=== PATIENT | female | born 1945 | race American Indian/Alaskan Native ===

== ENCOUNTER 2018-12-11 19:36 | Inpatient (IN) | payer MEDICARE ==
--- NOTE | 2018-12-11 20:26 | Emergency Department Report ---
ED General Adult HPI - General Chief complaint: Altered Mental Status Stated complaint: RT SHOULDER PAIN Time Seen by Provider: 12/11/18 20:14 Source: patient, family, EMS Mode of arrival: Stretcher Limitations: Altered Mental Status, Physical Limitation - History of Present Illness Initial comments: 73 y.o. female with history of Atrial fibrillation, hypertension, and now and diabetes presents after having fallen complaining of shoulder pain. Patient has had altered mental status per family for the past week as well. Patient had a fall 2 weeks ago onto her right shoulder and complains of pain. Patient went and saw her PCP on Monday and the thought was that this pain was secondary to her arthritis. Family states that patient is beginning to worsen. Family states patient is not on blood thinner therapy. Family denies any subsequent fall since the one the patient had 3 weeks ago. - Related Data Home Medications Medication Instructions Recorded Confirmed Last Taken Carvedilol [Coreg] 25 mg PO BID 04/03/16 12/11/18 12/11/18 Cetirizine HCl 10 mg PO QDAY 04/03/16 12/11/18 12/11/18 Omeprazole 20 mg PO TID 04/03/16 12/11/18 12/11/18 Pentoxifylline 400 mg PO BID 04/03/16 12/11/18 12/11/18 hydrALAZINE [Apresoline TAB] 50 mg PO TID 04/03/16 12/11/18 12/11/18 metFORMIN 1,000 mg PO BIDAC 04/03/16 12/11/18 12/11/18 Previous Rx's Medication Instructions Recorded Last Taken Type methIMAzole [Tapazole] 5 mg PO QDAY #30 tablet 04/05/16 12/11/18 Rx Allergies Allergy/AdvReac Type Severity Reaction Status Date / Time No Known Allergies Allergy Verified 04/02/16 12:35 ED Review of Systems ROS: Stated complaint: RT SHOULDER PAIN Other details as noted in HPI Comment: Patient is altered and cannot complete full ROS Constitutional: denies: chills, fever Eyes: denies: eye pain, eye discharge, vision change ENT: denies: ear pain, throat pain Respiratory: denies: cough, shortness of breath, wheezing Cardiovascular: denies: chest pain, palpitations Endocrine: no symptoms reported Gastrointestinal: denies: abdominal pain, nausea, diarrhea Genitourinary: denies: urgency, dysuria, discharge Musculoskeletal: denies: back pain, joint swelling, arthralgia Skin: denies: rash, lesions Neurological: denies: headache, weakness, paresthesias Psychiatric: denies: anxiety, depression Hematological/Lymphatic: denies: easy bleeding, easy bruising ED Past Medical Hx - Past Medical History Hx Hypertension: Yes Hx Diabetes: Yes Hx Pulmonary Embolism: No Hx Liver Disease: No Hx Renal Disease: No Hx Sickle Cell Disease: No Hx Arthritis: Yes Hx Seizures: No Hx Kidney Stones: No Hx Asthma: Yes Hx COPD: No Hx Tuberculosis: No Hx Dementia: No - Social History Smoking Status: Never Smoker Substance Use Type: None - Medications Home Medications: Home Medications Medication Instructions Recorded Confirmed Last Taken Type Carvedilol [Coreg] 25 mg PO BID 04/03/16 12/11/18 12/11/18 History Cetirizine HCl 10 mg PO QDAY 04/03/16 12/11/18 12/11/18 History Omeprazole 20 mg PO TID 04/03/16 12/11/18 12/11/18 History Pentoxifylline 400 mg PO BID 04/03/16 12/11/18 12/11/18 History hydrALAZINE [Apresoline TAB] 50 mg PO TID 04/03/16 12/11/18 12/11/18 History metFORMIN 1,000 mg PO BIDAC 04/03/16 12/11/18 12/11/18 History methIMAzole [Tapazole] 5 mg PO QDAY #30 tablet 04/05/16 12/11/18 12/11/18 Rx ED Physical Exam - General Limitations: Altered Mental Status, Physical Limitation General appearance: other (awake; uncomfortable; dehydrated) - Head Head exam: Present: atraumatic, normocephalic - Eye Eye exam: Present: other (mild scleral discolaration noted to conjunctival reg ion) - ENT ENT exam: Present: mucous membranes dry - Neck Neck exam: Present: normal inspection - Respiratory Respiratory exam: Present: other (course breath sounds bilaterally). Absent: respiratory distress - Cardiovascular Cardiovascular Exam: Present: regular rate, normal rhythm. Absent: systolic murmur, diastolic murmur, rubs, gallop - GI/Abdominal GI/Abdominal exam: Present: soft, distended (mild), normal bowel sounds - Extremities Exam Extremities exam: Present: normal inspection, other (tenderness in right shoulder with no ecchymosis or laceration present) - Back Exam Back exam: Present: normal inspection - Neurological Exam Neurological exam: Present: alert, oriented X3, CN II-XII intact - Psychiatric Psychiatric exam: Present: normal affect, normal mood - Skin Skin exam: Present: warm, dry, intact, normal color. Absent: rash ED Course Vital Signs 12/11/18 12/11/18 12/11/18 20:02 20:04 20:15 Pulse Rate 90 89 92 H Respiratory 16 15 19 Rate Blood Pressure 168/71 157/73 O2 Sat by Pulse 93 93 Oximetry 12/11/18 12/11/18 12/11/18 20:30 20:48 21:00 Pulse Rate 92 H 92 H 92 H Respiratory 15 28 H 19 Rate Blood Pressure 157/73 139/54 O2 Sat by Pulse 88 91 91 Oximetry 12/11/18 12/11/18 12/11/18 21:15 22:02 22:15 Pulse Rate 88 86 86 Respiratory 43 H 44 H 18 Rate Blood Pressure 139/54 138/55 O2 Sat by Pulse 81 L 89 Oximetry 12/11/18 22:30 Pulse Rate 82 Respiratory 41 H Rate Blood Pressure 138/48 O2 Sat by Pulse 100 Oximetry ED Medical Decision Making - Lab Data Result diagrams: 12/11/18 22:47 12/11/18 22:47 - EKG Data EKG shows normal: sinus rhythm Rate: tachycardia - EKG Data When compared to previous EKG there are: no significant change Interpretation: other (occasional PVC; no ST elevation) - Medical Decision Making Patient initially noted to have an elevated anion gap and a blood sugar of 560. Patient was started on insulin as well as insulin drip. Patient was also given supplemental potassium IV. Patient noted to have a mild elevation of her creatinine as well. Patient to be admitted to the hospitalist service for continued management and treatment. - Differential Diagnosis DKA; Dehydration; electolyte abnormaltiy; Anemia Critical Care Time: Yes Critical care time in (mins) excluding proc time.: 42 Critical care attestation.: If time is entered above; I have spent that time in minutes in the direct care of this critically ill patient, excluding procedure time. Critical care time includes time spent on direct bedside care, physician consultation, and frequent reassessment. ED Disposition Clinical Impression: Altered mental status, DKA (diabetic ketoacidoses), Hypertension, Hypokalemia, Dehydration, Rotator cuff (capsule) sprain, Acute renal failure, Elevation of cardiac enzymes Disposition: OP ADMIT IP TO THIS HOSP Is pt being admited?: Yes Condition: Stable Instructions: Diabetic Ketoacidosis (ED), Hypertension (ED) Time of Disposition: 23:34 Print Language: GREEK
[2018-12-11] MEDS ORDERED: ZOFRAN IV ONE (20:52)
[2018-12-11] MEDS ORDERED: MORPHINE IV ONE (20:52)
[2018-12-11 21:09] LABS: Albumin 2.9 g/dL (3.9-5); Calcium 10.2 mg/dL (8.4-10.2)
[2018-12-11] MEDS ORDERED: NACL 0.9% 1000 ML 1,000 ML IV ONE ×2 (21:17→23:18)
[2018-12-11] MEDS ORDERED: HumuLIN R IV ONE (21:17)
[2018-12-11] MEDS ORDERED: D50W (25GM) Syringe IV PRN (21:18)
--- NOTE | 2018-12-11 21:43 | Cat Scan Report ---
PROCEDURE: CT HEAD/BRAIN WO CON TECHNIQUE: Computerized tomography of the head was performed without contrast material. CT DOSE LENGTH PRODUCT: 1032.6 mGycm HISTORY: altered mental status COMPARISONS: None . FINDINGS: Grossly Limited study due to suboptimal positioning. Cerebral sulci and ventricles are prominent cons istent with cerebral atrophy appropriate for patient's age. An acute intra-axial or extra-axial hemor rhage or mass effect is not identified. Visualized bilateral paranasal sinuses and mastoid air cells are clear. Bones are intact. IMPRESSION: No obvious acute intracranial abnormality. This document is electronically signed by Francisco Charlton MD., December 11 2018 09:41:18 PM ET
[2018-12-11] MEDS: KCL 10MEQ/100ML 10 MEQ/100 ML BAG IV SCH ×2 (22:05→23:26)
--- NOTE | 2018-12-11 22:43 | XRay Report ---
PROCEDURE: XR SHOULDER 2+V RT TECHNIQUE: Right shoulder radiographs, three views. HISTORY: shoulder pain COMPARISONS: None . FINDINGS: Glenohumeral and acromioclavicular alignment are within normal limits. Moderate degree hypertrophic d egenerative changes are noted involving the acromioclavicular joint. There is decreased acromiohumera l interval. An acute fracture is not identified. Soft tissues are normal. 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 A rotator cuff tendon tear is suspected. This document is electronically signed by Francisco Charlton MD., December 11 2018 10:40:44 PM ET
[2018-12-11 23:16] LABS: Calcium 9.8 mg/dL (8.4-10.2)
[2018-12-11 23:17] LABS: Hematocrit 28.8 % (30.3-42.9); Hemoglobin 9.3 gm/dl (10.1-14.3); Mean Corpuscular HGB Conc 32 % (30-34); Mean Corpuscular Volume 93 fl (79-97); Platelet Count 194 K/mm3 (140-440); Red Cell Distribution Width 17.2 % (13.2-15.2)
--- NOTE | 2018-12-11 23:23 | XRay Report ---
PROCEDURE: XR CHEST 1V AP TECHNIQUE: Chest radiograph single view. HISTORY: chest pain COMPARISONS: None . FINDINGS: Heart: Normal. Mediastinum/Vessels: Normal. Lungs/Pleural space: Normal. Bony thorax: No acute osseous abnormality. Life support devices: None. IMPRESSION: No acute cardiopulmonary abnormality. This document is electronically signed by Majo Urbina DO., December 11 2018 11:21:10 PM ET
[2018-12-11 23:27] LABS: Amorphous Crystals,Urine Few; Bilirubin,Urine NEG (Negative); Blood,Urine NEG (Negative)
[2018-12-11 23:28] LABS: Color,Urine Dark Yellow (Yellow)
[2018-12-12] MEDS ORDERED: MAGNESIUM SULFATE 2GM/50ML 2 GM/50 ML BAG IV ONE (00:07)
[2018-12-12] MEDS ORDERED: NACL 0.9% IV ONE (00:10)
[2018-12-12] MEDS ORDERED: KPHOS IV ONE (00:10)
[2018-12-12] MEDS ORDERED: MAGNESIUM SULFATE IV ONE (00:10)
[2018-12-12] MEDS: KCL 10MEQ/100ML 10 MEQ/100 ML BAG IV SCH ×5 (00:28→09:42)
[2018-12-12 00:38] LABS: Basophils % (Manual) 0 % (0.0-1.8); Eosinophils % (Manual) 0 % (0.0-4.3); Large Platelets 1+; Platelet Clumps Few; Total Cells Counted 100
[2018-12-12 00:39] LABS: Platelet Estimate Consistent w Auto; RBC Morphology Normal
[2018-12-12] MEDS ORDERED: NACL 0.9% 1000 ML 1,000 ML IV SCH ×2 (01:00→04:00)
[2018-12-12 02:31] LABS: Calcium 9.8 mg/dL (8.4-10.2)
[2018-12-12] MEDS ORDERED: D50W (25GM) Syringe IV PRN ×3 (02:38→08:11)
[2018-12-12] MEDS ORDERED: ZOFRAN IV PRN (02:48)
[2018-12-12] MEDS ORDERED: KCL 10MEQ/100ML 10 MEQ/100 ML BAG IV SCH (03:00)
[2018-12-12] MEDS ORDERED: HumuLIN R 100 UNITS in NACL 0.9% 99 ML IV SCH (03:00)
[2018-12-12] MEDS ORDERED: HumuLIN R ONE (03:25)
[2018-12-12] MEDS: MORPHINE IV PRN ×4 (03:31→21:23)
[2018-12-12] MEDS ORDERED: HumuLIN R SUB-Q ONE (03:34)
[2018-12-12 06:23] LABS: Calcium 9.7 mg/dL (8.4-10.2)
[2018-12-12] MEDS ORDERED: MAGNESIUM SULFATE 4GM/100ML 4 GM/100 ML BAG IV ONE (07:00)
[2018-12-12] MEDS ORDERED: HumuLIN R IV ONE (07:00)
--- NOTE | 2018-12-12 07:10 | History and Physical Report ---
CHIEF COMPLAINT: Altered mental status. OTHER COMPLAINT: Right shoulder pain. HISTORY OF PRESENT ILLNESS: The patient is a 73-year-old female, who was noted by family to be confused going on for about 1 week and the patient was also noted to have falling down about 2 weeks ago with right shoulder pain and went and saw her primary care doctor where the patient's pain was attributed to a possible arthritis, but the patient's pain persisted. The patient again fell down and the family was worried about her change in mental status and brought her to the Emergency Room. There was no complaint of chest pain, no history of fever or chills, also there was no history of nausea or vomiting or cough. PAST MEDICAL HISTORY: The patient's past medical history is pertinent for hypertension, diabetes mellitus, arthritis, asthma. PAST SURGICAL HISTORY: Noncontributory. FAMILY HISTORY: Family history is noncontributory. SOCIAL HISTORY: The patient does not smoke, does not drink alcohol, and does not use illicit drugs. MEDICATIONS: The patient is on Coreg or carvedilol 25 mg by mouth twice daily, cetirizine hydrochloride 10 mg by mouth daily, omeprazole 20 mg by mouth t.i.d., pentoxifylline 400 mg by mouth twice daily, hydralazine 50 mg by mouth 3 times daily, metformin 1000 mg by mouth b.i.d. and a.c., also, the patient is on methimazole 5 mg by mouth daily. ALLERGIES: There are no known drug allergies. REVIEW OF SYSTEMS: CONSTITUTIONAL: There is no fever, no chills. No diaphoresis HEENT: There is no headache or sore throat. CARDIOVASCULAR SYSTEM: There is no chest pain or orthopnea. RESPIRATORY SYSTEM: There is no shortness of breath or cough. GASTROINTESTINAL SYSTEM: There is no nausea, no vomiting, no abdominal pain, diarrhea or constipation. NEUROLOGICAL SYSTEM: Change in mental status noted. MUSCULOSKELETAL SYSTEM: There is pain in the right shoulder joint area. DERMATOLOGICAL SYSTEM: There is no skin rash or itching. GENITOURINARY SYSTEM: There is no dysuria, hematuria or flank pain. Rest of system review is normal. PHYSICAL EXAMINATION: GENERAL: At the time of exam, the patient was found to be alert, disoriented 3 and not in acute distress. VITAL SIGNS: At the initial time of presentation showed normal temperature, pulse of 90, respiration 16, blood pressure 168/71, O2 sat of 93% on room air. HEENT: Shows pupils to be equal, round, and reactive to light and accommodating. Extraocular muscles are intact. Oral mucosa looks dry. NECK: Supple with no JVD or carotid bruit. CARDIOVASCULAR SYSTEM: Show normal first and second heart sounds with no gallops or murmurs. RESPIRATORY SYSTEM: Showed good air entry on both sides of the lung with no abnormal breath sounds. GASTROINTESTINAL SYSTEM: Show abdomen to be full, soft, nontender with no organomegaly or rigidity. NEUROLOGIC: Shows no focal deficit. MUSCULOSKELETAL SYSTEM: Show no joint swelling or tenderness. DERMATOLOGIC SYSTEM: Show no skin rash. GENITOURINARY SYSTEM: Showing no costovertebral angle tenderness. PERTINENT LABORATORY DATA AND IMAGING STUDIES: The patient had CT of the head without contrast done that shows no obvious acute intracranial abnormality. The patient also had chest x-ray done. Chest x-ray shows no acute cardiopulmonary lesion and the patient had x-ray of the right shoulder done that shows moderate degree of osteoarthritis in the right acromioclavicular joint with decreased acromiohumeral interval where there is suspicion for rotator cuff tendon tear. Lab results: The patient has CBC done with elevated white count of 18,500 with low hemoglobin of 9.3 and low hematocrit of 28.8 with CBC differential showing elevated segmented neutrophil count of 92%. The patient's chemistry showed low sodium of 133, low potassium of 2.4, low chloride level of 91.7 with elevated BUN of 51 and elevated creatinine of 1.6 with high blood glucose of 436 and low phosphorus level of 1.5 with low magnesium level of 1.2 and elevated bilirubin of 2.1. The patient's troponin level is also high with a value of 0.038 and lipid panel showed high triglyceride of 173. The patient's urinalysis showed trace ketone and the patient's anion gap was 19.3. DIAGNOSES: 1. Altered mental status. 2. Diabetic ketoacidosis. 3. Acute kidney injury. 4. Low magnesium and phosphorus. 5. Elevated troponin level. PLAN OF CARE: 1. The patient will be admitted to ICU. 2. The patient will started on a DKA protocol and will be on IV normal saline running at about 200 mL and hour with an insulin drip going, 3. The patient will be on IV potassium chloride replacement as ordered in the Emergency Room. 4. The patient will be on IV k, phosphorus and magnesium to replace the low magnesium and phosphorus level. 5. The patient will have critical care consult with Dr. Palencia for ICU admission because of need for IV insulin drip. 6. The patient will have cardiac enzyme involving troponin, total CK and CK-MB checked serially for 2 levels. 7. The patient will be on IV Zofran 4 mg every 8 hours for nausea and vomiting and we will have Accu-Chek every and basic metabolic panel checked every 8 hours according to DKA protocol. 8. The patient's IV fluid will be changed to D5 half normal with 20 mEq of potassium in 1 liter when the blood sugar is less than 250 mg/dL. 9. The patient will be on IV morphine 2 mg every 4 hours as needed for pain. 10. The patient will be on oxygen by nasal cannula at 2 liters per minute. 11. The patient will have Nephrology consult with Dr. Mohamud for management of acute kidney injury. JOB# [id number] OCN/NTS
[2018-12-12 08:01] LABS: Calcium 9.6 mg/dL (8.4-10.2)
--- NOTE | 2018-12-12 08:43 | Progress Note ---
Assessment and Plan Assessment and plan: Patient is a 73 yo woman with a history of NIDDM, OA, ARF, CKD 3 with baseline Creatinine around 1.2, depression, hypertension, hyperthyroidism and GERD who presented to [facility] ED with AMS. She was found to have ARF, Creatinine 1.6, hyponatremia 133, hyperglycemia at 529, hypomagnesemia at 1.3 and severe h ypokalemia at 2.4 with no diuretics listed on home medications. She was admitted to ICU for DKA needing insulin drip but it was never started due to hypokalemia and now the anion gap has closed. Looking back at old records here, she had a similar presentation in 2016. She never had Urine drug screen or serum alcohol level checked. -Acute metabolic encephalopathy, CT head negative: get UDS and serum ETOH levels, supportive care and investigate underlying cause, place dobhuff -Severe hypokalemia: consult IV team for midline to give more potassium supplementation -Hypomagnesemia: replete and monitor closely -Hyperthyroidism, slightly elevated free T4: hold tapezole -Moderate malnutrition with morbid obesity: consult Zoo Director, place Dobhuff with placement confirmation -Elevated troponin at 0.038, suspect related to renal failure: get another set of Troponin and if worsen consult Cardiology, ordered ECHO -ARF/CKD 3, vasomotor nephropathy: treat with IVF, and repeat level, if worsen consult Nephrology and get renal ultrasound -Type 2 NIDDM with HONK: added SSI -Leukocytosis with UA negative for UTI and pCXr negative for infiltrates, most likely reactive: get blood cultures. -Anemia, appears acute from 2016 records: get FOBT and monitor cbc closely -Hypertension on coreg and hydralazine: continue, on NSS due to the hyponatremia Home reconciliation completed, reason for the Pentoxifylline unclear, will ask when he back from his hemodialysis DVT ppx on sq heparin CCT 32 minutes History Interval history: Patient was seen and examined. Follow-up on current diagnosis of AMS, still present. Overnight uneventful. Imaging, nursing note, chart, labs and old chart reviewed. Discussed with nursing. Hospitalist Physical - Physical exam Narrative exam: Gen: ill appearing NAD, Awake, Orientated HEENT: NCAT, EOMI, PERRL, OP Clear Neck: supple, no adenopathy, no thyromegaly, no JVD CVS/Heart: RRR, normal S1S2, pulses present bilaterally Chest/Lungs: CTA B, Symmetrical chest expansion, good air entry bilaterally GI/Abdomen: soft, NTND, good bowel sounds, no guarding or rebound /Bladder: no suprapubic tenderness, no CVA or paraspinal tenderness Extermity/Skin: no c/c/e, no obvious rash MSK: FROM x 4 Neuro: CN 2-12 grossly intact, no new focal deficits Psych: confused - Constitutional Vitals: Temp Pulse Resp BP Pulse Ox 99.7 F H 90 13 150/57 94 12/12/18 04:00 12/12/18 07:10 12/12/18 07:28 12/12/18 07:10 12/12/18 07:10 Results - Labs CBC & Chem 7: 12/11/18 22:47 12/12/18 07:33 Labs: Laboratory Last Values WBC 18.5 K/mm3 (4.5-11.0) H 12/11/18 22:47 RBC 3.10 M/mm3 (3.65-5.03) L 12/11/18 22:47 Hgb 9.3 gm/dl (10.1-14.3) L 12/11/18 22:47 Hct 28.8 % (30.3-42.9) L 12/11/18 22:47 MCV 93 fl (79-97) 12/11/18 22:47 MCH 30 pg (28-32) 12/11/18 22:47 MCHC 32 % (30-34) 12/11/18 22:47 RDW 17.2 % (13.2-15.2) H 12/11/18 22:47 Plt Count 194 K/mm3 (140-440) 12/11/18 22:47 Lymph % (Auto) [employer] 12/11/18 22:47 Dolores % (Auto) [employer]icer [employer] 12/11/18 22:47 Eos % (Auto) [employer]icer [employer] 12/11/18 22:47 Baso % (Auto) [employer]icer [employer] 12/11/18 22:47 Lymph # [employer]icer [employer] 12/11/18 22:47 Dolores # Deicer [employer] 12/11/18 22:47 Eos # Deicer [employer] 12/11/18 22:47 Baso # Deicer [employer] 12/11/18 22:47 Add Manual Diff Complete 12/11/18 22:47 Total Counted 100 12/11/18 22:47 Seg Neutrophils % Deicer [employer] 12/11/18 22:47 Seg Neuts % (Manual) 92.0 % (40.0-70.0) H 12/11/18 22:47 Band Neutrophils % 0 % 12/11/18 22:47 Lymphocytes % (Manual) 4.0 % (13.4-35.0) L 12/11/18 22:47 Reactive Lymphs % (Man) 0 % 12/11/18 22:47 Monocytes % (Manual) 3.0 % (0.0-7.3) 12/11/18 22:47 Eosinophils % (Manual) 0 % (0.0-4.3) 12/11/18 22:47 Basophils % (Manual) 0 % (0.0-1.8) 12/11/18 22:47 Metamyelocytes % 1.0 % 12/11/18 22:47 Myelocytes % 0 % 12/11/18 22:47 Promyelocytes % 0 % 12/11/18 22:47 Blast Cells % 0 % 12/11/18 22:47 Nucleated RBC % 2.0 % (0.0-0.9) H 12/11/18 22:47 Seg Neutrophils # Deicer [employer] 12/11/18 22:47 Seg Neutrophils # Man 17.0 K/mm3 (1.8-7.7) H 12/11/18 22:47 Band Neutrophils # 0.0 K/mm3 12/11/18 22:47 Lymphocytes # (Manual) 0.7 K/mm3 (1.2-5.4) L 12/11/18 22:47 Abs React Lymphs (Man) 0.0 K/mm3 12/11/18 22:47 Monocytes # (Manual) 0.6 K/mm3 (0.0-0.8) 12/11/18 22:47 Eosinophils # (Manual) 0.0 K/mm3 (0.0-0.4) 12/11/18 22:47 Basophils # (Manual) 0.0 K/mm3 (0.0-0.1) 12/11/18 22:47 Metamyelocytes # 0.2 K/mm3 12/11/18 22:47 Myelocytes # 0.0 K/mm3 12/11/18:47 Promyelocytes # 0.0 K/mm3 12/11/18 22:47 Blast Cells # 0.0 K/mm3 12/11/18 22:47 WBC Morphology Not Reportable 12/11/18 22:47 Hypersegmented Neuts Not Reportable 12/11/18 22:47 Hyposegmented Neuts Not Reportable 12/11/18 22:47 Hypogranular Neuts Not Reportable 12/11/18 22:47 Smudge Cells Not Reportable 12/11/18 22:47 Toxic Granulation Not Reportable 12/11/18 22:47 Toxic Vacuolation Not Reportable 12/11/18 22:47 Dohle Bodies Not Reportable 12/11/18 22:47 Pelger-Huet Anomaly Not Reportable 12/11/18 22:47 Starla Rods Not Reportable 12/11/18 22:47 Platelet Estimate Consistent w auto 12/11/18 22:47 Clumped Platelets Few 12/11/18 22:47 Plt Clumps, EDTA Not Reportable 12/11/18 22:47 Large Platelets 1+ 12/11/18 22:47 Giant Platelets Not Reportable 12/11/18 22:47 Platelet Satelliting Not Reportable 12/11/18 22:47 Plt Morphology Comment Not Reportable 12/11/18 22:47 RBC Morphology Normal 12/11/18 22:47 Dimorphic RBCs Not Reportable 12/11/18 22:47 Polychromasia Not Reportable 12/11/18 22:47 Hypochromasia Not Reportable 12/11/18 22:47 Poikilocytosis Not Reportable 12/11/18 22:47 Anisocytosis Not Reportable 12/11/18 22:47 Microcytosis Not Reportable 12/11/18 22:47 Macrocytosis Not Reportable 12/11/18 22:47 Spherocytes Not Reportable 12/11/18 22:47 Pappenheimer Bodies Not Reportable 12/11/18 22:47 Sickle Cells Not Reportable 12/11/18 22:47 Target Cells Not Reportable 12/11/18 22:47 Tear Drop Cells Not Reportable 12/11/18 22:47 Ovalocytes Not Reportable 12/11/18 22:47 Helmet Cells Not Reportable 12/11/18 22:47 [place] Bodies Not Reportable 12/11/18 22:47 [place] Rings Not Reportable 12/11/18 22:47 Hilton Cells Not Reportable 12/11/18 22:47 Bite Cells Not Reportable 12/11/18 22:47 Crenated Cell Not Reportable 12/11/18 22:47 Elliptocytes Not Reportable 12/11/18 22:47 Acanthocytes (Spur) Not Reportable 12/11/18 22:47 Rouleaux Not Reportable 12/11/18 22:47 Hemoglobin C Crystals Not Reportable 12/11/18 22:47 Schistocytes Not Reportable 12/11/18 22:47 Malaria parasites Not Reportable 12/11/18 22:47 Dawson Bodies Not Reportable 12/11/18 22:47 Hem Pathologist Commnt No 12/11/18 22:47 POC ABG pH 7.420 (7.35-7.45) 12/11/18 23:14 POC ABG pCO2 39.6 (35-45) 12/11/18 23:14 POC ABG pO2 84 (80-105) 12/11/18 23:14 POC ABG HCO3 25.7 (22-26 mml/L) 12/11/18 23:14 POC ABG Total CO2 27 (23-27mmol/L) 12/11/18 23:14 POC ABG O2 Sat 97 12/11/18 23:14 POC ABG Base Excess 1 ((-2) - (+3)mmol/L) 12/11/18 23:14 FiO2 32 % 12/11/18 23:14 Sodium 135 mmol/L (137-145) L 12/12/18 07:33 Potassium 2.5 mmol/L (3.6-5.0) L* 12/12/18 07:33 Chloride 98.1 mmol/L (98-107) 12/12/18 07:33 Carbon Dioxide 24 mmol/L (22-30) 12/12/18 07:33 Anion Gap 15 mmol/L 12/12/18 07:33 BUN 45 mg/dL (7-17) H 12/12/18 07:33 Creatinine 1.2 mg/dL (0.7-1.2) 12/12/18 07:33 Estimated GFR 53 ml/min 12/12/18 07:33 BUN/Creatinine Ratio 38 % 12/12/18 07:33 Glucose 358 mg/dL (65-100) H 12/12/18 07:33 POC Glucose 286 (70-105) H 12/12/18 08:02 Calcium 9.6 mg/dL (8.4-10.2) 12/12/18 07:33 Phosphorus 2.50 mg/dL (2.5-4.5) D 12/12/18 05:20 Magnesium 1.70 mg/dL (1.7-2.3) 12/12/18 07:33 Total Bilirubin 2.10 mg/dL (0.1-1.2) H 12/11/18 20:34 AST 25 units/L (5-40) 12/11/18 20:34 ALT 27 units/L (7-56) 12/11/18 20:34 Alkaline Phosphatase 215 units/L (35-129) H 12/11/18 20:34 Ammonia 19.0 umol/L (25-60) L 12/11/18 21:04 Total Creatine Kinase 44 units/L (30-135) 12/12/18 07:33 Troponin T 0.038 ng/mL (0.00-0.029) H 12/11/18 20:34 Total Protein 6.2 g/dL (6.3-8.2) L 12/11/18 20:34 Albumin 2.9 g/dL (3.9-5) L 12/11/18 20:34 Albumin/Globulin Ratio 0.9 % 12/11/18 20:34 Triglycerides 173 mg/dL (2-149) H 12/11/18 20:34 Cholesterol 95 mg/dL (50-199) 12/11/18 20:34 LDL Cholesterol Direct 16 mg/dL (50-130) L 12/11/18 20:34 HDL Cholesterol 19 mg/dL (40-59) L 12/11/18 20:34 Cholesterol/HDL Ratio 5.00 % 12/11/18 20:34 TSH 0.447 mlU/mL (0.270-4.200) 12/11/18 21:04 Thyroxine (T4) 5.3 ug/dL (4.0-12.0) 12/11/18 21:04 Urine Color Dark yellow (Yellow) 12/11/18 23:06 Urine Turbidity Clear (Clear) 12/11/18 23:06 Urine pH 5.0 (5.0-7.0) 12/11/18 23:06 Ur Specific [place] 1.021 (1.003-1.030) 12/11/18 23:06 Urine Protein 100 mg/dl mg/dL (Negative) 12/11/18 23:06 Urine Glucose (UA) >=500 mg/dL (Negative) 12/11/18 23:06 Urine Ketones Tr mg/dL (Negative) 12/11/18 23:06 Urine Blood Neg (Negative) 12/11/18 23:06 Urine Nitrite Neg (Negative) 12/11/18 23:06 Urine Bilirubin Neg (Negative) 12/11/18 23:06 Urine Urobilinogen 4.0 mg/dL (<2.0) 12/11/18 23:06 Ur Leukocyte Esterase Neg (Negative) 12/11/18 23:06 Urine WBC (Auto) 1.0 /HPF (0.0-6.0) 12/11/18 23:06 Urine RBC (Auto) 2.0 /HPF (0.0-6.0) 12/11/18 23:06 U Epithel Cells (Auto) 1.0 /HPF (0-13.0) 12/11/18 23:06 Amorphous Crystals Few 12/11/18 23:06 Active Medications - Current Medications Current Medications: Generic Name Dose Route Start Last Admin Trade Name Freq PRN Reason Stop Dose Admin Carvedilol 25 mg 12/12/18 10:00 Coreg PO BID AMANDEEP Dextrose 50 ml 12/12/18 08:11 D50w (25gm) Syringe IV PRN PRN Hypoglycemia Heparin Sodium (Porcine) 5,000 unit 12/12/18 10:00 Heparin SUB-Q Q12HR [facility] Hydralazine HCl 50 mg 12/12/18 09:00 Apresoline PO TID AMANDEEP Magnesium Sulfate 4 gm in 100 mls @ 25 mls/hr 12/12/18 07:00 Magnesium Sulfate 4gm/100ml IV 12/12/18 10:59 ONCE ONE Potassium Chloride 10 meq in 100 mls @ 100 mls/hr 12/12/18 07:00 12/12/18 08:23 Kcl 10meq/100ml IV 12/12/18 16:59 100 mls/hr Q1H AMANDEEP Administration Potassium Chloride 20 meq/ 1,010 mls @ 100 mls/hr 12/12/18 09:00 Sodium Chloride IV DIRECT [facility] Insulin Human Lispro 0 unit 12/12/18 09:00 Humalog SUB-Q Q4H [facility] Protocol Loratadine 10 mg 12/12/18 10:00 Claritin PO DAILY [facility] Morphine Sulfate 2 mg 12/12/18 02:48 12/12/18 07:28 Morphine IV 2 mg Q4H PRN Administration Pain, Moderate (4-6) Ondansetron HCl 4 mg 12/12/18 02:48 Zofran IV Q8H PRN Nausea And Vomiting
[2018-12-12] MEDS ORDERED: NACL 0.9% 1000 ML 1,000 ML with KCL 20 MEQ IV SCH (09:00)
[2018-12-12] MEDS: HEPARIN SUB-Q SCH (09:22)
[2018-12-12] MEDS: HumaLOG SUB-Q SCH ×4 (09:26→21:25)
--- NOTE | 2018-12-12 09:27 | XRay Report ---
AP ABDOMEN: HISTORY: Dobbhoff placement. The distal tip of the Dobbhoff tube terminates in the body of the stomach. The abdominal gas pattern is unremarkable. No masses or organomegaly is identified and there is no gross evidence of free air or fluid. No significant soft tissue calcifications are noted. IMPRESSION: Unremarkable abdomen.
[2018-12-12 09:32] LABS: Creatine Kinase MB 1.1 ng/mL (0.0-4.0)
[2018-12-12] MEDS ORDERED: POTASSIUM CHLORIDE FEEDTUBE SCH (10:00)
[2018-12-12] MEDS: COREG PO SCH ×2 (10:27→22:28)
[2018-12-12] MEDS: CLARITIN PO SCH (10:28)
[2018-12-12] MEDS: APRESOLINE PO SCH ×3 (10:28→21:26)
[2018-12-12] MEDS: TYLENOL PO PRN ×2 (10:38→21:25)
--- NOTE | 2018-12-12 11:21 | Consultation ---
History of Present Illness - Reason for Consult Consult date: 12/12/18 Altered mental State, DKA, Severe Electrolyte Imbalance - History of Present Illness 73 y/o morbidly obese female admitted with elevated blood sugar and severe hypokalemia and hypomagnesium. There was concern for DKA but patient not started on Insulin gtt secondary to low K. Anion Gap is now closed but potassium remains extremely low despite supplementation. No arrhythmias noted so far. Replacing K and Mag aggressively. Patient will respond to her name but will not answer any questions appropriately. She yells out but nothing is specific. No family is currently at bedside. Patient was not febrile on admission but has since spiked a temp of 102.5. Patient not currently on abx as well. She does have some ulcers on her legs but these do not look infected. No rashes. CXR is clear. Urine is negative. Remainder is not obtainable for review. Past History Past Medical History: other (unable to obtain) Past Surgical History: Other (unable to obtain) Social history: , other (unable to obtain) Family history: other (unable to obtain) Medications and Allergies Allergies Allergy/AdvReac Type Severity Reaction Status Date / Time No Known Allergies Allergy Verified 04/02/16 12:35 Home Medications Medication Instructions Recorded Confirmed Last Taken Type Carvedilol [Coreg] 25 mg PO BID 04/03/16 12/11/18 12/11/18 History Cetirizine HCl 10 mg PO QDAY 04/03/16 12/11/18 12/11/18 History Omeprazole 20 mg PO TID 04/03/16 12/11/18 12/11/18 History Pentoxifylline 400 mg PO BID 04/03/16 12/11/18 12/11/18 History hydrALAZINE [Apresoline TAB] 50 mg PO TID 04/03/16 12/11/18 12/11/18 History metFORMIN 1,000 mg PO BIDAC 04/03/16 12/11/18 12/11/18 History methIMAzole [Tapazole] 5 mg PO QDAY #30 tablet 04/05/16 12/11/18 12/11/18 Rx Active Meds: Active Medications Acetaminophen (Tylenol) 650 mg PO Q4H PRN PRN Reason: Fever >101 Last Admin: 12/12/18 10:38 Dose: 650 mg Documented by: Carvedilol (Coreg) 25 mg PO BID [facility] Last Admin: 12/12/18 10:27 Dose: 25 mg Documented by: Dextrose (D50w (25gm) Syringe) 50 ml IV PRN PRN PRN Reason: Hypoglycemia Haloperidol Lactate (Haldol) 5 mg IV ONCE ONE Stop: 12/12/18 12:01 Heparin Sodium (Porcine) (Heparin) 5,000 unit SUB-Q Q12HR [facility] Last Admin: 12/12/18 09:22 Dose: 5,000 unit Documented by: Hydralazine HCl (Apresoline) 50 mg PO TID [facility] Last Admin: 12/12/18 10:28 Dose: 50 mg Documented by: Sodium Chloride (Nacl 0.9% 1000 Ml) 1,000 mls @ 125 mls/hr IV DIRECT [facility] Insulin Human Lispro (Humalog) 0 unit SUB-Q Q4H [facility]; Protocol Last Admin: 12/12/18 09:26 Dose: 6 unit Documented by: Loratadine (Claritin) 10 mg PO DAILY [facility] Last Admin: 12/12/18 10:28 Dose: 10 mg Documented by: Morphine Sulfate (Morphine) 2 mg IV Q4H PRN PRN Reason: Pain, Moderate (4-6) Last Admin: 12/12/18 07:28 Dose: 2 mg Documented by: Ondansetron HCl (Zofran) 4 mg IV Q8H PRN PRN Reason: Nausea And Vomiting Potassium Chloride (Potassium Chloride) 40 meq FEEDTUBE Q2H [facility] Stop: 12/12/18 14:01 Review of Systems ROS unobtainable: due to mental status Exam - Constitutional Vitals: Temp Pulse Resp BP Pulse Ox 99.7 F H 83 43 H 142/64 93 12/12/18 04:00 12/12/18 10:27 12/12/18 09:50 12/12/18 10:27 12/12/18 09:50 General appearance: Present: no acute distress, obese - EENT ENT: hearing intact, other (dry mucosa) - Respiratory Respiratory effort: normal Respiratory: bilateral: CTA - Cardiovascular Rhythm: regular Heart Sounds: Present: S1 & S2 - Extremities Extremities: no ischemia Extremity abnormal: ulceration (on ventral right leg) Results - Labs CBC & Chem 7: 12/11/18 22:47 12/12/18 07:33 Labs: Abnormal lab results 12/11/18 12/11/18 12/11/18 Range/Units 20:09 20:34 20:34 WBC (4.5-11.0) K/mm3 RBC (3.65-5.03) M/mm3 Hgb (10.1-14.3) gm/dl Hct (30.3-42.9) % RDW (13.2-15.2) % Seg Neuts % (Manual) (40.0-70.0) % Lymphocytes % (Manual) (13.4-35.0) % Nucleated RBC % (0.0-0.9) % Seg Neutrophils # Man (1.8-7.7) K/mm3 Lymphocytes # (Manual) (1.2-5.4) K/mm3 Sodium 134 L (137-145) mmol/L Potassium 2.9 L* (3.6-5.0) mmol/L Chloride 88.1 L (98-107) mmol/L BUN 50 H (7-17) mg/dL Creatinine 1.4 H (0.7-1.2) mg/dL Glucose 529 H* (65-100) mg/dL POC Glucose 445 H (70-105) Phosphorus (2.5-4.5) mg/dL Magnesium (1.7-2.3) mg/dL Total Bilirubin 2.10 H (0.1-1.2) mg/dL Alkaline Phosphatase 215 H (35-129) units/L Ammonia (25-60) umol/L Troponin T 0.038 H (0.00-0.029) ng/mL Total Protein 6.2 L (6.3-8.2) g/dL Albumin 2.9 L (3.9-5) g/dL Triglycerides 173 H (2-149) mg/dL LDL Cholesterol Direct 16 L (50-130) mg/dL HDL Cholesterol 19 L (40-59) mg/dL 12/11/18 12/11/18 12/11/18 Range/Units 21:04 22:47 22:47 WBC 18.5 H (4.5-11.0) K/mm3 RBC 3.10 L (3.65-5.03) M/mm3 Hgb 9.3 L (10.1-14.3) gm/dl Hct 28.8 L (30.3-42.9) % RDW 17.2 H (13.2-15.2) % Seg Neuts % (Manual) 92.0 H (40.0-70.0) % Lymphocytes % (Manual) 4.0 L (13.4-35.0) % Nucleated RBC % 2.0 H (0.0-0.9) % Seg Neutrophils # Man 17.0 H (1.8-7.7) K/mm3 Lymphocytes # (Manual) 0.7 L (1.2-5.4) K/mm3 Sodium (137-145) mmol/L Potassium (3.6-5.0) mmol/L Chloride (98-107) mmol/L BUN (7-17) mg/dL Creatinine (0.7-1.2) mg/dL Glucose (65-100) mg/dL POC Glucose (70-105) Phosphorus 1.50 L (2.5-4.5) mg/dL Magnesium 1.30 L (1.7-2.3) mg/dL Total Bilirubin (0.1-1.2) mg/dL Alkaline Phosphatase (35-129) units/L Ammonia 19.0 L (25-60) umol/L Troponin T (0.00-0.029) ng/mL Total Protein (6.3-8.2) g/dL Albumin (3.9-5) g/dL Triglycerides (2-149) mg/dL LDL Cholesterol Direct (50-130) mg/dL HDL Cholesterol (40-59) mg/dL 12/11/18 12/12/18 12/12/18 Range/Units 22:47 00:47 01:57 WBC (4.5-11.0) K/mm3 RBC (3.65-5.03) M/mm3 Hgb (10.1-14.3) gm/dl Hct (30.3-42.9) % RDW (13.2-15.2) % Seg Neuts % (Manual) (40.0-70.0) % Lymphocytes % (Manual) (13.4-35.0) % Nucleated RBC % (0.0-0.9) % Seg Neutrophils # Man (1.8-7.7) K/mm3 Lymphocytes # (Manual) (1.2-5.4) K/mm3 Sodium 133 L 134 L (137-145) mmol/L Potassium 2.4 L* 2.8 L* (3.6-5.0) mmol/L Chloride 91.7 L 93.8 L (98-107) mmol/L BUN 51 H 50 H (7-17) mg/dL Creatinine 1.6 H 1.5 H (0.7-1.2) mg/dL Glucose 436 H 429 H (65-100) mg/dL POC Glucose 442 H (70-105) Phosphorus (2.5-4.5) mg/dL Magnesium (1.7-2.3) mg/dL Total Bilirubin (0.1-1.2) mg/dL Alkaline Phosphatase (35-129) units/L Ammonia (25-60) umol/L Troponin T (0.00-0.029) ng/mL Total Protein (6.3-8.2) g/dL Albumin (3.9-5) g/dL Triglycerides (2-149) mg/dL LDL Cholesterol Direct (50-130) mg/dL HDL Cholesterol (40-59) mg/dL 12/12/18 12/12/18 12/12/18 Range/Units 04:10 05:20 05:24 WBC (4.5-11.0) K/mm3 RBC (3.65-5.03) M/mm3 Hgb (10.1-14.3) gm/dl Hct (30.3-42.9) % RDW (13.2-15.2) % Seg Neuts % (Manual) (40.0-70.0) % Lymphocytes % (Manual) (13.4-35.0) % Nucleated RBC % (0.0-0.9) % Seg Neutrophils # Man (1.8-7.7) K/mm3 Lymphocytes # (Manual) (1.2-5.4) K/mm3 Sodium 136 L (137-145) mmol/L Potassium 2.8 L* (3.6-5.0) mmol/L Chloride 96.5 L (98-107) mmol/L BUN 48 H (7-17) mg/dL Creatinine 1.4 H (0.7-1.2) mg/dL Glucose 417 H (65-100) mg/dL POC Glucose 406 H 405 H (70-105) Phosphorus (2.5-4.5) mg/dL Magnesium (1.7-2.3) mg/dL Total Bilirubin (0.1-1.2) mg/dL Alkaline Phosphatase (35-129) units/L Ammonia (25-60) umol/L Troponin T (0.00-0.029) ng/mL Total Protein (6.3-8.2) g/dL Albumin (3.9-5) g/dL Triglycerides (2-149) mg/dL LDL Cholesterol Direct (50-130) mg/dL HDL Cholesterol (40-59) mg/dL 12/12/18 12/12/18 12/12/18 Range/Units 07:33 07:33 08:02 WBC (4.5-11.0) K/mm3 RBC (3.65-5.03) M/mm3 Hgb (10.1-14.3) gm/dl Hct (30.3-42.9) % RDW (13.2-15.2) % Seg Neuts % (Manual) (40.0-70.0) % Lymphocytes % (Manual) (13.4-35.0) % Nucleated RBC % (0.0-0.9) % Seg Neutrophils # Man (1.8-7.7) K/mm3 Lymphocytes # (Manual) (1.2-5.4) K/mm3 Sodium 135 L (137-145) mmol/L Potassium 2.5 L* (3.6-5.0) mmol/L Chloride (98-107) mmol/L BUN 45 H (7-17) mg/dL Creatinine (0.7-1.2) mg/dL Glucose 358 H (65-100) mg/dL POC Glucose 286 H (70-105) Phosphorus (2.5-4.5) mg/dL Magnesium (1.7-2.3) mg/dL Total Bilirubin (0.1-1.2) mg/dL Alkaline Phosphatase (35-129) units/L Ammonia (25-60) umol/L Troponin T 0.036 H (0.00-0.029) ng/mL Total Protein (6.3-8.2) g/dL Albumin (3.9-5) g/dL Triglycerides (2-149) mg/dL LDL Cholesterol Direct (50-130) mg/dL HDL Cholesterol (40-59) mg/dL - Imaging and Cardiology Chest x-ray: image reviewed Assessment and Plan 73 y/o morbidly obese female, admitted with severe electrolyte imbalance, DKA and altered mental status now with fever. 1. Will order stat coags 2. Ordered Urgent LP 3. Once LP will empirically treat for menigitis with age appropriate therapy unless Blood cultures reveal something different 4. Follow up Blood cultures 5. Aggressive replacement of Mag and K. K wont replete until Mag is replaced. Recheck both at noon 6. Continue ICU monitoring. CCT 31 minutes.
[2018-12-12 11:35] LABS: Amphetamine Screen,Urine PRESUMPTIVE NEGATIVE; Benzodiazepines Screen,Urine PRESUMPTIVE NEGATIVE; Cannabinoid Screen,Urine PRESUMPTIVE NEGATIVE; Cocaine Screen,Urine PRESUMPTIVE NEGATIVE; Methadone Screen,Urine PRESUMPTIVE NEGATIVE; Opiate Screen,Urine PRESUMPTIVE NEGATIVE
[2018-12-12] MEDS ORDERED: HALDOL IV ONE (12:00)
[2018-12-12 12:12] LABS: INR 1.28 (0.87-1.13)
[2018-12-12 12:13] LABS: Partial Thromboplastin Time 40.8 Sec. (24.2-36.6)
[2018-12-12] MEDS: POTASSIUM CHLORIDE FEEDTUBE SCH ×2 (12:42→14:38)
[2018-12-12] MEDS ORDERED: POTASSIUM CHLORIDE FEEDTUBE PRN (13:40)
[2018-12-12] MEDS: NACL 0.9% 1000 ML 1,000 ML IV SCH (14:37)
[2018-12-12 16:04] LABS: Calcium 9.8 mg/dL (8.4-10.2)
--- NOTE | 2018-12-12 16:07 | Consultation ---
History of Present Illness - History of Present Illness History is limited patient is confused history is obtained from charts / family members at bedside 73-year-old lady medical history significant for hypertension, GERD, chronic ki dney disease, hypothyroidism, diabetes admitted with altered mental status was found to have moderate hypokalemia also found to be hyperglycemic and acute kidney injury. She received insulin injections. According to the family members this is a change from previous mental status he reports no sick contacts. She received fluid hydration with several boluses of saline prior to admission to the ICU she also received potassium supplementation She is nonverbal and very confused, according to family members she resides with hER , who is not present at this time Past History Past Medical History: other (unable to obtain) Past Surgical History: Other (unable to obtain) Social history: , other (unable to obtain) Family history: other (unable to obtain) Medications and Allergies Allergies Allergy/AdvReac Type Severity Reaction Status Date / Time No Known Allergies Allergy Verified 04/02/16 12:35 Home Medications Medication Instructions Recorded Confirmed Last Taken Type Carvedilol [Coreg] 25 mg PO BID 04/03/16 12/11/18 12/11/18 History Cetirizine HCl 10 mg PO QDAY 04/03/16 12/11/18 12/11/18 History Omeprazole 20 mg PO TID 04/03/16 12/11/18 12/11/18 History Pentoxifylline 400 mg PO BID 04/03/16 12/11/18 12/11/18 History hydrALAZINE [Apresoline TAB] 50 mg PO TID 04/03/16 12/11/18 12/11/18 History metFORMIN 1,000 mg PO BIDAC 04/03/16 12/11/18 12/11/18 History methIMAzole [Tapazole] 5 mg PO QDAY #30 tablet 04/05/16 12/11/18 12/11/18 Rx Active Meds: Active Medications Acetaminophen (Tylenol) 650 mg PO Q4H PRN PRN Reason: Fever >101 Last Admin: 12/12/18 10:38 Dose: 650 mg Documented by: Carvedilol (Coreg) 25 mg PO BID AMANDEEP Last Admin: 12/12/18 10:27 Dose: 25 mg Documented by: Dextrose (D50w (25gm) Syringe) 50 ml IV PRN PRN PRN Reason: Hypoglycemia Heparin Sodium (Porcine) (Heparin) 5,000 unit SUB-Q Q12HR [facility] Last Admin: 12/12/18 09:22 Dose: 5,000 unit Documented by: Hydralazine HCl (Apresoline) 50 mg PO TID [facility] Last Admin: 12/12/18 13:44 Dose: Not Given Documented by: Sodium Chloride (Nacl 0.9% 1000 Ml) 1,000 mls @ 125 mls/hr IV DIRECT [facility] Last Admin: 12/12/18 14:37 Dose: 125 mls/hr Documented by: Insulin Human Lispro (Humalog) 0 unit SUB-Q Q4H [facility]; Protocol Last Admin: 12/12/18 12:41 Dose: 6 unit Documented by: Loratadine (Claritin) 10 mg PO DAILY [facility] Last Admin: 12/12/18 10:28 Dose: 10 mg Documented by: Morphine Sulfate (Morphine) 2 mg IV Q4H PRN PRN Reason: Pain, Moderate (4-6) Last Admin: 12/12/18 15:46 Dose: 2 mg Documented by: Ondansetron HCl (Zofran) 4 mg IV Q8H PRN PRN Reason: Nausea And Vomiting Potassium Chloride (Potassium Chloride) 40 meq FEEDTUBE Q4H PRN PRN Reason: IF K </= 2.5 Review of Systems ROS unobtainable: due to mental status Exam - Vital Signs Vital signs: Vital Signs Pulse Resp 90 16 12/11/18 20:02 12/11/18 20:02 - General Appearance General appearance: obese EENT: ATNC, PERRL, mucous membranes moist Neck: Present: neck supple Respiratory: Clear to Ascultation Heart: regular, S1S2 Gastrointestinal: Present: normal, normoactive bowel sounds Integumentary: no rash Neurologic: confused, disoriented Musculoskeletal: Absent: joint swelling Psychiatric: agitated Results - Lab Results 12/11/18 22:47 12/12/18 07:33 Most recent lab results Calcium 9.6 mg/dL (8.4-10.2) 12/12/18 07:33 Phosphorus 2.50 mg/dL (2.5-4.5) D 12/12/18 05:20 Magnesium 1.70 mg/dL (1.7-2.3) 12/12/18 07:33 Assessment and Plan - Patient Problems (1) Acute renal failure Current Visit: Yes Status: Acute Plan to address problem: Acute renal failure now resolved creatinine elevated 1.6 on admission her creatinine improved to 1.2 Mg/DL Etiology of acute kidney injury is likely related to intravascular depletion Continue fluid hydration Agree with fluid hydration with normal saline at 125ML/HR. (2) Altered mental status Current Visit: Yes Status: Acute Plan to address problem: Encephalopathy evaluation ongoing Brain CT without any acute intracranial abnormality cerebral atrophy noted WORK up Primary team (3) DKA (diabetic ketoacidoses) Current Visit: Yes Status: Acute Plan to address problem: Diabetic ketoacidosis. Significant hypokalemia Receive insulin with improvement in glucose levels Continue fluid hydration (4) Hypokalemia Current Visit: Yes Status: Acute Plan to address problem: Moderate hypokalemia Potassium 2.5 Has received 10 mEq KCl 4 also receive potassium phosphate 15 mmol also received 20 mEq potassium chloride by mouth We'll give additional 40 MQ's by mouth 2 Recheck potassium levels if still less than 3. 5 repeat potassium 40 mEq mouth 2 Received 4 g of magnesium by primary team repeat magnesium is elevated at 2.5
[2018-12-12] MEDS ORDERED: HALDOL IM PRN (17:00)
[2018-12-12] MEDS: HALDOL IV PRN (17:18)
[2018-12-12] MEDS ORDERED: VANCOMYCIN/NS 1 GM/250 ML 1 GM/250 ML BAG IV ONE (18:50)
[2018-12-12] MEDS ORDERED: VANCOMYCIN 2,000 MG in NACL 0.9% 500 ML 500 ML IV SCH (20:00)
[2018-12-13] MEDS: HumaLOG SUB-Q SCH ×6 (00:58→21:18)
[2018-12-13] MEDS: NACL 0.9% 1000 ML 1,000 ML IV SCH ×3 (00:59→19:55)
[2018-12-13] MEDS: HALDOL IV PRN (05:53)
[2018-12-13] MEDS: MORPHINE IV PRN ×3 (06:07→17:09)
--- NOTE | 2018-12-13 06:15 | Progress Note ---
Assessment and Plan Assessment and plan: Patient is a 73 yo woman with a history of NIDDM, OA, ARF, CKD 3 with baseline Creatinine around 1.2, depression, hypertension, hyperthyroidism and GERD who presented to [facility] ED with AMS. She was found to have ARF, Creatinine 1.6, hyponatremia 133, hyperglycemia at 529, hypomagnesemia at 1.3 and severe h ypokalemia at 2.4 with no diuretics listed on home medications. She was admitted to ICU for DKA needing insulin drip but it was never started due to hypokalemia and now the anion gap has closed. Looking back at old records here, she had a similar presentation in 2016. She never had Urine drug screen or serum alcohol level checked. -Acute metabolic encephalopathy, CT head negative: UDS and serum ETOH levels unremarkable, LP pending, ?Neurology coverage today -Leukocytosis etiology unclear, with UA negative for UTI and pCXr negative for infiltrates, now febrile: follow blood cultures, consulted ID -Severe hypokalemia: ordered IV team for midline to give more potassium supplementation but wasn't done because fevers -Hypomagnesemia: repleted and monitor closely -Hyperthyroidism, slightly elevated free T4: hold tapezole -Moderate malnutrition with morbid obesity: consult Coffee Shop Manager, ordered Dobhuff with placement confirmation -Elevated troponin at 0.038, suspect related to renal failure: another set of Troponin remained flat, ordered ECHO -ARF/CKD 3, vasomotor nephropathy: treat with IVF, and repeat level, if worsen consult Nephrology and get renal ultrasound -Type 2 NIDDM with HONK: added SSI -Anemia, appears acute from 2016 records: get FOBT and monitor cbc closely -Hypertension on coreg and hydralazine: continue, on NSS due to the hyponatremia Home reconciliation completed, reason for the Pentoxifylline unclear, will ask when he back from his hemodialysis DVT ppx on sq heparin History Interval history: Patient was seen and examined. Follow-up on current diagnosis of AMS, still confused. Overnight uneventful except for fevers. Imaging, nursing note, chart, labs and old chart reviewed. Hospitalist Physical - Physical exam Narrative exam: Gen: ill appearing NAD, confused HEENT: NCAT, EOMI, PERRL, OP Clear Neck: supple, no adenopathy, no thyromegaly, no JVD CVS/Heart: RRR, normal S1S2, pulses present bilaterally Chest/Lungs: CTA B, Symmetrical chest expansion, good air entry bilaterally GI/Abdomen: soft, NTND, good bowel sounds, no guarding or rebound /Bladder: no suprapubic tenderness, no CVA or paraspinal tenderness Extermity/Skin: no c/c/e, no obvious rash MSK: FROM x 4 Neuro: CN 2-12 grossly intact, no new focal deficits Psych: confused - Constitutional Vitals: Temp Pulse Resp BP Pulse Ox 100.1 F H 73 24 120/56 95 12/13/18 04:00 12/13/18 05:31 12/13/18 06:07 12/13/18 05:31 12/13/18 05:31 General appearance: Present: no acute distress, obese Results - Labs CBC & Chem 7: 12/11/18 22:47 12/12/18 14:58 Labs: Laboratory Last Values WBC 18.5 K/mm3 (4.5-11.0) H 12/11/18 22:47 RBC 3.10 M/mm3 (3.65-5.03) L 12/11/18 22:47 Hgb 9.3 gm/dl (10.1-14.3) L 12/11/18 22:47 Hct 28.8 % (30.3-42.9) L 12/11/18 22:47 MCV 93 fl (79-97) 12/11/18 22:47 MCH 30 pg (28-32) 12/11/18 22:47 MCHC 32 % (30-34) 12/11/18 22:47 RDW 17.2 % (13.2-15.2) H 12/11/18 22:47 Plt Count 194 K/mm3 (140-440) 12/11/18 22:47 Lymph % (Auto) Engine Dynamometer Tester 12/11/18 22:47 [place] % (Auto) Engine Dynamometer Tester 12/11/18 22:47 Eos % (Auto) Engine Dynamometer Tester 12/11/18 22:47 Baso % (Auto) Engine Dynamometer Tester 12/11/18 22:47 Lymph # Engine Dynamometer Tester 12/11/18 22:47 [place] # Engine Dynamometer Tester 12/11/18 22:47 Eos # Engine Dynamometer Tester 12/11/18 22:47 Baso # Engine Dynamometer Tester 12/11/18 22:47 Add Manual Diff Complete 12/11/18 22:47 Total Counted 100 12/11/18 22:47 Seg Neutrophils % Engine Dynamometer Tester 12/11/18 22:47 Seg Neuts % (Manual) 92.0 % (40.0-70.0) H 12/11/18 22:47 Band Neutrophils % 0 % 12/11/18 22:47 Lymphocytes % (Manual) 4.0 % (13.4-35.0) L 12/11/18 22:47 Reactive Lymphs % (Man) 0 % 12/11/18 22:47 Monocytes % (Manual) 3.0 % (0.0-7.3) 12/11/18 22:47 Eosinophils % (Manual) 0 % (0.0-4.3) 12/11/18 22:47 Basophils % (Manual) 0 % (0.0-1.8) 12/11/18 22:47 Metamyelocytes % 1.0 % 12/11/18 22:47 Myelocytes % 0 % 12/11/18 22:47 Promyelocytes % 0 % 12/11/18 22:47 Blast Cells % 0 % 12/11/18 22:47 Nucleated RBC % 2.0 % (0.0-0.9) H 12/11/18 22:47 Seg Neutrophils # Engine Dynamometer Tester 12/11/18 22:47 Seg Neutrophils # Man 17.0 K/mm3 (1.8-7.7) H 12/11/18 22:47 Band Neutrophils # 0.0 K/mm3 12/11/18 22:47 Lymphocytes # (Manual) 0.7 K/mm3 (1.2-5.4) L 12/11/18 22:47 Abs React Lymphs (Man) 0.0 K/mm3 12/11/18 22:47 Monocytes # (Manual) 0.6 K/mm3 (0.0-0.8) 12/11/18 22:47 Eosinophils # (Manual) 0.0 K/mm3 (0.0-0.4) 12/11/18 22:47 Basophils # (Manual) 0.0 K/mm3 (0.0-0.1) 12/11/18 22:47 Metamyelocytes # 0.2 K/mm3 12/11/18 22:47 Myelocytes # 0.0 K/mm3 12/11/18 22:47 Promyelocytes # 0.0 K/mm3 12/11/18 22:47 Blast Cells # 0.0 K/mm3 12/11/18 22:47 WBC Morphology Not Reportable 12/11/18 22:47 Hypersegmented Neuts Not Reportable 12/11/18 22:47 Hyposegmented Neuts Not Reportable 12/11/18 22:47 Hypogranular Neuts Not Reportable 12/11/18 22:47 Smudge Cells Not Reportable 12/11/18 22:47 Toxic Granulation Not Reportable 12/11/18 22:47 Toxic Vacuolation Not Reportable 12/11/18 22:47 Dohle Bodies Not Reportable 12/11/18 22:47 Pelger-Huet Anomaly Not Reportable 12/11/18 22:47 Starla Rods Not Reportable 12/11/18 22:47 Platelet Estimate Consistent w auto 12/11/18 22:47 Clumped Platelets Few 12/11/18 22:47 Plt Clumps, EDTA Not Reportable 12/11/18 22:47 Large Platelets 1+ 12/11/18 22:47 Giant Platelets Not Reportable 12/11/18 22:47 Platelet Satelliting Not Reportable 12/11/18 22:47 Plt Morphology Comment Not Reportable 12/11/18 22:47 RBC Morphology Normal 12/11/18 22:47 Dimorphic RBCs Not Reportable 12/11/18 22:47 Polychromasia Not Reportable 12/11/18 22:47 Hypochromasia Not Reportable 12/11/18 22:47 Poikilocytosis Not Reportable 12/11/18 22:47 Anisocytosis Not Reportable 12/11/18 22:47 Microcytosis Not Reportable 12/11/18 22:47 Macrocytosis Not Reportable 12/11/18 22:47 Spherocytes Not Reportable 12/11/18 22:47 Pappenheimer Bodies Not Reportable 12/11/18 22:47 Sickle Cells Not Reportable 12/11/18 22:47 Target Cells Not Reportable 12/11/18 22:47 Tear Drop Cells Not Reportable 12/11/18 22:47 Ovalocytes Not Reportable 12/11/18 22:47 Helmet Cells Not Reportable 12/11/18 22:47 Sanchez-Charlack Bodies Not Reportable 12/11/18 22:47 Kosse Rings Not Reportable 12/11/18 22:47 Exchange Cells Not Reportable 12/11/18 22:47 Bite Cells Not Reportable 12/11/18 22:47 Crenated Cell Not Reportable 12/11/18 22:47 Elliptocytes Not Reportable 12/11/18 22:47 Acanthocytes (Spur) Not Reportable 12/11/18 22:47 Rouleaux Not Reportable 12/11/18 22:47 Hemoglobin C Crystals Not Reportable 12/11/18 22:47 Schistocytes Not Reportable 12/11/18 22:47 Malaria parasites Not Reportable 12/11/18 22:47 Dawson Bodies Not Reportable 12/11/18 22:47 Hem Pathologist Commnt No 12/11/18 22:47 PT 16.8 Sec. (12.2-14.9) H 12/12/18 11:45 INR 1.28 (0.87-1.13) H 12/12/18 11:45 APTT 40.8 Sec. (24.2-36.6) H 12/12/18 11:45 POC ABG pH 7.420 (7.35-7.45) 12/11/18 23:14 POC ABG pCO2 39.6 (35-45) 12/11/18 23:14 POC ABG pO2 84 (80-105) 12/11/18 23:14 POC ABG HCO3 25.7 (22-26 mml/L) 12/11/18 23:14 POC ABG Total CO2 27 (23-27mmol/L) 12/11/18 23:14 POC ABG O2 Sat 97 12/11/18 23:14 POC ABG Base Excess 1 ((-2) - (+3)mmol/L) 12/11/18 23:14 FiO2 32 % 12/11/18 23:14 Sodium 137 mmol/L (137-145) 12/12/18 14:58 Potassium 4.1 mmol/L (3.6-5.0) D 12/12/18 14:58 Chloride 101.8 mmol/L (98-107) 12/12/18 14:58 Carbon Dioxide 26 mmol/L (22-30) 12/12/18 14:58 Anion Gap 13 mmol/L 12/12/18 14:58 BUN 45 mg/dL (7-17) H 12/12/18 14:58 Creatinine 1.3 mg/dL (0.7-1.2) H 12/12/18 14:58 Estimated GFR 49 ml/min 12/12/18 14:58 BUN/Creatinine Ratio 35 % 12/12/18 14:58 Glucose 265 mg/dL (65-100) H 12/12/18 14:58 POC Glucose 208 (70-105) H 12/13/18 04:51 Calcium 9.8 mg/dL (8.4-10.2) 12/12/18 14:58 Phosphorus 2.50 mg/dL (2.5-4.5) D 12/12/18 05:20 Magnesium 2.50 mg/dL (1.7-2.3) H 12/12/18 14:58 Total Bilirubin 2.10 mg/dL (0.1-1.2) H 12/11/18 20:34 AST 25 units/L (5-40) 12/11/18 20:34 ALT 27 units/L (7-56) 12/11/18 20:34 Alkaline Phosphatase 215 units/L (35-129) H 12/11/18 20:34 Ammonia 19.0 umol/L (25-60) L 12/11/18 21:04 Total Creatine Kinase 44 units/L (30-135) 12/12/18 07:33 CK-MB (CK-2) 1.1 ng/mL (0.0-4.0) 12/12/18 07:33 CK-MB (CK-2) Rel Index 2.5 (0-4) 12/12/18 07:33 Troponin T 0.036 ng/mL (0.00-0.029) H 12/12/18 07:33 Total Protein 6.2 g/dL (6.3-8.2) L 12/11/18 20:34 Albumin 2.9 g/dL (3.9-5) L 12/11/18 20:34 Albumin/Globulin Ratio 0.9 % 12/11/18 20:34 Triglycerides 173 mg/dL (2-149) H 12/11/18 20:34 Cholesterol 95 mg/dL (50-199) 12/11/18 20:34 LDL Cholesterol Direct 16 mg/dL (50-130) L 12/11/18 20:34 HDL Cholesterol 19 mg/dL (40-59) L 12/11/18 20:34 Cholesterol/HDL Ratio 5.00 % 12/11/18 20:34 TSH 0.447 mlU/mL (0.270-4.200) 12/11/18 21:04 Thyroxine (T4) 5.3 ug/dL (4.0-12.0) 12/11/18 21:04 Urine Color Dark yellow (Yellow) 12/11/18 23:06 Urine Turbidity Clear (Clear) 12/11/18 23:06 Urine pH 5.0 (5.0-7.0) 12/11/18 23:06 Ur Specific [place] 1.021 (1.003-1.030) 12/11/18 23:06 Urine Protein 100 mg/dl mg/dL (Negative) 12/11/18 23:06 Urine Glucose (UA) >=500 mg/dL (Negative) 12/11/18 23:06 Urine Ketones Tr mg/dL (Negative) 12/11/18 23:06 Urine Blood Neg (Negative) 12/11/18 23:06 Urine Nitrite Neg (Negative) 12/11/18 23:06 Urine Bilirubin Neg (Negative) 12/11/18 23:06 Urine Urobilinogen 4.0 mg/dL (<2.0) 12/11/18 23:06 Ur Leukocyte Esterase Neg (Negative) 12/11/18 23:06 Urine WBC (Auto) 1.0 /HPF (0.0-6.0) 12/11/18 23:06 Urine RBC (Auto) 2.0 /HPF (0.0-6.0) 12/11/18 23:06 U Epithel Cells (Auto) 1.0 /HPF (0-13.0) 12/11/18 23:06 Amorphous Crystals Few 12/11/18 23:06 Urine Opiates Screen Presumptive negative 12/12/18 09:40 Urine Methadone Screen Presumptive negative 12/12/18 09:40 Ur Barbiturates Screen Presumptive negative 12/12/18 09:40 Ur Phencyclidine Scrn Presumptive negative 12/12/18 09:40 Ur Amphetamines Screen Presumptive negative 12/12/18 09:40 U Benzodiazepines Scrn Presumptive negative 12/12/18 09:40 Urine Cocaine Screen Presumptive negative 12/12/18 09:40 U Marijuana (THC) Screen Presumptive negative 12/12/18 09:40 Drugs of Abuse Note Disclamer 12/12/18 09:40 Plasma/Serum Alcohol < 0.01 % (0-0.07) 12/12/18 09:27 Active Medications - Current Medications Current Medications: Generic Name Dose Route Start Last Admin Trade Name Freq PRN Reason Stop Dose Admin Acetaminophen 650 mg 12/12/18 09:53 12/12/18 21:25 Tylenol PO 650 mg Q4H PRN Administration Fever >101 Carvedilol 25 mg 12/12/18 10:00 12/12/18 22:28 Coreg PO Not Given BID AMANDEEP Dextrose 50 ml 12/12/18 08:11 D50w (25gm) Syringe IV PRN PRN Hypoglycemia Haloperidol Lactate 5 mg 12/12/18 18:00 12/13/18 05:53 Haldol IV 5 mg Q6H PRN Administration Agitation Heparin Sodium (Porcine) 5,000 unit 12/12/18 10:00 12/12/18 09:22 Heparin SUB-Q 5,000 unit Q12HR AMANDEEP Administration Hydralazine HCl 50 mg 12/12/18 09:00 12/12/18 21:26 Apresoline PO 50 mg TID AMANDEEP Administration Sodium Chloride 1,000 mls @ 125 mls/hr 12/12/18 12:00 12/13/18 00:59 Nacl 0.9% 1000 Ml IV 125 mls/hr DIRECT AMANDEEP Administration Vancomycin HCl 2,000 mg/ 540 mls @ 250 mls/hr 12/12/18 20:00 12/12/18 19:41 Sodium Chloride IV 250 mls/hr Q24H AMANDEEP Administration Insulin Human Lispro 0 unit 12/12/18 09:00 12/13/18 05:35 Humalog SUB-Q 4 unit Q4H AMANDEEP Administration Protocol Loratadine 10 mg 12/12/18 10:00 12/12/18 10:28 Claritin PO 10 mg DAILY AMANDEEP Administration Morphine Sulfate 2 mg 12/12/18 02:48 12/13/18 06:07 Morphine IV 2 mg Q4H PRN Administration Pain, Moderate (4-6) Ondansetron HCl 4 mg 12/12/18 02:48 Zofran IV Q8H PRN Nausea And Vomiting Potassium Chloride 40 meq 12/12/18 13:40 Potassium Chloride FEEDTUBE Q4H PRN IF K </= 2.5 Nutrition/Malnutrition Assess - Dietary Evaluation Nutrition/Malnutrition Findings: Nutrition Notes Start: 12/12/18 12:14 Freq: Status: Active Protocol: Document 12/12/18 12:14 SA (Rec: 12/12/18 12:26 SA [id number]) Co-Sign 12/12/18 12:14 LP Nutrition Notes Need for Assessment generated from: MD Order Initial or Follow up Assessment Current Diagnosis Diabetes,Hypertension Other Pertinent Diagnosis arthritis, asthma Current Diet No diet ordered Labs/Tests Na: 135 K: 2.5 BUN: 45 Glu: 358 POC: 286 Pertinent Medications D50W, Humalog, Kcl 100mls Height 5 ft 7 in Weight 136.078 kg [place] Body Weight (kg) 61.36 BMI 47.0 Weight Status Obese Subjective/Other Information MD consult for diet education. Per pt's nurse, pt unable to respond to commands so she skipped MBS. RN placed dobhoff this morning. Awaiting diet order. Patient not appropriate for diet education at this time. Burn Absent Trauma Absent #1 Nutrition Diagnosis Predicted suboptimal energy intake Etiology AMS As Evidenced by Signs and Symptoms no diet ordered and inability to feed Is patient on ventilator? No Is Patient Ambulatory and/or Out of Bed No REE-([facility]-confined to bed) [phone] Kcal/Kg value to use for calculation 14 Approximate Energy Requirements Using 1905 kcal/Kg Calculation Used for Recommendations Kcal/kg Additional Notes Protein: 123-153 g/day (2-2.5 g/kg IBW/day) Fluid: 1 ml/kcal Nutrition Intervention Change Diet Order: advance diet as medically feasible Goal #1 Advance diet as medically feasible Anticipated Discharge Needs: unable to determine at this time Follow-Up By: 12/14/18 Additional Comments F/U: POC
[2018-12-13 08:00] LABS: Hematocrit 30.3 % (30.3-42.9); Hemoglobin 9.8 gm/dl (10.1-14.3); Mean Corpuscular HGB Conc 33 % (30-34); Mean Corpuscular Volume 92 fl (79-97); Platelet Count 199 K/mm3 (140-440); Red Blood Count 3.31 M/mm3 (3.65-5.03); Red Cell Distribution Width 16.8 % (13.2-15.2)
[2018-12-13 08:27] LABS: Calcium 9.9 mg/dL (8.4-10.2)
[2018-12-13] MEDS: APRESOLINE PO SCH ×3 (08:45→19:54)
[2018-12-13] MEDS: CLARITIN PO SCH (09:06)
[2018-12-13] MEDS: COREG PO SCH ×2 (09:06→21:30)
[2018-12-13] MEDS ORDERED: VERSED IV ONE (10:00)
--- NOTE | 2018-12-13 10:33 | Progress Note ---
Assessment and Plan - Patient Problems (1) Acute renal failure Current Visit: Yes Status: Acute Plan to address problem: Acute renal failure now resolved creatinine elevated 1.6 on admission her creatinine improved to 1.2 Mg/DL Etiology of acute kidney injury is likely related to intravascular depletion Cautious hydration only as long as AMS persists. (2) Altered mental status Current Visit: Yes Status: Acute Plan to address problem: Encephalopathy evaluation ongoing Brain CT without any acute intracranial abnormality cerebral atrophy noted Group B strep on blood cultures. WORK up Primary team (3) DKA (diabetic ketoacidoses) Current Visit: Yes Status: Acute Plan to address problem: Diabetic ketoacidosis. Significant hypokalemia now resolved. Receive insulin with improvement in glucose levels potassium replacement PRN. (4) Hypokalemia Current Visit: Yes Status: Acute Plan to address problem: Moderate hypokalemia:resolved. Potassium 2.5 Has received 10 mEq KCl 4 also receive potassium phosphate 15 mmol also received 20 mEq potassium chloride by mouth We'll give additional 40 MQ's by mouth prn. We will sign off Thank you for allowing us participate in her care. (5) Acidosis Current Visit: Yes Status: Acute Plan to address problem: Mild acidosis -iatrogenic 2/2 saline infusion -d/c normal saline once AMS improves and tolerating PO - also free water flushes - can change to bicarb infusion if need for hydration persists and acidosis worsens. Subjective Interval history: 73-year-old lady medical history significant for hypertension, GERD, chronic kidney disease, hypothyroidism, diabetes admitted with altered mental status was found to have moderate hypokalemia also found to be hyperglycemic and acute kidney injury. She received insulin injections. According to the family members this is a change from previous mental status he reports no sick contacts. Patient seen today She still has altered mental status blood cultures positive for group B strep at bedside has good urine output. Objective - Vital Signs Vital signs: Vital Signs - 12hr 12/12/18 12/12/18 12/12/18 22:41 22:51 23:00 Temperature Pulse Rate 75 74 75 Pulse Rate [ From Monitor] Respiratory 30 H 30 H 31 H Rate Blood Pressure 96/47 96/47 109/50 O2 Sat by Pulse 93 93 93 Oximetry 12/12/18 12/12/18 12/12/18 23:11 23:19 23:21 Temperature Pulse Rate 78 79 Pulse Rate [ From Monitor] Respiratory 30 H 30 H Rate Blood Pressure 109/50 109/50 O2 Sat by Pulse 93 94 93 Oximetry 12/12/18 12/12/18 12/12/18 23:31 23:41 23:51 Temperature Pulse Rate 73 72 75 Pulse Rate [ From Monitor] Respiratory 31 H 29 H 32 H Rate Blood Pressure 109/50 109/50 109/50 O2 Sat by Pulse 94 94 93 Oximetry 12/12/18 12/13/18 12/13/18 23:53 00:00 00:11 Temperature 100.0 F H Pulse Rate 73 74 76 Pulse Rate [ From Monitor] Respiratory 28 H 29 H 30 H Rate Blood Pressure 109/50 114/53 114/53 O2 Sat by Pulse 93 94 95 Oximetry 12/13/18 12/13/18 12/13/18 00:21 00:31 00:41 Temperature Pulse Rate 77 75 75 Pulse Rate [ From Monitor] Respiratory 31 H 30 H 29 H Rate Blood Pressure 114/53 114/53 114/53 O2 Sat by Pulse 95 95 94 Oximetry 12/13/18 12/13/18 12/13/18 00:50 01:00 01:11 Temperature Pulse Rate 76 78 76 Pulse Rate [ 74 From Monitor] Respiratory 30 H 29 H 31 H Rate Blood Pressure 114/53 108/53 108/53 O2 Sat by Pulse 94 95 94 Oximetry 12/13/18 12/13/18 12/13/18 01:21 01:31 01:41 Temperature Pulse Rate 76 81 73 Pulse Rate [ From Monitor] Respiratory 29 H 27 H 29 H Rate Blood Pressure 108/53 108/53 108/53 O2 Sat by Pulse 94 95 93 Oximetry 12/13/18 12/13/18 12/13/18 01:51 02:00 02:11 Temperature Pulse Rate 73 74 73 Pulse Rate [ From Monitor] Respiratory 31 H 33 H 27 H Rate Blood Pressure 108/53 113/52 113/52 O2 Sat by Pulse 94 94 95 Oximetry 12/13/18 12/13/18 12/13/18 02:21 02:31 02:41 Temperature Pulse Rate 73 73 74 Pulse Rate [ From Monitor] Respiratory 30 H 32 H 29 H Rate Blood Pressure 113/52 113/52 113/52 O2 Sat by Pulse 94 94 94 Oximetry 12/13/18 12/13/18 12/13/18 02:51 03:00 03:11 Temperature Pulse Rate 73 73 73 Pulse Rate [ From Monitor] Respiratory 29 H 30 H 30 H Rate Blood Pressure 113/52 118/53 118/53 O2 Sat by Pulse 94 95 94 Oximetry 12/13/18 12/13/18 12/13/18 03:21 03:31 03:41 Temperature Pulse Rate 78 73 76 Pulse Rate [ From Monitor] Respiratory 27 H 29 H 36 H Rate Blood Pressure 118/53 118/53 118/53 O2 Sat by Pulse 94 94 95 Oximetry 12/13/18 12/13/18 12/13/18 03:51 04:00 04:11 Temperature 100.1 F H Pulse Rate 72 71 74 Pulse Rate [ From Monitor] Respiratory 29 H 31 H 30 H Rate Blood Pressure 118/53 120/56 120/56 O2 Sat by Pulse 95 95 95 Oximetry 12/13/18 12/13/18 12/13/18 04:21 04:31 04:41 Temperature Pulse Rate 72 74 75 Pulse Rate [ From Monitor] Respiratory 31 H 32 H 31 H Rate Blood Pressure 120/56 120/56 120/56 O2 Sat by Pulse 94 94 94 Oximetry 12/13/18 12/13/18 12/13/18 04:51 05:00 05:11 Temperature Pulse Rate 77 76 74 Pulse Rate [ 82 From Monitor] Respiratory 25 H 29 H 26 H Rate Blood Pressure 120/56 135/60 120/56 O2 Sat by Pulse 95 94 95 Oximetry 12/13/18 12/13/18 12/13/18 05:20 05:31 06:07 Temperature Pulse Rate 73 73 Pulse Rate [ From Monitor] Respiratory 33 H 31 H 24 Rate Blood Pressure 120/56 120/56 O2 Sat by Pulse 95 95 Oximetry 12/13/18 12/13/18 12/13/18 08:51 09:06 10:16 Temperature Pulse Rate 85 Pulse Rate [ From Monitor] Respiratory 26 H Rate Blood Pressure 154/70 O2 Sat by Pulse 94 Oximetry - General Appearance General appearance: well-developed, well-nourished EENT: ATNC, PERRL, mucous membranes moist Neck: no JVD Respiratory: Present: Clear to Ascultation Cardiology: regular, S1S2 Gastrointestinal: normal, normoactive bowel sounds Integumentary: no rash Neurologic: alert and oriented x3, CN 3-12 intact Psychiatric: mood/affect appropriate - Lab 12/13/18 07:39 12/13/18 07:39 Most recent lab results Calcium 9.9 mg/dL (8.4-10.2) 12/13/18 07:39 Phosphorus 2.50 mg/dL (2.5-4.5) 12/13/18 07:39 Magnesium 2.00 mg/dL (1.7-2.3) 12/13/18 07:39 - Imaging Chest x-ray: image reviewed (I reviewed CXR without any overt edema. ) Medications & Allergies - Medications Allergies/Adverse Reactions: Allergies No Known Allergies Allergy (Verified 04/02/16 12:35) Home Medications: Home Medications Medication Instructions Recorded Confirmed Last Taken Type Carvedilol [Coreg] 25 mg PO BID 04/03/16 12/11/18 12/11/18 History Cetirizine HCl 10 mg PO QDAY 04/03/16 12/11/18 12/11/18 History Omeprazole 20 mg PO TID 04/03/16 12/11/18 12/11/18 History Pentoxifylline 400 mg PO BID 04/03/16 12/11/18 12/11/18 History hydrALAZINE [Apresoline TAB] 50 mg PO TID 04/03/16 12/11/18 12/11/18 History metFORMIN 1,000 mg PO BIDAC 04/03/16 12/11/18 12/11/18 History methIMAzole [Tapazole] 5 mg PO QDAY #30 tablet 04/05/16 12/11/18 12/11/18 Rx Active Medications: Generic Name Dose Route Start Last Admin Trade Name Eduq PRN Reason Stop Dose Admin Acetaminophen 650 mg 12/12/18 09:53 12/12/18 21:25 Tylenol PO 650 mg Q4H PRN Administration Fever >101 Carvedilol 25 mg 12/12/18 10:00 12/13/18 09:06 Coreg PO 25 mg BID AMANDEEP Administration Dextrose 50 ml 12/12/18 08:11 D50w (25gm) Syringe IV PRN PRN Hypoglycemia Haloperidol Lactate 5 mg 12/12/18 18:00 12/13/18 05:53 Haldol IV 5 mg Q6H PRN Administration Agitation Heparin Sodium (Porcine) 5,000 unit 12/12/18 10:00 12/12/18 09:22 Heparin SUB-Q 5,000 unit Q12HR AMANDEEP Administration Hydralazine HCl 50 mg 12/12/18 09:00 12/13/18 08:45 Apresoline PO 50 mg TID AMANDEEP Administration Sodium Chloride 1,000 mls @ 125 mls/hr 12/12/18 12:00 12/13/18 08:50 Nacl 0.9% 1000 Ml IV 125 mls/hr DIRECT AMANDEEP Administration Vancomycin HCl 2,000 mg/ 540 mls @ 250 mls/hr 12/12/18 20:00 12/12/18 19:41 Sodium Chloride IV 250 mls/hr Q24H AMANDEEP Administration Insulin Human Lispro 0 unit 12/12/18 09:00 12/13/18 09:21 Humalog SUB-Q 4 unit Q4H AMANDEEP Administration Protocol Loratadine 10 mg 12/12/18 10:00 12/13/18 09:06 Claritin PO 10 mg DAILY AMANDEEP Administration Morphine Sulfate 2 mg 12/12/18 02:48 12/13/18 10:16 Morphine IV 2 mg Q4H PRN Administration Pain, Moderate (4-6) Ondansetron HCl 4 mg 12/12/18 02:48 Zofran IV Q8H PRN Nausea And Vomiting Potassium Chloride 40 meq 12/12/18 13:40 Potassium Chloride FEEDTUBE Q4H PRN IF K </= 2.5
[2018-12-13] MEDS ORDERED: XYLOCAINE 1% 20 mL ONE (10:58)
--- NOTE | 2018-12-13 12:29 | XRay Report ---
AP ABDOMEN: HISTORY: Dobbhoff tube placement. Compared to 12/12/18. The Dobbhoff tube is essentially in the same position terminating in the gastric body or antrum. The abdominal gas pattern is unremarkable. No masses or organomegaly is identified and there is no gross evidence of free air or fluid. No significant soft tissue calcifications are noted. IMPRESSION: The Dobbhoff tube terminates in the mid to distal stomach.
[2018-12-13] MEDS: ceFAZolin 2 GM in NACL 0.9% 100 ML IV SCH ×2 (15:07→21:27)
--- NOTE | 2018-12-13 15:23 | Consultation ---
History of Present Illness - Reason for Consult Consult date: 12/13/18 fever/AMS Requesting physician: VINEET HAYNES - History of Present Illness 73 y/o female with history of DMs, OA, ARF, CKD stage 3, depression, hypertension, hyperthyroidism and GERD; admitted on 12/11/2018 due to AMS. Patient is confused, not communicating despite of yelling, unable to provide a history. Per records patient have fallen 2 weeks ago and injured her right shoulder. Since then, she has been becoming more confused. In the ED, temp 102.3, HR 90, R 16, O2 sat 88%, BP 168/71. WBC 18.5, Hg 9.3, Plat 194. Creat 1.4. Glucose 445. LFTs normal bili 2.1. UA neg. UDS neg. CT head neg. CXR neg. Right shoulder XR moderate OA. She was admitted to ICU to start insulin drip but was never started. Review of Systems: unable to obtain Past History Past Medical History: other (unable to obtain) Past Surgical History: Other (unable to obtain) Social history: , other (unable to obtain) Family history: other (unable to obtain) Medications and Allergies Allergies Allergy/AdvReac Type Severity Reaction Status Date / Time No Known Allergies Allergy Verified 04/02/16 12:35 Home Medications Medication Instructions Recorded Confirmed Last Taken Type Carvedilol [Coreg] 25 mg PO BID 04/03/16 12/11/18 12/11/18 History Cetirizine HCl 10 mg PO QDAY 04/03/16 12/11/18 12/11/18 History Omeprazole 20 mg PO TID 04/03/16 12/11/18 12/11/18 History Pentoxifylline 400 mg PO BID 04/03/16 12/11/18 12/11/18 History hydrALAZINE [Apresoline TAB] 50 mg PO TID 04/03/16 12/11/18 12/11/18 History metFORMIN 1,000 mg PO BIDAC 04/03/16 12/11/18 12/11/18 History methIMAzole [Tapazole] 5 mg PO QDAY #30 tablet 04/05/16 12/11/18 12/11/18 Rx Active Meds: Active Medications Acetaminophen (Tylenol) 650 mg PO Q4H PRN PRN Reason: Fever >101 Last Admin: 12/12/18 21:25 Dose: 650 mg Documented by: Carvedilol (Coreg) 25 mg PO BID [facility] Last Admin: 12/13/18 09:06 Dose: 25 mg Documented by: Dextrose (D50w (25gm) Syringe) 50 ml IV PRN PRN PRN Reason: Hypoglycemia Haloperidol Lactate (Haldol) 5 mg IV Q6H PRN PRN Reason: Agitation Last Admin: 12/13/18 05:53 Dose: 5 mg Documented by: Heparin Sodium (Porcine) (Heparin) 5,000 unit SUB-Q Q12HR [facility] Last Admin: 12/12/18 09:22 Dose: 5,000 unit Documented by: Hydralazine HCl (Apresoline) 50 mg PO TID [facility] Last Admin: 12/13/18 15:10 Dose: Not Given Documented by: Sodium Chloride (Nacl 0.9% 1000 Ml) 1,000 mls @ 125 mls/hr IV DIRECT [facility] Last Admin: 12/13/18 08:50 Dose: 125 mls/hr Documented by: Cefazolin Sodium 2 gm/ Sodium (Chloride) 100 mls @ 100 mls/hr IV Q8H [facility] Last Admin: 12/13/18 15:07 Dose: 100 mls/hr Documented by: Insulin Human Lispro (Humalog) 0 unit SUB-Q Q4H [facility]; Protocol Last Admin: 12/13/18 13:24 Dose: 4 unit Documented by: Loratadine (Claritin) 10 mg PO DAILY [facility] Last Admin: 12/13/18 09:06 Dose: 10 mg Documented by: Lorazepam (Ativan) 1 mg IV Q4H PRN PRN Reason: Agitation Morphine Sulfate (Morphine) 2 mg IV Q4H PRN PRN Reason: Pain, Moderate (4-6) Last Admin: 12/13/18 10:16 Dose: 2 mg Documented by: Ondansetron HCl (Zofran) 4 mg IV Q8H PRN PRN Reason: Nausea And Vomiting Physical Examination - Physical Exam Narrative exam: General appearance: Alert in NAD, yelling, mild agitation Eyes: anicteric sclerae, moist conjunctivae; no lid-lag; PERRLA HENT: Atraumatic; oropharynx edentulous limited Neck: Trachea midline; supple, no thyromegaly or lymphadenopathy Lungs: CTA CV: tachycardic Abdomen: Soft,obese mild tenderness Extremities: No peripheral edema or extremity lymphadenopathy + left leg wound 1.0x1.0x0.1. Scant serous sanguineous drainage noticed to the wound. No odor noticed to the wound. + right leg wound 5.0x3.0. Scant serous sanguineous drainage noticed to the wound. No odor noticed to the wound. Skin: stage 2 left buttocks wound. The wound measurement is as follows; 1.0x1.0x0.1. Scant serous sanguineous drainage noticed to the wound. No odor noticed to the wound. Psych: agitated. Neuro: agitated somnolent and yelling - Constitutional Vitals: Vital Signs Temp Pulse Resp BP Pulse Ox 100.4 F H 79 29 H 138/62 96 12/13/18 12:00 12/13/18 14:00 12/13/18 14:00 12/13/18 14:00 12/13/18 14:00 Temperature -Last 24 Hours Temperature 100.4 F Temperature 98.5 F Temperature 100.1 F Temperature 100.0 F Temperature 102.1 F Temperature 100.3 F Temperature 100.3 F Results - Labs CBC & Chem 7: 12/13/18 07:39 12/13/18 07:39 Labs: Abnormal lab results 12/12/18 12/12/18 12/12/18 Range/Units 14:58 15:49 21:11 WBC (4.5-11.0) K/mm3 RBC (3.65-5.03) M/mm3 Hgb (10.1-14.3) gm/dl RDW (13.2-15.2) % Carbon Dioxide (22-30) mmol/L BUN 45 H (7-17) mg/dL Creatinine 1.3 H (0.7-1.2) mg/dL Glucose 265 H (65-100) mg/dL POC Glucose 253 H 236 H (70-105) Magnesium 2.50 H (1.7-2.3) mg/dL 12/12/18 12/13/18 12/13/18 Range/Units 23:40 04:51 07:39 WBC (4.5-11.0) K/mm3 RBC (3.65-5.03) M/mm3 Hgb (10.1-14.3) gm/dl RDW (13.2-15.2) % Carbon Dioxide 21 L (22-30) mmol/L BUN 42 H (7-17) mg/dL Creatinine (0.7-1.2) mg/dL Glucose 229 H (65-100) mg/dL POC Glucose 297 H 208 H (70-105) Magnesium (1.7-2.3) mg/dL 12/13/18 12/13/18 12/13/18 Range/Units 07:39 09:17 13:10 WBC 17.5 H (4.5-11.0) K/mm3 RBC 3.31 L (3.65-5.03) M/mm3 Hgb 9.8 L (10.1-14.3) gm/dl RDW 16.8 H (13.2-15.2) % Carbon Dioxide (22-30) mmol/L BUN (7-17) mg/dL Creatinine (0.7-1.2) mg/dL Glucose (65-100) mg/dL POC Glucose 229 H 230 H (70-105) Magnesium (1.7-2.3) mg/dL Assessment and Plan Cultures: Blood culture 12/12/2018 beta hem Strep group B 4 of 4 bottles Assessment: 73 y/o female with history of DM2, OA, ARF, CKD stage 3, depression, hypertension, hyperthyroidism and GERD; admitted on 12/11/2018 due to AMS and recent fall injuring her right shoulder: 1) Sepsis: Present on admission, manifested by fever, tachycardia, leukocytosis, Etiology most likely Strep bacteremia. CXR neg. UA neg. 2) Strep group B bacteremia: 4 of 4 bottles positive, unclear source ? skin (leg wounds do not look infected) ? joint infection 3) ALVARO on CKD 4) DM2 with HONK 5) Acute encephalopathy: from sepsis, less likely meningitis. LP was attepted but no done. CT head neg. Recommendations: - follow-up blood cultures - repeat blood cultures tomorrow - obtain C-reactive protein (CRP) - request WBC tagged scan to search for infectious nidus - TTE r/o endocarditis - monitor mentation if not better in 1-2 days consider LP - stop vancomycin - start cefazolin 2 gm IV q 8 hour Will follow. Marleny Latham MD Infectious Diseases [employer] [facility] ([facility] M [phone] O [phone]
--- NOTE | 2018-12-13 15:25 | Progress Note ---
Assessment and Plan 73 y/o morbidly obese female, admitted with severe electrolyte imbalance, DKA and altered mental status now with fever. 1. Reason for Fever, but source is not known. Defer to ID when to repeat cultures and abx regimen. Unable to obtain LP, per nursing not sure why. 2. Continue current abx regimen driven by ID 3. PRN haldol for agitation and will add some PRN benzo therapy. 4. Aggressive replacement of Mag and K. K wont replete until Mag is replaced. Recheck both at noon 5. Feed patient 6. Continue current insulin regimen 6. Likely transfer out of unit tomorrow if clinically unchanged. Subjective Date of service: 12/13/18 Interval history: Rads unsuccessful with LP. Patient still altered and febrile. Blood cultures are now positive for GPC, group B strep. I did give her vanc yesterday when the first culture came back positive. ID has been consulted Objective - Constitutional Vitals: Vital Signs - 12hr 12/13/18 12/13/18 12/13/18 03:31 03:41 03:51 Temperature Pulse Rate 73 76 72 Pulse Rate [ From Monitor] Respiratory 29 H 36 H 29 H Rate Respiratory Rate [Right Leg ] Blood Pressure 118/53 118/53 118/53 O2 Sat by Pulse 94 95 95 Oximetry 12/13/18 12/13/18 12/13/18 04:00 04:11 04:21 Temperature 100.1 F H Pulse Rate 71 74 72 Pulse Rate [ From Monitor] Respiratory 31 H 30 H 31 H Rate Respiratory Rate [Right Leg ] Blood Pressure 120/56 120/56 120/56 O2 Sat by Pulse 95 95 94 Oximetry 12/13/18 12/13/18 12/13/18 04:31 04:41 04:51 Temperature Pulse Rate 74 75 77 Pulse Rate [ From Monitor] Respiratory 32 H 31 H 25 H Rate Respiratory Rate [Right Leg ] Blood Pressure 120/56 120/56 120/56 O2 Sat by Pulse 94 94 95 Oximetry 12/13/18 12/13/18 12/13/18 05:00 05:11 05:20 Temperature Pulse Rate 76 74 73 Pulse Rate [ 82 From Monitor] Respiratory 29 H 26 H 33 H Rate Respiratory Rate [Right Leg ] Blood Pressure 135/60 120/56 120/56 O2 Sat by Pulse 94 95 95 Oximetry 12/13/18 12/13/18 12/13/18 05:31 06:00 06:07 Temperature Pulse Rate 73 89 Pulse Rate [ From Monitor] Respiratory 31 H 17 24 Rate Respiratory Rate [Right Leg ] Blood Pressure 120/56 118/70 O2 Sat by Pulse 95 91 Oximetry 12/13/18 12/13/18 12/13/18 07:01 08:00 08:51 Temperature 98.5 F Pulse Rate 82 86 Pulse Rate [ From Monitor] Respiratory 45 H 24 Rate Respiratory Rate [Right Leg ] Blood Pressure 151/67 150/77 O2 Sat by Pulse 91 91 94 Oximetry 12/13/18 12/13/18 12/13/18 09:00 09:06 10:00 Temperature Pulse Rate 84 85 84 Pulse Rate [ 85 From Monitor] Respiratory 13 26 H Rate Respiratory 26 H Rate [Right Leg ] Blood Pressure 154/70 154/70 154/69 O2 Sat by Pulse 95 95 Oximetry 12/13/18 12/13/18 12/13/18 10:16 10:46 11:37 Temperature Pulse Rate 78 Pulse Rate [ From Monitor] Respiratory 26 H 27 H 19 Rate Respiratory Rate [Right Leg ] Blood Pressure 131/58 O2 Sat by Pulse 95 Oximetry 12/13/18 12/13/18 12/13/18 12:00 13:00 14:00 Temperature 100.4 F H Pulse Rate 82 75 79 Pulse Rate [ 81 From Monitor] Respiratory 19 22 29 H Rate Respiratory Rate [Right Leg ] Blood Pressure 153/67 132/61 138/62 O2 Sat by Pulse 96 97 96 Oximetry General appearance: Present: no acute distress, well-nourished, obese - EENT ENT: hearing intact - Neck Neck: supple - Respiratory Respiratory: bilateral: CTA - Breasts Breasts: deferred - Cardiovascular Rhythm: regular Heart Sounds: Present: S1 & S2 Extremities: no ischemia - Gastrointestinal General gastrointestinal: Present: soft - Labs CBC & Chem 7: 12/13/18 07:39 12/13/18 07:39 Labs: Abnormal lab results 12/12/18 12/12/18 12/12/18 Range/Units 14:58 15:49 21:11 WBC (4.5-11.0) K/mm3 RBC (3.65-5.03) M/mm3 Hgb (10.1-14.3) gm/dl RDW (13.2-15.2) % Carbon Dioxide (22-30) mmol/L BUN 45 H (7-17) mg/dL Creatinine 1.3 H (0.7-1.2) mg/dL Glucose 265 H (65-100) mg/dL POC Glucose 253 H 236 H (70-105) Magnesium 2.50 H (1.7-2.3) mg/dL 12/12/18 12/13/18 12/13/18 Range/Units 23:40 04:51 07:39 WBC (4.5-11.0) K/mm3 RBC (3.65-5.03) M/mm3 Hgb (10.1-14.3) gm/dl RDW (13.2-15.2) % Carbon Dioxide 21 L (22-30) mmol/L BUN 42 H (7-17) mg/dL Creatinine (0.7-1.2) mg/dL Glucose 229 H (65-100) mg/dL POC Glucose 297 H 208 H (70-105) Magnesium (1.7-2.3) mg/dL 12/13/18 12/13/18 12/13/18 Range/Units 07:39 09:17 13:10 WBC 17.5 H (4.5-11.0) K/mm3 RBC 3.31 L (3.65-5.03) M/mm3 Hgb 9.8 L (10.1-14.3) gm/dl RDW 16.8 H (13.2-15.2) % Carbon Dioxide (22-30) mmol/L BUN (7-17) mg/dL Creatinine (0.7-1.2) mg/dL Glucose (65-100) mg/dL POC Glucose 229 H 230 H (70-105) Magnesium (1.7-2.3) mg/dL Medications & Allergies - Medications Allergies/Adverse Reactions: Allergies No Known Allergies Allergy (Verified 04/02/16 12:35) Home Medications: Home Medications Medication Instructions Recorded Confirmed Last Taken Type Carvedilol [Coreg] 25 mg PO BID 04/03/16 12/11/18 12/11/18 History Cetirizine HCl 10 mg PO QDAY 04/03/16 12/11/18 12/11/18 History Omeprazole 20 mg PO TID 04/03/16 12/11/18 12/11/18 History Pentoxifylline 400 mg PO BID 04/03/16 12/11/18 12/11/18 History hydrALAZINE [Apresoline TAB] 50 mg PO TID 04/03/16 12/11/18 12/11/18 History metFORMIN 1,000 mg PO BIDAC 04/03/16 12/11/18 12/11/18 History methIMAzole [Tapazole] 5 mg PO QDAY #30 tablet 04/05/16 12/11/18 12/11/18 Rx Active Medications: Generic Name Dose Route Start Last Admin Trade Name Freq PRN Reason Stop Dose Admin Acetaminophen 650 mg 12/12/18 09:53 12/12/18 21:25 Tylenol PO 650 mg Q4H PRN Administration Fever >101 Carvedilol 25 mg 12/12/18 10:00 12/13/18 09:06 Coreg PO 25 mg BID AMANDEEP Administration Dextrose 50 ml 12/12/18 08:11 D50w (25gm) Syringe IV PRN PRN Hypoglycemia Haloperidol Lactate 5 mg 12/12/18 18:00 12/13/18 05:53 Haldol IV 5 mg Q6H PRN Administration Agitation Heparin Sodium (Porcine) 5,000 unit 12/12/18 10:00 12/12/18 09:22 Heparin SUB-Q 5,000 unit Q12HR AMANDEEP Administration Hydralazine HCl 50 mg 12/12/18 09:00 12/13/18 15:10 Apresoline PO Not Given TID AMANDEEP Sodium Chloride 1,000 mls @ 125 mls/hr 12/12/18 12:00 12/13/18 08:50 Nacl 0.9% 1000 Ml IV 125 mls/hr DIRECT AMANDEEP Administration Cefazolin Sodium 2 gm/ Sodium 100 mls @ 100 mls/hr 12/13/18 14:00 12/13/18 15:07 Chloride IV 100 mls/hr Q8H AMANDEEP Administration Insulin Human Lispro 0 unit 12/12/18 09:00 12/13/18 13:24 Humalog SUB-Q 4 unit Q4H AMANDEEP Administration Protocol Loratadine 10 mg 12/12/18 10:00 12/13/18 09:06 Claritin PO 10 mg DAILY AMANDEEP Administration Lorazepam 1 mg 12/13/18 14:05 Ativan IV Q4H PRN Agitation Morphine Sulfate 2 mg 12/12/18 02:48 12/13/18 10:16 Morphine IV 2 mg Q4H PRN Administration Pain, Moderate (4-6) Ondansetron HCl 4 mg 12/12/18 02:48 Zofran IV Q8H PRN Nausea And Vomiting
[2018-12-13] MEDS: ATIVAN IV PRN (17:30)
[2018-12-14] MEDS: HumaLOG SUB-Q SCH ×5 (00:52→18:04)
[2018-12-14] MEDS: NACL 0.9% 1000 ML 1,000 ML IV SCH ×3 (03:03→13:54)
[2018-12-14] MEDS: HALDOL IV PRN ×3 (03:12→23:42)
[2018-12-14 05:29] LABS: Hemoglobin 8.1 gm/dl (10.1-14.3); Mean Corpuscular HGB Conc 33 % (30-34); Mean Corpuscular Volume 93 fl (79-97); Platelet Count 173 K/mm3 (140-440); Red Blood Count 2.69 M/mm3 (3.65-5.03); Red Cell Distribution Width 17.1 % (13.2-15.2)
[2018-12-14 05:50] LABS: Calcium 9.5 mg/dL (8.4-10.2)
[2018-12-14] MEDS: ceFAZolin 2 GM in NACL 0.9% 100 ML IV SCH ×3 (06:03→23:55)
[2018-12-14] MEDS: APRESOLINE PO SCH ×2 (08:55→13:30)
[2018-12-14] MEDS: CLARITIN PO SCH (09:04)
[2018-12-14] MEDS: COREG PO SCH ×2 (09:05→23:18)
[2018-12-14] MEDS ORDERED: SIMPLE SYRUP FEEDTUBE PRN ×2 (10:52)
[2018-12-14] MEDS ORDERED: PANCREAZE DR 10,500 UNIT FEEDTUBE PRN (10:52)
[2018-12-14] MEDS ORDERED: SODIUM BICARBONATE FEEDTUBE PRN (10:52)
--- NOTE | 2018-12-14 11:00 | Progress Note ---
Assessment and Plan 73 y/o morbidly obese female, admitted with severe electrolyte imbalance, DKA and altered mental status now with fever. 1. Fevers better but not sure as the source. Tagged WBC scan ordered by ID 2. Continue current abx regimen driven by ID 3. PRN haldol for agitation and will add some PRN benzo therapy. Helped some but still screaming out at random. 4. Feed patient, consult to be placed today. 5. Will add long acting lantus 10 qhs 6. Likely transfer out of unit today 7. Will sign off once on floor. Subjective Date of service: 12/14/18 Interval history: Reviewed ID note from yesterday and appreciate their recs. Mental status not really better. Patient was not able to get LP secondary to movement now found out on rounds today. Different from the nurse who had the patient yesterday during the LP. Their were multiple attempts that were unsuccessful so procedure was aborted. Objective - Constitutional Vitals: Vital Signs - 12hr 12/13/18 12/13/18 12/13/18 23:00 23:17 23:18 Temperature Pulse Rate 62 63 Pulse Rate [ 71 From Monitor] Pulse Rate [ 71 Left Dorsalis Pedis] Respiratory 21 25 H 26 H Rate Blood Pressure 96/42 111/46 O2 Sat by Pulse 99 99 97 Oximetry 12/14/18 12/14/18 12/14/18 00:00 01:00 02:00 Temperature Pulse Rate 81 67 62 Pulse Rate [ From Monitor] Pulse Rate [ Left Dorsalis Pedis] Respiratory 14 13 20 Rate Blood Pressure 155/61 87/38 97/44 O2 Sat by Pulse 97 98 98 Oximetry 12/14/18 12/14/18 12/14/18 03:00 03:12 04:00 Temperature 97.2 F L Pulse Rate 75 61 Pulse Rate [ From Monitor] Pulse Rate [ Left Dorsalis Pedis] Respiratory 14 21 Rate Blood Pressure 158/70 82/39 O2 Sat by Pulse 96 98 Oximetry 12/14/18 12/14/18 12/14/18 05:00 06:00 07:00 Temperature Pulse Rate 68 60 61 Pulse Rate [ From Monitor] Pulse Rate [ Left Dorsalis Pedis] Respiratory 24 24 20 Rate Blood Pressure 117/55 87/43 105/51 O2 Sat by Pulse 98 98 100 Oximetry 12/14/18 12/14/18 12/14/18 08:00 08:01 09:00 Temperature 97.4 F L Pulse Rate 71 62 Pulse Rate [ From Monitor] Pulse Rate [ Left Dorsalis Pedis] Respiratory 14 20 Rate Blood Pressure 122/56 106/49 O2 Sat by Pulse 98 99 Oximetry 12/14/18 12/14/18 09:05 10:00 Temperature Pulse Rate 62 71 Pulse Rate [ From Monitor] Pulse Rate [ Left Dorsalis Pedis] Respiratory 20 Rate Blood Pressure 106/49 93/48 O2 Sat by Pulse 98 Oximetry - Labs CBC & Chem 7: 12/14/18 04:42 12/14/18 04:42 Labs: Abnormal lab results 12/13/18 12/13/18 12/13/18 Range/Units 13:10 16:23 17:12 WBC (4.5-11.0) K/mm3 RBC (3.65-5.03) M/mm3 Hgb (10.1-14.3) gm/dl Hct (30.3-42.9) % RDW (13.2-15.2) % Sodium (137-145) mmol/L Chloride (98-107) mmol/L BUN (7-17) mg/dL Creatinine (0.7-1.2) mg/dL Glucose (65-100) mg/dL POC Glucose 230 H 199 H (70-105) C-Reactive Protein 32.70 H (0.00-1.30) mg/dL 12/13/18 12/14/18 12/14/18 Range/Units 20:43 00:53 04:42 WBC 14.7 H (4.5-11.0) K/mm3 RBC 2.69 L (3.65-5.03) M/mm3 Hgb 8.1 L (10.1-14.3) gm/dl Hct 25.0 L (30.3-42.9) % RDW 17.1 H (13.2-15.2) % Sodium (137-145) mmol/L Chloride (98-107) mmol/L BUN (7-17) mg/dL Creatinine (0.7-1.2) mg/dL Glucose (65-100) mg/dL POC Glucose 225 H 221 H (70-105) C-Reactive Protein (0.00-1.30) mg/dL 0412/14/18 12/14/18 Range/Units 04:42 05:32 08:41 WBC (4.5-11.0) K/mm3 RBC (3.65-5.03) M/mm3 Hgb (10.1-14.3) gm/dl Hct (30.3-42.9) % RDW (13.2-15.2) % Sodium 146 H D (137-145) mmol/L Chloride 111.3 H (98-107) mmol/L BUN 47 H (7-17) mg/dL Creatinine 1.5 H (0.7-1.2) mg/dL Glucose 187 H (65-100) mg/dL POC Glucose 198 H 225 H (70-105) C-Reactive Protein (0.00-1.30) mg/dL Medications & Allergies - Medications Allergies/Adverse Reactions: Allergies No Known Allergies Allergy (Verified 04/02/16 12:35) Home Medications: Home Medications Medication Instructions Recorded Confirmed Last Taken Type Carvedilol [Coreg] 25 mg PO BID 04/03/16 12/11/18 12/11/18 History Cetirizine HCl 10 mg PO QDAY 04/03/16 12/11/18 12/11/18 History Omeprazole 20 mg PO TID 04/03/16 12/11/18 12/11/18 History Pentoxifylline 400 mg PO BID 04/03/16 12/11/18 12/11/18 History hydrALAZINE [Apresoline TAB] 50 mg PO TID 04/03/16 12/11/18 12/11/18 History metFORMIN 1,000 mg PO BIDAC 04/03/16 12/11/18 12/11/18 History methIMAzole [Tapazole] 5 mg PO QDAY #30 tablet 04/05/16 12/11/18 12/11/18 Rx Active Medications: Generic Name Dose Route Start Last Admin Trade Name Freq PRN Reason Stop Dose Admin Acetaminophen 650 mg 12/12/18 09:53 12/12/18 21:25 Tylenol PO 650 mg Q4H PRN Administration Fever >101 Lipase/Protease/Amylase 1 each 12/14/18 10:[address] 10,500 Unit FEEDTUBE PRN PRN For Clogged Feeding Tube Carvedilol 25 mg 12/12/18 10:00 12/14/18 09:05 Coreg PO 25 mg BID AMANDEEP Administration Dextrose 50 ml 12/12/18 08:11 D50w (25gm) Syringe IV PRN PRN Hypoglycemia Haloperidol Lactate 5 mg 12/12/18 18:00 12/14/18 03:12 Haldol IV 5 mg Q6H PRN Administration Agitation Heparin Sodium (Porcine) 5,000 unit 12/12/18 10:00 12/12/18 09:22 Heparin SUB-Q 5,000 unit Q12HR AMANDEEP Administration Hydralazine HCl 50 mg 12/12/18 09:00 12/14/18 08:55 Apresoline PO Not Given TID [facility] Cefazolin Sodium 2 gm/ Sodium 100 mls @ 100 mls/hr 12/13/18 14:00 12/14/18 06:03 Chloride IV 100 mls/hr Q8H AMANDEEP Administration Sodium Chloride 1,000 mls @ 150 mls/hr 12/14/18 10:00 12/14/18 09:29 Nacl 0.9% 1000 Ml IV 150 mls/hr DIRECT AMANDEEP Administration Insulin Glargine 10 units 12/14/18 22:00 Lantus SUB-Q QHS AMANDEEP Insulin Human Lispro 0 unit 12/14/18 12:00 Humalog SUB-Q Q6HR [facility] Protocol Loratadine 10 mg 12/12/18 10:00 12/14/18 09:04 Claritin PO 10 mg DAILY AMANDEEP Administration Lorazepam 1 mg 12/13/18 14:05 12/13/18 17:30 Ativan IV 1 mg Q4H PRN Administration Agitation Morphine Sulfate 2 mg 12/12/18 02:48 12/13/18 17:09 Morphine IV 2 mg Q4H PRN Administration Pain, Moderate (4-6) Ondansetron HCl 4 mg 12/12/18 02:48 Zofran IV Q8H PRN Nausea And Vomiting Simple Syrup 15 ml 12/14/18 10:52 Simple Syrup FEEDTUBE PRN PRN Hypoglycemia Simple Syrup 30 ml 12/14/18 10:52 Simple Syrup FEEDTUBE PRN PRN Hypoglycemia Sodium Bicarbonate 325 mg 12/14/18 10:52 Sodium Bicarbonate FEEDTUBE PRN PRN For Clogged Feeding Tube
--- NOTE | 2018-12-14 12:47 | Progress Note ---
Assessment and Plan Assessment and plan: Patient is a 73 yo woman with a history of NIDDM, OA, ARF, CKD 3 with baseline Creatinine around 1.2, depression, hypertension, hyperthyroidism and GERD who presented to [facility] ED with AMS. She was found to have ARF, Creatinine 1.6, hyponatremia 133, hyperglycemia at 529, hypomagnesemia at 1.3 and severe h ypokalemia at 2.4 with no diuretics listed on home medications. She was admitted to ICU for DKA needing insulin drip but it was never started due to hypokalemia and now the anion gap has closed. Looking back at old records here, she had a similar presentation in 2016. She never had Urine drug screen or serum alcohol level checked. She spiked a fever and ID was consulted. LP unsuccessful as patient is not cooperative. -Acute metabolic encephalopathy, CT head negative: UDS and serum ETOH levels unremarkable, LP pending, ?Neurology coverage today -Leukocytosis etiology unclear, with UA negative for UTI and pCXr negative for infiltrates, now febrile: follow blood cultures, ID work up in progress, ordered tagged WBC which is pending. -Severe hypokalemia: ordered IV team for midline to give more potassium supplementation but wasn't done because fevers -Hypomagnesemia: repleted and monitor closely -Hyperthyroidism, slightly elevated free T4: hold tapezole -Moderate malnutrition with morbid obesity: consult Night Monitor, ordered Dobhuff with placement confirmation -Elevated troponin at 0.038, suspect related to renal failure: another set of Troponin remained flat, ordered ECHO -ARF/CKD 3, vasomotor nephropathy: treat with IVF, and repeat level, if worsen consult Nephrology and get renal ultrasound -Type 2 NIDDM with HONK: added SSI -Anemia, appears acute from 2016 records: get FOBT and monitor cbc closely -Hypertension on coreg and hydralazine: continue, on NSS due to the hyponatremia Home reconciliation completed, reason for the Pentoxifylline unclear, DVT ppx on sq heparin Disposition: continue inpatient care, transfer out of ICU History Interval history: Patient was seen and examined. Follow-up on current diagnosis of AMS, still confused. Overnight uneventful except for fevers. Imaging, nursing note, chart, labs and old chart reviewed. Hospitalist Physical - Physical exam Narrative exam: Gen: ill appearing NAD, confused HEENT: NCAT, EOMI, PERRL, OP Clear Neck: supple, no adenopathy, no thyromegaly, no JVD CVS/Heart: RRR, normal S1S2, pulses present bilaterally Chest/Lungs: CTA B, Symmetrical chest expansion, good air entry bilaterally GI/Abdomen: soft, NTND, good bowel sounds, no guarding or rebound /Bladder: no suprapubic tenderness, no CVA or paraspinal tenderness Extermity/Skin: no c/c/e, no obvious rash MSK: FROM x 4 Neuro: CN 2-12 grossly intact, no new focal deficits Psych: confused - Constitutional Vitals: Temp Pulse Resp BP Pulse Ox 98.3 F 70 16 120/55 97 12/14/18 12:00 12/14/18 12:01 12/14/18 12:01 12/14/18 12:01 12/14/18 12:01 General appearance: Present: no acute distress, well-nourished, obese Results - Labs CBC & Chem 7: 12/14/18 04:42 12/14/18 04:42 Labs: Laboratory Last Values WBC 14.7 K/mm3 (4.5-11.0) H 12/14/18 04:42 RBC 2.69 M/mm3 (3.65-5.03) L 12/14/18 04:42 Hgb 8.1 gm/dl (10.1-14.3) L 12/14/18 04:42 Hct 25.0 % (30.3-42.9) L 12/14/18 04:42 MCV 93 fl (79-97) 12/14/18 04:42 MCH 30 pg (28-32) 12/14/18 04:42 MCHC 33 % (30-34) 12/14/18 04:42 RDW 17.1 % (13.2-15.2) H 12/14/18 04:42 Plt Count 173 K/mm3 (140-440) 12/14/18 04:42 Lymph % (Auto) Press Brake Operator 12/11/18 22:47 [place] % (Auto) Press Brake Operator 12/11/18 22:47 Eos % (Auto) Press Brake Operator 12/11/18 22:47 Baso % (Auto) Press Brake Operator 12/11/18 22:47 Lymph # Press Brake Operator 12/11/18 22:47 [place] # Press Brake Operator 12/11/18 22:47 Eos # Press Brake Operator 12/11/18 22:47 Baso # Press Brake Operator 12/11/18 22:47 Add Manual Diff Complete 12/11/18 22:47 Total Counted 100 12/11/18 22:47 Seg Neutrophils % Press Brake Operator 12/11/18 22:47 Seg Neuts % (Manual) 92.0 % (40.0-70.0) H 12/11/18 22:47 Band Neutrophils % 0 % 12/11/18 22:47 Lymphocytes % (Manual) 4.0 % (13.4-35.0) L 12/11/18 22:47 Reactive Lymphs % (Man) 0 % 12/11/18 22:47 Monocytes % (Manual) 3.0 % (0.0-7.3) 12/11/18 22:47 Eosinophils % (Manual) 0 % (0.0-4.3) 12/11/18 22:47 Basophils % (Manual) 0 % (0.0-1.8) 12/11/18 22:47 Metamyelocytes % 1.0 % 12/11/18 22:47 Myelocytes % 0 % 12/11/18 22:47 Promyelocytes % 0 % 12/11/18 22:47 Blast Cells % 0 % 12/11/18 22:47 Nucleated RBC % 2.0 % (0.0-0.9) H 12/11/18 22:47 Seg Neutrophils # Press Brake Operator 12/11/18 22:47 Seg Neutrophils # Man 17.0 K/mm3 (1.8-7.7) H 12/11/18 22:47 Band Neutrophils # 0.0 K/mm3 12/11/18 22:47 Lymphocytes # (Manual) 0.7 K/mm3 (1.2-5.4) L 12/11/18 22:47 Abs React Lymphs (Man) 0.0 K/mm3 12/11/18 22:47 Monocytes # (Manual) 0.6 K/mm3 (0.0-0.8) 12/11/18 22:47 Eosinophils # (Manual) 0.0 K/mm3 (0.0-0.4) 12/11/18 22:47 Basophils # (Manual) 0.0 K/mm3 (0.0-0.1) 12/11/18 22:47 Metamyelocytes # 0.2 K/mm3 12/11/18 22:47 Myelocytes # 0.0 K/mm3 12/11/18 22:47 Promyelocytes # 0.0 K/mm3 12/11/18 22:47 Blast Cells # 0.0 K/mm3 12/11/18 22:47 WBC Morphology Not Reportable 12/11/18 22:47 Hypersegmented Neuts Not Reportable 12/11/18 22:47 Hyposegmented Neuts Not Reportable 12/11/18 22:47 Hypogranular Neuts Not Reportable 12/11/18 22:47 Smudge Cells Not Reportable 12/11/18 22:47 Toxic Granulation Not Reportable 12/11/18 22:47 Toxic Vacuolation Not Reportable 12/11/18 22:47 Dohle Bodies Not Reportable 12/11/18 22:47 Pelger-Huet Anomaly Not Reportable 12/11/18 22:47 Starla Rods Not Reportable 12/11/18 22:47 Platelet Estimate Consistent w auto 12/11/18 22:47 Clumped Platelets Few 12/11/18 22:47 Plt Clumps, EDTA Not Reportable 12/11/18 22:47 Large Platelets 1+ 12/11/18 22:47 Giant Platelets Not Reportable 12/11/18 22:47 Platelet Satelliting Not Reportable 12/11/18 22:47 Plt Morphology Comment Not Reportable 12/11/18 22:47 RBC Morphology Normal 12/11/18 22:47 Dimorphic RBCs Not Reportable 12/11/18 22:47 Polychromasia Not Reportable 12/11/18 22:47 Hypochromasia Not Reportable 12/11/18 22:47 Poikilocytosis Not Reportable 12/11/18 22:47 Anisocytosis Not Reportable 12/11/18 22:47 Microcytosis Not Reportable 12/11/18 22:47 Macrocytosis Not Reportable 12/11/18 22:47 Spherocytes Not Reportable 12/11/18 22:47 Pappenheimer Bodies Not Reportable 12/11/18 22:47 Sickle Cells Not Reportable 12/11/18 22:47 Target Cells Not Reportable 12/11/18 22:47 Tear Drop Cells Not Reportable 12/11/18 22:47 Ovalocytes Not Reportable 12/11/18 22:47 Helmet Cells Not Reportable 12/11/18 22:47 [place] Bodies Not Reportable 12/11/18 22:47 [place] Rings Not Reportable 12/11/18 22:47 [place] Cells Not Reportable 12/11/18 22:47 Bite Cells Not Reportable 12/11/18 22:47 Crenated Cell Not Reportable 12/11/18 22:47 Elliptocytes Not Reportable 12/11/18 22:47 Acanthocytes (Spur) Not Reportable 12/11/18 22:47 Rouleaux Not Reportable 12/11/18 22:47 Hemoglobin C Crystals Not Reportable 12/11/18 22:47 Schistocytes Not Reportable 12/11/18 22:47 Malaria parasites Not Reportable 12/11/18 22:47 Dawson Bodies Not Reportable 12/11/18 22:47 Hem Pathologist Commnt No 12/11/18 22:47 PT 16.8 Sec. (12.2-14.9) H 12/12/18 11:45 INR 1.28 (0.87-1.13) H 12/12/18 11:45 APTT 40.8 Sec. (24.2-36.6) H 12/12/18 11:45 POC ABG pH 7.420 (7.35-7.45) 12/11/18 23:14 POC ABG pCO2 39.6 (35-45) 12/11/18 23:14 POC ABG pO2 84 (80-105) 12/11/18 23:14 POC ABG HCO3 25.7 (22-26 mml/L) 12/11/18 23:14 POC ABG Total CO2 27 (23-27mmol/L) 12/11/18 23:14 POC ABG O2 Sat 97 12/11/18 23:14 POC ABG Base Excess 1 ((-2) - (+3)mmol/L) 12/11/18 23:14 FiO2 32 % 12/11/18 23:14 Sodium 146 mmol/L (137-145) H D 12/14/18 04:42 Potassium 3.6 mmol/L (3.6-5.0) D 12/14/18 04:42 Chloride 111.3 mmol/L (98-107) H 12/14/18 04:42 Carbon Dioxide 22 mmol/L (22-30) 12/14/18 04:42 Anion Gap 16 mmol/L 12/14/18 04:42 BUN 47 mg/dL (7-17) H 12/14/18 04:42 Creatinine 1.5 mg/dL (0.7-1.2) H 12/14/18 04:42 Estimated GFR 41 ml/min 12/14/18 04:42 BUN/Creatinine Ratio 31 % 12/14/18 04:42 Glucose 187 mg/dL (65-100) H 12/14/18 04:42 POC Glucose 226 (70-105) H 12/14/18 12:04 Calcium 9.5 mg/dL (8.4-10.2) 12/14/18 04:42 Phosphorus 2.50 mg/dL (2.5-4.5) 12/13/18 07:39 Magnesium 1.80 mg/dL (1.7-2.3) 12/14/18 09:33 Total Bilirubin 2.10 mg/dL (0.1-1.2) H 12/11/18 20:34 AST 25 units/L (5-40) 12/11/18 20:34 ALT 27 units/L (7-56) 12/11/18 20:34 Alkaline Phosphatase 215 units/L (35-129) H 12/11/18 20:34 Ammonia 19.0 umol/L (25-60) L 12/11/18 21:04 Total Creatine Kinase 44 units/L (30-135) 12/12/18 07:33 CK-MB (CK-2) 1.1 ng/mL (0.0-4.0) 12/12/18 07:33 CK-MB (CK-2) Rel Index 2.5 (0-4) 12/12/18 07:33 Troponin T 0.036 ng/mL (0.00-0.029) H 12/12/18 07:33 C-Reactive Protein 32.70 mg/dL (0.00-1.30) H 12/13/18 16:23 Total Protein 6.2 g/dL (6.3-8.2) L 12/11/18 20:34 Albumin 2.9 g/dL (3.9-5) L 12/11/18 20:34 Albumin/Globulin Ratio 0.9 % 12/11/18 20:34 Triglycerides 173 mg/dL (2-149) H 12/11/18 20:34 Cholesterol 95 mg/dL (50-199) 12/11/18 20:34 LDL Cholesterol Direct 16 mg/dL (50-130) L 12/11/18 20:34 HDL Cholesterol 19 mg/dL (40-59) L 12/11/18 20:34 Cholesterol/HDL Ratio 5.00 % 12/11/18 20:34 TSH 0.447 mlU/mL (0.270-4.200) 12/11/18 21:04 Thyroxine (T4) 5.3 ug/dL (4.0-12.0) 12/11/18 21:04 Urine Color Dark yellow (Yellow) 12/11/18 23:06 Urine Turbidity Clear (Clear) 12/11/18 23:06 Urine pH 5.0 (5.0-7.0) 12/11/18 23:06 Ur Specific [place] 1.021 (1.003-1.030) 12/11/18 23:06 Urine Protein 100 mg/dl mg/dL (Negative) 12/11/18 23:06 Urine Glucose (UA) >=500 mg/dL (Negative) 12/11/18 23:06 Urine Ketones Tr mg/dL (Negative) 12/11/18 23:06 Urine Blood Neg (Negative) 12/11/18 23:06 Urine Nitrite Neg (Negative) 12/11/18 23:06 Urine Bilirubin Neg (Negative) 12/11/18 23:06 Urine Urobilinogen 4.0 mg/dL (<2.0) 12/11/18 23:06 Ur Leukocyte Esterase Neg (Negative) 12/11/18 23:06 Urine WBC (Auto) 1.0 /HPF (0.0-6.0) 12/11/18 23:06 Urine RBC (Auto) 2.0 /HPF (0.0-6.0) 12/11/18 23:06 U Epithel Cells (Auto) 1.0 /HPF (0-13.0) 12/11/18 23:06 Amorphous Crystals Few 12/11/18 23:06 Random Vancomycin 7.9 ug/mL (0-40.0) 12/14/18 09:33 Urine Opiates Screen Presumptive negative 12/12/18 09:40 Urine Methadone Screen Presumptive negative 12/12/18 09:40 Ur Barbiturates Screen Presumptive negative 12/12/18 09:40 Ur Phencyclidine Scrn Presumptive negative 12/12/18 09:40 Ur Amphetamines Screen Presumptive negative 12/12/18 09:40 U Benzodiazepines Scrn Presumptive negative 12/12/18 09:40 Urine Cocaine Screen Presumptive negative 12/12/18 09:40 U Marijuana (THC) Screen Presumptive negative 12/12/18 09:40 Drugs of Abuse Note Disclamer 12/12/18 09:40 Plasma/Serum Alcohol < 0.01 % (0-0.07) 12/12/18 09:27 Active Medications - Current Medications Current Medications: Generic Name Dose Route Start Last Admin Trade Name Freq PRN Reason Stop Dose Admin Acetaminophen 650 mg 12/12/18 09:53 12/12/18 21:25 Tylenol PO 650 mg Q4H PRN Administration Fever >101 Lipase/Protease/Amylase 1 each 12/14/18 10:52 Pancreaze 10,500 Unit FEEDTUBE PRN PRN For Clogged Feeding Tube Carvedilol 25 mg 12/12/18 10:00 12/14/18 09:05 Coreg PO 25 mg BID AMANDEEP Administration Dextrose 50 ml 12/12/18 08:11 D50w (25gm) Syringe IV PRN PRN Hypoglycemia Haloperidol Lactate 5 mg 12/12/18 18:00 12/14/18 03:12 Haldol IV 5 mg Q6H PRN Administration Agitation Heparin Sodium (Porcine) 5,000 unit 12/12/18 10:00 12/12/18 09:22 Heparin SUB-Q 5,000 unit Q12HR AMANDEEP Administration Hydralazine HCl 50 mg 12/12/18 09:00 12/14/18 08:55 Apresoline PO Not Given TID AMANDEEP Cefazolin Sodium 2 gm/ Sodium 100 mls @ 100 mls/hr 12/13/18 14:00 12/14/18 06:03 Chloride IV 100 mls/hr Q8H AMANDEEP Administration Sodium Chloride 1,000 mls @ 150 mls/hr 12/14/18 10:00 12/14/18 09:29 Nacl 0.9% 1000 Ml IV 150 mls/hr DIRECT AMANDEEP Administration Insulin Glargine 10 units 12/14/18 22:00 Lantus SUB-Q QHS [facility] Insulin Human Lispro 0 unit 12/14/18 12:00 Humalog SUB-Q Q6HR [facility] Protocol Loratadine 10 mg 12/12/18 10:00 12/14/18 09:04 Claritin PO 10 mg DAILY AMANDEEP Administration Lorazepam 1 mg 12/13/18 14:05 12/13/18 17:30 Ativan IV 1 mg Q4H PRN Administration Agitation Morphine Sulfate 2 mg 12/12/18 02:48 12/13/18 17:09 Morphine IV 2 mg Q4H PRN Administration Pain, Moderate (4-6) Ondansetron HCl 4 mg 12/12/18 02:48 Zofran IV Q8H PRN Nausea And Vomiting Simple Syrup 15 ml 12/14/18 10:52 Simple Syrup FEEDTUBE PRN PRN Hypoglycemia Simple Syrup 30 ml 12/14/18 10:52 Simple Syrup FEEDTUBE PRN PRN Hypoglycemia Sodium Bicarbonate 325 mg 12/14/18 10:52 Sodium Bicarbonate FEEDTUBE PRN PRN For Clogged Feeding Tube Nutrition/Malnutrition Assess - Dietary Evaluation Nutrition/Malnutrition Findings: Nutrition Notes Start: 12/12/18 12:14 Freq: Status: Active Protocol: Document 12/14/18 10:44 LP (Rec: 12/14/18 10:51 LP [id number]) Nutrition Notes Need for Assessment generated from: MD Order Initial or Follow up Reassessment Current Diagnosis Diabetes,Hypertension Other Pertinent Diagnosis arthritis, asthma Current Diet No diet Labs/Tests Na 146 BUN 47 Cr 1.5 BG 187 Pertinent Medications NS at 125ml/hr Height 5 ft 7 in Weight 136.078 kg Usual Body Weight 3 kg [place] Body Weight (kg) 61.36 BMI 47.0 Subjective/Other Information Consult for TF. Pt has dobhoff and will be moved to the floor. Burn Absent Trauma Absent #1 Nutrition Diagnosis Inadequate energy intake, Predicted suboptimal energy intake Comments: Change As Evidenced by Signs and Symptoms dobhoff placed Is patient on ventilator? No Is Patient Ambulatory and/or Out of Bed No REE-([facility]-confined to bed) 2289.360 Kcal/Kg value to use for calculation 14 Approximate Energy Requirements Using 1905 kcal/Kg Calculation Used for Recommendations Kcal/kg Additional Notes Protein: 64-80g (0.8-1g/kg using adj wt 80kg) Fluid: 1 ml/kcal Nutrition Intervention Change Diet Order: TF Nutrition Support: Glucerna 1.2 at 65ml/hr Flush with 150ml q4h Kcal 1,872 Protein (gm) 94 Fluid (mL) 1,260 Goal #1 Meet at least 80% of kcal and protein needs via TF Anticipated Discharge Needs: unable to determine at this time Follow-Up By: 12/17/18 Additional Comments Follow for TF start/tolerance
[2018-12-14] MEDS: ATIVAN IV PRN (13:53)
--- NOTE | 2018-12-14 14:07 | Progress Note ---
Assessment and Plan Cultures: Blood culture 12/12/2018 beta hem Strep group B 4 of 4 bottles Assessment: 73 y/o female with history of DM2, OA, ARF, CKD stage 3, depression, hypertension, hyperthyroidism and GERD; admitted on 12/11/2018 due to AMS and recent fall injuring her right shoulder: 1) Sepsis: fever and leukocytosis trending down, Etiology most likely Strep bacteremia. CXR neg. UA neg. 2) Strep group B bacteremia: 4 of 4 bottles positive, unclear source ? skin (leg wounds do not look infected) ? neck soft tissue infection ? joint infection. CRP=32. TTE no vegetation 3) ALVARO on CKD 4) DM2 with HONK 5) Acute encephalopathy: improving; from sepsis, less likely meningitis. LP was attempted but no done. CT head neg. Recommendations: - chest/neck CT w/o IV contrast to eval inferior anterior neck mass ? - follow-up blood cultures - repeat blood cultures today - f/u WBC tagged scan to search for infectious nidus - continue cefazolin 2 gm IV q 8 hour - check BUFFY, anti-CCP Will follow. Marleny Latham MD Infectious Diseases Kitchen Aide [facility] ([facility] M [phone] O [phone] Subjective Date of service: 12/14/18 Principal diagnosis: sepsis Interval history: More alert, follows simple commands. Off pressors, fever trending down. ROS limited Objective - Exam Narrative Exam: General appearance: Alert in NAD, Eyes: anicteric sclerae, moist conjunctivae; no lid-lag; PERRLA HENT: Atraumatic; oropharynx edentulous limited Neck: Trachea midline; supple, no thyromegaly or lymphadenopathy Lungs: CTA CV: tachycardic Abdomen: Soft,obese mild tenderness Extremities: No peripheral edema or extremity lymphadenopathy + left leg wound 1.0x1.0x0.1. Scant serous sanguineous drainage noticed to the wound. No odor noticed to the wound. + right leg wound 5.0x3.0. Scant serous sanguineous drainage noticed to the wound. No odor noticed to the wound. Skin: stage 2 left buttocks wound. The wound measurement is as follows; 1.0x1.0x0.1. Scant serous sanguineous drainage noticed to the wound. No odor not iced to the wound. Psych: agitated. Neuro: agitated somnolent and yelling - Constitutional Vitals: Vital Signs Temp Pulse Resp BP Pulse Ox 98.3 F 72 15 121/65 99 12/14/18 12:00 12/14/18 13:01 12/14/18 13:01 12/14/18 13:01 12/14/18 13:01 Temperature -Last 24 Hours Temperature 98.3 F Temperature 97.4 F Temperature 97.2 F Temperature 99.4 F Temperature 98.9 F Temperature 100.3 F - Labs CBC & Chem 7: 12/14/18 04:42 12/14/18 04:42 Labs: Abnormal lab results 12/13/18 12/13/18 12/13/18 Range/Units 16:23 17:12 20:43 WBC (4.5-11.0) K/mm3 RBC (3.65-5.03) M/mm3 Hgb (10.1-14.3) gm/dl Hct (30.3-42.9) % RDW (13.2-15.2) % Sodium (137-145) mmol/L Chloride (98-107) mmol/L BUN (7-17) mg/dL Creatinine (0.7-1.2) mg/dL Glucose (65-100) mg/dL POC Glucose 199 H 225 H (70-105) C-Reactive Protein 32.70 H (0.00-1.30) mg/dL 12/14/18 12/14/18 12/14/18 Range/Units 00:53 04:42 04:42 WBC 14.7 H (4.5-11.0) K/mm3 RBC 2.69 L (3.65-5.03) M/mm3 Hgb 8.1 L (10.1-14.3) gm/dl Hct 25.0 L (30.3-42.9) % RDW 17.1 H (13.2-15.2) % Sodium 146 H D (137-145) mmol/L Chloride 111.3 H (98-107) mmol/L BUN 47 H (7-17) mg/dL Creatinine 1.5 H (0.7-1.2) mg/dL Glucose 187 H (65-100) mg/dL POC Glucose 221 H (70-105) C-Reactive Protein (0.00-1.30) mg/dL 12/14/18 12/14/18 12/14/18 Range/Units 05:32 08:41 12:04 WBC (4.5-11.0) K/mm3 RBC (3.65-5.03) M/mm3 Hgb (10.1-14.3) gm/dl Hct (30.3-42.9) % RDW (13.2-15.2) % Sodium (137-145) mmol/L Chloride (98-107) mmol/L BUN (7-17) mg/dL Creatinine (0.7-1.2) mg/dL Glucose (65-100) mg/dL POC Glucose 198 H 225 H 226 H (70-105) C-Reactive Protein (0.00-1.30) mg/dL
[2018-12-14 14:14] LABS: Calcium 9.7 mg/dL (8.4-10.2)
--- NOTE | 2018-12-14 14:54 | Progress Note ---
Assessment and Plan - Patient Problems (1) Acute renal failure Current Visit: Yes Status: Acute Plan to address problem: Acute renal failure now resolved creatinine elevated 1.6 on admission her creatinine worsened to 1.5Mg/DL Etiology of acute kidney injury is likely related to intravascular depletion received saline infusion this am repeat Vancomycin level was not supratherapeutic Given worsening hypernatremia Will change to 0.45% saline infusion. Cautious hydration only as long as AMS persists. (2) Altered mental status Current Visit: Yes Status: Acute Plan to address problem: Encephalopathy evaluation ongoing Brain CT without any acute intracranial abnormality cerebral atrophy noted Group B strep on blood cultures. WORK up Primary team (3) DKA (diabetic ketoacidoses) Current Visit: Yes Status: Acute Plan to address problem: Diabetic ketoacidosis. Significant hypokalemia now resolved. Receive insulin with improvement in glucose levels potassium replacement PRN. (4) Hypokalemia Current Visit: Yes Status: Acute Plan to address problem: Moderate hypokalemia:resolved. Potassium on admission : 2.5 Has received 10 mEq KCl 4 also receive potassium phosphate 15 mmol also received 20 mEq potassium chloride by mouth We'll give additional 40 MQ's by mouth x 1 Thank you for allowing us participate in her care. (5) Acidosis Current Visit: Yes Status: Acute Plan to address problem: Mild acidosis -iatrogenic 2/2 saline infusion -currently will change to 0.45% saline. - can change to bicarb infusion if need for hydration persists and acidosis worsens. Subjective Principal diagnosis: sepsis Interval history: 73-year-old lady medical history significant for hypertension, GERD, chronic kidney disease, hypothyroidism, diabetes admitted with altered mental status was found to have moderate hypokalemia also found to be hyperglycemic and acute kidney injury. She received insulin injections. According to the family members this is a change from previous mental status he reports no sick contacts. Patient seen today due to worsening creatinine repeat vancomycin level was 7.9 She still has altered mental status LP unsuccessful yesterday per note blood cultures positive for group B strep at bedside Plan of care discussed with patient . has good urine output. Objective - Vital Signs Vital signs: Vital Signs - 12hr 12/14/18 12/14/18 12/14/18 03:00 03:12 04:00 Temperature 97.2 F L Pulse Rate 75 61 Respiratory 14 21 Rate Blood Pressure 158/70 82/39 O2 Sat by Pulse 96 98 Oximetry 12/14/18 12/14/18 12/14/18 05:00 06:00 07:00 Temperature Pulse Rate 68 60 61 Respiratory 24 24 20 Rate Blood Pressure 117/55 87/43 105/51 O2 Sat by Pulse 98 98 100 Oximetry 12/14/18 12/14/18 12/14/18 08:00 08:01 09:00 Temperature 97.4 F L Pulse Rate 71 62 Respiratory 14 20 Rate Blood Pressure 122/56 106/49 O2 Sat by Pulse 98 99 Oximetry 12/14/18 12/14/18 12/14/18 09:05 10:00 11:01 Temperature Pulse Rate 62 71 68 Respiratory 20 15 Rate Blood Pressure 106/49 93/48 124/60 O2 Sat by Pulse 98 97 Oximetry 12/14/18 12/14/18 12/14/18 12:00 12:01 13:01 Temperature 98.3 F Pulse Rate 70 72 Respiratory 16 15 Rate Blood Pressure 120/55 121/65 O2 Sat by Pulse 97 99 Oximetry - General Appearance General appearance: obese EENT: ATNC, PERRL Neck: no JVD Respiratory: Present: Clear to Ascultation Cardiology: regular, S1S2 Gastrointestinal: normal, normoactive bowel sounds Integumentary: no rash Neurologic: alert and oriented x3, CN 3-12 intact Musculoskeletal: deferred Psychiatric: mood/affect appropriate - Lab 12/14/18 04:42 12/14/18 12:55 Most recent lab results Calcium 9.7 mg/dL (8.4-10.2) 12/14/18 12:55 Phosphorus 2.50 mg/dL (2.5-4.5) 12/13/18 07:39 Magnesium 1.80 mg/dL (1.7-2.3) 12/14/18 09:33 - Imaging Chest x-ray: image reviewed (I reviewed CXR without overt edema. ) Medications & Allergies - Medications Allergies/Adverse Reactions: Allergies No Known Allergies Allergy (Verified 04/02/16 12:35) Home Medications: Home Medications Medication Instructions Recorded Confirmed Last Taken Type Carvedilol [Coreg] 25 mg PO BID 04/03/16 12/11/18 12/11/18 History Cetirizine HCl 10 mg PO QDAY 04/03/16 12/11/18 12/11/18 History Omeprazole 20 mg PO TID 04/03/16 12/11/18 12/11/18 History Pentoxifylline 400 mg PO BID 04/03/16 12/11/18 12/11/18 History hydrALAZINE [Apresoline TAB] 50 mg PO TID 04/03/16 12/11/18 12/11/18 History metFORMIN 1,000 mg PO BIDAC 04/03/16 12/11/18 12/11/18 History methIMAzole [Tapazole] 5 mg PO QDAY #30 tablet 04/05/16 12/11/18 12/11/18 Rx Active Medications: Generic Name Dose Route Start Last Admin Trade Name Freq PRN Reason Stop Dose Admin Acetaminophen 650 mg 12/12/18 09:53 12/12/18 21:25 Tylenol PO 650 mg Q4H PRN Administration Fever >101 Lipase/Protease/Amylase 1 each 12/14/18 10:[address] 10,500 Unit FEEDTUBE PRN PRN For Clogged Feeding Tube Carvedilol 25 mg 12/12/18 10:00 12/14/18 09:05 Coreg PO 25 mg BID AMANDEEP Administration Dextrose 50 ml 12/12/18 08:11 D50w (25gm) Syringe IV PRN PRN Hypoglycemia Haloperidol Lactate 5 mg 12/12/18 18:00 12/14/18 13:52 Haldol IV 5 mg Q6H PRN Administration Agitation Heparin Sodium (Porcine) 5,000 unit 12/12/18 10:00 12/12/18 09:22 Heparin SUB-Q 5,000 unit Q12HR AMANDEEP Administration Hydralazine HCl 50 mg 12/12/18 09:00 12/14/18 08:55 Apresoline PO Not Given TID AMANDEEP Cefazolin Sodium 2 gm/ Sodium 100 mls @ 100 mls/hr 12/13/18 14:00 12/14/18 06:03 Chloride IV 100 mls/hr Q8H AMANDEEP Administration Sodium Chloride 1,000 mls @ 125 mls/hr 12/14/18 15:00 Nacl 0.45% 1000 Ml IV DIRECT AMANDEEP Insulin Glargine 10 units 12/14/18 22:00 Lantus SUB-Q QHS AMANDEEP Insulin Human Lispro 0 unit 12/14/18 12:00 12/14/18 13:01 Humalog SUB-Q 4 unit Q6HR AMANDEEP Administration Protocol Loratadine 10 mg 12/12/18 10:00 12/14/18 09:04 Claritin PO 10 mg DAILY AMANDEEP Administration Lorazepam 1 mg 12/13/18 14:05 12/14/18 13:53 Ativan IV 1 mg Q4H PRN Administration Agitation Morphine Sulfate 2 mg 12/12/18 02:48 12/13/18 17:09 Morphine IV 2 mg Q4H PRN Administration Pain, Moderate (4-6) Ondansetron HCl 4 mg 12/12/18 02:48 Zofran IV Q8H PRN Nausea And Vomiting Simple Syrup 15 ml 12/14/18 10:52 Simple Syrup FEEDTUBE PRN PRN Hypoglycemia Simple Syrup 30 ml 12/14/18 10:52 Simple Syrup FEEDTUBE PRN PRN Hypoglycemia Sodium Bicarbonate 325 mg 12/14/18 10:52 Sodium Bicarbonate FEEDTUBE PRN PRN For Clogged Feeding Tube
--- NOTE | 2018-12-14 16:01 | Progress Note ---
Subjective Date of service: 12/14/18 Principal diagnosis: sepsis Interval history: More alert, follows simple commands. Off pressors, fever trending down. ROS limited Objective - Constitutional Vitals: Vital Signs Temp Pulse Resp BP Pulse Ox 98.3 F 72 21 116/69 96 12/14/18 12:00 12/14/18 15:01 12/14/18 15:01 12/14/18 15:01 12/14/18 15:01 Temperature -Last 24 Hours Temperature 98.3 F Temperature 97.4 F Temperature 97.2 F Temperature 99.4 F Temperature 98.9 F - Labs CBC & Chem 7: 12/14/18 04:42 12/14/18 12:55 Labs: Abnormal lab results 12/13/18 12/13/18 12/13/18 Range/Units 16:23 17:12 20:43 WBC (4.5-11.0) K/mm3 RBC (3.65-5.03) M/mm3 Hgb (10.1-14.3) gm/dl Hct (30.3-42.9) % RDW (13.2-15.2) % Sodium (137-145) mmol/L Potassium (3.6-5.0) mmol/L Chloride (98-107) mmol/L Carbon Dioxide (22-30) mmol/L BUN (7-17) mg/dL Creatinine (0.7-1.2) mg/dL Glucose (65-100) mg/dL POC Glucose 199 H 225 H (70-105) C-Reactive Protein 32.70 H (0.00-1.30) mg/dL 12/14/18 12/14/18 12/14/18 Range/Units 00:53 04:42 04:42 WBC 14.7 H (4.5-11.0) K/mm3 RBC 2.69 L (3.65-5.03) M/mm3 Hgb 8.1 L (10.1-14.3) gm/dl Hct 25.0 L (30.3-42.9) % RDW 17.1 H (13.2-15.2) % Sodium 146 H D (137-145) mmol/L Potassium (3.6-5.0) mmol/L Chloride 111.3 H (98-107) mmol/L Carbon Dioxide (22-30) mmol/L BUN 47 H (7-17) mg/dL Creatinine 1.5 H (0.7-1.2) mg/dL Glucose 187 H (65-100) mg/dL POC Glucose 221 H (70-105) C-Reactive Protein (0.00-1.30) mg/dL 12/14/18 12/14/18 12/14/18 Range/Units 05:32 08:41 12:04 WBC (4.5-11.0) K/mm3 RBC (3.65-5.03) M/mm3 Hgb (10.1-14.3) gm/dl Hct (30.3-42.9) % RDW (13.2-15.2) % Sodium (137-145) mmol/L Potassium (3.6-5.0) mmol/L Chloride (98-107) mmol/L Carbon Dioxide (22-30) mmol/L BUN (7-17) mg/dL Creatinine (0.7-1.2) mg/dL Glucose (65-100) mg/dL POC Glucose 198 H 225 H 226 H (70-105) C-Reactive Protein (0.00-1.30) mg/dL 12/14/18 Range/Units 12:55 WBC (4.5-11.0) K/mm3 RBC (3.65-5.03) M/mm3 Hgb (10.1-14.3) gm/dl Hct (30.3-42.9) % RDW (13.2-15.2) % Sodium 149 H (137-145) mmol/L Potassium 3.5 L (3.6-5.0) mmol/L Chloride (98-107) mmol/L Carbon Dioxide 20 L (22-30) mmol/L BUN 46 H (7-17) mg/dL Creatinine 1.3 H (0.7-1.2) mg/dL Glucose 238 H (65-100) mg/dL POC Glucose (70-105) C-Reactive Protein (0.00-1.30) mg/dL
[2018-12-14] MEDS: HEPARIN SUB-Q SCH (23:09)
[2018-12-14] MEDS: TYLENOL PO PRN (23:41)
[2018-12-15] MEDS: LANTUS SUB-Q SCH ×2 (00:02→21:43)
[2018-12-15 05:40] LABS: Hematocrit 24.8 % (30.3-42.9); Mean Corpuscular HGB Conc 32 % (30-34); Mean Corpuscular Volume 93 fl (79-97); Platelet Count 208 K/mm3 (140-440); Red Blood Count 2.66 M/mm3 (3.65-5.03); Red Cell Distribution Width 17.3 % (13.2-15.2)
[2018-12-15 05:54] LABS: Calcium 9.6 mg/dL (8.4-10.2)
[2018-12-15] MEDS: APRESOLINE PO SCH ×3 (08:00→21:42)
[2018-12-15] MEDS: HEPARIN SUB-Q SCH ×2 (10:12→21:45)
[2018-12-15] MEDS: COREG PO SCH ×2 (10:13→21:41)
[2018-12-15] MEDS: CLARITIN PO SCH (10:13)
[2018-12-15] MEDS: HumaLOG SUB-Q SCH ×2 (12:12→18:23)
--- NOTE | 2018-12-15 13:06 | Progress Note ---
Assessment and Plan Impression: * Acute kidney injury secondary to prerenal azotemia on CKD * Sepsis * Group B Strep bacteremia * Hypernatremia * Hypokalemia * Metabolic acidosis * Type II DM * Encephalopathy Plan: * Renal function is stable * Needs more free water w/ TF * Replete lytes prn * Glycemic control per primary team * Abx per ID - recommendations noted * Avoid potential nephrotoxins * Dose medications for renal function * at bedside - updated Subjective Date of service: 12/15/18 Principal diagnosis: sepsis Interval history: 24h events noted. Chart reviewed. Objective - Vital Signs Vital signs: Vital Signs - 12hr 12/15/18 12/15/18 12/15/18 02:00 03:06 08:07 Temperature 97.8 F 97.5 F L Pulse Rate 64 64 76 Respiratory 20 19 Rate Blood Pressure 119/51 115/49 Blood Pressure 119/71 [Left] O2 Sat by Pulse 100 100 100 Oximetry 12/15/18 12/15/18 10:00 10:13 Temperature Pulse Rate 76 76 Respiratory Rate Blood Pressure 115/49 Blood Pressure [Left] O2 Sat by Pulse Oximetry - General Appearance General appearance: well-developed, well-nourished EENT: ATNC Respiratory: Present: Decreased Breath Sounds Cardiology: regular, S1S2 Gastrointestinal: no tenderness, no distended, obese Integumentary: warm and dry Musculoskeletal: other (trace edema) Psychiatric: cooperative - Lab 12/15/18 05:19 12/15/18 05:19 Most recent lab results Calcium 9.6 mg/dL (8.4-10.2) 12/15/18 05:19 Phosphorus 2.50 mg/dL (2.5-4.5) 12/13/18 07:39 Magnesium 1.80 mg/dL (1.7-2.3) 12/14/18 09:33 Medications & Allergies - Medications Allergies/Adverse Reactions: Allergies No Known Allergies Allergy (Verified 04/02/16 12:35) Home Medications: Home Medications Medication Instructions Recorded Confirmed Last Taken Type Carvedilol [Coreg] 25 mg PO BID 04/03/16 12/11/18 12/11/18 History Cetirizine HCl 10 mg PO QDAY 04/03/16 12/11/18 12/11/18 History Omeprazole 20 mg PO TID 04/03/16 12/11/18 12/11/18 History Pentoxifylline 400 mg PO BID 04/03/16 12/11/18 12/11/18 History hydrALAZINE [Apresoline TAB] 50 mg PO TID 04/03/16 12/11/18 12/11/18 History metFORMIN 1,000 mg PO BIDAC 04/03/16 12/11/18 12/11/18 History methIMAzole [Tapazole] 5 mg PO QDAY #30 tablet 04/05/16 12/11/18 12/11/18 Rx Active Medications: Generic Name Dose Route Start Last Admin Trade Name Freq PRN Reason Stop Dose Admin Acetaminophen 650 mg 12/12/18 09:53 12/14/18 23:41 Tylenol PO 650 mg Q4H PRN Administration Fever >101 Lipase/Protease/Amylase 1 each 12/14/18 10:[address] 10,500 Unit FEEDTUBE PRN PRN For Clogged Feeding Tube Carvedilol 25 mg 12/12/18 10:00 12/15/18 10:13 Coreg PO 25 mg BID AMANDEEP Administration Dextrose 50 ml 12/12/18 08:11 D50w (25gm) Syringe IV PRN PRN Hypoglycemia Haloperidol Lactate 5 mg 12/12/18 18:00 12/14/18 23:42 Haldol IV 5 mg Q6H PRN Administration Agitation Heparin Sodium (Porcine) 5,000 unit 12/12/18 10:00 12/15/18 10:12 Heparin SUB-Q 5,000 unit Q12HR AMANDEEP Administration Hydralazine HCl 50 mg 12/12/18 09:00 12/15/18 08:00 Apresoline PO Not Given TID AMANDEEP Cefazolin Sodium 2 gm/ Sodium 100 mls @ 100 mls/hr 12/13/18 14:00 12/14/18 23:55 Chloride IV 100 mls/hr Q8H AMANDEEP Administration Sodium Chloride 1,000 mls @ 125 mls/hr 12/14/18 15:00 Nacl 0.45% 1000 Ml IV DIRECT AMANDEEP Insulin Glargine 10 units 12/14/18 22:00 12/15/18 00:02 Lantus SUB-Q 10 units QHS AMANDEEP Administration Insulin Human Lispro 0 unit 12/14/18 12:00 12/15/18 12:12 Humalog SUB-Q 8 unit Q6HR AMANDEEP Administration Protocol Loratadine 10 mg 12/12/18 10:00 12/15/18 10:13 Claritin PO 10 mg DAILY AMANDEEP Administration Lorazepam 1 mg 12/13/18 14:05 12/14/18 13:53 Ativan IV 1 mg Q4H PRN Administration Agitation Morphine Sulfate 2 mg 12/12/18 02:48 12/13/18 17:09 Morphine IV 2 mg Q4H PRN Administration Pain, Moderate (4-6) Ondansetron HCl 4 mg 12/12/18 02:48 Zofran IV Q8H PRN Nausea And Vomiting Simple Syrup 15 ml 12/14/18 10:52 Simple Syrup FEEDTUBE PRN PRN Hypoglycemia Simple Syrup 30 ml 12/14/18 10:52 Simple Syrup FEEDTUBE PRN PRN Hypoglycemia Sodium Bicarbonate 325 mg 12/14/18 10:52 Sodium Bicarbonate FEEDTUBE PRN PRN For Clogged Feeding Tube
--- NOTE | 2018-12-15 15:10 | Progress Note ---
Assessment and Plan Assessment and plan: Patient is a 73 yo woman with a history of NIDDM, OA, ARF, CKD 3 with baseline Creatinine around 1.2, depression, hypertension, hyperthyroidism and GERD who presented to [facility] ED with AMS. She was found to have ARF, Creatinine 1.6, hyponatremia 133, hyperglycemia at 529, hypomagnesemia at 1.3 and severe h ypokalemia at 2.4 with no diuretics listed on home medications. She was admitted to ICU for DKA needing insulin drip but it was never started due to hypokalemia and now the anion gap has closed. Looking back at old records here, she had a similar presentation in 2016. She never had Urine drug screen or serum alcohol level checked. She spiked a fever and ID was consulted. LP unsuccessful as patient is not cooperative. -Acute metabolic encephalopathy, CT head negative: UDS and serum ETOH levels unremarkable, LP pending, ?Neurology coverage today -Leukocytosis and fevers etiology unclear, with UA negative for UTI and pCXr negative for infiltrates, now febrile: follow blood cultures, ID work up in progress, ordered tagged WBC which not done because patient was uncooperative -Severe hypokalemia: ordered IV team for midline to give more potassium supplementation but wasn't done because fevers -Hypomagnesemia: repleted and monitor closely -Hyperthyroidism, slightly elevated free T4: hold tapezole -Moderate malnutrition with morbid obesity: consult Telecommunications Engineer, ordered Dobhuff with placement confirmation -Elevated troponin at 0.038, suspect related to renal failure: another set of Troponin remained flat, ordered ECHO -ARF/CKD 3, vasomotor nephropathy: treat with IVF, and repeat level, if worsen consult Nephrology and get renal ultrasound -Type 2 NIDDM with HONK: added SSI -Anemia, appears acute from 2016 records: get FOBT and monitor cbc closely -Hypertension on coreg and hydralazine: continue, on NSS due to the hyponatremia Home reconciliation completed, reason for the Pentoxifylline unclear, DVT ppx on sq heparin Disposition: continue inpatient care, transferred out of ICU on 12/14/18 History Interval history: Patient was seen and examined. Follow-up on current diagnosis of AMS, still confused. Overnight uneventful except for fevers. Imaging, nursing note, chart, labs and old chart reviewed. Still yelling out Hospitalist Physical - Physical exam Narrative exam: Gen: ill appearing NAD, confused HEENT: NCAT, EOMI, PERRL, OP Clear Neck: supple, no adenopathy, no thyromegaly, no JVD CVS/Heart: RRR, normal S1S2, pulses present bilaterally Chest/Lungs: CTA B, Symmetrical chest expansion, good air entry bilaterally GI/Abdomen: soft, NTND, good bowel sounds, no guarding or rebound /Bladder: no suprapubic tenderness, no CVA or paraspinal tenderness Extermity/Skin: no c/c/e, no obvious rash MSK: FROM x 4 Neuro: CN 2-12 grossly intact, no new focal deficits Psych: confused - Constitutional Vitals: Temp Pulse Resp BP Pulse Ox 97.5 F L 76 19 115/49 100 12/15/18 08:07 12/15/18 10:13 12/15/18 08:07 12/15/18 10:13 12/15/18 08:07 General appearance: Present: no acute distress, well-nourished, obese Results - Labs CBC & Chem 7: 12/15/18 05:19 12/15/18 05:19 Labs: Laboratory Last Values WBC 12.8 K/mm3 (4.5-11.0) H 12/15/18 05:19 RBC 2.66 M/mm3 (3.65-5.03) L 12/15/18 05:19 Hgb 8.0 gm/dl (10.1-14.3) L 12/15/18 05:19 Hct 24.8 % (30.3-42.9) L 12/15/18 05:19 MCV 93 fl (79-97) 12/15/18 05:19 MCH 30 pg (28-32) 12/15/18 05:19 MCHC 32 % (30-34) 12/15/18 05:19 RDW 17.3 % (13.2-15.2) H 12/15/18 05:19 Plt Count 208 K/mm3 (140-440) 12/15/18 05:19 Lymph % (Auto) [employer] Team Member 12/11/18 22:47 [place] % (Auto) [employer] Team Member 12/11/18 22:47 Eos % (Auto) [employer] Team Member 12/11/18 22:47 Baso % (Auto) [employer] Team Member 12/11/18 22:47 Lymph # [employer] Team Member 12/11/18 22:47 [place] # [employer] Team Member 12/11/18 22:47 Eos # [employer] Team Member 12/11/18 22:47 Baso # [employer] Team Member 12/11/18 22:47 Add Manual Diff Complete 12/11/18 22:47 Total Counted 100 12/11/18 22:47 Seg Neutrophils % [employer] Team Member 12/11/18 22:47 Seg Neuts % (Manual) 92.0 % (40.0-70.0) H 12/11/18 22:47 Band Neutrophils % 0 % 12/11/18 22:47 Lymphocytes % (Manual) 4.0 % (13.4-35.0) L 12/11/18 22:47 Reactive Lymphs % (Man) 0 % 12/11/18 22:47 Monocytes % (Manual) 3.0 % (0.0-7.3) 12/11/18 22:47 Eosinophils % (Manual) 0 % (0.0-4.3) 12/11/18 22:47 Basophils % (Manual) 0 % (0.0-1.8) 12/11/18 22:47 Metamyelocytes % 1.0 % 12/11/18 22:47 Myelocytes % 0 % 12/11/18 22:47 Promyelocytes % 0 % 12/11/18 22:47 Blast Cells % 0 % 12/11/18 22:47 Nucleated RBC % 2.0 % (0.0-0.9) H 12/11/18 22:47 Seg Neutrophils # [employer] Team Member 12/11/18 22:47 Seg Neutrophils # Man 17.0 K/mm3 (1.8-7.7) H 12/11/18 22:47 Band Neutrophils # 0.0 K/mm3 12/11/18 22:47 Lymphocytes # (Manual) 0.7 K/mm3 (1.2-5.4) L 12/11/18 22:47 Abs React Lymphs (Man) 0.0 K/mm3 12/11/18 22:47 Monocytes # (Manual) 0.6 K/mm3 (0.0-0.8) 12/11/18 22:47 Eosinophils # (Manual) 0.0 K/mm3 (0.0-0.4) 12/11/18 22:47 Basophils # (Manual) 0.0 K/mm3 (0.0-0.1) 12/11/18 22:47 Metamyelocytes # 0.2 K/mm3 12/11/18 22:47 Myelocytes # 0.0 K/mm3 12/11/18 22:47 Promyelocytes # 0.0 K/mm3 12/11/18 22:47 Blast Cells # 0.0 K/mm3 12/11/18 22:47 WBC Morphology Not Reportable 12/11/18 22:47 Hypersegmented Neuts Not Reportable 12/11/18 22:47 Hyposegmented Neuts Not Reportable 12/11/18 22:47 Hypogranular Neuts Not Reportable 12/11/18 22:47 Smudge Cells Not Reportable 12/11/18 22:47 Toxic Granulation Not Reportable 12/11/18 22:47 Toxic Vacuolation Not Reportable 12/11/18 22:47 Dohle Bodies Not Reportable 12/11/18 22:47 Pelger-Huet Anomaly Not Reportable 12/11/18 22:47 Starla Rods Not Reportable 12/11/18 22:47 Platelet Estimate Consistent w auto 12/11/18 22:47 Clumped Platelets Few 12/11/18 22:47 Plt Clumps, EDTA Not Reportable 12/11/18 22:47 Large Platelets 1+ 12/11/18 22:47 Giant Platelets Not Reportable 12/11/18 22:47 Platelet Satelliting Not Reportable 12/11/18 22:47 Plt Morphology Comment Not Reportable 12/11/18 22:47 RBC Morphology Normal 12/11/18 22:47 Dimorphic RBCs Not Reportable 12/11/18 22:47 Polychromasia Not Reportable 12/11/18 22:47 Hypochromasia Not Reportable 12/11/18 22:47 Poikilocytosis Not Reportable 12/11/18 22:47 Anisocytosis Not Reportable 12/11/18 22:47 Microcytosis Not Reportable 12/11/18 22:47 Macrocytosis Not Reportable 12/11/18 22:47 Spherocytes Not Reportable 12/11/18 22:47 Pappenheimer Bodies Not Reportable 12/11/18 22:47 Sickle Cells Not Reportable 12/11/18 22:47 Target Cells Not Reportable 12/11/18 22:47 Tear Drop Cells Not Reportable 12/11/18 22:47 Ovalocytes Not Reportable 12/11/18 22:47 Helmet Cells Not Reportable 12/11/18 22:47 Sanchez-Mosinee Bodies Not Reportable 12/11/18 22:47 [place] Rings Not Reportable 12/11/18 22:47 [place] Cells Not Reportable 12/11/18 22:47 Bite Cells Not Reportable 12/11/18 22:47 Crenated Cell Not Reportable 12/11/18 22:47 Elliptocytes Not Reportable 12/11/18 22:47 Acanthocytes (Spur) Not Reportable 12/11/18 22:47 Rouleaux Not Reportable 12/11/18 22:47 Hemoglobin C Crystals Not Reportable 12/11/18 22:47 Schistocytes Not Reportable 12/11/18 22:47 Malaria parasites Not Reportable 12/11/18 22:47 [place] Bodies Not Reportable 12/11/18 22:47 Hem Pathologist Commnt No 12/11/18 22:47 PT 16.8 Sec. (12.2-14.9) H 12/12/18 11:45 INR 1.28 (0.87-1.13) H 12/12/18 11:45 APTT 40.8 Sec. (24.2-36.6) H 12/12/18 11:45 POC ABG pH 7.420 (7.35-7.45) 12/11/18 23:14 POC ABG pCO2 39.6 (35-45) 12/11/18 23:14 POC ABG pO2 84 (80-105) 12/11/18 23:14 POC ABG HCO3 25.7 (22-26 mml/L) 12/11/18 23:14 POC ABG Total CO2 27 (23-27mmol/L) 12/11/18 23:14 POC ABG O2 Sat 97 12/11/18 23:14 POC ABG Base Excess 1 ((-2) - (+3)mmol/L) 12/11/18 23:14 FiO2 32 % 12/11/18 23:14 Sodium 146 mmol/L (137-145) H 12/15/18 05:19 Potassium 4.2 mmol/L (3.6-5.0) 12/15/18 05:19 Chloride 113.5 mmol/L (98-107) H 12/15/18 05:19 Carbon Dioxide 21 mmol/L (22-30) L 12/15/18 05:19 Anion Gap 16 mmol/L 12/15/18 05:19 BUN 49 mg/dL (7-17) H 12/15/18 05:19 Creatinine 1.3 mg/dL (0.7-1.2) H 12/15/18 05:19 Estimated GFR 49 ml/min 12/15/18 05:19 BUN/Creatinine Ratio 38 % 12/15/18 05:19 Glucose 286 mg/dL (65-100) H 12/15/18 05:19 POC Glucose 317 (70-105) H 12/15/18 11:36 Calcium 9.6 mg/dL (8.4-10.2) 12/15/18 05:19 Phosphorus 2.50 mg/dL (2.5-4.5) 12/13/18 07:39 Magnesium 1.80 mg/dL (1.7-2.3) 12/14/18 09:33 Total Bilirubin 2.10 mg/dL (0.1-1.2) H 12/11/18 20:34 AST 25 units/L (5-40) 12/11/18 20:34 ALT 27 units/L (7-56) 12/11/18 20:34 Alkaline Phosphatase 215 units/L (35-129) H 12/11/18 20:34 Ammonia 19.0 umol/L (25-60) L 12/11/18 21:04 Total Creatine Kinase 44 units/L (30-135) 12/12/18 07:33 CK-MB (CK-2) 1.1 ng/mL (0.0-4.0) 12/12/18 07:33 CK-MB (CK-2) Rel Index 2.5 (0-4) 12/12/18 07:33 Troponin T 0.036 ng/mL (0.00-0.029) H 12/12/18 07:33 C-Reactive Protein 32.70 mg/dL (0.00-1.30) H 12/13/18 16:23 Total Protein 6.2 g/dL (6.3-8.2) L 12/11/18 20:34 Albumin 2.9 g/dL (3.9-5) L 12/11/18 20:34 Albumin/Globulin Ratio 0.9 % 12/11/18 20:34 Triglycerides 173 mg/dL (2-149) H 12/11/18 20:34 Cholesterol 95 mg/dL (50-199) 12/11/18 20:34 LDL Cholesterol Direct 16 mg/dL (50-130) L 12/11/18 20:34 HDL Cholesterol 19 mg/dL (40-59) L 12/11/18 20:34 Cholesterol/HDL Ratio 5.00 % 12/11/18 20:34 TSH 0.447 mlU/mL (0.270-4.200) 12/11/18 21:04 Thyroxine (T4) 5.3 ug/dL (4.0-12.0) 12/11/18 21:04 Urine Color Dark yellow (Yellow) 12/11/18 23:06 Urine Turbidity Clear (Clear) 12/11/18 23: Urine pH 5.0 (5.0-7.0) 12/11/18 23:06 Ur Specific [place] 1.021 (1.003-1.030) 12/11/18 23:06 Urine Protein 100 mg/dl mg/dL (Negative) 12/11/18 23:06 Urine Glucose (UA) >=500 mg/dL (Negative) 12/11/18 23:06 Urine Ketones Tr mg/dL (Negative) 12/11/18 23:06 Urine Blood Neg (Negative) 12/11/18 23:06 Urine Nitrite Neg (Negative) 12/11/18 23:06 Urine Bilirubin Neg (Negative) 12/11/18 23:06 Urine Urobilinogen 4.0 mg/dL (<2.0) 12/11/18 23:06 Ur Leukocyte Esterase Neg (Negative) 12/11/18 23:06 Urine WBC (Auto) 1.0 /HPF (0.0-6.0) 12/11/18 23:06 Urine RBC (Auto) 2.0 /HPF (0.0-6.0) 12/11/18 23:06 U Epithel Cells (Auto) 1.0 /HPF (0-13.0) 12/11/18 23:06 Amorphous Crystals Few 12/11/18 23:06 Random Vancomycin 7.9 ug/mL (0-40.0) 12/14/18 09:33 Urine Opiates Screen Presumptive negative 12/12/18 09:40 Urine Methadone Screen Presumptive negative 12/12/18 09:40 Ur Barbiturates Screen Presumptive negative 12/12/18 09:40 Ur Phencyclidine Scrn Presumptive negative 12/12/18 09:40 Ur Amphetamines Screen Presumptive negative 12/12/18 09:40 U Benzodiazepines Scrn Presumptive negative 12/12/18 09:40 Urine Cocaine Screen Presumptive negative 12/12/18 09:40 U Marijuana (THC) Screen Presumptive negative 12/12/18 09:40 Drugs of Abuse Note Disclamer 12/12/18 09:40 Plasma/Serum Alcohol < 0.01 % (0-0.07) 12/12/18 09:27 Active Medications - Current Medications Current Medications: Generic Name Dose Route Start Last Admin Trade Name Freq PRN Reason Stop Dose Admin Acetaminophen 650 mg 12/12/18 09:53 12/14/18 23:41 Tylenol PO 650 mg Q4H PRN Administration Fever >101 Lipase/Protease/Amylase 1 each 12/14/18 10:[address] 10,500 Unit FEEDTUBE PRN PRN For Clogged Feeding Tube Carvedilol 25 mg 12/12/18 10:00 12/15/18 10:13 Coreg PO 25 mg BID AMANDEEP Administration Dextrose 50 ml 12/12/18 08:11 D50w (25gm) Syringe IV PRN PRN Hypoglycemia Haloperidol Lactate 5 mg 12/12/18 18:00 12/14/18 23:42 Haldol IV 5 mg Q6H PRN Administration Agitation Heparin Sodium (Porcine) 5,000 unit 12/12/18 10:00 12/15/18 10:12 Heparin SUB-Q 5,000 unit Q12HR AMANDEEP Administration Hydralazine HCl 50 mg 12/12/18 09:00 12/15/18 08:00 Apresoline PO Not Given TID AMANDEEP Cefazolin Sodium 2 gm/ Sodium 100 mls @ 100 mls/hr 12/13/18 14:00 12/14/18 23:55 Chloride IV 100 mls/hr Q8H AMANDEEP Administration Sodium Chloride 1,000 mls @ 125 mls/hr 12/14/18 15:00 Nacl 0.45% 1000 Ml IV DIRECT AMANDEEP Insulin Glargine 10 units 12/14/18 22:00 12/15/18 00:02 Lantus SUB-Q 10 units QHS AMANDEEP Administration Insulin Human Lispro 0 unit 12/14/18 12:00 12/15/18 12:12 Humalog SUB-Q 8 unit Q6HR AMANDEEP Administration Protocol Loratadine 10 mg 12/12/18 10:00 12/15/18 10:13 Claritin PO 10 mg DAILY AMANDEEP Administration Lorazepam 1 mg 12/13/18 14:05 12/14/18 13:53 Ativan IV 1 mg Q4H PRN Administration Agitation Morphine Sulfate 2 mg 12/12/18 02:48 12/13/18 17:09 Morphine IV 2 mg Q4H PRN Administration Pain, Moderate (4-6) Ondansetron HCl 4 mg 12/12/18 02:48 Zofran IV Q8H PRN Nausea And Vomiting Simple Syrup 15 ml 12/14/18 10:52 Simple Syrup FEEDTUBE PRN PRN Hypoglycemia Simple Syrup 30 ml 12/14/18 10:52 Simple Syrup FEEDTUBE PRN PRN Hypoglycemia Sodium Bicarbonate 325 mg 12/14/18 10:52 Sodium Bicarbonate FEEDTUBE PRN PRN For Clogged Feeding Tube Nutrition/Malnutrition Assess - Dietary Evaluation Nutrition/Malnutrition Findings: Nutrition Notes Start: 12/12/18 12:14 Freq: Status: Active Protocol: Document 12/14/18 10:44 LP (Rec: 12/14/18 10:51 LP [id number]) Nutrition Notes Need for Assessment generated from: MD Order Initial or Follow up Reassessment Current Diagnosis Diabetes,Hypertension Other Pertinent Diagnosis arthritis, asthma Current Diet No diet Labs/Tests Na 146 BUN 47 Cr 1.5 BG 187 Pertinent Medications NS at 125ml/hr Height 5 ft 7 in Weight 136.078 kg Usual Body Weight 3 kg [place] Body Weight (kg) 61.36 BMI 47.0 Subjective/Other Information Consult for TF. Pt has dobhoff and will be moved to the floor. Burn Absent Trauma Absent #1 Nutrition Diagnosis Inadequate energy intake, Predicted suboptimal energy intake Comments: Change As Evidenced by Signs and Symptoms dobhoff placed Is patient on ventilator? No Is Patient Ambulatory and/or Out of Bed No REE-([facility]-confined to bed) 2289.360 Kcal/Kg value to use for calculation 14 Approximate Energy Requirements Using 1905 kcal/Kg Calculation Used for Recommendations Kcal/kg Additional Notes Protein: 64-80g (0.8-1g/kg using adj wt 80kg) Fluid: 1 ml/kcal Nutrition Intervention Change Diet Order: TF Nutrition Support: Glucerna 1.2 at 65ml/hr Flush with 150ml q4h Kcal 1,872 Protein (gm) 94 Fluid (mL) 1,260 Goal #1 Meet at least 80% of kcal and protein needs via TF Anticipated Discharge Needs: unable to determine at this time Follow-Up By: 12/17/18 Additional Comments Follow for TF start/tolerance
[2018-12-15] MEDS: ceFAZolin 2 GM in NACL 0.9% 100 ML IV SCH ×3 (15:44→21:40)
--- NOTE | 2018-12-15 17:48 | Progress Note ---
Subjective Date of service: 12/15/18 Principal diagnosis: sepsis Interval history: plan repeat CT of the head as the one done earlier had very severe positional deformity( of the CT images) so that movement obscured the details essential in encephalopathy w/u EEG should as well be assessed carefully reviewed multiple note for better insight into ID issues thanks will folow up Objective - Vital Sign Vital Signs - 12hr 12/15/18 12/15/18 12/15/18 08:07 10:00 10:13 Temperature 97.5 F L Pulse Rate 76 76 76 Respiratory 19 Rate Blood Pressure 115/49 115/49 O2 Sat by Pulse 100 Oximetry 12/15/18 12/15/18 15:42 15:48 Temperature 97.6 F Pulse Rate 74 Respiratory 20 Rate Blood Pressure 113/48 O2 Sat by Pulse 96 Oximetry - Laboratory Findings CBC and BMP: 12/15/18 05:19 12/15/18 05:19 Abnormal Lab Findings: Abnormal Labs 12/11/18 12/11/18 12/11/18 20:09 20:34 20:34 WBC RBC Hgb Hct RDW Seg Neuts % (Manual) Lymphocytes % (Manual) Nucleated RBC % Seg Neutrophils # Man Lymphocytes # (Manual) PT INR APTT Sodium 134 L Potassium 2.9 L* Chloride 88.1 L Carbon Dioxide BUN 50 H Creatinine 1.4 H Glucose 529 H* POC Glucose 445 H Phosphorus Magnesium Total Bilirubin 2.10 H Alkaline Phosphatase 215 H Ammonia Troponin T 0.038 H C-Reactive Protein Total Protein 6.2 L Albumin 2.9 L Triglycerides 173 H LDL Cholesterol Direct 16 L HDL Cholesterol 19 L 12/11/18 12/11/18 12/11/18 21:04 22:47 22:47 WBC 18.5 H RBC 3.10 L Hgb 9.3 L Hct 28.8 L RDW 17.2 H Seg Neuts % (Manual) 92.0 H Lymphocytes % (Manual) 4.0 L Nucleated RBC % 2.0 H Seg Neutrophils # Man 17.0 H Lymphocytes # (Manual) 0.7 L PT INR APTT Sodium Potassium Chloride Carbon Dioxide BUN Creatinine Glucose POC Glucose Phosphorus 1.50 L Magnesium 1.30 L Total Bilirubin Alkaline Phosphatase Ammonia 19.0 L Troponin T C-Reactive Protein Total Protein Albumin Triglycerides LDL Cholesterol Direct HDL Cholesterol 12/11/18 12/12/18 12/12/18 22:47 00:47 01:57 WBC RBC Hgb Hct RDW Seg Neuts % (Manual) Lymphocytes % (Manual) Nucleated RBC % Seg Neutrophils # Man Lymphocytes # (Manual) PT INR APTT Sodium 133 L 134 L Potassium 2.4 L* 2.8 L* Chloride 91.7 L 93.8 L Carbon Dioxide BUN 51 H 50 H Creatinine 1.6 H 1.5 H Glucose 436 H 429 H POC Glucose 442 H Phosphorus Magnesium Total Bilirubin Alkaline Phosphatase Ammonia Troponin T C-Reactive Protein Total Protein Albumin Triglycerides LDL Cholesterol Direct HDL Cholesterol 12/12/18 12/12/18 12/12/18 04:10 05:20 05:24 WBC RBC Hgb Hct RDW Seg Neuts % (Manual) Lymphocytes % (Manual) Nucleated RBC % Seg Neutrophils # Man Lymphocytes # (Manual) PT INR APTT Sodium 136 L Potassium 2.8 L* Chloride 96.5 L Carbon Dioxide BUN 48 H Creatinine 1.4 H Glucose 417 H POC Glucose 406 H 405 H Phosphorus Magnesium Total Bilirubin Alkaline Phosphatase Ammonia Troponin T C-Reactive Protein Total Protein Albumin Triglycerides LDL Cholesterol Direct HDL Cholesterol 12/12/18 12/12/18 12/12/18 07:33 07:33 08:02 WBC RBC Hgb Hct RDW Seg Neuts % (Manual) Lymphocytes % (Manual) Nucleated RBC % Seg Neutrophils # Man Lymphocytes # (Manual) PT INR APTT Sodium 135 L Potassium 2.5 L* Chloride Carbon Dioxide BUN 45 H Creatinine Glucose 358 H POC Glucose 286 H Phosphorus Magnesium Total Bilirubin Alkaline Phosphatase Ammonia Troponin T 0.036 H C-Reactive Protein Total Protein Albumin Triglycerides LDL Cholesterol Direct HDL Cholesterol 12/12/18 12/12/18 12/12/18 11:45 11:48 14:58 WBC RBC Hgb Hct RDW Seg Neuts % (Manual) Lymphocytes % (Manual) Nucleated RBC % Seg Neutrophils # Man Lymphocytes # (Manual) PT 16.8 H INR 1.28 H APTT 40.8 H Sodium Potassium Chloride Carbon Dioxide BUN 45 H Creatinine 1.3 H Glucose 265 H POC Glucose 296 H Phosphorus Magnesium 2.50 H Total Bilirubin Alkaline Phosphatase Ammonia Troponin T C-Reactive Protein Total Protein Albumin Triglycerides LDL Cholesterol Direct HDL Cholesterol 12/12/18 12/12/18 12/12/18 15:49 21:11 23:40 WBC RBC Hgb Hct RDW Seg Neuts % (Manual) Lymphocytes % (Manual) Nucleated RBC % Seg Neutrophils # Man Lymphocytes # (Manual) PT INR APTT Sodium Potassium Chloride Carbon Dioxide BUN Creatinine Glucose POC Glucose 253 H 236 H 297 H Phosphorus Magnesium Total Bilirubin Alkaline Phosphatase Ammonia Troponin T C-Reactive Protein Total Protein Albumin Triglycerides LDL Cholesterol Direct HDL Cholesterol 12/13/18 12/13/18 12/13/18 04:51 07:39 07:39 WBC 17.5 H RBC 3.31 L Hgb 9.8 L Hct RDW 16.8 H Seg Neuts % (Manual) Lymphocytes % (Manual) Nucleated RBC % Seg Neutrophils # Man Lymphocytes # (Manual) PT INR APTT Sodium Potassium Chloride Carbon Dioxide 21 L BUN 42 H Creatinine Glucose 229 H POC Glucose 208 H Phosphorus Magnesium Total Bilirubin Alkaline Phosphatase Ammonia Troponin T C-Reactive Protein Total Protein Albumin Triglycerides LDL Cholesterol Direct HDL Cholesterol 12/13/18 12/13/18 12/13/18 09:17 13:10 16:23 WBC RBC Hgb Hct RDW Seg Neuts % (Manual) Lymphocytes % (Manual) Nucleated RBC % Seg Neutrophils # Man Lymphocytes # (Manual) PT INR APTT Sodium Potassium Chloride Carbon Dioxide BUN Creatinine Glucose POC Glucose 229 H 230 H Phosphorus Magnesium Total Bilirubin Alkaline Phosphatase Ammonia Troponin T C-Reactive Protein 32.70 H Total Protein Albumin Triglycerides LDL Cholesterol Direct HDL Cholesterol 12/13/18 12/13/18 12/14/18 17:12 20:43 00:53 WBC RBC Hgb Hct RDW Seg Neuts % (Manual) Lymphocytes % (Manual) Nucleated RBC % Seg Neutrophils # Man Lymphocytes # (Manual) PT INR APTT Sodium Potassium Chloride Carbon Dioxide BUN Creatinine Glucose POC Glucose 199 H 225 H 221 H Phosphorus Magnesium Total Bilirubin Alkaline Phosphatase Ammonia Troponin T C-Reactive Protein Total Protein Albumin Triglycerides LDL Cholesterol Direct HDL Cholesterol 12/14/18 12/14/18 12/14/18 04:42 04:42 05:32 WBC 14.7 H RBC 2.69 L Hgb 8.1 L Hct 25.0 L RDW 17.1 H Seg Neuts % (Manual) Lymphocytes % (Manual) Nucleated RBC % Seg Neutrophils # Man Lymphocytes # (Manual) PT INR APTT Sodium 146 H D Potassium Chloride 111.3 H Carbon Dioxide BUN 47 H Creatinine 1.5 H Glucose 187 H POC Glucose 198 H Phosphorus Magnesium Total Bilirubin Alkaline Phosphatase Ammonia Troponin T C-Reactive Protein Total Protein Albumin Triglycerides LDL Cholesterol Direct HDL Cholesterol 12/14/18 12/14/18 12/14/18 08:41 12:04 12:55 WBC RBC Hgb Hct RDW Seg Neuts % (Manual) Lymphocytes % (Manual) Nucleated RBC % Seg Neutrophils # Man Lymphocytes # (Manual) PT INR APTT Sodium 149 H Potassium 3.5 L Chloride Carbon Dioxide 20 L BUN 46 H Creatinine 1.3 H Glucose 238 H POC Glucose 225 H 226 H Phosphorus Magnesium Total Bilirubin Alkaline Phosphatase Ammonia Troponin T C-Reactive Protein Total Protein Albumin Triglycerides LDL Cholesterol Direct HDL Cholesterol 12/14/18 12/15/18 12/15/18 18:03 01:00 05:19 WBC 12.8 H RBC 2.66 L Hgb 8.0 L Hct 24.8 L RDW 17.3 H Seg Neuts % (Manual) Lymphocytes % (Manual) Nucleated RBC % Seg Neutrophils # Man Lymphocytes # (Manual) PT INR APTT Sodium Potassium Chloride Carbon Dioxide BUN Creatinine Glucose POC Glucose 257 H 277 H Phosphorus Magnesium Total Bilirubin Alkaline Phosphatase Ammonia Troponin T C-Reactive Protein Total Protein Albumin Triglycerides LDL Cholesterol Direct HDL Cholesterol 12/15/18 12/15/18 12/15/18 05:19 06:04 11:36 WBC RBC Hgb Hct RDW Seg Neuts % (Manual) Lymphocytes % (Manual) Nucleated RBC % Seg Neutrophils # Man Lymphocytes # (Manual) PT INR APTT Sodium 146 H Potassium Chloride 113.5 H Carbon Dioxide 21 L BUN 49 H Creatinine 1.3 H Glucose 286 H POC Glucose 315 H 317 H Phosphorus Magnesium Total Bilirubin Alkaline Phosphatase Ammonia Troponin T C-Reactive Protein Total Protein Albumin Triglycerides LDL Cholesterol Direct HDL Cholesterol
[2018-12-15] MEDS: TYLENOL PO PRN (21:40)
[2018-12-16] MEDS: MORPHINE IV PRN (00:39)
[2018-12-16] MEDS: HumaLOG SUB-Q SCH ×4 (00:40→17:48)
[2018-12-16] MEDS: ceFAZolin 2 GM in NACL 0.9% 100 ML IV SCH ×3 (05:46→21:50)
[2018-12-16 06:00] LABS: Hematocrit 23.7 % (30.3-42.9); Hemoglobin 7.9 gm/dl (10.1-14.3); Mean Corpuscular HGB Conc 33 % (30-34); Mean Corpuscular Volume 91 fl (79-97); Platelet Count 275 K/mm3 (140-440); Red Blood Count 2.61 M/mm3 (3.65-5.03); Red Cell Distribution Width 17.3 % (13.2-15.2)
[2018-12-16 06:11] LABS: Calcium 9.4 mg/dL (8.4-10.2)
[2018-12-16] MEDS: APRESOLINE PO SCH ×3 (08:00→20:48)
[2018-12-16] MEDS: TYLENOL PO PRN (09:21)
[2018-12-16] MEDS: COREG PO SCH ×2 (09:23→21:58)
[2018-12-16] MEDS: CLARITIN PO SCH (09:23)
[2018-12-16] MEDS: HEPARIN SUB-Q SCH ×2 (09:25→22:01)
[2018-12-16] MEDS: NACL 0.45% 1000 ML 1,000 ML IV SCH ×2 (09:48→21:48)
--- NOTE | 2018-12-16 11:03 | Progress Note ---
Assessment and Plan Cultures: Blood culture 12/12/2018 beta hem Strep group B 4 of 4 bottles Blood culture 12/14/2018: no growth to date Assessment: 73 y/o female with history of DM2, OA, ARF, CKD stage 3, depression, hypertension, hyperthyroidism and GERD; admitted on 12/11/2018 due to AMS and recent fall injuring her right shoulder: 1) Sepsis: No leukocytosis. Spiking fever 101.4. Etiology most likely Strep aamir teremia. CXR neg. UA neg. 2) Strep group B bacteremia: 4 of 4 bottles positive, unclear source ? skin (leg wounds do not look infected) ? neck soft tissue infection ? joint infection. CRP=32. TTE no vegetation. repeat cultures show no growth in 24 hours. 3) ALVARO on CKD 4) DM2 with HONK 5) Acute encephalopathy: improving; from sepsis, less likely meningitis. LP was attempted but not done. CT head neg. Recommendations: - f/u chest/neck CT w/o IV contrast to eval inferior anterior neck mass- report pending - follow-up blood cultures - f/u WBC tagged scan to search for infectious nidus - continue cefazolin 2 gm IV q 8 hour -Add levaquin 750mg every 24 hours - f/u BUFFY, anti-CCP -repeat chest xray [facility] M: [phone] O:[phone] Subjective Date of service: 12/16/18 Principal diagnosis: sepsis Interval history: Patient seen and examined. at the bedrside. patient non-verbal, moaning. Not opening eyes or following commands at this time. Objective - Exam Narrative Exam: General appearance: Eyes closed, moaning. Acute distress observed Eyes: anicteric sclerae, moist conjunctivae; no lid-lag; PERRLA HENT: Atraumatic; oropharynx edentulous limited Neck: Trachea midline; supple, no thyromegaly or lymphadenopathy Lungs: CTA CV: tachycardic Abdomen: Soft,obese mild tenderness Extremities: No peripheral edema or extremity lymphadenopathy + left leg wound 1.0x1.0x0.1. Scant serous sanguineous drainage noticed to the wound. No odor noticed to the wound. + right leg wound 5.0x3.0. Scant serous sanguineous drainage noticed to the wound. No odor noticed to the wound. Skin: stage 2 left buttocks wound. The wound measurement is as follows; 1.0x1.0x0.1. Scant serous sanguineous drainage noticed to the wound. No odor noticed to the wound. Psych: Acute distress, moaning . Neuro: eyes closed, moaning, not following commands - Constitutional Vitals: Vital Signs Temp Pulse Resp BP Pulse Ox 101.4 F H 74 24 108/35 99 12/16/18 07:55 12/16/18 07:55 12/16/18 07:55 12/16/18 09:23 12/16/18 07:55 Temperature -Last 24 Hours Temperature 101.4 F Temperature 98.6 F Temperature 98.9 F Temperature 101.5 F Temperature 97.6 F - Labs CBC & Chem 7: 12/16/18 05:11 12/16/18 05:11 Labs: Abnormal lab results 12/15/18 12/15/18 12/15/18 Range/Units 11:36 18:11 21:40 RBC (3.65-5.03) M/mm3 Hgb (10.1-14.3) gm/dl Hct (30.3-42.9) % RDW (13.2-15.2) % Sodium (137-145) mmol/L Chloride (98-107) mmol/L BUN (7-17) mg/dL Creatinine (0.7-1.2) mg/dL Glucose (65-100) mg/dL POC Glucose 317 H 273 H 318 H (70-105) 12/16/18 12/16/18 12/16/18 Range/Units 05:11 05:11 06:21 RBC 2.61 L (3.65-5.03) M/mm3 Hgb 7.9 L (10.1-14.3) gm/dl Hct 23.7 L (30.3-42.9) % RDW 17.3 H (13.2-15.2) % Sodium 150 H (137-145) mmol/L Chloride 117.3 H (98-107) mmol/L BUN 52 H (7-17) mg/dL Creatinine 1.4 H (0.7-1.2) mg/dL Glucose 352 H (65-100) mg/dL POC Glucose 322 H (70-105)
--- NOTE | 2018-12-16 11:18 | Progress Note ---
Subjective Date of service: 12/16/18 Principal diagnosis: sepsis Interval history: full note dictated see labs low grade temp ID consult following suspect encephalopathy multifactorial Objective - Vital Sign Vital Signs - 12hr 12/16/18 12/16/18 12/16/18 00:39 01:09 02:57 Temperature 98.6 F Pulse Rate Respiratory 22 18 20 Rate Blood Pressure 129/41 O2 Sat by Pulse Oximetry 12/16/18 12/16/18 12/16/18 03:04 07:55 09:23 Temperature 101.4 F H Pulse Rate 97 H 74 Respiratory 24 Rate Blood Pressure 108/35 108/35 O2 Sat by Pulse 96 99 Oximetry - Laboratory Findings CBC and BMP: 12/16/18 05:11 12/16/18 05:11 Abnormal Lab Findings: Abnormal Labs 12/11/18 12/11/18 12/11/18 20:09 20:34 20:34 WBC RBC Hgb Hct RDW Seg Neuts % (Manual) Lymphocytes % (Manual) Nucleated RBC % Seg Neutrophils # Man Lymphocytes # (Manual) PT INR APTT Sodium 134 L Potassium 2.9 L* Chloride 88.1 L Carbon Dioxide BUN 50 H Creatinine 1.4 H Glucose 529 H* POC Glucose 445 H Phosphorus Magnesium Total Bilirubin 2.10 H Alkaline Phosphatase 215 H Ammonia Troponin T 0.038 H C-Reactive Protein Total Protein 6.2 L Albumin 2.9 L Triglycerides 173 H LDL Cholesterol Direct 16 L HDL Cholesterol 19 L 12/11/18 12/11/18 12/11/18 21:04 22:47 22:47 WBC 18.5 H RBC 3.10 L Hgb 9.3 L Hct 28.8 L RDW 17.2 H Seg Neuts % (Manual) 92.0 H Lymphocytes % (Manual) 4.0 L Nucleated RBC % 2.0 H Seg Neutrophils # Man 17.0 H Lymphocytes # (Manual) 0.7 L PT INR APTT Sodium Potassium Chloride Carbon Dioxide BUN Creatinine Glucose POC Glucose Phosphorus 1.50 L Magnesium 1.30 L Total Bilirubin Alkaline Phosphatase Ammonia 19.0 L Troponin T C-Reactive Protein Total Protein Albumin Triglycerides LDL Cholesterol Direct HDL Cholesterol 12/11/18 12/12/18 12/12/18 22:47 00:47 01:57 WBC RBC Hgb Hct RDW Seg Neuts % (Manual) Lymphocytes % (Manual) Nucleated RBC % Seg Neutrophils # Man Lymphocytes # (Manual) PT INR APTT Sodium 133 L 134 L Potassium 2.4 L* 2.8 L* Chloride 91.7 L 93.8 L Carbon Dioxide BUN 51 H 50 H Creatinine 1.6 H 1.5 H Glucose 436 H 429 H POC Glucose 442 H Phosphorus Magnesium Total Bilirubin Alkaline Phosphatase Ammonia Troponin T C-Reactive Protein Total Protein Albumin Triglycerides LDL Cholesterol Direct HDL Cholesterol 12/12/18 12/12/18 12/12/18 04:10 05:20 05:24 WBC RBC Hgb Hct RDW Seg Neuts % (Manual) Lymphocytes % (Manual) Nucleated RBC % Seg Neutrophils # Man Lymphocytes # (Manual) PT INR APTT Sodium 136 L Potassium 2.8 L* Chloride 96.5 L Carbon Dioxide BUN 48 H Creatinine 1.4 H Glucose 417 H POC Glucose 406 H 405 H Phosphorus Magnesium Total Bilirubin Alkaline Phosphatase Ammonia Troponin T C-Reactive Protein Total Protein Albumin Triglycerides LDL Cholesterol Direct HDL Cholesterol 12/12/18 12/12/18 12/12/18 07:33 07:33 08:02 WBC RBC Hgb Hct RDW Seg Neuts % (Manual) Lymphocytes % (Manual) Nucleated RBC % Seg Neutrophils # Man Lymphocytes # (Manual) PT INR APTT Sodium 135 L Potassium 2.5 L* Chloride Carbon Dioxide BUN 45 H Creatinine Glucose 358 H POC Glucose 286 H Phosphorus Magnesium Total Bilirubin Alkaline Phosphatase Ammonia Troponin T 0.036 H C-Reactive Protein Total Protein Albumin Triglycerides LDL Cholesterol Direct HDL Cholesterol 12/12/18 12/12/18 12/12/18 11:45 11:48 14:58 WBC RBC Hgb Hct RDW Seg Neuts % (Manual) Lymphocytes % (Manual) Nucleated RBC % Seg Neutrophils # Man Lymphocytes # (Manual) PT 16.8 H INR 1.28 H APTT 40.8 H Sodium Potassium Chloride Carbon Dioxide BUN 45 H Creatinine 1.3 H Glucose 265 H POC Glucose 296 H Phosphorus Magnesium 2.50 H Total Bilirubin Alkaline Phosphatase Ammonia Troponin T C-Reactive Protein Total Protein Albumin Triglycerides LDL Cholesterol Direct HDL Cholesterol 12/12/18 12/12/18 12/12/18 15:49 21:11 23:40 WBC RBC Hgb Hct RDW Seg Neuts % (Manual) Lymphocytes % (Manual) Nucleated RBC % Seg Neutrophils # Man Lymphocytes # (Manual) PT INR APTT Sodium Potassium Chloride Carbon Dioxide BUN Creatinine Glucose POC Glucose 253 H 236 H 297 H Phosphorus Magnesium Total Bilirubin Alkaline Phosphatase Ammonia Troponin T C-Reactive Protein Total Protein Albumin Triglycerides LDL Cholesterol Direct HDL Cholesterol 12/13/18 12/13/18 12/13/18 04:51 07:39 07:39 WBC 17.5 H RBC 3.31 L Hgb 9.8 L Hct RDW 16.8 H Seg Neuts % (Manual) Lymphocytes % (Manual) Nucleated RBC % Seg Neutrophils # Man Lymphocytes # (Manual) PT INR APTT Sodium Potassium Chloride Carbon Dioxide 21 L BUN 42 H Creatinine Glucose 229 H POC Glucose 208 H Phosphorus Magnesium Total Bilirubin Alkaline Phosphatase Ammonia Troponin T C-Reactive Protein Total Protein Albumin Triglycerides LDL Cholesterol Direct HDL Cholesterol 12/13/18 12/13/18 12/13/18 09:17 13:10 16:23 WBC RBC Hgb Hct RDW Seg Neuts % (Manual) Lymphocytes % (Manual) Nucleated RBC % Seg Neutrophils # Man Lymphocytes # (Manual) PT INR APTT Sodium Potassium Chloride Carbon Dioxide BUN Creatinine Glucose POC Glucose 229 H 230 H Phosphorus Magnesium Total Bilirubin Alkaline Phosphatase Ammonia Troponin T C-Reactive Protein 32.70 H Total Protein Albumin Triglycerides LDL Cholesterol Direct HDL Cholesterol 12/13/18 12/13/18 12/14/18 17:12 20:43 00:53 WBC RBC Hgb Hct RDW Seg Neuts % (Manual) Lymphocytes % (Manual) Nucleated RBC % Seg Neutrophils # Man Lymphocytes # (Manual) PT INR APTT Sodium Potassium Chloride Carbon Dioxide BUN Creatinine Glucose POC Glucose 199 H 225 H 221 H Phosphorus Magnesium Total Bilirubin Alkaline Phosphatase Ammonia Troponin T C-Reactive Protein Total Protein Albumin Triglycerides LDL Cholesterol Direct HDL Cholesterol 12/14/18 12/14/18 12/14/18 04:42 04:42 05:32 WBC 14.7 H RBC 2.69 L Hgb 8.1 L Hct 25.0 L RDW 17.1 H Seg Neuts % (Manual) Lymphocytes % (Manual) Nucleated RBC % Seg Neutrophils # Man Lymphocytes # (Manual) PT INR APTT Sodium 146 H D Potassium Chloride 111.3 H Carbon Dioxide BUN 47 H Creatinine 1.5 H Glucose 187 H POC Glucose 198 H Phosphorus Magnesium Total Bilirubin Alkaline Phosphatase Ammonia Troponin T C-Reactive Protein Total Protein Albumin Triglycerides LDL Cholesterol Direct HDL Cholesterol 12/14/18 12/14/18 12/14/18 08:41 12:04 12:55 WBC RBC Hgb Hct RDW Seg Neuts % (Manual) Lymphocytes % (Manual) Nucleated RBC % Seg Neutrophils # Man Lymphocytes # (Manual) PT INR APTT Sodium 149 H Potassium 3.5 L Chloride Carbon Dioxide 20 L BUN 46 H Creatinine 1.3 H Glucose 238 H POC Glucose 225 H 226 H Phosphorus Magnesium Total Bilirubin Alkaline Phosphatase Ammonia Troponin T C-Reactive Protein Total Protein Albumin Triglycerides LDL Cholesterol Direct HDL Cholesterol 12/14/18 12/15/18 12/15/18 18:03 01:00 05:19 WBC 12.8 H RBC 2.66 L Hgb 8.0 L Hct 24.8 L RDW 17.3 H Seg Neuts % (Manual) Lymphocytes % (Manual) Nucleated RBC % Seg Neutrophils # Man Lymphocytes # (Manual) PT INR APTT Sodium Potassium Chloride Carbon Dioxide BUN Creatinine Glucose POC Glucose 257 H 277 H Phosphorus Magnesium Total Bilirubin Alkaline Phosphatase Ammonia Troponin T C-Reactive Protein Total Protein Albumin Triglycerides LDL Cholesterol Direct HDL Cholesterol 12/15/18 12/15/18 12/15/18 05:19 06:04 11:36 WBC RBC Hgb Hct RDW Seg Neuts % (Manual) Lymphocytes % (Manual) Nucleated RBC % Seg Neutrophils # Man Lymphocytes # (Manual) PT INR APTT Sodium 146 H Potassium Chloride 113.5 H Carbon Dioxide 21 L BUN 49 H Creatinine 1.3 H Glucose 286 H POC Glucose 315 H 317 H Phosphorus Magnesium Total Bilirubin Alkaline Phosphatase Ammonia Troponin T C-Reactive Protein Total Protein Albumin Triglycerides LDL Cholesterol Direct HDL Cholesterol 12/15/18 12/15/18 12/16/18 18:11 21:40 05:11 WBC RBC 2.61 L Hgb 7.9 L Hct 23.7 L RDW 17.3 H Seg Neuts % (Manual) Lymphocytes % (Manual) Nucleated RBC % Seg Neutrophils # Man Lymphocytes # (Manual) PT INR APTT Sodium Potassium Chloride Carbon Dioxide BUN Creatinine Glucose POC Glucose 273 H 318 H Phosphorus Magnesium Total Bilirubin Alkaline Phosphatase Ammonia Troponin T C-Reactive Protein Total Protein Albumin Triglycerides LDL Cholesterol Direct HDL Cholesterol 12/16/18 12/16/18 05:11 06:21 WBC RBC Hgb Hct RDW Seg Neuts % (Manual) Lymphocytes % (Manual) Nucleated RBC % Seg Neutrophils # Man Lymphocytes # (Manual) PT INR APTT Sodium 150 H Potassium Chloride 117.3 H Carbon Dioxide BUN 52 H Creatinine 1.4 H Glucose 352 H POC Glucose 322 H Phosphorus Magnesium Total Bilirubin Alkaline Phosphatase Ammonia Troponin T C-Reactive Protein Total Protein Albumin Triglycerides LDL Cholesterol Direct HDL Cholesterol
--- NOTE | 2018-12-16 12:30 | Progress Note ---
Assessment and Plan Assessment and plan: Patient is a 73 yo woman with a history of NIDDM, OA, ARF, CKD 3 with baseline Creatinine around 1.2, depression, hypertension, hyperthyroidism and GERD who presented to [facility] ED with AMS. She was found to have ARF, Creatinine 1.6, hyponatremia 133, hyperglycemia at 529, hypomagnesemia at 1.3 and severe h ypokalemia at 2.4 with no diuretics listed on home medications. She was admitted to ICU for DKA needing insulin drip but it was never started due to hypokalemia and now the anion gap has closed. Looking back at old records here, she had a similar presentation in 2016. She never had Urine drug screen or serum alcohol level checked. She spiked a fever and ID was consulted. LP unsuccessful as patient is not cooperative. -Acute metabolic encephalopathy, CT head negative: UDS and serum ETOH levels unremarkable, LP pending, ?Neurology coverage today -Leukocytosis and fevers etiology unclear, with UA negative for UTI and pCXr negative for infiltrates, now febrile: follow blood cultures, ID work up in progress, ordered tagged WBC which not done because patient was uncooperative -Severe hypokalemia: ordered IV team for midline to give more potassium supplementation but wasn't done because fevers -Hypomagnesemia: repleted and monitor closely -Hyperthyroidism, slightly elevated free T4: restart tapezole -Moderate malnutrition with morbid obesity: consult Client Experience Administrator, ordered Dobhuff with placement confirmation -Elevated troponin at 0.038, suspect related to renal failure: another set of Troponin remained flat, ordered ECHO -ARF/CKD 3, vasomotor nephropathy: treat with IVF, and repeat level, if worsen consult Nephrology and get renal ultrasound -Type 2 NIDDM with HONK: added SSI -Anemia, appears acute from 2016 records: get FOBT and monitor cbc closely -Hypertension on coreg and hydralazine: continue, on NSS due to the hyponatremia -Morbid Obesity, BMI 47: dobhuff in place Home reconciliation completed DVT ppx on sq heparin Disposition: continue inpatient care, transferred out of ICU on 12/14/18 12/16/18: not improving mentally, Neurology is following. Still spiking fevers, ID is following. CT head, neck and chest done yesterday and still pending, I called to radiology dept, no answer. History Interval history: Patient was seen and examined. Follow-up on current diagnosis of AMS, still confused. Overnight uneventful except for fevers. Imaging, nursing note, chart, labs and old chart reviewed. Still yelling out Hospitalist Physical - Physical exam Narrative exam: Gen: ill appearing NAD, confused HEENT: NCAT, EOMI, PERRL, OP Clear Neck: supple, no adenopathy, no thyromegaly, no JVD CVS/Heart: RRR, normal S1S2, pulses present bilaterally Chest/Lungs: CTA B, Symmetrical chest expansion, good air entry bilaterally GI/Abdomen: soft, NTND, good bowel sounds, no guarding or rebound /Bladder: no suprapubic tenderness, no CVA or paraspinal tenderness Extermity/Skin: no c/c/e, no obvious rash MSK: FROM x 4 Neuro: CN 2-12 grossly intact, no new focal deficits Psych: confused - Constitutional Vitals: Temp Pulse Resp BP Pulse Ox 101.4 F H 74 24 108/35 99 12/16/18 07:55 12/16/18 10:00 12/16/18 07:55 12/16/18 09:23 12/16/18 07:55 General appearance: Present: no acute distress, well-nourished, obese Results - Labs CBC & Chem 7: 12/16/18 05:11 12/16/18 05:11 Labs: Laboratory Last Values WBC 10.6 K/mm3 (4.5-11.0) 12/16/18 05:11 RBC 2.61 M/mm3 (3.65-5.03) L 12/16/18 05:11 Hgb 7.9 gm/dl (10.1-14.3) L 12/16/18 05:11 Hct 23.7 % (30.3-42.9) L 12/16/18 05:11 MCV 91 fl (79-97) 12/16/18 05:11 MCH 30 pg (28-32) 12/16/18 05:11 MCHC 33 % (30-34) 12/16/18 05:11 RDW 17.3 % (13.2-15.2) H 12/16/18 05:11 Plt Count 275 K/mm3 (140-440) 12/16/18 05:11 Lymph % (Auto) Fisher Eel Spear 12/11/18 22:47 [place] % (Auto) Fisher Eel Spear 12/11/18 22:47 Eos % (Auto) Fisher Eel Spear 12/11/18 22:47 Baso % (Auto) Fisher Eel Spear 12/11/18 22:47 Lymph # Fisher Eel Spear 12/11/18 22:47 [place] # Fisher Eel Spear 12/11/18 22:47 Eos # Fisher Eel Spear 12/11/18 22:47 Baso # Fisher Eel Spear 12/11/18 22:47 Add Manual Diff Complete 12/11/18 22:47 Total Counted 100 12/11/18 22:47 Seg Neutrophils % Fisher Eel Spear 12/11/18 22:47 Seg Neuts % (Manual) 92.0 % (40.0-70.0) H 12/11/18 22:47 Band Neutrophils % 0 % 12/11/18 22:47 Lymphocytes % (Manual) 4.0 % (13.4-35.0) L 12/11/18 22:47 Reactive Lymphs % (Man) 0 % 12/11/18 22:47 Monocytes % (Manual) 3.0 % (0.0-7.3) 12/11/18 22:47 Eosinophils % (Manual) 0 % (0.0-4.3) 12/11/18 22:47 Basophils % (Manual) 0 % (0.0-1.8) 12/11/18 22:47 Metamyelocytes % 1.0 % 12/11/18 22:47 Myelocytes % 0 % 12/11/18 22:47 Promyelocytes % 0 % 12/11/18 22:47 Blast Cells % 0 % 12/11/18 22:47 Nucleated RBC % 2.0 % (0.0-0.9) H 12/11/18 22:47 Seg Neutrophils # Fisher Eel Spear 12/11/18 22:47 Seg Neutrophils # Man 17.0 K/mm3 (1.8-7.7) H 12/11/18 22:47 Band Neutrophils # 0.0 K/mm3 12/11/18 22:47 Lymphocytes # (Manual) 0.7 K/mm3 (1.2-5.4) L 12/11/18 22:47 Abs React Lymphs (Man) 0.0 K/mm3 12/11/18 22:47 Monocytes # (Manual) 0.6 K/mm3 (0.0-0.8) 12/11/18 22:47 Eosinophils # (Manual) 0.0 K/mm3 (0.0-0.4) 12/11/18 22:47 Basophils # (Manual) 0.0 K/mm3 (0.0-0.1) 12/11/18 22:47 Metamyelocytes # 0.2 K/mm3 12/11/18 22:47 Myelocytes # 0.0 K/mm3 12/11/18 22:47 Promyelocytes # 0.0 K/mm3 12/11/18 22:47 Blast Cells # 0.0 K/mm3 12/11/18 22:47 WBC Morphology Not Reportable 12/11/18 22:47 Hypersegmented Neuts Not Reportable 12/11/18 22:47 Hyposegmented Neuts Not Reportable 12/11/18 22:47 Hypogranular Neuts Not Reportable 12/11/18 22:47 Smudge Cells Not Reportable 12/11/18 22:47 Toxic Granulation Not Reportable 12/11/18 22:47 Toxic Vacuolation Not Reportable 12/11/18 22:47 Dohle Bodies Not Reportable 12/11/18 22:47 Pelger-Huet Anomaly Not Reportable 12/11/18 22:47 Starla Rods Not Reportable 12/11/18 22:47 Platelet Estimate Consistent w auto 12/11/18 22:47 Clumped Platelets Few 12/11/18 22:47 Plt Clumps, EDTA Not Reportable 12/11/18 22:47 Large Platelets 1+ 12/11/18 22:47 Giant Platelets Not Reportable 12/11/18 22:47 Platelet Satelliting Not Reportable 12/11/18 22:47 Plt Morphology Comment Not Reportable 12/11/18 22:47 RBC Morphology Normal 12/11/18 22:47 Dimorphic RBCs Not Reportable 12/11/18 22:47 Polychromasia Not Reportable 12/11/18 22:47 Hypochromasia Not Reportable 12/11/18 22:47 Poikilocytosis Not Reportable 12/11/18 22:47 Anisocytosis Not Reportable 12/11/18 22:47 Microcytosis Not Reportable 12/11/18 22:47 Macrocytosis Not Reportable 12/11/18 22:47 Spherocytes Not Reportable 12/11/18 22:47 Pappenheimer Bodies Not Reportable 12/11/18 22:47 Sickle Cells Not Reportable 12/11/18 22:47 Target Cells Not Reportable 12/11/18 22:47 Tear Drop Cells Not Reportable 12/11/18 22:47 Ovalocytes Not Reportable 12/11/18 22:47 Helmet Cells Not Reportable 12/11/18 22:47 [place] Bodies Not Reportable 12/11/18 22:47 [place] Rings Not Reportable 12/11/18 22:47 [place] Cells Not Reportable 12/11/18 22:47 Bite Cells Not Reportable 12/11/18 22:47 Crenated Cell Not Reportable 12/11/18 22:47 Elliptocytes Not Reportable 12/11/18 22:47 Acanthocytes (Spur) Not Reportable 12/11/18 22:47 Rouleaux Not Reportable 12/11/18 22:47 Hemoglobin C Crystals Not Reportable 12/11/18 22:47 Schistocytes Not Reportable 12/11/18 22:47 Malaria parasites Not Reportable 12/11/18 22:47 [place] Bodies Not Reportable 12/11/18 22:47 Hem Pathologist Commnt No 12/11/18 22:47 PT 16.8 Sec. (12.2-14.9) H 12/12/18 11:45 INR 1.28 (0.87-1.13) H 12/12/18 11:45 APTT 40.8 Sec. (24.2-36.6) H 12/12/18 11:45 POC ABG pH 7.420 (7.35-7.45) 12/11/18 23:14 POC ABG pCO2 39.6 (35-45) 12/11/18 23:14 POC ABG pO2 84 (80-105) 12/11/18 23:14 POC ABG HCO3 25.7 (22-26 mml/L) 12/11/18 23:14 POC ABG Total CO2 27 (23-27mmol/L) 12/11/18 23:14 POC ABG O2 Sat 97 12/11/18 23:14 POC ABG Base Excess 1 ((-2) - (+3)mmol/L) 12/11/18 23:14 FiO2 32 % 12/11/18 23:14 Sodium 150 mmol/L (137-145) H 12/16/18 05:11 Potassium 4.9 mmol/L (3.6-5.0) 12/16/18 05:11 Chloride 117.3 mmol/L (98-107) H 12/16/18 05:11 Carbon Dioxide 22 mmol/L (22-30) 12/16/18 05:11 Anion Gap 16 mmol/L 12/16/18 05:11 BUN 52 mg/dL (7-17) H 12/16/18 05:11 Creatinine 1.4 mg/dL (0.7-1.2) H 12/16/18 05:11 Estimated GFR 45 ml/min 12/16/18 05:11 BUN/Creatinine Ratio 37 % 12/16/18 05:11 Glucose 352 mg/dL (65-100) H 12/16/18 05:11 POC Glucose 371 (70-105) H 12/16/18 12:19 Calcium 9.4 mg/dL (8.4-10.2) 12/16/18 05:11 Phosphorus 2.50 mg/dL (2.5-4.5) 12/13/18 07:39 Magnesium 1.80 mg/dL (1.7-2.3) 12/14/18 09:33 Total Bilirubin 2.10 mg/dL (0.1-1.2) H 12/11/18 20:34 AST 25 units/L (5-40) 12/11/18 20:34 ALT 27 units/L (7-56) 12/11/18 20:34 Alkaline Phosphatase 215 units/L (35-129) H 12/11/18 20:34 Ammonia 19.0 umol/L (25-60) L 12/11/18 21:04 Total Creatine Kinase 44 units/L (30-135) 12/12/18 07:33 CK-MB (CK-2) 1.1 ng/mL (0.0-4.0) 12/12/18 07:33 CK-MB (CK-2) Rel Index 2.5 (0-4) 12/12/18 07:33 Troponin T 0.036 ng/mL (0.00-0.029) H 12/12/18 07:33 C-Reactive Protein 32.70 mg/dL (0.00-1.30) H 12/13/18 16:23 Total Protein 6.2 g/dL (6.3-8.2) L 12/11/18 20:34 Albumin 2.9 g/dL (3.9-5) L 12/11/18 20:34 Albumin/Globulin Ratio 0.9 % 12/11/18 20:34 Triglycerides 173 mg/dL (2-149) H 12/11/18 20:34 Cholesterol 95 mg/dL (50-199) 12/11/18 20:34 LDL Cholesterol Direct 16 mg/dL (50-130) L 12/11/18 20:34 HDL Cholesterol 19 mg/dL (40-59) L 12/11/18 20:34 Cholesterol/HDL Ratio 5.00 % 12/11/18 20:34 TSH 0.447 mlU/mL (0.270-4.200) 12/11/18 21:04 Thyroxine (T4) 5.3 ug/dL (4.0-12.0) 12/11/18 21:04 Urine Color Dark yellow (Yellow) 12/11/18 23:06 Urine Turbidity Clear (Clear) 12/11/18 23:06 Urine pH 5.0 (5.0-7.0) 12/11/18 23:06 Ur Specific [place] 1.021 (1.003-1.030) 12/11/18 23:06 Urine Protein 100 mg/dl mg/dL (Negative) 12/11/18 23:06 Urine Glucose (UA) >=500 mg/dL (Negative) 12/11/18 23:06 Urine Ketones Tr mg/dL (Negative) 12/11/18 23:06 Urine Blood Neg (Negative) 12/11/18 23:06 Urine Nitrite Neg (Negative) 12/11/18 23:06 Urine Bilirubin Neg (Negative) 12/11/18 23:06 Urine Urobilinogen 4.0 mg/dL (<2.0) 12/11/18 23:06 Ur Leukocyte Esterase Neg (Negative) 12/11/18 23:06 Urine WBC (Auto) 1.0 /HPF (0.0-6.0) 12/11/18 23:06 Urine RBC (Auto) 2.0 /HPF (0.0-6.0) 12/11/18 23:06 U Epithel Cells (Auto) 1.0 /HPF (0-13.0) 12/11/18 23:06 Amorphous Crystals Few 12/11/18 23:06 Random Vancomycin 7.9 ug/mL (0-40.0) 12/14/18 09:33 Urine Opiates Screen Presumptive negative 12/12/18 09:40 Urine Methadone Screen Presumptive negative 12/12/18 09:40 Ur Barbiturates Screen Presumptive negative 12/12/18 09:40 Ur Phencyclidine Scrn Presumptive negative 12/12/18 09:40 Ur Amphetamines Screen Presumptive negative 12/12/18 09:40 U Benzodiazepines Scrn Presumptive negative 12/12/18 09:40 Urine Cocaine Screen Presumptive negative 12/12/18 09:40 U Marijuana (THC) Screen Presumptive negative 12/12/18 09:40 Drugs of Abuse Note Disclamer 12/12/18 09:40 Plasma/Serum Alcohol < 0.01 % (0-0.07) 12/12/18 09:27 Active Medications - Current Medications Current Medications: Generic Name Dose Route Start Last Admin Trade Name Freq PRN Reason Stop Dose Admin Acetaminophen 650 mg 12/12/18 09:53 12/16/18 09:21 Tylenol PO 650 mg Q4H PRN Administration Fever >101 Lipase/Protease/Amylase 1 each 12/14/18 10:52 Pancreaze 10,500 Unit FEEDTUBE PRN PRN For Clogged Feeding Tube Carvedilol 25 mg 12/12/18 10:00 12/16/18 09:23 Coreg PO Not Given BID AMANDEEP Dextrose 50 ml 12/12/18 08:11 D50w (25gm) Syringe IV PRN PRN Hypoglycemia Haloperidol Lactate 5 mg 12/12/18 18:00 12/14/18 23:42 Haldol IV 5 mg Q6H PRN Administration Agitation Heparin Sodium (Porcine) 5,000 unit 12/12/18 10:00 12/16/18 09:25 Heparin SUB-Q 5,000 unit Q12HR AMANDEEP Administration Hydralazine HCl 50 mg 12/12/18 09:00 12/16/18 08:00 Apresoline PO Not Given TID AMANDEEP Cefazolin Sodium 2 gm/ Sodium 100 mls @ 100 mls/hr 12/13/18 14:00 12/16/18 05:46 Chloride IV 100 mls/hr Q8H AMANDEEP Administration Sodium Chloride 1,000 mls @ 125 mls/hr 12/14/18 15:00 12/16/18 09:48 Nacl 0.45% 1000 Ml IV 125 mls/hr DIRECT AAMNDEEP Administration Insulin Glargine 10 units 12/14/18 22:00 12/15/18 21:43 Lantus SUB-Q 10 units QHS AMANDEEP Administration Insulin Human Lispro 0 unit 12/14/18 12:00 12/16/18 06:47 Humalog SUB-Q 8 unit Q6HR AMANDEEP Administration Protocol Loratadine 10 mg 12/12/18 10:00 12/16/18 09:23 Claritin PO 10 mg DAILY AMANDEEP Administration Lorazepam 1 mg 12/13/18 14:05 12/14/18 13:53 Ativan IV 1 mg Q4H PRN Administration Agitation Morphine Sulfate 2 mg 12/12/18 02:48 12/16/18 00:39 Morphine IV 2 mg Q4H PRN Administration Pain, Moderate (4-6) Ondansetron HCl 4 mg 12/12/18 02:48 Zofran IV Q8H PRN Nausea And Vomiting Simple Syrup 15 ml 12/14/18 10:52 Simple Syrup FEEDTUBE PRN PRN Hypoglycemia Simple Syrup 30 ml 12/14/18 10:52 Simple Syrup FEEDTUBE PRN PRN Hypoglycemia Sodium Bicarbonate 325 mg 12/14/18 10:52 Sodium Bicarbonate FEEDTUBE PRN PRN For Clogged Feeding Tube Nutrition/Malnutrition Assess - Dietary Evaluation Nutrition/Malnutrition Findings: Nutrition Notes Start: 12/12/18 12:14 Freq: Status: Active Protocol: Document 12/14/18 10:44 LP (Rec: 12/14/18 10:51 LP [id number]) Nutrition Notes Need for Assessment generated from: MD Order Initial or Follow up Reassessment Current Diagnosis Diabetes,Hypertension Other Pertinent Diagnosis arthritis, asthma Current Diet No diet Labs/Tests Na 146 BUN 47 Cr 1.5 BG 187 Pertinent Medications NS at 125ml/hr Height 5 ft 7 in Weight 136.078 kg Usual Body Weight 3 kg [place] Body Weight (kg) 61.36 BMI 47.0 Subjective/Other Information Consult for TF. Pt has dobhoff and will be moved to the floor. Burn Absent Trauma Absent #1 Nutrition Diagnosis Inadequate energy intake, Predicted suboptimal energy intake Comments: Change As Evidenced by Signs and Symptoms dobhoff placed Is patient on ventilator? No Is Patient Ambulatory and/or Out of Bed No REE-([facility]-confined to bed) 2289.360 Kcal/Kg value to use for calculation 14 Approximate Energy Requirements Using 1905 kcal/Kg Calculation Used for Recommendations Kcal/kg Additional Notes Protein: 64-80g (0.8-1g/kg using adj wt 80kg) Fluid: 1 ml/kcal Nutrition Intervention Change Diet Order: TF Nutrition Support: Glucerna 1.2 at 65ml/hr Flush with 150ml q4h Kcal 1,872 Protein (gm) 94 Fluid (mL) 1,260 Goal #1 Meet at least 80% of kcal and protein needs via TF Anticipated Discharge Needs: unable to determine at this time Follow-Up By: 12/17/18 Additional Comments Follow for TF start/tolerance
--- NOTE | 2018-12-16 12:57 | Cat Scan Report ---
PROCEDURE: CT HEAD/BRAIN WO CON TECHNIQUE: Computerized tomography of the head was performed without contrast material. Coronal and s agittal reformatted images were provided. CT DOSE LENGTH PRODUCT: 1107.8 mGy-cm. HISTORY: Altered mental status. COMPARISONS: CT head December 11, 2018. FINDINGS: Decreased attenuation regions in the periventricular and subcortical white matter are nonspecific and may represent small vessel ischemic disease, encephalopathy, edema, or a demyelinating process. Smal l vessel ischemic disease (leukoaraiosis) favored. Vascular calcifications. There is no evidence for acute ischemia. There is no hemorrhage. There is no midline shift. There is no hydrocephalus. There is no mass. Age appropriate umanzor-white matter attenuation is noted. There is no calvarial fracture. The temporal bones demonstrate aerated mastoid air cells. The middle ears appear unremarkable. Paranasal sinuses are unremarkable. Globes are intact. IMPRESSION: * No acute intracranial findings. * Chronic ischemic disease. This document is electronically signed by Reynaldo Sood MD., December 16 2018 12:56:23 PM ET
--- NOTE | 2018-12-16 14:12 | Progress Note ---
Assessment and Plan Impression: * Acute kidney injury secondary to prerenal azotemia on CKD * Sepsis * Group B Strep bacteremia * Hypernatremia * Hypokalemia - resolved * Metabolic acidosis * Type II DM * Acute encephalopathy * Persistent fevers Plan: * SCr 1.4mg/dL; sodium worsening - increased to 150 * Discussed with RN - patient not receiving IVF (ordered on Monday); advised to administer as ordered * Replete lytes prn * Glycemic control per primary team * Abx per ID - recommendations noted * CT chest/neck obtained on 12/14 pending * Avoid potential nephrotoxins * Dose medications for renal function * at bedside - updated Subjective Date of service: 12/16/18 Principal diagnosis: sepsis Interval history: 24h events noted Objective - Vital Signs Vital signs: Vital Signs - 12hr 12/16/18 12/16/18 12/16/18 02:57 03:04 07:55 Temperature 98.6 F 101.4 F H Pulse Rate 97 H 74 Respiratory 20 24 Rate Blood Pressure 129/41 108/35 O2 Sat by Pulse 96 99 Oximetry 12/16/18 12/16/18 12/16/18 09:23 10:00 13:24 Temperature Pulse Rate 74 71 Respiratory 20 Rate Blood Pressure 108/35 100/33 O2 Sat by Pulse 97 Oximetry 12/16/18 13:46 Temperature 100.4 F H Pulse Rate 70 Respiratory 24 Rate Blood Pressure 117/35 O2 Sat by Pulse 99 Oximetry - General Appearance General appearance: well-developed, well-nourished EENT: ATNC, other (NGT in place) Respiratory: Present: Decreased Breath Sounds Cardiology: regular, S1S2 Gastrointestinal: no tenderness, no distended, obese Psychiatric: other (somnolent) - Lab 12/16/18 05:11 12/16/18 05:11 Most recent lab results Calcium 9.4 mg/dL (8.4-10.2) 12/16/18 05:11 Phosphorus 2.50 mg/dL (2.5-4.5) 12/13/18 07:39 Magnesium 1.80 mg/dL (1.7-2.3) 12/14/18 09:33 Medications & Allergies - Medications Allergies/Adverse Reactions: Allergies No Known Allergies Allergy (Verified 04/02/16 12:35) Home Medications: Home Medications Medication Instructions Recorded Confirmed Last Taken Type Carvedilol [Coreg] 25 mg PO BID 04/03/16 12/11/18 12/11/18 History Cetirizine HCl 10 mg PO QDAY 04/03/16 12/11/18 12/11/18 History Omeprazole 20 mg PO TID 04/03/16 12/11/18 12/11/18 History Pentoxifylline 400 mg PO BID 04/03/16 12/11/18 12/11/18 History hydrALAZINE [Apresoline TAB] 50 mg PO TID 04/03/16 12/11/18 12/11/18 History metFORMIN 1,000 mg PO BIDAC 04/03/16 12/11/18 12/11/18 History methIMAzole [Tapazole] 5 mg PO QDAY #30 tablet 04/05/16 12/11/18 12/11/18 Rx Active Medications: Generic Name Dose Route Start Last Admin Trade Name Freq PRN Reason Stop Dose Admin Acetaminophen 650 mg 12/12/18 09:53 12/16/18 09:21 Tylenol PO 650 mg Q4H PRN Administration Fever >101 Lipase/Protease/Amylase 1 each 12/14/18 10:[address] 10,500 Unit FEEDTUBE PRN PRN For Clogged Feeding Tube Carvedilol 25 mg 12/12/18 10:00 12/16/18 09:23 Coreg PO Not Given BID AMANDEEP Dextrose 50 ml 12/12/18 08:11 D50w (25gm) Syringe IV PRN PRN Hypoglycemia Haloperidol Lactate 5 mg 12/12/18 18:00 12/14/18 23:42 Haldol IV 5 mg Q6H PRN Administration Agitation Heparin Sodium (Porcine) 5,000 unit 12/12/18 10:00 12/16/18 09:25 Heparin SUB-Q 5,000 unit Q12HR AMANDEEP Administration Hydralazine HCl 50 mg 12/12/18 09:00 12/16/18 13:28 Apresoline PO Not Given TID AMANDEEP Cefazolin Sodium 2 gm/ Sodium 100 mls @ 100 mls/hr 12/13/18 14:00 12/16/18 13:28 Chloride IV 100 mls/hr Q8H AMANDEEP Administration Sodium Chloride 1,000 mls @ 125 mls/hr 12/14/18 15:00 12/16/18 09:48 Nacl 0.45% 1000 Ml IV 125 mls/hr DIRECT AMANDEEP Administration Insulin Glargine 10 units 12/14/18 22:00 12/15/18 21:43 Lantus SUB-Q 10 units QHS AMANDEEP Administration Insulin Human Lispro 0 unit 12/14/18 12:00 12/16/18 13:28 Humalog SUB-Q 10 unit Q6HR AMANDEEP Administration Protocol Loratadine 10 mg 12/12/18 10:00 12/16/18 09:23 Claritin PO 10 mg DAILY AMANDEEP Administration Lorazepam 1 mg 12/13/18 14:05 12/14/18 13:53 Ativan IV 1 mg Q4H PRN Administration Agitation Methimazole 5 mg 12/16/18 16:00 Tapazole PO QDAY [facility] Morphine Sulfate 2 mg 12/12/18 02:48 12/16/18 00:39 Morphine IV 2 mg Q4H PRN Administration Pain, Moderate (4-6) Ondansetron HCl 4 mg 12/12/18 02:48 Zofran IV Q8H PRN Nausea And Vomiting Pentoxifylline 400 mg 12/16/18 22:00 Trental PO BID [facility] Simple Syrup 15 ml 12/14/18 10:52 Simple Syrup FEEDTUBE PRN PRN Hypoglycemia Simple Syrup 30 ml 12/14/18 10:52 Simple Syrup FEEDTUBE PRN PRN Hypoglycemia Sodium Bicarbonate 325 mg 12/14/18 10:52 Sodium Bicarbonate FEEDTUBE PRN PRN For Clogged Feeding Tube
[2018-12-16] MEDS: TAPAZOLE PO SCH (17:48)
[2018-12-16] MEDS: LEVAQUIN 750MG/150ML 750 MG/150 ML BAG IV SCH (17:48)
--- NOTE | 2018-12-16 18:45 | Consultation ---
HISTORY OF PRESENT ILLNESS: This is a 73-year-old black female admitted to room 206. This patient was initially admitted to [facility] on 12/11/2018. She was initially admitted to the hospital with acute onset of confusion, disorientation and has had atrial fibrillation with falling down with shoulder pain. Subsequent to admission, she continued to be confused and encephalopathic. She was initially thought to have renal insufficiency related to diabetes, hypertension and age-related changes. Since admission, she had a CT scan of the head, which I did interpret on review, which showed marked atrophy and tickle showing the left hemisphere. Otherwise, no acute changes present. Recent laboratories have shown her to have a low hematocrit of 24. Sodium of 146, glucose is in the range of 317 and creatinine 1.3. ALLERGIES: She has no known allergies. PHYSICAL EXAMINATION: VITAL SIGNS: Reveals her vital signs show her blood pressure is 129/41. She has a low-grade temperature of 100.1 and respiratory rate is 18. NEUROLOGIC: Cranial nerves II through XII are intact. No meningismus is present. She responds slowly to questions. Slurred speech is obvious. Scallop Binder strength is equal. Motor tone otherwise symmetrical movements. IMPRESSION: 1. Severe encephalopathy. 2. Severe diabetes. 3. Low grade fever. 4. Anemia. PLAN: Further workup of same. JOB# [id number] ERICK/NTS
[2018-12-16] MEDS: TRENTAL PO SCH (22:00)
[2018-12-16] MEDS: LANTUS SUB-Q SCH (22:02)
[2018-12-17] MEDS: HumaLOG SUB-Q SCH ×5 (00:06→19:04)
[2018-12-17] MEDS: ceFAZolin 2 GM in NACL 0.9% 100 ML IV SCH ×3 (05:19→22:20)
[2018-12-17] MEDS: NACL 0.45% 1000 ML 1,000 ML IV SCH (05:27)
[2018-12-17 06:22] LABS: Hematocrit 21.9 % (30.3-42.9); Hemoglobin 7.2 gm/dl (10.1-14.3); Mean Corpuscular Volume 92 fl (79-97); Red Blood Count 2.38 M/mm3 (3.65-5.03)
[2018-12-17 06:23] LABS: Mean Corpuscular HGB Conc 33 % (30-34); Platelet Count 265 K/mm3 (140-440); Red Cell Distribution Width 17.4 % (13.2-15.2)
[2018-12-17 06:31] LABS: Calcium 9.1 mg/dL (8.4-10.2)
--- NOTE | 2018-12-17 08:23 | Progress Note ---
Assessment and Plan Cultures: Blood culture 12/12/2018 beta hem Strep group B 4 of 4 bottles Blood culture 12/14/2018: no growth in 48 hours Assessment: 73 y/o female with history of DM2, OA, ARF, CKD stage 3, depression, hypertension, hyperthyroidism and GERD; admitted on 12/11/2018 due to AMS and recent fall injuring her right shoulder: 1) Sepsis: Improved. Low grade temperature. Etiology most likely Strep ba cteremia. CXR neg. UA neg. Repeat CXR no consolidation. 2) Strep group B bacteremia: 4 of 4 bottles positive, unclear source ? skin (leg wounds do not look infected) ? neck soft tissue infection ? joint infection. CRP=32. TTE no vegetation. repeat cultures show no growth in 24 hours. 3) ALVARO on CKD 4) DM2 with HONK 5) Acute encephalopathy: improving; from sepsis, less likely meningitis. LP was attempted but not done. CT head neg. Recommendations: - f/u chest/neck CT- report pending - follow-up blood cultures - f/u WBC tagged scan to search for infectious nidus - continue cefazolin 2 gm IV q 8 hour, D5 -continue Levaquin 750mg every 24 hours, D2 - f/u BUFFY, anti-CCP -monitor fever - Anticipate discharge on Ceftriaxone 2 gms IV once a day for 2-6 weeks depe nding on Chest/Neck CT report -PICC line ordered [facility] M: [phone] O:[phone] Subjective Date of service: 12/17/18 Principal diagnosis: sepsis Interval history: Patient seen and examined. at the bedside. Patient still nonverbal but open eyes to name. Moaning continuing, but calm. Objective - Exam Narrative Exam: General appearance: Eyes opening to name, Calm. Moaning continuing Eyes: anicteric sclerae, moist conjunctivae; no lid-lag; PERRLA HENT: Atraumatic; oropharynx edentulous limited Neck: Trachea midline; supple, no thyromegaly or lymphadenopathy Lungs: CTA CV: tachycardic Abdomen: Soft,obese mild tenderness Extremities: No peripheral edema or extremity lymphadenopathy + left leg wound 1.0x1.0x0.1. Scant serous sanguineous drainage noticed to the wound. No odor noticed to the wound. + right leg wound 5.0x3.0. Scant serous sanguineous drai nage noticed to the wound. No odor noticed to the wound. Skin: stage 2 left buttocks wound. The wound measurement is as follows; 1.0x1.0x0.1. Scant serous sanguineous drainage noticed to the wound. No odor noticed to the wound. Psych: moaning continuing, calm . Neuro: Eyes open to name, moaning continuing, calm - Constitutional Vitals: Vital Signs Temp Pulse Resp BP Pulse Ox 99.1 F 71 20 124/52 100 12/17/18 07:10 12/17/18 07:10 12/17/18 07:10 12/17/18 07:10 12/17/18 07:10 Temperature -Last 24 Hours Temperature 99.1 F Temperature 98.6 F Temperature 99.3 F Temperature 100.4 F - Labs CBC & Chem 7: 12/17/18 05:28 12/17/18 05:28 Labs: Abnormal lab results 12/16/18 12/16/18 12/16/18 Range/Units 12:19 16:58 23:51 RBC (3.65-5.03) M/mm3 Hgb (10.1-14.3) gm/dl Hct (30.3-42.9) % RDW (13.2-15.2) % Sodium (137-145) mmol/L Chloride (98-107) mmol/L BUN (7-17) mg/dL Glucose (65-100) mg/dL POC Glucose 371 H 323 H 302 H (70-105) 12/17/18 12/17/18 12/17/18 Range/Units 05:28 05:28 06:09 RBC 2.38 L (3.65-5.03) M/mm3 Hgb 7.2 L (10.1-14.3) gm/dl Hct 21.9 L (30.3-42.9) % RDW 17.4 H (13.2-15.2) % Sodium 152 H (137-145) mmol/L Chloride 118.6 H (98-107) mmol/L BUN 44 H (7-17) mg/dL Glucose 291 H (65-100) mg/dL POC Glucose 297 H (70-105)
--- NOTE | 2018-12-17 08:48 | XRay Report ---
AP CHEST: HISTORY: Fever Compared to 12/11/18. A feeding tube has been inserted. Heart and mediastinal structures are within normal limits. Mild congestive changes are suspected in both lungs. No evidence for consolidation, large pleural effusion or pneumothorax. The bony structures are grossly intact. IMPRESSION: Mild congestive changes. No obvious pneumonia.
[2018-12-17] MEDS: APRESOLINE PO SCH ×4 (08:56→22:21)
--- NOTE | 2018-12-17 08:58 | Progress Note ---
Subjective Principal diagnosis: sepsis Interval history: Patient was seen today for follow-up on multiple renal related issues Events of this hospitalization noted Old records were also reviewed from 2016 Patient denies having any chest pain pressure or shortness of breath Vitals labs intake output medications were reviewed Social history: Reviewed Allergies: Reviewed Family history: Reviewed Physical examination HEENT: Oral mucosa moist no pallor or icterus Neck: Supple no JVD Chest: Clear to auscultation anteriorly CVS: Regular rate and rhythm S1 and S2 heard Abdomen: Soft nontender no suprapubic masses no organomegaly appreciable Extremity: Dry skin less than 1+ peripheral edema Musculoskeletal: No joint effusion noted in knees and ankle Neurological: she is arousable Dermatology: No petechial rashes Psychiatry: No evidence of any agitation and aggression noted Assessment and plan Acute kidney injury with underlying chronic kidney disease, renal function appears to have normalized current creatinine around 1.2 2016: Renal ultrasonogram showed evidence of echogenic kidneys Hypernatremia: Continue to monitor intake and output monitoring required, current sodium is relatively stable around 152 , would suggest correction of hyperglycemia, and preferably increasing the free water, 300 mL every 4 hour Check osmolality uric acid tomorrow Metabolic acidosis: Appears to have improved bicarbonate around 24 Borderline magnesium level patient may benefit from replacement Fever: Currently being followed by infectious disease Admitted with sepsis group B bacteremia, chest x-ray urinalysis reported to be negative discussed with patient's at bedside overall patient is not doing well Patient's prognosis is guarded to poor Objective - Vital Signs Vital signs: Vital Signs - 12hr 12/16/18 12/16/18 12/17/18 21:58 22:00 02:54 Temperature 98.6 F Pulse Rate 76 76 Respiratory 20 Rate Blood Pressure 92/40 110/39 O2 Sat by Pulse 96 Oximetry 12/17/18 12/17/18 12/17/18 02:56 07:10 08:51 Temperature 99.1 F Pulse Rate 74 71 Respiratory 20 Rate Blood Pressure 124/52 O2 Sat by Pulse 99 100 99 Oximetry - Lab 12/18/18 06:58 12/18/18 06:58 Most recent lab results Calcium 9.1 mg/dL (8.4-10.2) 12/17/18 05:28 Phosphorus 2.50 mg/dL (2.5-4.5) 12/13/18 07:39 Magnesium 1.70 mg/dL (1.7-2.3) 12/17/18 05:28 Medications & Allergies - Medications Allergies/Adverse Reactions: Allergies No Known Allergies Allergy (Verified 04/02/16 12:35) Home Medications: Home Medications Medication Instructions Recorded Confirmed Last Taken Type Carvedilol [Coreg] 25 mg PO BID 04/03/16 12/11/18 12/11/18 History Cetirizine HCl 10 mg PO QDAY 04/03/16 12/11/18 12/11/18 History Omeprazole 20 mg PO TID 04/03/16 12/11/18 12/11/18 History Pentoxifylline 400 mg PO BID 04/03/16 12/11/18 12/11/18 History hydrALAZINE [Apresoline TAB] 50 mg PO TID 04/03/16 12/11/18 12/11/18 History metFORMIN 1,000 mg PO BIDAC 04/03/16 12/11/18 12/11/18 History methIMAzole [Tapazole] 5 mg PO QDAY #30 tablet 04/05/16 12/11/18 12/11/18 Rx Active Medications: Generic Name Dose Route Start Last Admin Trade Name Freq PRN Reason Stop Dose Admin Acetaminophen 650 mg 12/12/18 09:53 12/16/18 09:21 Tylenol PO 650 mg Q4H PRN Administration Fever >101 Lipase/Protease/Amylase 1 each 12/14/18 10:52 Pancreaze 10,500 Unit FEEDTUBE PRN PRN For Clogged Feeding Tube Carvedilol 25 mg 12/12/18 10:00 12/16/18 21:58 Coreg PO Not Given BID AMANDEEP Dextrose 50 ml 12/12/18 08:11 D50w (25gm) Syringe IV PRN PRN Hypoglycemia Haloperidol Lactate 5 mg 12/12/18 18:00 12/14/18 23:42 Haldol IV 5 mg Q6H PRN Administration Agitation Heparin Sodium (Porcine) 5,000 unit 12/12/18 10:00 12/16/18 22:01 Heparin SUB-Q 5,000 unit Q12HR AMANDEEP Administration Hydralazine HCl 50 mg 12/12/18 09:00 12/17/18 08:56 Apresoline PO Not Given TID AMANDEEP Cefazolin Sodium 2 gm/ Sodium 100 mls @ 100 mls/hr 12/13/18 14:00 12/17/18 05:19 Chloride IV 100 mls/hr Q8H AMANDEEP Administration Sodium Chloride 1,000 mls @ 125 mls/hr 12/14/18 15:00 12/17/18 05:27 Nacl 0.45% 1000 Ml IV 125 mls/hr DIRECT AMANDEEP Administration Levofloxacin/Dextrose 750 mg in 150 mls @ 100 mls/hr 12/16/18 16:00 12/16/18 17:48 Levaquin 750mg/150ml IV 100 mls/hr Q24H AMANDEEP Administration Protocol Insulin Glargine 10 units 12/14/18 22:00 12/16/18 22:02 Lantus SUB-Q 10 units QHS AMANDEEP Administration Insulin Human Lispro 0 unit 12/14/18 12:00 12/17/18 06:12 Humalog SUB-Q 6 unit Q6HR AMANDEEP Administration Protocol Loratadine 10 mg 12/12/18 10:00 12/16/18 09:23 Claritin PO 10 mg DAILY AMANDEEP Administration Lorazepam 1 mg 12/13/18 14:05 12/14/18 13:53 Ativan IV 1 mg Q4H PRN Administration Agitation Methimazole 5 mg 12/16/18 16:00 12/16/18 17:48 Tapazole PO 5 mg QDAY AMANDEEP Administration Morphine Sulfate 2 mg 12/12/18 02:48 12/16/18 00:39 Morphine IV 2 mg Q4H PRN Administration Pain, Moderate (4-6) Ondansetron HCl 4 mg 12/12/18 02:48 Zofran IV Q8H PRN Nausea And Vomiting Pentoxifylline 400 mg 12/16/18 22:00 12/16/18 22:00 Trental PO 400 mg BID AMANEDEP Administration Simple Syrup 15 ml 12/14/18 10:52 Simple Syrup FEEDTUBE PRN PRN Hypoglycemia Simple Syrup 30 ml 12/14/18 10:52 Simple Syrup FEEDTUBE PRN PRN Hypoglycemia Sodium Bicarbonate 325 mg 12/14/18 10:52 Sodium Bicarbonate FEEDTUBE PRN PRN For Clogged Feeding Tube
--- NOTE | 2018-12-17 10:19 | Progress Note ---
Assessment and Plan Assessment and plan: Patient is a 73 yo woman with a history of NIDDM, OA, ARF, CKD 3 with baseline Creatinine around 1.2, depression, hypertension, hyperthyroidism and GERD who presented to [facility] ED with AMS. She was found to have ARF, Creatinine 1.6, hyponatremia 133, hyperglycemia at 529, hypomagnesemia at 1.3 and severe h ypokalemia at 2.4 with no diuretics listed on home medications. She was admitted to ICU for DKA needing insulin drip but it was never started due to hypokalemia and now the anion gap has closed. Looking back at old records here, she had a similar presentation in 2016. She never had Urine drug screen or serum alcohol level checked. She spiked a fever and ID was consulted. LP unsuccessful as patient is not cooperative. -Acute metabolic encephalopathy, CT head negative: UDS and serum ETOH levels unremarkable, LP pending, ?Neurology coverage today -Leukocytosis and fevers etiology unclear, with UA negative for UTI and pCXr negative for infiltrates, now febrile: follow blood cultures, ID work up in progress, ordered tagged WBC which not done because patient was uncooperative -Severe hypokalemia: ordered IV team for midline to give more potassium supplementation but wasn't done because fevers -Hypomagnesemia: repleted and monitor closely -Hyperthyroidism, slightly elevated free T4: restart tapezole -Moderate malnutrition with morbid obesity: consult Health Record Technician, ordered Dobhuff with placement confirmation -Elevated troponin at 0.038, suspect related to renal failure: another set of Troponin remained flat, ordered ECHO -ARF/CKD 3, vasomotor nephropathy: treat with IVF, and repeat level, if worsen consult Nephrology and get renal ultrasound -Type 2 NIDDM with HONK: added SSI -Anemia, appears acute from 2016 records: get FOBT and monitor cbc closely -Hypertension: continue on coreg and hydralazine -Morbid Obesity, BMI 47: dobhuff in place Home reconciliation completed DVT ppx on sq heparin Disposition: continue inpatient care, transferred out of ICU on 12/14/18 12/16/18: not improving mentally, Neurology is following. Still spiking fevers, ID is following. CT head, neck and chest done yesterday and still pending, I called to radiology dept, no answer. 12/17/18: still not improving mentally , CT head show no acute finding, CT chest still not read, I reached out to the CONDUIT REAMER OPERATOR. Stopped 1/2 nss at 125ml/hr as hypernatremia worsening, Increased sq lantus to 14 units qhs, added free water flushes via NGT, replace magnesium via IV and monitor closely. 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 History Interval history: Patient was seen and examined. Follow-up on current diagnosis of AMS, still confused. Overnight uneventful except for fevers. Imaging, nursing note, chart, labs and old chart reviewed. Still yelling out Hospitalist Physical - Physical exam Narrative exam: Gen: ill appearing NAD, confused HEENT: NCAT, EOMI, PERRL, OP Clear Neck: supple, no adenopathy, no thyromegaly, no JVD CVS/Heart: RRR, normal S1S2, pulses present bilaterally Chest/Lungs: CTA B, Symmetrical chest expansion, good air entry bilaterally GI/Abdomen: soft, NTND, good bowel sounds, no guarding or rebound /Bladder: no suprapubic tenderness, no CVA or paraspinal tenderness Extermity/Skin: no c/c/e, no obvious rash MSK: FROM x 4 Neuro: CN 2-12 grossly intact, no new focal deficits Psych: confused - Constitutional Vitals: Temp Pulse Resp BP Pulse Ox 99.1 F 71 20 124/52 99 12/17/18 07:10 12/17/18 07:10 12/17/18 07:10 12/17/18 07:10 12/17/18 08:51 General appearance: Present: no acute distress, well-nourished, obese Results - Labs CBC & Chem 7: 12/17/18 05:28 12/17/18 05:28 Labs: Laboratory Last Values WBC 10.4 K/mm3 (4.5-11.0) 12/17/18 05:28 RBC 2.38 M/mm3 (3.65-5.03) L 12/17/18 05:28 Hgb 7.2 gm/dl (10.1-14.3) L 12/17/18 05:28 Hct 21.9 % (30.3-42.9) L 12/17/18 05:28 MCV 92 fl (79-97) 12/17/18 05:28 MCH 31 pg (28-32) 12/17/18 05:28 MCHC 33 % (30-34) 12/17/18 05:28 RDW 17.4 % (13.2-15.2) H 12/17/18 05:28 Plt Count 265 K/mm3 (140-440) 12/17/18 05:28 Lymph % (Auto) Copy Reader 12/11/18 22:47 Jerome % (Auto) Copy Reader 12/11/18 22:47 Eos % (Auto) Copy Reader 12/11/18 22:47 Baso % (Auto) Copy Reader 12/11/18 22:47 Lymph # Copy Reader 12/11/18 22:47 Jerome # Copy Reader 12/11/18 22:47 Eos # Copy Reader 12/11/18 22:47 Baso # Copy Reader 12/11/18 22:47 Add Manual Diff Complete 12/11/18 22:47 Total Counted 100 12/11/18 22:47 Seg Neutrophils % Copy Reader 12/11/18 22:47 Seg Neuts % (Manual) 92.0 % (40.0-70.0) H 12/11/18 22:47 Band Neutrophils % 0 % 12/11/18 22:47 Lymphocytes % (Manual) 4.0 % (13.4-35.0) L 12/11/18 22:47 Reactive Lymphs % (Man) 0 % 12/11/18 22:47 Monocytes % (Manual) 3.0 % (0.0-7.3) 12/11/18 22:47 Eosinophils % (Manual) 0 % (0.0-4.3) 12/11/18 22:47 Basophils % (Manual) 0 % (0.0-1.8) 12/11/18 22:47 Metamyelocytes % 1.0 % 12/11/18 22:47 Myelocytes % 0 % 12/11/18 22:47 Promyelocytes % 0 % 12/11/18 22:47 Blast Cells % 0 % 12/11/18 22:47 Nucleated RBC % 2.0 % (0.0-0.9) H 12/11/18 22:47 Seg Neutrophils # Copy Reader 12/11/18 22:47 Seg Neutrophils # Man 17.0 K/mm3 (1.8-7.7) H 12/11/18 22:47 Band Neutrophils # 0.0 K/mm3 12/11/18 22:47 Lymphocytes # (Manual) 0.7 K/mm3 (1.2-5.4) L 12/11/18 22:47 Abs React Lymphs (Man) 0.0 K/mm3 12/11/18 22:47 Monocytes # (Manual) 0.6 K/mm3 (0.0-0.8) 12/11/18 22:47 Eosinophils # (Manual) 0.0 K/mm3 (0.0-0.4) 12/11/18 22:47 Basophils # (Manual) 0.0 K/mm3 (0.0-0.1) 12/11/18 22:47 Metamyelocytes # 0.2 K/mm3 12/11/18 22:47 Myelocytes # 0.0 K/mm3 12/11/18 22:47 Promyelocytes # 0.0 K/mm3 12/11/18 22:47 Blast Cells # 0.0 K/mm3 12/11/18 22:47 WBC Morphology Not Reportable 12/11/18 22:47 Hypersegmented Neuts Not Reportable 12/11/18 22:47 Hyposegmented Neuts Not Reportable 12/11/18 22:47 Hypogranular Neuts Not Reportable 12/11/18 22:47 Smudge Cells Not Reportable 12/11/18 22:47 Toxic Granulation Not Reportable 12/11/18 22:47 Toxic Vacuolation Not Reportable 12/11/18 22:47 Dohle Bodies Not Reportable 12/11/18 22:47 Pelger-Huet Anomaly Not Reportable 12/11/18 22:47 Starla Rods Not Reportable 12/11/18 22:47 Platelet Estimate Consistent w auto 12/11/18 22:47 Clumped Platelets Few 12/11/18 22:47 Plt Clumps, EDTA Not Reportable 12/11/18 22:47 Large Platelets 1+ 12/11/18 22:47 Giant Platelets Not Reportable 12/11/18 22:47 Platelet Satelliting Not Reportable 12/11/18 22:47 Plt Morphology Comment Not Reportable 12/11/18 22:47 RBC Morphology Normal 12/11/18 22:47 Dimorphic RBCs Not Reportable 12/11/18 22:47 Polychromasia Not Reportable 12/11/18 22:47 Hypochromasia Not Reportable 12/11/18 22:47 Poikilocytosis Not Reportable 12/11/18 22:47 Anisocytosis Not Reportable 12/11/18 22:47 Microcytosis Not Reportable 12/11/18 22:47 Macrocytosis Not Reportable 12/11/18 22:47 Spherocytes Not Reportable 12/11/18 22:47 Pappenheimer Bodies Not Reportable 12/11/18 22:47 Sickle Cells Not Reportable 12/11/18 22:47 Target Cells Not Reportable 12/11/18 22:47 Tear Drop Cells Not Reportable 12/11/18 22:47 Ovalocytes Not Reportable 12/11/18 22:47 Helmet Cells Not Reportable 12/11/18 22:47 Sanchez-[place] Bodies Not Reportable 12/11/18 22:47 [place] Rings Not Reportable 12/11/18 22:47 [place] Cells Not Reportable 12/11/18 22:47 Bite Cells Not Reportable 12/11/18 22:47 Crenated Cell Not Reportable 12/11/18 22:47 Elliptocytes Not Reportable 12/11/18 22:47 Acanthocytes (Spur) Not Reportable 12/11/18 22:47 Rouleaux Not Reportable 12/11/18 22:47 Hemoglobin C Crystals Not Reportable 12/11/18 22:47 Schistocytes Not Reportable 12/11/18 22:47 Malaria parasites Not Reportable 12/11/18 22:47 Dawson Bodies Not Reportable 12/11/18 22:47 Hem Pathologist Commnt No 12/11/18 22:47 PT 16.8 Sec. (12.2-14.9) H 12/12/18 11:45 INR 1.28 (0.87-1.13) H 12/12/18 11:45 APTT 40.8 Sec. (24.2-36.6) H 12/12/18 11:45 POC ABG pH 7.420 (7.35-7.45) 12/11/18 23:14 POC ABG pCO2 39.6 (35-45) 12/11/18 23:14 POC ABG pO2 84 (80-105) 12/11/18 23:14 POC ABG HCO3 25.7 (22-26 mml/L) 12/11/18 23:14 POC ABG Total CO2 27 (23-27mmol/L) 12/11/18 23:14 POC ABG O2 Sat 97 12/11/18 23:14 POC ABG Base Excess 1 ((-2) - (+3)mmol/L) 12/11/18 23:14 FiO2 32 % 12/11/18 23:14 Sodium 152 mmol/L (137-145) H 12/17/18 05:28 Potassium 4.0 mmol/L (3.6-5.0) 12/17/18 05:28 Chloride 118.6 mmol/L (98-107) H 12/17/18 05:28 Carbon Dioxide 24 mmol/L (22-30) 12/17/18 05:28 Anion Gap 13 mmol/L 12/17/18 05:28 BUN 44 mg/dL (7-17) H 12/17/18 05:28 Creatinine 1.2 mg/dL (0.7-1.2) 12/17/18 05:28 Estimated GFR 53 ml/min 12/17/18 05:28 BUN/Creatinine Ratio 37 % 12/17/18 05:28 Glucose 291 mg/dL (65-100) H 12/17/18 05:28 POC Glucose 297 (70-105) H 12/17/18 06:09 Calcium 9.1 mg/dL (8.4-10.2) 12/17/18 05:28 Phosphorus 2.50 mg/dL (2.5-4.5) 12/13/18 07:39 Magnesium 1.70 mg/dL (1.7-2.3) 12/17/18 05:28 Total Bilirubin 2.10 mg/dL (0.1-1.2) H 12/11/18 20:34 AST 25 units/L (5-40) 12/11/18 20:34 ALT 27 units/L (7-56) 12/11/18 20:34 Alkaline Phosphatase 215 units/L (35-129) H 12/11/18 20:34 Ammonia 19.0 umol/L (25-60) L 12/11/18 21:04 Total Creatine Kinase 44 units/L (30-135) 12/12/18 07:33 CK-MB (CK-2) 1.1 ng/mL (0.0-4.0) 12/12/18 07:33 CK-MB (CK-2) Rel Index 2.5 (0-4) 12/12/18 07:33 Troponin T 0.036 ng/mL (0.00-0.029) H 12/12/18 07:33 C-Reactive Protein 32.70 mg/dL (0.00-1.30) H 12/13/18 16:23 Total Protein 6.2 g/dL (6.3-8.2) L 12/11/18 20:34 Albumin 2.9 g/dL (3.9-5) L 12/11/18 20:34 Albumin/Globulin Ratio 0.9 % 12/11/18 20:34 Triglycerides 173 mg/dL (2-149) H 12/11/18 20:34 Cholesterol 95 mg/dL (50-199) 12/11/18 20:34 LDL Cholesterol Direct 16 mg/dL (50-130) L 12/11/18 20:34 HDL Cholesterol 19 mg/dL (40-59) L 12/11/18 20:34 Cholesterol/HDL Ratio 5.00 % 12/11/18 20:34 TSH 0.447 mlU/mL (0.270-4.200) 12/11/18 21:04 Thyroxine (T4) 5.3 ug/dL (4.0-12.0) 12/11/18 21:04 Urine Color Dark yellow (Yellow) 12/11/18 23:06 Urine Turbidity Clear (Clear) 12/11/18 23:06 Urine pH 5.0 (5.0-7.0) 12/11/18 23:06 Ur Specific [place] 1.021 (1.003-1.030) 12/11/18 23:06 Urine Protein 100 mg/dl mg/dL (Negative) 12/11/18 23:06 Urine Glucose (UA) >=500 mg/dL (Negative) 12/11/18 23:06 Urine Ketones Tr mg/dL (Negative) 12/11/18 23:06 Urine Blood Neg (Negative) 12/11/18 23:06 Urine Nitrite Neg (Negative) 12/11/18 23:06 Urine Bilirubin Neg (Negative) 12/11/18 23:06 Urine Urobilinogen 4.0 mg/dL (<2.0) 12/11/18 23:06 Ur Leukocyte Esterase Neg (Negative) 12/11/18 23:06 Urine WBC (Auto) 1.0 /HPF (0.0-6.0) 12/11/18 23:06 Urine RBC (Auto) 2.0 /HPF (0.0-6.0) 12/11/18 23:06 U Epithel Cells (Auto) 1.0 /HPF (0-13.0) 12/11/18 23:06 Amorphous Crystals Few 12/11/18 23:06 Random Vancomycin 7.9 ug/mL (0-40.0) 12/14/18 09:33 Urine Opiates Screen Presumptive negative 12/12/18 09:40 Urine Methadone Screen Presumptive negative 12/12/18 09:40 Ur Barbiturates Screen Presumptive negative 12/12/18 09:40 Ur Phencyclidine Scrn Presumptive negative 12/12/18 09:40 Ur Amphetamines Screen Presumptive negative 12/12/18 09:40 U Benzodiazepines Scrn Presumptive negative 12/12/18 09:40 Urine Cocaine Screen Presumptive negative 12/12/18 09:40 U Marijuana (THC) Screen Presumptive negative 12/12/18 09:40 Drugs of Abuse Note Disclamer 12/12/18 09:40 Plasma/Serum Alcohol < 0.01 % (0-0.07) 12/12/18 09:27 Active Medications - Current Medications Current Medications: Generic Name Dose Route Start Last Admin Trade Name Freq PRN Reason Stop Dose Admin Acetaminophen 650 mg 12/12/18 09:53 12/16/18 09:21 Tylenol PO 650 mg Q4H PRN Administration Fever >101 Lipase/Protease/Amylase 1 each 12/14/18 10:52 Pancreaze 10,500 Unit FEEDTUBE PRN PRN For Clogged Feeding Tube Carvedilol 25 mg 12/12/18 10:00 12/16/18 21:58 Coreg PO Not Given BID AMANDEEP Dextrose 50 ml 12/12/18 08:11 D50w (25gm) Syringe IV PRN PRN Hypoglycemia Haloperidol Lactate 5 mg 12/12/18 18:00 12/14/18 23:42 Haldol IV 5 mg Q6H PRN Administration Agitation Heparin Sodium (Porcine) 5,000 unit 12/12/18 10:00 12/16/18 22:01 Heparin SUB-Q 5,000 unit Q12HR AMANDEEP Administration Hydralazine HCl 50 mg 12/12/18 09:00 12/17/18 08:56 Apresoline PO Not Given TID [facility] Cefazolin Sodium 2 gm/ Sodium 100 mls @ 100 mls/hr 12/13/18 14:00 12/17/18 05:19 Chloride IV 100 mls/hr Q8H AMANDEEP Administration Levofloxacin/Dextrose 750 mg in 150 mls @ 100 mls/hr 12/16/18 16:00 12/16/18 17:48 Levaquin 750mg/150ml IV 100 mls/hr Q24H AMANDEEP Administration Protocol Insulin Glargine 14 units 12/17/18 10:06 Lantus SUB-Q QHS AMANDEEP Insulin Human Lispro 0 unit 12/14/18 12:00 12/17/18 06:12 Humalog SUB-Q 6 unit Q6HR AMANDEEP Administration Protocol Loratadine 10 mg 12/12/18 10:00 12/16/18 09:23 Claritin PO 10 mg DAILY AMANDEEP Administration Lorazepam 1 mg 12/13/18 14:05 12/14/18 13:53 Ativan IV 1 mg Q4H PRN Administration Agitation Methimazole 5 mg 12/16/18 16:00 12/16/18 17:48 Tapazole PO 5 mg QDAY AMANDEEP Administration Morphine Sulfate 2 mg 12/12/18 02:48 12/16/18 00:39 Morphine IV 2 mg Q4H PRN Administration Pain, Moderate (4-6) Ondansetron HCl 4 mg 12/12/18 02:48 Zofran IV Q8H PRN Nausea And Vomiting Pentoxifylline 400 mg 12/16/18 22:00 12/16/18 22:00 Trental PO 400 mg BID AMANDEEP Administration Simple Syrup 15 ml 12/14/18 10:52 Simple Syrup FEEDTUBE PRN PRN Hypoglycemia Simple Syrup 30 ml 12/14/18 10:52 Simple Syrup FEEDTUBE PRN PRN Hypoglycemia Sodium Bicarbonate 325 mg 12/14/18 10:52 Sodium Bicarbonate FEEDTUBE PRN PRN For Clogged Feeding Tube Nutrition/Malnutrition Assess - Dietary Evaluation Nutrition/Malnutrition Findings: Nutrition Notes Start: 12/12/18 12:14 Freq: Status: Active Protocol: Document 12/14/18 10:44 LP (Rec: 12/14/18 10:51 [id number]) Nutrition Notes Need for Assessment generated from: MD Order Initial or Follow up Reassessment Current Diagnosis Diabetes,Hypertension Other Pertinent Diagnosis arthritis, asthma Current Diet No diet Labs/Tests Na 146 BUN 47 Cr 1.5 BG 187 Pertinent Medications NS at 125ml/hr Height 5 ft 7 in Weight 136.078 kg Usual Body Weight 3 kg [place] Body Weight (kg) 61.36 BMI 47.0 Subjective/Other Information Consult for TF. Pt has dobhoff and will be moved to the floor. Burn Absent Trauma Absent #1 Nutrition Diagnosis Inadequate energy intake, Predicted suboptimal energy intake Comments: Change As Evidenced by Signs and Symptoms dobhoff placed Is patient on ventilator? No Is Patient Ambulatory and/or Out of Bed No REE-([place]-confined to bed) [phone] Kcal/Kg value to use for calculation 14 Approximate Energy Requirements Using 1905 kcal/Kg Calculation Used for Recommendations Kcal/kg Additional Notes Protein: 64-80g (0.8-1g/kg using adj wt 80kg) Fluid: 1 ml/kcal Nutrition Intervention Change Diet Order: TF Nutrition Support: Glucerna 1.2 at 65ml/hr Flush with 150ml q4h Kcal 1,872 Protein (gm) 94 Fluid (mL) 1,260 Goal #1 Meet at least 80% of kcal and protein needs via TF Anticipated Discharge Needs: unable to determine at this time Follow-Up By: 12/17/18 Additional Comments Follow for TF start/tolerance
[2018-12-17] MEDS: TAPAZOLE PO SCH (10:37)
[2018-12-17] MEDS: TRENTAL PO SCH (10:40)
[2018-12-17] MEDS: CLARITIN PO SCH (10:40)
[2018-12-17] MEDS: HEPARIN SUB-Q SCH ×2 (10:40→22:29)
[2018-12-17] MEDS: TYLENOL PO PRN ×2 (10:57→17:27)
[2018-12-17] MEDS: COREG PO SCH ×2 (10:58→22:28)
[2018-12-17] MEDS ORDERED: MAGNESIUM SULFATE 2GM/50ML 2 GM/50 ML BAG IV ONE (11:00)
[2018-12-17] MEDS: FREE WATER PO SCH ×3 (11:18→22:28)
[2018-12-17] MEDS: LEVAQUIN 750MG/150ML 750 MG/150 ML BAG IV SCH (17:46)
[2018-12-17] MEDS ORDERED: LANTUS SUB-Q SCH (22:00)
[2018-12-17] MEDS: HALDOL IV PRN (22:22)
[2018-12-17] MEDS: ATIVAN IV PRN (23:49)
[2018-12-18] MEDS: HumaLOG SUB-Q SCH ×4 (00:21→17:56)
[2018-12-18] MEDS: MORPHINE IV PRN ×4 (00:31→22:03)
[2018-12-18] MEDS: ceFAZolin 2 GM in NACL 0.9% 100 ML IV SCH ×2 (05:13→13:29)
[2018-12-18] MEDS: FREE WATER PO SCH ×4 (05:13→22:52)
[2018-12-18 07:22] LABS: Hematocrit 21.2 % (30.3-42.9); Hemoglobin 6.9 gm/dl (10.1-14.3); Mean Corpuscular HGB Conc 32 % (30-34); Mean Corpuscular Volume 95 fl (79-97); Platelet Count 253 K/mm3 (140-440); Red Blood Count 2.24 M/mm3 (3.65-5.03); Red Cell Distribution Width 17.9 % (13.2-15.2)
[2018-12-18 07:45] LABS: Calcium 9.1 mg/dL (8.4-10.2)
--- NOTE | 2018-12-18 08:41 | Progress Note ---
Subjective Principal diagnosis: sepsis Interval history: Patient was seen today for follow-up on multiple renal related issues Events of this hospitalization noted Old records were also reviewed from 2016 Met with patient's yesterday, discussed at length Patient denies having any chest pain pressure or shortness of breath Vitals labs intake output medications were reviewed Social history: Reviewed Allergies: Reviewed Family history: Reviewed Physical examination HEENT: Oral mucosa moist no pallor or icterus Neck: Supple no JVD Chest: Clear to auscultation anteriorly CVS: Regular rate and rhythm S1 and S2 heard Abdomen: Soft nontender no suprapubic masses no organomegaly appreciable Extremity: Dry skin less than 1+ peripheral edema Musculoskeletal: No joint effusion noted in knees and ankle Neurological: Arousable Dermatology: No petechial rashes Psychiatry: No evidence of any agitation and aggression noted Assessment and plan Acute kidney injury with underlying chronic kidney disease, renal function appears to have normalized current creatinine around 1.2 2016: Renal ultrasonogram showed evidence of echogenic kidneys Osmolality, uric acid currently pending Hypernatremia: Relatively stable sodium currently 150 improving slowly maintain hydration creatinine at 1.4 which was 1.3 on December 14 Please follow-up on the magnesium level Significant decline in hemoglobin current 6.9, will need follow-up on the hemoglobin and hematocrit, packed red blood cell transfusion and management per primary team Diabetes mellitus type 2 requires better control, her blood sugar has been consistently around 300 since last 3 days Had a long discussion about patient's at the bedside yesterday her prognosis does not appear to be good, he is aware of that, Borderline magnesium level patient may benefit from replacement Fever: Currently being followed by infectious disease Admitted with sepsis group B bacteremia, chest x-ray urinalysis reported to be negative Objective - Vital Signs Vital signs: Vital Signs - 12hr 12/17/18 12/17/18 12/18/18 22:00 22:28 00:31 Temperature Pulse Rate 71 Respiratory 20 20 Rate Respiratory Rate [ Generalized] Blood Pressure 122/52 O2 Sat by Pulse Oximetry 12/18/18 12/18/18 12/18/18 01:01 02:00 02:32 Temperature 99.5 F Pulse Rate 64 Respiratory 20 22 Rate Respiratory Rate [ Generalized] Blood Pressure 110/48 O2 Sat by Pulse Oximetry 12/18/18 12/18/18 12/18/18 02:34 05:10 05:13 Temperature Pulse Rate 68 Respiratory 20 Rate Respiratory 20 Rate [ Generalized] Blood Pressure O2 Sat by Pulse 97 Oximetry 12/18/18 12/18/18 05:43 07:33 Temperature 98.0 F Pulse Rate 64 Respiratory 20 20 Rate Respiratory Rate [ Generalized] Blood Pressure 118/42 O2 Sat by Pulse 97 Oximetry - Lab 12/18/18 06:58 12/18/18 06:58 Most recent lab results Calcium 9.1 mg/dL (8.4-10.2) 12/18/18 06:58 Phosphorus 2.50 mg/dL (2.5-4.5) 12/13/18 07:39 Magnesium 1.70 mg/dL (1.7-2.3) 12/17/18 05:28 Medications & Allergies - Medications Allergies/Adverse Reactions: Allergies No Known Allergies Allergy (Verified 04/02/16 12:35) Home Medications: Home Medications Medication Instructions Recorded Confirmed Last Taken Type Carvedilol [Coreg] 25 mg PO BID 04/03/16 12/11/18 12/11/18 History Cetirizine HCl 10 mg PO QDAY 04/03/16 12/11/18 12/11/18 History Omeprazole 20 mg PO TID 04/03/16 12/11/18 12/11/18 History Pentoxifylline 400 mg PO BID 04/03/16 12/11/18 12/11/18 History hydrALAZINE [Apresoline TAB] 50 mg PO TID 04/03/16 12/11/18 12/11/18 History metFORMIN 1,000 mg PO BIDAC 04/03/16 12/11/18 12/11/18 History methIMAzole [Tapazole] 5 mg PO QDAY #30 tablet 04/05/16 12/11/18 12/11/18 Rx Active Medications: Generic Name Dose Route Start Last Admin Trade Name Freq PRN Reason Stop Dose Admin Acetaminophen 650 mg 12/12/18 09:53 12/17/18 17:27 Tylenol PO 650 mg Q4H PRN Administration Fever >101 Lipase/Protease/Amylase 1 each 12/14/18 10:52 Pancrerose Smith 10,500 Unit FEEDTUBE PRN PRN For Clogged Feeding Tube Carvedilol 25 mg 12/12/18 10:00 12/17/18 22:28 Coreg PO 25 mg BID AMANDEEP Administration Dextrose 50 ml 12/12/18 08:11 D50w (25gm) Syringe IV PRN PRN Hypoglycemia Haloperidol Lactate 5 mg 12/12/18 18:00 12/17/18 22:22 Haldol IV 5 mg Q6H PRN Administration Agitation Heparin Sodium (Porcine) 5,000 unit 12/12/18 10:00 12/17/18 22:29 Heparin SUB-Q 5,000 unit Q12HR AMANDEEP Administration Hydralazine HCl 50 mg 12/12/18 09:00 12/17/18 22:21 Apresoline PO 50 mg TID AMANDEEP Administration Cefazolin Sodium 2 gm/ Sodium 100 mls @ 100 mls/hr 12/13/18 14:00 12/18/18 0 5:13 Chloride IV 100 mls/hr Q8H AMANDEEP Administration Levofloxacin/Dextrose 750 mg in 150 mls @ 100 mls/hr 12/16/18 16:00 12/17/18 17:46 Levaquin 750mg/150ml IV 100 mls/hr Q24H AMANDEEP Administration Protocol Insulin Glargine 14 units 12/17/18 22:00 12/17/18 22:29 Lantus SUB-Q 14 units QHS AMANDEEP Administration Insulin Human Lispro 0 unit 12/14/18 12:00 12/18/18 07:13 Humalog SUB-Q 10 unit Q6HR AMANDEEP Administration Protocol Loratadine 10 mg 12/12/18 10:00 12/17/18 10:40 Claritin PO 10 mg DAILY AMANDEEP Administration Lorazepam 1 mg 12/13/18 14:05 12/17/18 23:49 Ativan IV 1 mg Q4H PRN Administration Agitation Methimazole 5 mg 12/16/18 16:00 12/17/18 10:37 Tapazole PO 5 mg QDAY AMANDEEP Administration Morphine Sulfate 2 mg 12/12/18 02:48 12/18/18 05:13 Morphine IV 2 mg Q4H PRN Administration Pain, Moderate (4-6) Ondansetron HCl 4 mg 12/12/18 02:48 Zofran IV Q8H PRN Nausea And Vomiting Simple Syrup 15 ml 12/14/18 10:52 Simple Syrup FEEDTUBE PRN PRN Hypoglycemia Simple Syrup 30 ml 12/14/18 10:52 Simple Syrup FEEDTUBE PRN PRN Hypoglycemia Sodium Bicarbonate 325 mg 12/14/18 10:52 Sodium Bicarbonate FEEDTUBE PRN PRN For Clogged Feeding Tube
--- NOTE | 2018-12-18 08:45 | Progress Note ---
Assessment and Plan Cultures: Blood culture 12/12/2018 beta hem Strep group B 4 of 4 bottles Blood culture 12/14/2018: no growth Assessment: 73 y/o female with history of DM2, OA, ARF, CKD stage 3, depression, hypert ension, hyperthyroidism and GERD; admitted on 12/11/2018 due to AMS and recent fall injuring her right shoulder: 1) Sepsis: Resolved. No fevers in >24 hours. Etiology most likely Strep bacteremia. CXR neg. UA neg. Repeat CXR no consolidation. 2) Strep group B bacteremia: 4 of 4 bottles positive, unclear source ? skin (leg wounds do not look infected) ? neck soft tissue infection ? joint infec tion. CRP=32. TTE no vegetation. repeat cultures show no growth. CT result reviewed. Will order venous Doppler of neck veins to r/o septic thrombophlebitis. Chest CT : Inflammatory tissue in right supraclavicular region may emanate from abnormal appearing right sternoclavicular joint which appears widened and enlarged. There are gas bubbles in the area which could relate to infectious process. Evaluation of abscess is limited due to lack of IV contrast I cannot confirm an abscess although evaluation for abscess is limited due to the lack of IV contrast. Small bilateral pleural effusions. Neck CT: same as above 3) ALVARO on CKD 4) DM2 with HONK 5) Acute encephalopathy: improving; from sepsis, less likely meningitis. LP was attempted but not done. CT head neg. Recommendations: - follow-up blood cultures - f/u WBC tagged scan to search for infectious nidus - scheduled for tomorrow -- f/u BUFFY, anti-CCP -Anticipate discharge on Ceftriaxone 2 gms IV once a day for 6 weeks ending 01-24-19 -Case management consult placed -f/u Carotid bilateral duplex and arterial duplex UE bilateral to evaluate for septic thrombophelebitis -Discontinue Cefazolin and Levaquin -start Ceftriaxone 2gm IV q day [facility] M: [phone] O:[phone] Subjective Date of service: 12/18/18 Principal diagnosis: sepsis Interval history: Patient seen and examined. at the bedside. Non-communicative, moaning and occasional yelling during assessment. Objective - Exam Narrative Exam: General appearance: Asleep. Eyes open to name. Mild agitation Eyes: anicteric sclerae, moist conjunctivae; no lid-lag; PERRLA HENT: Atraumatic; oropharynx edentulous limited Neck: Trachea midline; supple, no thyromegaly or lymphadenopathy Lungs: CTA CV: tachycardic Abdomen: Soft,obese mild tenderness Extremities: No peripheral edema or extremity lymphadenopathy + left leg wound 1.0x1.0x0.1. Scant serous sanguineous drainage noticed to the wound. No odor noticed to the wound. + right leg wound 5.0x3.0. Scant serous sanguineous drainage noticed to the wound. No odor noticed to the wound. Skin: stage 2 left buttocks wound. The wound measurement is as follows; 1.0x1.0x0.1. Scant serous sanguineous drainage noticed to the wound. No odor noticed to the wound. Psych: mild agitation. Neuro: Eyes open to name, some yelling - Constitutional Vitals: Vital Signs Temp Pulse Resp BP Pulse Ox 98.0 F 64 20 118/42 97 12/18/18 07:33 12/18/18 07:33 12/18/18 07:33 12/18/18 07:33 12/18/18 07:33 Temperature -Last 24 Hours Temperature 98.0 F Temperature 99.5 F Temperature 98.6 F Temperature 98.2 F - Labs CBC & Chem 7: 12/18/18 06:58 12/18/18 06:58 Labs: Abnormal lab results 12/17/18 12/17/18 12/18/18 Range/Units 11:47 18:15 00:14 RBC (3.65-5.03) M/mm3 Hgb (10.1-14.3) gm/dl Hct (30.3-42.9) % RDW (13.2-15.2) % Sodium (137-145) mmol/L Chloride (98-107) mmol/L BUN (7-17) mg/dL Creatinine (0.7-1.2) mg/dL Glucose (65-100) mg/dL POC Glucose 340 H 312 H 355 H (70-105) 12/18/18 12/18/18 12/18/18 Range/Units 06:39 06:58 06:58 RBC 2.24 L (3.65-5.03) M/mm3 Hgb 6.9 L (10.1-14.3) gm/dl Hct 21.2 L (30.3-42.9) % RDW 17.9 H (13.2-15.2) % Sodium 150 H (137-145) mmol/L Chloride 117.0 H (98-107) mmol/L BUN 48 H (7-17) mg/dL Creatinine 1.4 H (0.7-1.2) mg/dL Glucose 362 H (65-100) mg/dL POC Glucose 351 H (70-105)
[2018-12-18] MEDS: APRESOLINE PO SCH ×3 (09:00→22:52)
[2018-12-18] MEDS: ATIVAN IV PRN (09:11)
[2018-12-18] MEDS: TAPAZOLE PO SCH (09:12)
[2018-12-18] MEDS: CLARITIN PO SCH (09:12)
[2018-12-18] MEDS: HEPARIN SUB-Q SCH ×2 (09:12→22:51)
[2018-12-18] MEDS: COREG PO SCH ×2 (09:12→22:51)
--- NOTE | 2018-12-18 09:48 | Cat Scan Report ---
PROCEDURE: CT NECK WO CON TECHNIQUE: CT of the neck performed. No IV contrast administered. Axial images and coronal and sagit duy reformatted images were obtained. HISTORY: r/o abscess COMPARISON: None FINDINGS: There is a nasogastric tube present. There is ill-defined area of increased density in the right supraclavicular region. There are several gas bubbles in the region. Abnormality is poorly characterized, likely inflammatory. I cannot confir m a discrete collection of fluid in the region. Evaluation is limited due to lack of IV contrast admi nistration. Presence of gas bubbles suggest possible infectious etiology. Note that there is adjacent widening of the sternoclavicular joint. I cannot confirm any abnormal lymphadenopathy. Parapharyngeal tissue planes are maintained. The thyroid gland is unremarkable. Salivary glands are s ymmetric and unremarkable. IMPRESSION: Ill-defined areas of soft tissue density in right supraclavicular region with gas bubble s. This is concerning for inflammatory change/phlegmon. Gas bubbles raise concern for gas forming inf ectious abnormality. I cannot confirm a fluid collection/abscess although exam limited for this purpo se due to lack of IV contrast administration. This document is electronically signed by Hansa Davalos MD., December 18 2018 09:46:33 AM ET
--- NOTE | 2018-12-18 09:54 | Cat Scan Report ---
PROCEDURE: CT CHEST WO CON TECHNIQUE: CT of the chest performed. Axial images and coronal and sagittal reformatted images were o btained. HISTORY: to eval inferior anterior neck mass ? abscess COMPARISON: None FINDINGS: Examination submitted to me on 12/18/2018 for official interpretation. There is ill-defined soft tissue tissue density in the right supraclavicular region where there is so me widening/enlargement of the right supraclavicular joint. There are some gas bubbles in the region raising concern for infectious abnormality. I cannot confirm a fluid collection/abscess although exam ination limited for this purpose due to lack of IV contrast. There is no abnormal mediastinal or hilar mass seen. There are atherosclerotic calcifications in the thoracic aorta. Lung evaluation limited due to breathing motion. Grossly no acute infiltrate seen. There is no pneumothorax. A nasogastric tube extends into distal stomach. IMPRESSION: Inflammatory tissue in right supraclavicular region may emanate from abnormal appearing right sternoc lavicular joint which appears widened and enlarged. There are gas bubbles in the area which could rel ate to infectious process. I cannot confirm an abscess although evaluation for abscess is limited due to the lack of IV contrast . Small bilateral pleural effusions. This document is electronically signed by Hansa Davalos MD., December 18 2018 09:52:15 AM ET
--- NOTE | 2018-12-18 10:57 | XRay Report ---
AP CHEST: HISTORY: Left arm PICC placement A left arm PICC has been inserted which terminates at the cavoatrial junction. The remainder of the examination is unchanged since 12/17/18 at 0828 hours IMPRESSION: Left arm PICC as described. No acute process in the chest.
--- NOTE | 2018-12-18 11:52 | Progress Note ---
Assessment and Plan Assessment and plan: SIRS with organ dysfunction, poa, suspected sepsis but no source. Still evaluating though 73-year-old woman with history of type 2 diabetes, osteoarthritis, chronic kidney disease with creatinine baseline around 1.2, hypertension, depression, hypothyroidism, GERD who was brought to the hospital with altered mental status. CT chest, report is limited due to lack of IV contrast, but there is abnormality in the right supraclavicular region and gas bubbles concerning for infectious process Diagnosis SIRS Acute metabolic encephalopathy Severe hypokalemia Hypomagnesemia Hyperthyroidism Moderate malnutrition Anemia Type 2 diabetes with persistent hyperglycemia, hyperosmolar, nonketotic hyperglycemic state Hypertension Morbid obesity -Acute kidney injury, likely component of ATN and vasomotor nephropathy Plan There was a concern of an infection in the right supraclavicular area, will need ultrasound and tagged white blood cell scan -Continue empiric antibiotics per ID, status post PICC line, will likely need prolonged IV antibiotics Electrolytes have been repleted Continue to optimize insulins -Acute kidney injury has now resolved -Mentation is improving -Case discussed with infectious disease -Case discussed with family, would like rehabilitation placement when she's improved History Interval history: The patient continues to moan and groan, she continues to be lethargic and confused -Per she still complaining of pain and swelling in the right supraclavicular area Review of systems Constitutional: No fevers, no malaise, no joint pains CVS: No chest pain, no orthopnea, no dyspnea on exertion, no pedal edema GI: No abdominal pain, no diarrhea, no vomiting, no constipation Respiratory: no wheezing, no coughing Hospitalist Physical - Physical exam Narrative exam: General.: Appears chronically ill, obese HEENT: Moist mucous membranes, extraocular muscles intact, no lymphadenopathy Neck: supple Cardiac: S1-S2 heard There is tenderness to right supraclavicular area Lungs: clear to auscultation bilaterally Abdomen: soft , nontender, nondistended, bowel sounds positive Extremities: no edema clubbing or cyanosis Skin: no rash or lesions Neurologic: Patient is altered, she is lethargic Psych: calm, and cooperative - Constitutional Vitals: Temp Pulse Resp BP Pulse Ox 98.0 F 64 20 118/42 97 12/18/18 07:33 12/18/18 09:12 12/18/18 07:33 12/18/18 09:12 12/18/18 07:33 General appearance: Present: no acute distress, well-nourished, obese Results - Labs CBC & Chem 7: 12/21/18 05:10 12/21/18 05:10 Labs: Laboratory Last Values WBC 8.6 K/mm3 (4.5-11.0) 12/18/18 06:58 RBC 2.24 M/mm3 (3.65-5.03) L 12/18/18 06:58 Hgb 6.9 gm/dl (10.1-14.3) L 12/18/18 06:58 Hct 21.2 % (30.3-42.9) L 12/18/18 06:58 MCV 95 fl (79-97) 12/18/18 06:58 MCH 31 pg (28-32) 12/18/18 06:58 MCHC 32 % (30-34) 12/18/18 06:58 RDW 17.9 % (13.2-15.2) H 12/18/18 06:58 Plt Count 253 K/mm3 (140-440) 12/18/18 06:58 Lymph % (Auto) Director Cardiovascular 12/11/18 22:47 [place] % (Auto) Director Cardiovascular 12/11/18 22:47 Eos % (Auto) Director Cardiovascular 12/11/18 22:47 Baso % (Auto) Director Cardiovascular 12/11/18 22:47 Lymph # Director Cardiovascular 12/11/18 22:47 [place] # Director Cardiovascular 12/11/18 22:47 Eos # Director Cardiovascular 12/11/18 22:47 Baso # Director Cardiovascular 12/11/18 22:47 Add Manual Diff Complete 12/11/18 22:47 Total Counted 100 12/11/18 22:47 Seg Neutrophils % Director Cardiovascular 12/11/18 22:47 Seg Neuts % (Manual) 92.0 % (40.0-70.0) H 12/11/18 22:47 Band Neutrophils % 0 % 12/11/18 22:47 Lymphocytes % (Manual) 4.0 % (13.4-35.0) L 12/11/18 22:47 Reactive Lymphs % (Man) 0 % 12/11/18 22:47 Monocytes % (Manual) 3.0 % (0.0-7.3) 12/11/18 22:47 Eosinophils % (Manual) 0 % (0.0-4.3) 12/11/18 22:47 Basophils % (Manual) 0 % (0.0-1.8) 12/11/18 22:47 Metamyelocytes % 1.0 % 12/11/18 22:47 Myelocytes % 0 % 12/11/18 22:47 Promyelocytes % 0 % 12/11/18 22:47 Blast Cells % 0 % 12/11/18 22:47 Nucleated RBC % 2.0 % (0.0-0.9) H 12/11/18 22:47 Seg Neutrophils # Director Cardiovascular 12/11/18 22:47 Seg Neutrophils # Man 17.0 K/mm3 (1.8-7.7) H 12/11/18 22:47 Band Neutrophils # 0.0 K/mm3 12/11/18 22:47 Lymphocytes # (Manual) 0.7 K/mm3 (1.2-5.4) L 12/11/18 22:47 Abs React Lymphs (Man) 0.0 K/mm3 12/11/18 22:47 Monocytes # (Manual) 0.6 K/mm3 (0.0-0.8) 12/11/18 22:47 Eosinophils # (Manual) 0.0 K/mm3 (0.0-0.4) 12/11/18 22:47 Basophils # (Manual) 0.0 K/mm3 (0.0-0.1) 12/11/18 22:47 Metamyelocytes # 0.2 K/mm3 12/11/18 22:47 Myelocytes # 0.0 K/mm3 12/11/18 22:47 Promyelocytes # 0.0 K/mm3 12/11/18 22:47 Blast Cells # 0.0 K/mm3 12/11/18 22:47 WBC Morphology Not Reportable 12/11/18 22:47 Hypersegmented Neuts Not Reportable 12/11/18 22:47 Hyposegmented Neuts Not Reportable 12/11/18 22:47 Hypogranular Neuts Not Reportable 12/11/18 22:47 Smudge Cells Not Reportable 12/11/18 22:47 Toxic Granulation Not Reportable 12/11/18 22:47 Toxic Vacuolation Not Reportable 12/11/18 22:47 Dohle Bodies Not Reportable 12/11/18 22:47 Pelger-Huet Anomaly Not Reportable 12/11/18 22:47 Starla Rods Not Reportable 12/11/18 22:47 Platelet Estimate Consistent w auto 12/11/18 22:47 Clumped Platelets Few 12/11/18 22:47 Plt Clumps, EDTA Not Reportable 12/11/18 22:47 Large Platelets 1+ 12/11/18 22:47 Giant Platelets Not Reportable 12/11/18 22:47 Platelet Satelliting Not Reportable 12/11/18 22:47 Plt Morphology Comment Not Reportable 12/11/18 22:47 RBC Morphology Normal 12/11/18 22:47 Dimorphic RBCs Not Reportable 12/11/18 22:47 Polychromasia Not Reportable 12/11/18 22:47 Hypochromasia Not Reportable 12/11/18 22:47 Poikilocytosis Not Reportable 12/11/18 22:47 Anisocytosis Not Reportable 12/11/18 22:47 Microcytosis Not Reportable 12/11/18 22:47 Macrocytosis Not Reportable 12/11/18 22:47 Spherocytes Not Reportable 12/11/18 22:47 Pappenheimer Bodies Not Reportable 12/11/18 22:47 Sickle Cells Not Reportable 12/11/18 22:47 Target Cells Not Reportable 12/11/18 22:47 Tear Drop Cells Not Reportable 12/11/18 22:47 Ovalocytes Not Reportable 12/11/18 22:47 Helmet Cells Not Reportable 12/11/18 22:47 Sanchez-Kiron Bodies Not Reportable 12/11/18 22:47 [place] Rings Not Reportable 12/11/18 22:47 [place] Cells Not Reportable 12/11/18 22:47 Bite Cells Not Reportable 12/11/18 22:47 Crenated Cell Not Reportable 12/11/18 22:47 Elliptocytes Not Reportable 12/11/18 22:47 Acanthocytes (Spur) Not Reportable 12/11/18 22:47 Rouleaux Not Reportable 12/11/18 22:47 Hemoglobin C Crystals Not Reportable 12/11/18 22:47 Schistocytes Not Reportable 12/11/18 22:47 Malaria parasites Not Reportable 12/11/18 22:47 [place] Bodies Not Reportable 12/11/18 22:47 Hem Pathologist Commnt No 12/11/18 22:47 PT 16.8 Sec. (12.2-14.9) H 12/12/18 11:45 INR 1.28 (0.87-1.13) H 12/12/18 11:45 APTT 40.8 Sec. (24.2-36.6) H 12/12/18 11:45 POC ABG pH 7.420 (7.35-7.45) 12/11/18 23:14 POC ABG pCO2 39.6 (35-45) 12/11/18 23:14 POC ABG pO2 84 (80-105) 12/11/18 23:14 POC ABG HCO3 25.7 (22-26 mml/L) 12/11/18 23:14 POC ABG Total CO2 27 (23-27mmol/L) 12/11/18 23:14 POC ABG O2 Sat 97 12/11/18 23:14 POC ABG Base Excess 1 ((-2) - (+3)mmol/L) 12/11/18 23:14 FiO2 32 % 12/11/18 23:14 Sodium 150 mmol/L (137-145) H 12/18/18 06:58 Potassium 4.6 mmol/L (3.6-5.0) 12/18/18 06:58 Chloride 117.0 mmol/L (98-107) H 12/18/18 06:58 Carbon Dioxide 24 mmol/L (22-30) 12/18/18 06:58 Anion Gap 14 mmol/L 12/18/18 06:58 BUN 48 mg/dL (7-17) H 12/18/18 06:58 Creatinine 1.4 mg/dL (0.7-1.2) H 12/18/18 06:58 Estimated GFR 45 ml/min 12/18/18 06:58 BUN/Creatinine Ratio 34 % 12/18/18 06:58 Glucose 362 mg/dL (65-100) H 12/18/18 06:58 POC Glucose 342 (70-105) H 12/18/18 11:28 Osmolality 336 Mosm/kg 12/18/18 09:56 Uric Acid 7.0 mg/dL (3.5-7.6) 12/18/18 09:56 Calcium 9.1 mg/dL (8.4-10.2) 12/18/18 06:58 Phosphorus 2.50 mg/dL (2.5-4.5) 12/13/18 07:39 Magnesium 1.70 mg/dL (1.7-2.3) 12/17/18 05:28 Total Bilirubin 2.10 mg/dL (0.1-1.2) H 12/11/18 20:34 AST 25 units/L (5-40) 12/11/18 20:34 ALT 27 units/L (7-56) 12/11/18 20:34 Alkaline Phosphatase 215 units/L (35-129) H 12/11/18 20:34 Ammonia 19.0 umol/L (25-60) L 12/11/18 21:04 Total Creatine Kinase 44 units/L (30-135) 12/12/18 07:33 CK-MB (CK-2) 1.1 ng/mL (0.0-4.0) 12/12/18 07:33 CK-MB (CK-2) Rel Index 2.5 (0-4) 12/12/18 07:33 Troponin T 0.036 ng/mL (0.00-0.029) H 12/12/18 07:33 C-Reactive Protein 32.70 mg/dL (0.00-1.30) H 12/13/18 16:23 Total Protein 6.2 g/dL (6.3-8.2) L 12/11/18 20:34 Albumin 2.9 g/dL (3.9-5) L 12/11/18 20:34 Albumin/Globulin Ratio 0.9 % 12/11/18 20:34 Triglycerides 173 mg/dL (2-149) H 12/11/18 20:34 Cholesterol 95 mg/dL (50-199) 12/11/18 20:34 LDL Cholesterol Direct 16 mg/dL (50-130) L 12/11/18 20:34 HDL Cholesterol 19 mg/dL (40-59) L 12/11/18 20:34 Cholesterol/HDL Ratio 5.00 % 12/11/18 20:34 TSH 0.447 mlU/mL (0.270-4.200) 12/11/18 21:04 Thyroxine (T4) 5.3 ug/dL (4.0-12.0) 12/11/18 21:04 Urine Color Dark yellow (Yellow) 12/11/18 23:06 Urine Turbidity Clear (Clear) 12/11/18 23:06 Urine pH 5.0 (5.0-7.0) 12/11/18 23:06 Ur Specific [place] 1.021 (1.003-1.030) 12/11/18 23:06 Urine Protein 100 mg/dl mg/dL (Negative) 12/11/18 23:06 Urine Glucose (UA) >=500 mg/dL (Negative) 12/11/18 23:06 Urine Ketones Tr mg/dL (Negative) 12/11/18 23:06 Urine Blood Neg (Negative) 12/11/18 23:06 Urine Nitrite Neg (Negative) 12/11/18 23:06 Urine Bilirubin Neg (Negative) 12/11/18 23:06 Urine Urobilinogen 4.0 mg/dL (<2.0) 12/11/18 23:06 Ur Leukocyte Esterase Neg (Negative) 12/11/18 23:06 Urine WBC (Auto) 1.0 /HPF (0.0-6.0) 12/11/18 23:06 Urine RBC (Auto) 2.0 /HPF (0.0-6.0) 12/11/18 23:06 U Epithel Cells (Auto) 1.0 /HPF (0-13.0) 12/11/18 23:06 Amorphous Crystals Few 12/11/18 23:06 Random Vancomycin 7.9 ug/mL (0-40.0) 12/14/18 09:33 Urine Opiates Screen Presumptive negative 12/12/18 09:40 Urine Methadone Screen Presumptive negative 12/12/18 09:40 Ur Barbiturates Screen Presumptive negative 12/12/18 09:40 Ur Phencyclidine Scrn Presumptive negative 12/12/18 09:40 Ur Amphetamines Screen Presumptive negative 12/12/18 09:40 U Benzodiazepines Scrn Presumptive negative 12/12/18 09:40 Urine Cocaine Screen Presumptive negative 12/12/18 09:40 U Marijuana (THC) Screen Presumptive negative 12/12/18 09:40 Drugs of Abuse Note Disclamer 12/12/18 09:40 Plasma/Serum Alcohol < 0.01 % (0-0.07) 12/12/18 09:27 Active Medications - Current Medications Current Medications: Generic Name Dose Route Start Last Admin Trade Name Freq PRN Reason Stop Dose Admin Acetaminophen 650 mg 12/12/18 09:53 12/17/18 17:27 Tylenol PO 650 mg Q4H PRN Administration Fever >101 Lipase/Protease/Amylase 1 each 12/14/18 10:52 Pancreazalfredo Smith 10,500 Unit FEEDTUBE PRN PRN For Clogged Feeding Tube Carvedilol 25 mg 12/12/18 10:00 12/18/18 09:12 Coreg PO Not Given BID AMANDEEP Dextrose 50 ml 12/12/18 08:11 D50w (25gm) Syringe IV PRN PRN Hypoglycemia Haloperidol Lactate 5 mg 12/12/18 18:00 12/17/18 22:22 Haldol IV 5 mg Q6H PRN Administration Agitation Heparin Sodium (Porcine) 5,000 unit 12/12/18 10:00 12/18/18 09:12 Heparin SUB-Q 5,000 unit Q12HR AMANDEEP Administration Hydralazine HCl 50 mg 12/12/18 09:00 12/18/18 09:00 Apresoline PO Not Given TID AMANDEEP Cefazolin Sodium 2 gm/ Sodium 100 mls @ 100 mls/hr 12/13/18 14:00 12/18/18 05:13 Chloride IV 100 mls/hr Q8H AMANDEEP Administration Levofloxacin/Dextrose 750 mg in 150 mls @ 100 mls/hr 12/16/18 16:00 12/17/18 17:46 Levaquin 750mg/150ml IV 100 mls/hr Q24H AMANDEEP Administration Protocol Insulin Glargine 14 units 12/17/18 22:00 12/17/18 22:29 Lantus SUB-Q 14 units QHS AMANDEEP Administration Insulin Human Lispro 0 unit 12/14/18 12:00 12/18/18 07:13 Humalog SUB-Q 10 unit Q6HR AMANDEEP Administration Protocol Loratadine 10 mg 12/12/18 10:00 12/18/18 09:12 Claritin PO 10 mg DAILY AMANDEEP Administration Lorazepam 1 mg 12/13/18 14:05 12/18/18 09:11 Ativan IV 1 mg Q4H PRN Administration Agitation Methimazole 5 mg 12/16/18 16:00 12/18/18 09:12 Tapazole PO 5 mg QDAY AMANDEEP Administration Morphine Sulfate 2 mg 12/12/18 02:48 12/18/18 05:13 Morphine IV 2 mg Q4H PRN Administration Pain, Moderate (4-6) Ondansetron HCl 4 mg 12/12/18 02:48 Zofran IV Q8H PRN Nausea And Vomiting Simple Syrup 15 ml 12/14/18 10:52 Simple Syrup FEEDTUBE PRN PRN Hypoglycemia Simple Syrup 30 ml 12/14/18 10:52 Simple Syrup FEEDTUBE PRN PRN Hypoglycemia Sodium Bicarbonate 325 mg 12/14/18 10:52 Sodium Bicarbonate FEEDTUBE PRN PRN For Clogged Feeding Tube Nutrition/Malnutrition Assess - Dietary Evaluation Nutrition/Malnutrition Findings: Nutrition Notes Start: 12/12/18 12:14 Freq: Status: Active Protocol: Document 12/17/18 15:35 RM (Rec: 12/17/18 15:55 RM [id number]) Nutrition Notes Initial or Follow up Reassessment Current Diagnosis Diabetes,Hypertension Other Pertinent Diagnosis arthritis, asthma Current Diet Glucerna 1.2 at 65 ml/hr Labs/Tests Na 152 Pertinent Medications Reviewed Height 5 ft 7 in Weight 136.3 kg [place] Body Weight (kg) 61.36 BMI 47.0 Subjective/Other Information Observed Glucerna 1.2 infusing at 65 ml/hr. Per nurse pt has been having a lot of watery stool. Burn Absent Trauma Absent #1 Nutrition Diagnosis Inadequate energy intake, Predicted suboptimal energy intake Diagnosis Progress(for reassessment Continues documentation) Is patient on ventilator? No Is Patient Ambulatory and/or Out of Bed No REE-([facility]-confined to bed) 2292.024 Kcal/Kg value to use for calculation 14 Approximate Energy Requirements Using 1908 kcal/Kg Calculation Used for Recommendations Kcal/kg Additional Notes Protein: 64-80g (0.8-1g/kg using adj wt 80kg) Fluid: 1 ml/kcal Nutrition Intervention Change Diet Order: TF Nutrition Support: Promote at 65 ml/hr. Water flush of 150 mls q 4 hrs until hypernatremia resolves. Water flush of 50 mls q 4 hrs once hypernatremia resolves. Kcal 1,560 Protein (gm) 98 Fluid (mL) 1,309 Goal #1 TF tolerance Goal #2 Meet at least 75% of kcal and protein needs via TF Anticipated Discharge Needs: unable to determine at this time Follow-Up By: 12/19/18 Additional Comments Follow for TF tolerance
[2018-12-18] MEDS: TYLENOL PO PRN (13:28)
[2018-12-18] MEDS ORDERED: NACL 0.9% 500 ML 500 ML IV NR (13:46)
[2018-12-18] MEDS ORDERED: LANTUS SUB-Q SCH (13:47)
[2018-12-18] MEDS: ROCEPHIN/NS 2 GM/100 ML 2 GM/100 ML BAG IV SCH (15:55)
--- NOTE | 2018-12-18 16:05 | Vascular Lab Report ---
PROCEDURE: VL VENOUS DUPLEX UE BILAT TECHNIQUE: The routine technique for ultrasound was performed per protocol from this institution HISTORY: edema COMPARISONS: None FINDINGS: Secondary to patient's underlying condition/uncooperativeness as well as body habitus the study is co mpromised therefore repeating the study when the patient more cooperative would be helpful for comple te evaluation There is severe diffuse bilateral soft tissue edema In the right side of the neck Clavicle there is a being shaped 3 cm structure with a echogenic center most likely representing a ly mph node with fatty hilum when the patient is rescanned this area can be reevaluated There is no evidence of deep venous thrombosis in either extremity on the player services representative images submi tted IMPRESSION: Limited exam as discussed above without definite evidence of DVT Assumed enlarged lymph node with fatty hilum right-sided neck. This document is electronically signed by Delbert Rossi MD., December 18 2018 04:03:25 PM ET
--- NOTE | 2018-12-18 16:18 | Progress Note ---
Subjective Date of service: 12/18/18 Principal diagnosis: sepsis Interval history: labs noted anemia present reviewed BS still elevated suspect metabolic encephalopathy check EEG Objective - Vital Sign Vital Signs - 12hr 12/18/18 12/18/18 12/18/18 05:10 05:13 05:43 Temperature Pulse Rate Respiratory 20 20 Rate Respiratory 20 Rate [ Generalized] Blood Pressure O2 Sat by Pulse Oximetry 12/18/18 12/18/18 12/18/18 07:33 09:12 12:45 Temperature 98.0 F Pulse Rate 64 64 72 Respiratory 20 Rate Respiratory Rate [ Generalized] Blood Pressure 118/42 118/42 120/43 O2 Sat by Pulse 97 99 Oximetry 12/18/18 12/18/18 13:28 14:19 Temperature Pulse Rate Respiratory 20 Rate Respiratory Rate [ Generalized] Blood Pressure O2 Sat by Pulse 98 Oximetry - Laboratory Findings CBC and BMP: 12/18/18 06:58 12/18/18 06:58 Abnormal Lab Findings: Abnormal Labs 12/11/18 12/11/18 12/11/18 20:09 20:34 20:34 WBC RBC Hgb Hct RDW Seg Neuts % (Manual) Lymphocytes % (Manual) Nucleated RBC % Seg Neutrophils # Man Lymphocytes # (Manual) PT INR APTT Sodium 134 L Potassium 2.9 L* Chloride 88.1 L Carbon Dioxide BUN 50 H Creatinine 1.4 H Glucose 529 H* POC Glucose 445 H Phosphorus Magnesium Total Bilirubin 2.10 H Alkaline Phosphatase 215 H Ammonia Troponin T 0.038 H C-Reactive Protein Total Protein 6.2 L Albumin 2.9 L Triglycerides 173 H LDL Cholesterol Direct 16 L HDL Cholesterol 19 L Crossmatch 12/11/18 12/11/18 12/11/18 21:04 22:47 22:47 WBC 18.5 H RBC 3.10 L Hgb 9.3 L Hct 28.8 L RDW 17.2 H Seg Neuts % (Manual) 92.0 H Lymphocytes % (Manual) 4.0 L Nucleated RBC % 2.0 H Seg Neutrophils # Man 17.0 H Lymphocytes # (Manual) 0.7 L PT INR APTT Sodium Potassium Chloride Carbon Dioxide BUN Creatinine Glucose POC Glucose Phosphorus 1.50 L Magnesium 1.30 L Total Bilirubin Alkaline Phosphatase Ammonia 19.0 L Troponin T C-Reactive Protein Total Protein Albumin Triglycerides LDL Cholesterol Direct HDL Cholesterol Crossmatch 12/11/18 12/12/1812/12/19 22:47 00:47 01:57 WBC RBC Hgb Hct RDW Seg Neuts % (Manual) Lymphocytes % (Manual) Nucleated RBC % Seg Neutrophils # Man Lymphocytes # (Manual) PT INR APTT Sodium 133 L 134 L Potassium 2.4 L* 2.8 L* Chloride 91.7 L 93.8 L Carbon Dioxide BUN 51 H 50 H Creatinine 1.6 H 1.5 H Glucose 436 H 429 H POC Glucose 442 H Phosphorus Magnesium Total Bilirubin Alkaline Phosphatase Ammonia Troponin T C-Reactive Protein Total Protein Albumin Triglycerides LDL Cholesterol Direct HDL Cholesterol Crossmatch 12/12/18 12/12/18 12/12/18 04:10 05:20 05:24 WBC RBC Hgb Hct RDW Seg Neuts % (Manual) Lymphocytes % (Manual) Nucleated RBC % Seg Neutrophils # Man Lymphocytes # (Manual) PT INR APTT Sodium 136 L Potassium 2.8 L* Chloride 96.5 L Carbon Dioxide BUN 48 H Creatinine 1.4 H Glucose 417 H POC Glucose 406 H 405 H Phosphorus Magnesium Total Bilirubin Alkaline Phosphatase Ammonia Troponin T C-Reactive Protein Total Protein Albumin Triglycerides LDL Cholesterol Direct HDL Cholesterol Crossmatch 12/12/18 12/12/18 12/12/18 07:33 07:33 08:02 WBC RBC Hgb Hct RDW Seg Neuts % (Manual) Lymphocytes % (Manual) Nucleated RBC % Seg Neutrophils # Man Lymphocytes # (Manual) PT INR APTT Sodium 135 L Potassium 2.5 L* Chloride Carbon Dioxide BUN 45 H Creatinine Glucose 358 H POC Glucose 286 H Phosphorus Magnesium Total Bilirubin Alkaline Phosphatase Ammonia Troponin T 0.036 H C-Reactive Protein Total Protein Albumin Triglycerides LDL Cholesterol Direct HDL Cholesterol Crossmatch 12/12/18 12/12/18 12/12/18 11:45 11:48 14:58 WBC RBC Hgb Hct RDW Seg Neuts % (Manual) Lymphocytes % (Manual) Nucleated RBC % Seg Neutrophils # Man Lymphocytes # (Manual) PT 16.8 H INR 1.28 H APTT 40.8 H Sodium Potassium Chloride Carbon Dioxide BUN 45 H Creatinine 1.3 H Glucose 265 H POC Glucose 296 H Phosphorus Magnesium 2.50 H Total Bilirubin Alkaline Phosphatase Ammonia Troponin T C-Reactive Protein Total Protein Albumin Triglycerides LDL Cholesterol Direct HDL Cholesterol Crossmatch 12/12/18 12/12/18 12/12/18 15:49 21:11 23:40 WBC RBC Hgb Hct RDW Seg Neuts % (Manual) Lymphocytes % (Manual) Nucleated RBC % Seg Neutrophils # Man Lymphocytes # (Manual) PT INR APTT Sodium Potassium Chloride Carbon Dioxide BUN Creatinine Glucose POC Glucose 253 H 236 H 297 H Phosphorus Magnesium Total Bilirubin Alkaline Phosphatase Ammonia Troponin T C-Reactive Protein Total Protein Albumin Triglycerides LDL Cholesterol Direct HDL Cholesterol Crossmatch 12/13/18 12/13/18 12/13/18 04:51 07:39 07:39 WBC 17.5 H RBC 3.31 L Hgb 9.8 L Hct RDW 16.8 H Seg Neuts % (Manual) Lymphocytes % (Manual) Nucleated RBC % Seg Neutrophils # Man Lymphocytes # (Manual) PT INR APTT Sodium Potassium Chloride Carbon Dioxide 21 L BUN 42 H Creatinine Glucose 229 H POC Glucose 208 H Phosphorus Magnesium Total Bilirubin Alkaline Phosphatase Ammonia Troponin T C-Reactive Protein Total Protein Albumin Triglycerides LDL Cholesterol Direct HDL Cholesterol Crossmatch 12/13/18 12/13/18 12/13/18 09:17 13:10 16:23 WBC RBC Hgb Hct RDW Seg Neuts % (Manual) Lymphocytes % (Manual) Nucleated RBC % Seg Neutrophils # Man Lymphocytes # (Manual) PT INR APTT Sodium Potassium Chloride Carbon Dioxide BUN Creatinine Glucose POC Glucose 229 H 230 H Phosphorus Magnesium Total Bilirubin Alkaline Phosphatase Ammonia Troponin T C-Reactive Protein 32.70 H Total Protein Albumin Triglycerides LDL Cholesterol Direct HDL Cholesterol Crossmatch 12/13/18 12/13/18 12/14/18 17:12 20:43 00:53 WBC RBC Hgb Hct RDW Seg Neuts % (Manual) Lymphocytes % (Manual) Nucleated RBC % Seg Neutrophils # Man Lymphocytes # (Manual) PT INR APTT Sodium Potassium Chloride Carbon Dioxide BUN Creatinine Glucose POC Glucose 199 H 225 H 221 H Phosphorus Magnesium Total Bilirubin Alkaline Phosphatase Ammonia Troponin T C-Reactive Protein Total Protein Albumin Triglycerides LDL Cholesterol Direct HDL Cholesterol Crossmatch 12/14/18 12/14/18 12/14/18 04:42 04:42 05:32 WBC 14.7 H RBC 2.69 L Hgb 8.1 L Hct 25.0 L RDW 17.1 H Seg Neuts % (Manual) Lymphocytes % (Manual) Nucleated RBC % Seg Neutrophils # Man Lymphocytes # (Manual) PT INR APTT Sodium 146 H D Potassium Chloride 111.3 H Carbon Dioxide BUN 47 H Creatinine 1.5 H Glucose 187 H POC Glucose 198 H Phosphorus Magnesium Total Bilirubin Alkaline Phosphatase Ammonia Troponin T C-Reactive Protein Total Protein Albumin Triglycerides LDL Cholesterol Direct HDL Cholesterol Crossmatch 12/14/18 12/14/18 12/14/18 08:41 12:04 12:55 WBC RBC Hgb Hct RDW Seg Neuts % (Manual) Lymphocytes % (Manual) Nucleated RBC % Seg Neutrophils # Man Lymphocytes # (Manual) PT INR APTT Sodium 149 H Potassium 3.5 L Chloride Carbon Dioxide 20 L BUN 46 H Creatinine 1.3 H Glucose 238 H POC Glucose 225 H 226 H Phosphorus Magnesium Total Bilirubin Alkaline Phosphatase Ammonia Troponin T C-Reactive Protein Total Protein Albumin Triglycerides LDL Cholesterol Direct HDL Cholesterol Crossmatch 12/14/18 12/15/18 12/15/18 18:03 01:00 05:19 WBC 12.8 H RBC 2.66 L Hgb 8.0 L Hct 24.8 L RDW 17.3 H Seg Neuts % (Manual) Lymphocytes % (Manual) Nucleated RBC % Seg Neutrophils # Man Lymphocytes # (Manual) PT INR APTT Sodium Potassium Chloride Carbon Dioxide BUN Creatinine Glucose POC Glucose 257 H 277 H Phosphorus Magnesium Total Bilirubin Alkaline Phosphatase Ammonia Troponin T C-Reactive Protein Total Protein Albumin Triglycerides LDL Cholesterol Direct HDL Cholesterol Crossmatch 12/15/18 12/15/18 12/15/18 05:19 06:04 11:36 WBC RBC Hgb Hct RDW Seg Neuts % (Manual) Lymphocytes % (Manual) Nucleated RBC % Seg Neutrophils # Man Lymphocytes # (Manual) PT INR APTT Sodium 146 H Potassium Chloride 113.5 H Carbon Dioxide 21 L BUN 49 H Creatinine 1.3 H Glucose 286 H POC Glucose 315 H 317 H Phosphorus Magnesium Total Bilirubin Alkaline Phosphatase Ammonia Troponin T C-Reactive Protein Total Protein Albumin Triglycerides LDL Cholesterol Direct HDL Cholesterol Crossmatch 12/15/18 12/15/18 12/16/18 18:11 21:40 05:11 WBC RBC 2.61 L Hgb 7.9 L Hct 23.7 L RDW 17.3 H Seg Neuts % (Manual) Lymphocytes % (Manual) Nucleated RBC % Seg Neutrophils # Man Lymphocytes # (Manual) PT INR APTT Sodium Potassium Chloride Carbon Dioxide BUN Creatinine Glucose POC Glucose 273 H 318 H Phosphorus Magnesium Total Bilirubin Alkaline Phosphatase Ammonia Troponin T C-Reactive Protein Total Protein Albumin Triglycerides LDL Cholesterol Direct HDL Cholesterol Crossmatch 12/16/18 12/16/18 12/16/18 05:11 06:21 12:19 WBC RBC Hgb Hct RDW Seg Neuts % (Manual) Lymphocytes % (Manual) Nucleated RBC % Seg Neutrophils # Man Lymphocytes # (Manual) PT INR APTT Sodium 150 H Potassium Chloride 117.3 H Carbon Dioxide BUN 52 H Creatinine 1.4 H Glucose 352 H POC Glucose 322 H 371 H Phosphorus Magnesium Total Bilirubin Alkaline Phosphatase Ammonia Troponin T C-Reactive Protein Total Protein Albumin Triglycerides LDL Cholesterol Direct HDL Cholesterol Crossmatch 12/16/18 12/16/18 12/17/18 16:58 23:51 05:28 WBC RBC 2.38 L Hgb 7.2 L Hct 21.9 L RDW 17.4 H Seg Neuts % (Manual) Lymphocytes % (Manual) Nucleated RBC % Seg Neutrophils # Man Lymphocytes # (Manual) PT INR APTT Sodium Potassium Chloride Carbon Dioxide BUN Creatinine Glucose POC Glucose 323 H 302 H Phosphorus Magnesium Total Bilirubin Alkaline Phosphatase Ammonia Troponin T C-Reactive Protein Total Protein Albumin Triglycerides LDL Cholesterol Direct HDL Cholesterol Crossmatch 12/17/18 12/17/18 12/17/18 05:28 06:09 11:47 WBC RBC Hgb Hct RDW Seg Neuts % (Manual) Lymphocytes % (Manual) Nucleated RBC % Seg Neutrophils # Man Lymphocytes # (Manual) PT INR APTT Sodium 152 H Potassium Chloride 118.6 H Carbon Dioxide BUN 44 H Creatinine Glucose 291 H POC Glucose 297 H 340 H Phosphorus Magnesium Total Bilirubin Alkaline Phosphatase Ammonia Troponin T C-Reactive Protein Total Protein Albumin Triglycerides LDL Cholesterol Direct HDL Cholesterol Crossmatch 12/17/18 12/18/18 12/18/18 18:15 00:14 06:39 WBC RBC Hgb Hct RDW Seg Neuts % (Manual) Lymphocytes % (Manual) Nucleated RBC % Seg Neutrophils # Man Lymphocytes # (Manual) PT INR APTT Sodium Potassium Chloride Carbon Dioxide BUN Creatinine Glucose POC Glucose 312 H 355 H 351 H Phosphorus Magnesium Total Bilirubin Alkaline Phosphatase Ammonia Troponin T C-Reactive Protein Total Protein Albumin Triglycerides LDL Cholesterol Direct HDL Cholesterol Crossmatch 12/18/18 12/18/18 12/18/18 06:58 06:58 11:28 WBC RBC 2.24 L Hgb 6.9 L Hct 21.2 L RDW 17.9 H Seg Neuts % (Manual) Lymphocytes % (Manual) Nucleated RBC % Seg Neutrophils # Man Lymphocytes # (Manual) PT INR APTT Sodium 150 H Potassium Chloride 117.0 H Carbon Dioxide BUN 48 H Creatinine 1.4 H Glucose 362 H POC Glucose 342 H Phosphorus Magnesium Total Bilirubin Alkaline Phosphatase Ammonia Troponin T C-Reactive Protein Total Protein Albumin Triglycerides LDL Cholesterol Direct HDL Cholesterol Crossmatch 12/18/18 14:06 WBC RBC Hgb Hct RDW Seg Neuts % (Manual) Lymphocytes % (Manual) Nucleated RBC % Seg Neutrophils # Man Lymphocytes # (Manual) PT INR APTT Sodium Potassium Chloride Carbon Dioxide BUN Creatinine Glucose POC Glucose Phosphorus Magnesium Total Bilirubin Alkaline Phosphatase Ammonia Troponin T C-Reactive Protein Total Protein Albumin Triglycerides LDL Cholesterol Direct HDL Cholesterol Crossmatch See Detail
--- NOTE | 2018-12-18 17:42 | Consultation ---
History of Present Illness Consult date: 12/18/18 Reason for Consult: Encephalopathy Chief complaint: "My leg hurts" Encephalopathic History of present illness: This is a 73 YO F admitted on 12/11 for fall and AMS. Since here pt noted to have acute kidney injury and is being treated for that. Also with hypernatremia. No family at bedside. Pt is able to follow basic commands and answer simple questions. Pt agrees that this is not her baseline. AO to self only. Past History Past Medical History: arthritis, diabetes, hypertension, other (asthma) Past Surgical History: Other (unable to obtain) Social history: , other (unable to obtain) Family history: other (unable to obtain) Medications and Allergies Allergies Allergy/AdvReac Type Severity Reaction Status Date / Time No Known Allergies Allergy Verified 04/02/16 12:35 Home Medications Medication Instructions Recorded Confirmed Last Taken Type Carvedilol [Coreg] 25 mg PO BID 04/03/16 12/11/18 12/11/18 History Cetirizine HCl 10 mg PO QDAY 04/03/16 12/11/18 12/11/18 History Omeprazole 20 mg PO TID 04/03/16 12/11/18 12/11/18 History Pentoxifylline 400 mg PO BID 04/03/16 12/11/18 12/11/18 History hydrALAZINE [Apresoline TAB] 50 mg PO TID 04/03/16 12/11/18 12/11/18 History metFORMIN 1,000 mg PO BIDAC 04/03/16 12/11/18 12/11/18 History methIMAzole [Tapazole] 5 mg PO QDAY #30 tablet 04/05/16 12/11/18 12/11/18 Rx Active Meds: Active Medications Acetaminophen (Tylenol) 650 mg PO Q4H PRN PRN Reason: Fever >101 Last Admin: 12/18/18 13:28 Dose: 650 mg Documented by: Lipase/Protease/Amylase ([place] 10,500 Unit) 1 each FEEDTUBE PRN PRN PRN Reason: For Clogged Feeding Tube Carvedilol (Coreg) 25 mg PO BID AMANDEEP Last Admin: 12/18/18 09:12 Dose: Not Given Documented by: Dextrose (D50w (25gm) Syringe) 50 ml IV PRN PRN PRN Reason: Hypoglycemia Haloperidol Lactate (Haldol) 5 mg IV Q6H PRN PRN Reason: Agitation Last Admin: 12/17/18 22:22 Dose: 5 mg Documented by: Heparin Sodium (Porcine) (Heparin) 5,000 unit SUB-Q Q12HR [facility] Last Admin: 12/18/18 09:12 Dose: 5,000 unit Documented by: Hydralazine HCl (Apresoline) 50 mg PO TID [facility] Last Admin: 12/18/18 13:29 Dose: Not Given Documented by: Sodium Chloride (Nacl 0.9% 500 Ml) 500 mls @ 0 mls/hr IV ONCE NR Stop: 12/18/18 23:59 Ceftriaxone Sodium (Rocephin/Ns 2 Gm/100 Ml) 2 gm in 100 mls @ 200 mls/hr IV Q24HR [facility]; Protocol Last Admin: 12/18/18 15:55 Dose: 200 mls/hr Documented by: Insulin Glargine (Lantus) 25 units SUB-Q QHS [facility] Insulin Human Lispro (Humalog) 0 unit SUB-Q Q6HR [facility]; Protocol Last Admin: 12/18/18 11:52 Dose: 8 unit Documented by: Loratadine (Claritin) 10 mg PO DAILY [facility] Last Admin: 12/18/18 09:12 Dose: 10 mg Documented by: Lorazepam (Ativan) 1 mg IV Q4H PRN PRN Reason: Agitation Last Admin: 12/18/18 09:11 Dose: 1 mg Documented by: Methimazole (Tapazole) 5 mg PO QDAY [facility] Last Admin: 12/18/18 09:12 Dose: 5 mg Documented by: Morphine Sulfate (Morphine) 2 mg IV Q4H PRN PRN Reason: Pain, Moderate (4-6) Last Admin: 12/18/18 16:59 Dose: 2 mg Documented by: Ondansetron HCl (Zofran) 4 mg IV Q8H PRN PRN Reason: Nausea And Vomiting Simple Syrup (Simple Syrup) 15 ml FEEDTUBE PRN PRN PRN Reason: Hypoglycemia Simple Syrup (Simple Syrup) 30 ml FEEDTUBE PRN PRN PRN Reason: Hypoglycemia Sodium Bicarbonate (Sodium Bicarbonate) 325 mg FEEDTUBE PRN PRN PRN Reason: For Clogged Feeding Tube Review of Systems ROS unobtainable: due to mental status Physical Examination - Vital Signs Vital Signs: Vital Signs Pulse Resp 90 16 12/11/18 20:02 12/11/18 20:02 - EENT EENT: Present: PERRL, mucous membranes dry - Respiratory Respiratory: Present: lungs clear - Cardiovascular Cardiovascular: Present: regular rate - Gastrointestinal Gastrointestinal: Present: normoactive bowel sounds - Neurologic Speech examination: other (dysarthria) Detailed motor examination: other (will move UE , no spontaneous movement in the LE. c/o leg pain) Detailed sensory examination: light touch Reflexes: 0: ankle, bicep, knee, tricep Results - Laboratory Findings CBC and BMP: 12/18/18 06:58 12/18/18 06:58 Abnormal Lab Findings: Abnormal Labs 12/11/18 12/11/18 12/11/18 20:09 20:34 20:34 WBC RBC Hgb Hct RDW Seg Neuts % (Manual) Lymphocytes % (Manual) Nucleated RBC % Seg Neutrophils # Man Lymphocytes # (Manual) PT INR APTT Sodium 134 L Potassium 2.9 L* Chloride 88.1 L Carbon Dioxide BUN 50 H Creatinine 1.4 H Glucose 529 H* POC Glucose 445 H Phosphorus Magnesium Total Bilirubin 2.10 H Alkaline Phosphatase 215 H Ammonia Troponin T 0.038 H C-Reactive Protein Total Protein 6.2 L Albumin 2.9 L Triglycerides 173 H LDL Cholesterol Direct 16 L HDL Cholesterol 19 L Crossmatch 12/11/18 12/11/18 12/11/18 21:04 22:47 22:47 WBC 18.5 H RBC 3.10 L Hgb 9.3 L Hct 28.8 L RDW 17.2 H Seg Neuts % (Manual) 92.0 H Lymphocytes % (Manual) 4.0 L Nucleated RBC % 2.0 H Seg Neutrophils # Man 17.0 H Lymphocytes # (Manual) 0.7 L PT INR APTT Sodium Potassium Chloride Carbon Dioxide BUN Creatinine Glucose POC Glucose Phosphorus 1.50 L Magnesium 1.30 L Total Bilirubin Alkaline Phosphatase Ammonia 19.0 L Troponin T C-Reactive Protein Total Protein Albumin Triglycerides LDL Cholesterol Direct HDL Cholesterol Crossmatch 12/11/18 12/12/18 12/12/18 22:47 00:47 01:57 WBC RBC Hgb Hct RDW Seg Neuts % (Manual) Lymphocytes % (Manual) Nucleated RBC % Seg Neutrophils # Man Lymphocytes # (Manual) PT INR APTT Sodium 133 L 134 L Potassium 2.4 L* 2.8 L* Chloride 91.7 L 93.8 L Carbon Dioxide BUN 51 H 50 H Creatinine 1.6 H 1.5 H Glucose 436 H 429 H POC Glucose 442 H Phosphorus Magnesium Total Bilirubin Alkaline Phosphatase Ammonia Troponin T C-Reactive Protein Total Protein Albumin Triglycerides LDL Cholesterol Direct HDL Cholesterol Crossmatch 12/12/18 12/12/18 12/12/18 04:10 05:20 05:24 WBC RBC Hgb Hct RDW Seg Neuts % (Manual) Lymphocytes % (Manual) Nucleated RBC % Seg Neutrophils # Man Lymphocytes # (Manual) PT INR APTT Sodium 136 L Potassium 2.8 L* Chloride 96.5 L Carbon Dioxide BUN 48 H Creatinine 1.4 H Glucose 417 H POC Glucose 406 H 405 H Phosphorus Magnesium Total Bilirubin Alkaline Phosphatase Ammonia Troponin T C-Reactive Protein Total Protein Albumin Triglycerides LDL Cholesterol Direct HDL Cholesterol Crossmatch 12/12/18 12/12/18 12/12/18 07:33 07:33 08:02 WBC RBC Hgb Hct RDW Seg Neuts % (Manual) Lymphocytes % (Manual) Nucleated RBC % Seg Neutrophils # Man Lymphocytes # (Manual) PT INR APTT Sodium 135 L Potassium 2.5 L* Chloride Carbon Dioxide BUN 45 H Creatinine Glucose 358 H POC Glucose 286 H Phosphorus Magnesium Total Bilirubin Alkaline Phosphatase Ammonia Troponin T 0.036 H C-Reactive Protein Total Protein Albumin Triglycerides LDL Cholesterol Direct HDL Cholesterol Crossmatch 12/12/18 12/12/18 12/12/18 11:45 11:48 14:58 WBC RBC Hgb Hct RDW Seg Neuts % (Manual) Lymphocytes % (Manual) Nucleated RBC % Seg Neutrophils # Man Lymphocytes # (Manual) PT 16.8 H INR 1.28 H APTT 40.8 H Sodium Potassium Chloride Carbon Dioxide BUN 45 H Creatinine 1.3 H Glucose 265 H POC Glucose 296 H Phosphorus Magnesium 2.50 H Total Bilirubin Alkaline Phosphatase Ammonia Troponin T C-Reactive Protein Total Protein Albumin Triglycerides LDL Cholesterol Direct HDL Cholesterol Crossmatch 12/12/18 12/12/18 12/12/18 15:49 21:11 23:40 WBC RBC Hgb Hct RDW Seg Neuts % (Manual) Lymphocytes % (Manual) Nucleated RBC % Seg Neutrophils # Man Lymphocytes # (Manual) PT INR APTT Sodium Potassium Chloride Carbon Dioxide BUN Creatinine Glucose POC Glucose 253 H 236 H 297 H Phosphorus Magnesium Total Bilirubin Alkaline Phosphatase Ammonia Troponin T C-Reactive Protein Total Protein Albumin Triglycerides LDL Cholesterol Direct HDL Cholesterol Crossmatch 12/13/18 12/13/18 12/13/18 04:51 07:39 07:39 WBC 17.5 H RBC 3.31 L Hgb 9.8 L Hct RDW 16.8 H Seg Neuts % (Manual) Lymphocytes % (Manual) Nucleated RBC % Seg Neutrophils # Man Lymphocytes # (Manual) PT INR APTT Sodium Potassium Chloride Carbon Dioxide 21 L BUN 42 H Creatinine Glucose 229 H POC Glucose 208 H Phosphorus Magnesium Total Bilirubin Alkaline Phosphatase Ammonia Troponin T C-Reactive Protein Total Protein Albumin Triglycerides LDL Cholesterol Direct HDL Cholesterol Crossmatch 12/13/18 12/13/18 12/13/18 09:17 13:10 16:23 WBC RBC Hgb Hct RDW Seg Neuts % (Manual) Lymphocytes % (Manual) Nucleated RBC % Seg Neutrophils # Man Lymphocytes # (Manual) PT INR APTT Sodium Potassium Chloride Carbon Dioxide BUN Creatinine Glucose POC Glucose 229 H 230 H Phosphorus Magnesium Total Bilirubin Alkaline Phosphatase Ammonia Troponin T C-Reactive Protein 32.70 H Total Protein Albumin Triglycerides LDL Cholesterol Direct HDL Cholesterol Crossmatch 12/13/18 12/13/18 12/14/18 17:12 20:43 00:53 WBC RBC Hgb Hct RDW Seg Neuts % (Manual) Lymphocytes % (Manual) Nucleated RBC % Seg Neutrophils # Man Lymphocytes # (Manual) PT INR APTT Sodium Potassium Chloride Carbon Dioxide BUN Creatinine Glucose POC Glucose 199 H 225 H 221 H Phosphorus Magnesium Total Bilirubin Alkaline Phosphatase Ammonia Troponin T C-Reactive Protein Total Protein Albumin Triglycerides LDL Cholesterol Direct HDL Cholesterol Crossmatch 12/14/18 12/14/18 12/14/18 04:42 04:42 05:32 WBC 14.7 H RBC 2.69 L Hgb 8.1 L Hct 25.0 L RDW 17.1 H Seg Neuts % (Manual) Lymphocytes % (Manual) Nucleated RBC % Seg Neutrophils # Man Lymphocytes # (Manual) PT INR APTT Sodium 146 H D Potassium Chloride 111.3 H Carbon Dioxide BUN 47 H Creatinine 1.5 H Glucose 187 H POC Glucose 198 H Phosphorus Magnesium Total Bilirubin Alkaline Phosphatase Ammonia Troponin T C-Reactive Protein Total Protein Albumin Triglycerides LDL Cholesterol Direct HDL Cholesterol Crossmatch 04/26/19 04/26/19 04/26/19 08:41 12:04 12:55 WBC RBC Hgb Hct RDW Seg Neuts % (Manual) Lymphocytes % (Manual) Nucleated RBC % Seg Neutrophils # Man Lymphocytes # (Manual) PT INR APTT Sodium 149 H Potassium 3.5 L Chloride Carbon Dioxide 20 L BUN 46 H Creatinine 1.3 H Glucose 238 H POC Glucose 225 H 226 H Phosphorus Magnesium Total Bilirubin Alkaline Phosphatase Ammonia Troponin T C-Reactive Protein Total Protein Albumin Triglycerides LDL Cholesterol Direct HDL Cholesterol Crossmatch 12/14/18 12/15/18 12/15/18 18:03 01:00 05:19 WBC 12.8 H RBC 2.66 L Hgb 8.0 L Hct 24.8 L RDW 17.3 H Seg Neuts % (Manual) Lymphocytes % (Manual) Nucleated RBC % Seg Neutrophils # Man Lymphocytes # (Manual) PT INR APTT Sodium Potassium Chloride Carbon Dioxide BUN Creatinine Glucose POC Glucose 257 H 277 H Phosphorus Magnesium Total Bilirubin Alkaline Phosphatase Ammonia Troponin T C-Reactive Protein Total Protein Albumin Triglycerides LDL Cholesterol Direct HDL Cholesterol Crossmatch 12/15/18 12/15/18 12/15/18 05:19 06:04 11:36 WBC RBC Hgb Hct RDW Seg Neuts % (Manual) Lymphocytes % (Manual) Nucleated RBC % Seg Neutrophils # Man Lymphocytes # (Manual) PT INR APTT Sodium 146 H Potassium Chloride 113.5 H Carbon Dioxide 21 L BUN 49 H Creatinine 1.3 H Glucose 286 H POC Glucose 315 H 317 H Phosphorus Magnesium Total Bilirubin Alkaline Phosphatase Ammonia Troponin T C-Reactive Protein Total Protein Albumin Triglycerides LDL Cholesterol Direct HDL Cholesterol Crossmatch 12/15/18 12/15/18 12/16/18 18:11 21:40 05:11 WBC RBC 2.61 L Hgb 7.9 L Hct 23.7 L RDW 17.3 H Seg Neuts % (Manual) Lymphocytes % (Manual) Nucleated RBC % Seg Neutrophils # Man Lymphocytes # (Manual) PT INR APTT Sodium Potassium Chloride Carbon Dioxide BUN Creatinine Glucose POC Glucose 273 H 318 H Phosphorus Magnesium Total Bilirubin Alkaline Phosphatase Ammonia Troponin T C-Reactive Protein Total Protein Albumin Triglycerides LDL Cholesterol Direct HDL Cholesterol Crossmatch 12/16/18 12/16/18 12/16/18 05:11 06:21 12:19 WBC RBC Hgb Hct RDW Seg Neuts % (Manual) Lymphocytes % (Manual) Nucleated RBC % Seg Neutrophils # Man Lymphocytes # (Manual) PT INR APTT Sodium 150 H Potassium Chloride 117.3 H Carbon Dioxide BUN 52 H Creatinine 1.4 H Glucose 352 H POC Glucose 322 H 371 H Phosphorus Magnesium Total Bilirubin Alkaline Phosphatase Ammonia Troponin T C-Reactive Protein Total Protein Albumin Triglycerides LDL Cholesterol Direct HDL Cholesterol Crossmatch 12/16/18 12/16/18 12/17/18 16:58 23:51 05:28 WBC RBC 2.38 L Hgb 7.2 L Hct 21.9 L RDW 17.4 H Seg Neuts % (Manual) Lymphocytes % (Manual) Nucleated RBC % Seg Neutrophils # Man Lymphocytes # (Manual) PT INR APTT Sodium Potassium Chloride Carbon Dioxide BUN Creatinine Glucose POC Glucose 323 H 302 H Phosphorus Magnesium Total Bilirubin Alkaline Phosphatase Ammonia Troponin T C-Reactive Protein Total Protein Albumin Triglycerides LDL Cholesterol Direct HDL Cholesterol Crossmatch 12/17/18 12/17/18 12/17/18 05:28 06:09 11:47 WBC RBC Hgb Hct RDW Seg Neuts % (Manual) Lymphocytes % (Manual) Nucleated RBC % Seg Neutrophils # Man Lymphocytes # (Manual) PT INR APTT Sodium 152 H Potassium Chloride 118.6 H Carbon Dioxide BUN 44 H Creatinine Glucose 291 H POC Glucose 297 H 340 H Phosphorus Magnesium Total Bilirubin Alkaline Phosphatase Ammonia Troponin T C-Reactive Protein Total Protein Albumin Triglycerides LDL Cholesterol Direct HDL Cholesterol Crossmatch 12/17/18 12/18/18 12/18/18 18:15 00:14 06:39 WBC RBC Hgb Hct RDW Seg Neuts % (Manual) Lymphocytes % (Manual) Nucleated RBC % Seg Neutrophils # Man Lymphocytes # (Manual) PT INR APTT Sodium Potassium Chloride Carbon Dioxide BUN Creatinine Glucose POC Glucose 312 H 355 H 351 H Phosphorus Magnesium Total Bilirubin Alkaline Phosphatase Ammonia Troponin T C-Reactive Protein Total Protein Albumin Triglycerides LDL Cholesterol Direct HDL Cholesterol Crossmatch 12/18/18 12/18/18 12/18/18 06:58 06:58 11:28 WBC RBC 2.24 L Hgb 6.9 L Hct 21.2 L RDW 17.9 H Seg Neuts % (Manual) Lymphocytes % (Manual) Nucleated RBC % Seg Neutrophils # Man Lymphocytes # (Manual) PT INR APTT Sodium 150 H Potassium Chloride 117.0 H Carbon Dioxide BUN 48 H Creatinine 1.4 H Glucose 362 H POC Glucose 342 H Phosphorus Magnesium Total Bilirubin Alkaline Phosphatase Ammonia Troponin T C-Reactive Protein Total Protein Albumin Triglycerides LDL Cholesterol Direct HDL Cholesterol Crossmatch 12/18/18 14:06 WBC RBC Hgb Hct RDW Seg Neuts % (Manual) Lymphocytes % (Manual) Nucleated RBC % Seg Neutrophils # Man Lymphocytes # (Manual) PT INR APTT Sodium Potassium Chloride Carbon Dioxide BUN Creatinine Glucose POC Glucose Phosphorus Magnesium Total Bilirubin Alkaline Phosphatase Ammonia Troponin T C-Reactive Protein Total Protein Albumin Triglycerides LDL Cholesterol Direct HDL Cholesterol Crossmatch See Detail - Diagnostic Findings Additional findings: CT head chronic microvascular ischemic changes Na 150 Glucose 362 Hgb 6.9 BUN 48/cr 1.4 Assessment and Plan This is a 73 YO F with what appears to be metabolic encephaloapthy Recommend: Would do MRI Brain for completeness if no contraindication, no jose a EEG Check UA if not done ammonia, B12, RPR Continue to correct her metabolic issues as you are doing Expect mental status to clear as pt's medical issues clear. Thank you for this consult.
[2018-12-18] MEDS: LANTUS SUB-Q SCH (22:52)
[2018-12-19] MEDS: HumaLOG SUB-Q SCH ×5 (00:58→18:12)
[2018-12-19] MEDS: NACL 0.45% 1000 ML 1,000 ML IV SCH ×2 (01:06→11:55)
[2018-12-19 05:06] LABS: Basophils % (Auto) 0.3 % (0.0-1.8); Eosinophils # (Auto) 0.1 K/mm3 (0.0-0.4); Eosinophils % (Auto) 1.4 % (0.0-4.3); Hematocrit 22.9 % (30.3-42.9); Hemoglobin 7.5 gm/dl (10.1-14.3); Lymphocytes # (Auto) 0.7 K/mm3 (1.2-5.4); Lymphocytes % (Auto) 7.8 % (13.4-35.0); Mean Corpuscular HGB Conc 33 % (30-34); Mean Corpuscular Volume 93 fl (79-97); Monocytes # (Auto) 0.4 K/mm3 (0.0-0.8); Monocytes % (Auto) 4.8 % (0.0-7.3); Platelet Count 246 K/mm3 (140-440); Red Blood Count 2.46 M/mm3 (3.65-5.03); Red Cell Distribution Width 17.6 % (13.2-15.2)
[2018-12-19 05:31] LABS: BUN/Creatinine Ratio 40; Blood Urea Nitrogen 40 mg/dL (7-17); Calcium 9.2 mg/dL (8.4-10.2); Hemolysis Index 1
[2018-12-19] MEDS: FREE WATER PO SCH ×4 (05:52→22:16)
[2018-12-19] MEDS: APRESOLINE PO SCH ×3 (07:31→20:40)
--- NOTE | 2018-12-19 08:01 | Progress Note ---
Assessment and Plan Cultures: Blood culture 12/12/2018 beta hem Strep group B 4 of 4 bottles Blood culture 12/14/2018: no growth Assessment: 73 y/o female with history of DM2, OA, ARF, CKD stage 3, depression, hypertension, hyperthyroidism and GERD; admitted on 12/11/2018 due to AMS and recent fall injuring her right shoulder: 1) Sepsis: Resolved. No fevers. Etiology most likely Strep bacteremia. CXR neg. UA neg. Repeat CXR no consolidation. 2) Strep group B bacteremia: 4 of 4 bottles positive, unclear source ? skin (leg wounds do not look infected) ? neck soft tissue infection ? joint infection. CRP=32. TTE no vegetation. repeat cultures show no growth. Chest CT : Inflammatory tissue in right supraclavicular region may emanate from abnormal appearing right sternoclavicular joint which appears widened and enlarged. There are gas bubbles in the area which could relate to infectious process. Evaluation of abscess is limited due to lack of IV contrast Duplex Scan upper extremity artery: Exam limited, no definite evidence of DVT . Severe diffuse bilateral soft tissue edema in the right side of the neck clavicle, 3cm structure with echogenic center most likely representing a lymph node with fatty hilum. ?Early abscess vs Inflammatory mass. If WBC tagged scan inconclusive will repeat CT neck in 3 weeks. 3) ALVARO on CKD 4) DM2 with HONK 5) Acute encephalopathy: Improved. CT head neg. Recommendations: - f/u WBC tagged scan to search for infectious nidus - scheduled for today. -- f/u BUFFY, anti-CCP -Anticipate discharge on Ceftriaxone 2 gms IV once a day for 6 weeks ending 01-24-19 -Case management consult placed -continue Ceftriaxone 2gm IV q day, D2 Nichelle Gusman NP [facility] M: [id number] O:[phone] Subjective Date of service: 12/19/18 Principal diagnosis: sepsis Interval history: Patient seen and examined. Alert and communicative today. No acute distress observed. Grandson at bedside. Objective - Exam Narrative Exam: General appearance: Awake. Alert. no acute distress Eyes: anicteric sclerae, moist conjunctivae; no lid-lag; PERRLA HENT: Atraumatic; oropharynx edentulous limited Neck: Trachea midline; supple, no thyromegaly or lymphadenopathy Lungs: CTA CV: RRR Abdomen: Soft,obese mild tenderness Extremities: No peripheral edema or extremity lymphadenopathy + left leg wound 1.0x1.0x0.1. Scant serous sanguineous drainage noticed to the wound. No odor noticed to the wound. + right leg wound 5.0x3.0. Scant serous sanguineous drainage noticed to the wound. No odor noticed to the wound. Skin: stage 2 left buttocks wound. The wound measurement is as follows; 1.0x 1.0x0.1. Scant serous sanguineous drainage noticed to the wound. No odor noticed to the wound. Psych: calm . Neuro: Alert. talkative - Constitutional Vitals: Vital Signs Temp Pulse Resp BP Pulse Ox 97.4 F L 59 L 22 134/48 98 12/19/18 07:24 12/19/18 07:24 12/19/18 07:24 12/19/18 07:24 12/19/18 07:24 Temperature -Last 24 Hours Temperature 97.4 F Temperature 97.9 F Temperature 97.8 F Temperature 97.8 F Temperature 98.1 F Temperature 98.1 F Temperature 97.5 F Temperature 98.1 F Temperature 97.8 F Temperature 98.9 F - Labs CBC & Chem 7: 12/19/18 04:47 12/19/18 04:47 Labs: Abnormal lab results 12/18/18 12/18/18 12/18/18 Range/Units 11:28 14:06 17:36 RBC (3.65-5.03) M/mm3 Hgb (10.1-14.3) gm/dl Hct (30.3-42.9) % RDW (13.2-15.2) % Lymph % (Auto) (13.4-35.0) % Lymph # (1.2-5.4) K/mm3 Seg Neutrophils % (40.0-70.0) % Chloride (98-107) mmol/L BUN (7-17) mg/dL Glucose (65-100) mg/dL POC Glucose 342 H 330 H (70-105) Vitamin B12 (211-911) pg/mL Crossmatch See Detail 12/18/18 12/19/18 12/19/18 Range/Units 22:00 00:23 04:47 RBC 2.46 L (3.65-5.03) M/mm3 Hgb 7.5 L (10.1-14.3) gm/dl Hct 22.9 L (30.3-42.9) % RDW 17.6 H (13.2-15.2) % Lymph % (Auto) 7.8 L (13.4-35.0) % Lymph # 0.7 L (1.2-5.4) K/mm3 Seg Neutrophils % 85.7 H (40.0-70.0) % Chloride (98-107) mmol/L BUN (7-17) mg/dL Glucose (65-100) mg/dL POC Glucose 291 H (70-105) Vitamin B12 > 2000 H (211-911) pg/mL Crossmatch 12/19/18 12/19/18 Range/Units 04:47 06:34 RBC (3.65-5.03) M/mm3 Hgb (10.1-14.3) gm/dl Hct (30.3-42.9) % RDW (13.2-15.2) % Lymph % (Auto) (13.4-35.0) % Lymph # (1.2-5.4) K/mm3 Seg Neutrophils % (40.0-70.0) % Chloride 113.2 H (98-107) mmol/L BUN 40 H (7-17) mg/dL Glucose 325 H (65-100) mg/dL POC Glucose 308 H (70-105) Vitamin B12 (211-911) pg/mL Crossmatch
--- NOTE | 2018-12-19 08:45 | Progress Note ---
Subjective Principal diagnosis: sepsis Interval history: Patient was seen today for follow-up on multiple renal related issues remains encephalopathic According to nurse she was slightly more responsive today Vitals labs intake output medications were reviewed Social history: Reviewed Allergies: Reviewed Family history: Reviewed Physical examination HEENT: Oral mucosa moist no pallor or icterus Neck: Supple no JVD Chest: Clear to auscultation anteriorly CVS: Regular rate and rhythm S1 and S2 heard Abdomen: Soft nontender no suprapubic masses no organomegaly appreciable Extremity: Dry skin less than 1+ peripheral edema Musculoskeletal: No joint effusion noted in knees and ankle Neurological: Arousable/encephalopathic Dermatology: No petechial rashes Psychiatry: No evidence of any agitation and aggression noted Assessment and plan Acute kidney injury currently in remission Hypernatremia appears to have resolved Patient is stable from renal standpoint Will sign off the case please call if needed Fever: Currently being followed by infectious disease Admitted with sepsis group B bacteremia, chest x-ray urinalysis reported to be negative Objective - Vital Signs Vital signs: Vital Signs - 12hr 12/18/18 12/18/18 12/18/18 22:00 22:03 22:25 Temperature 98.1 F Pulse Rate 62 Respiratory 20 20 20 Rate Respiratory 20 Rate [ Generalized] Blood Pressure 112/35 O2 Sat by Pulse 99 99 Oximetry 12/18/18 12/18/18 12/18/18 22:33 22:40 22:51 Temperature 97.5 F L Pulse Rate 63 61 Respiratory 20 20 Rate Respiratory Rate [ Generalized] Blood Pressure 151/58 151/58 O2 Sat by Pulse 100 Oximetry 12/18/18 12/18/18 12/19/18 23:10 23:40 00:10 Temperature 98.1 F 98.1 F 97.8 F Pulse Rate 61 63 57 L Respiratory 20 20 20 Rate Respiratory Rate [ Generalized] Blood Pressure 121/48 113/41 104/43 O2 Sat by Pulse 100 99 99 Oximetry 12/19/18 12/19/18 12/19/18 00:40 03:08 03:27 Temperature 97.8 F 97.9 F Pulse Rate 58 L 59 L 58 L Respiratory 20 18 20 Rate Respiratory Rate [ Generalized] Blood Pressure 124/45 125/49 128/47 O2 Sat by Pulse 99 99 98 Oximetry 12/19/18 12/19/18 04:05 07:24 Temperature 97.4 F L Pulse Rate 58 L 59 L Respiratory 22 Rate Respiratory Rate [ Generalized] Blood Pressure 134/48 O2 Sat by Pulse 98 Oximetry - Lab 12/19/18 04:47 12/19/18 04:47 Most recent lab results Calcium 9.2 mg/dL (8.4-10.2) 12/19/18 04:47 Phosphorus 2.50 mg/dL (2.5-4.5) 12/13/18 07:39 Magnesium 1.70 mg/dL (1.7-2.3) 12/17/18 05:28 Medications & Allergies - Medications Allergies/Adverse Reactions: Allergies No Known Allergies Allergy (Verified 04/02/16 12:35) Home Medications: Home Medications Medication Instructions Recorded Confirmed Last Taken Type Carvedilol [Coreg] 25 mg PO BID 04/03/16 12/11/18 12/11/18 History Cetirizine HCl 10 mg PO QDAY 04/03/16 12/11/18 12/11/18 History Omeprazole 20 mg PO TID 04/03/16 12/11/18 12/11/18 History Pentoxifylline 400 mg PO BID 04/03/16 12/11/18 12/11/18 History hydrALAZINE [Apresoline TAB] 50 mg PO TID 04/03/16 12/11/18 12/11/18 History metFORMIN 1,000 mg PO BIDAC 04/03/16 12/11/18 12/11/18 History methIMAzole [Tapazole] 5 mg PO QDAY #30 tablet 04/05/16 12/11/18 12/11/18 Rx Active Medications: Generic Name Dose Route Start Last Admin Trade Name Eduq PRN Reason Stop Dose Admin Acetaminophen 650 mg 12/12/18 09:53 12/18/18 13:28 Tylenol PO 650 mg Q4H PRN Administration Fever >101 Lipase/Protease/Amylase 1 each 12/14/18 10:52 Pancrerose Smith 10,500 Unit FEEDTUBE PRN PRN For Clogged Feeding Tube Carvedilol 25 mg 12/12/18 10:00 12/18/18 22:51 Coreg PO 25 mg BID AMANDEEP Administration Dextrose 50 ml 12/12/18 08:11 D50w (25gm) Syringe IV PRN PRN Hypoglycemia Haloperidol Lactate 5 mg 12/12/18 18:00 12/17/18 22:22 Haldol IV 5 mg Q6H PRN Administration Agitation Heparin Sodium (Porcine) 5,000 unit 12/12/18 10:00 12/18/18 22:51 Heparin SUB-Q 5,000 unit Q12HR AMANDEEP Administration Hydralazine HCl 50 mg 12/12/18 09:00 12/19/18 07:31 Apresoline PO 50 mg TID AMANDEEP Administration Ceftriaxone Sodium 2 gm in 100 mls @ 200 mls/hr 12/18/18 15:00 12/18/18 15:55 Rocephin/Ns 2 Gm/100 Ml IV 01/24/19 10:29 200 mls/hr Q24HR AMANDEEP Administration Protocol Sodium Chloride 1,000 mls @ 100 mls/hr 12/18/18 22:00 12/19/18 01:06 Nacl 0.45% 1000 Ml IV 100 mls/hr DIRECT AMANDEEP Administration Insulin Glargine 40 units 12/18/18 22:00 12/18/18 22:52 Lantus SUB-Q 40 units QHS AMANDEEP Administration Insulin Human Lispro 0 unit 12/14/18 12:00 12/19/18 06:35 Humalog SUB-Q 8 unit Q6HR AMANDEEP Administration Protocol Loratadine 10 mg 12/12/18 10:00 12/18/18 09:12 Claritin PO 10 mg DAILY AMANDEEP Administration Lorazepam 1 mg 12/13/18 14:05 12/18/18 09:11 Ativan IV 1 mg Q4H PRN Administration Agitation Methimazole 5 mg 12/16/18 16:00 12/18/18 09:12 Tapazole PO 5 mg QDAY AMANDEEP Administration Morphine Sulfate 2 mg 12/12/18 02:48 12/18/18 22:03 Morphine IV 2 mg Q4H PRN Administration Pain, Moderate (4-6) Ondansetron HCl 4 mg 12/12/18 02:48 Zofran IV Q8H PRN Nausea And Vomiting Simple Syrup 15 ml 12/14/18 10:52 Simple Syrup FEEDTUBE PRN PRN Hypoglycemia Simple Syrup 30 ml 12/14/18 10:52 Simple Syrup FEEDTUBE PRN PRN Hypoglycemia Sodium Bicarbonate 325 mg 12/14/18 10:52 Sodium Bicarbonate FEEDTUBE PRN PRN For Clogged Feeding Tube
[2018-12-19] MEDS: ROCEPHIN/NS 2 GM/100 ML 2 GM/100 ML BAG IV SCH (09:21)
[2018-12-19] MEDS: CLARITIN PO SCH (09:26)
[2018-12-19] MEDS: TAPAZOLE PO SCH (09:26)
[2018-12-19] MEDS: HEPARIN SUB-Q SCH ×2 (09:26→22:15)
[2018-12-19] MEDS: COREG PO SCH ×2 (09:30→22:08)
[2018-12-19] MEDS ORDERED: SODIUM BICARBONATE FEEDTUBE PRN (10:01)
[2018-12-19] MEDS ORDERED: PANCREAZE DR 10,500 UNIT FEEDTUBE PRN (10:01)
[2018-12-19] MEDS ORDERED: SIMPLE SYRUP FEEDTUBE PRN ×2 (10:01)
--- NOTE | 2018-12-19 13:28 | Magnetic Resonance Report ---
MRI BRAIN WITHOUT CONTRAST: 12/12/18 00:03:00 CLINICAL: Encephalopathy. TECHNIQUE: Axial diffusion, T1, T2, gradient echo T2*, coronal and axial FLAIR and sagittal T1 sequences on a 1.5 Radha magnet. FINDINGS: The ventricles and sulci are large for age and the frontal and temporal lobe sulci are disproportionately larger. No restricted diffusion. No mass or mass effect. No hemorrhage, edema or extra-axial collection. Normal pituitary and optic chiasm. The brainstem and cerebellum are normal. Intact vascular flow voids. Normal sinuses. The orbits, and soft tissues are normal. Normal calvarium and skull base. IMPRESSION: Global cortical atrophy with greater involvement of the frontal and temporal lobes. No acute change.
--- NOTE | 2018-12-19 15:52 | Progress Note ---
Assessment and Plan Assessment and plan: SIRS with organ dysfunction, poa, suspected sepsis but no source. Still evaluating though 73-year-old woman with history of type 2 diabetes, osteoarthritis, chronic kidney disease with creatinine baseline around 1.2, hypertension, depression, hypothyroidism, GERD who was brought to the hospital with altered mental status. CT chest, report is limited due to lack of IV contrast, but there is abnormality in the right supraclavicular region and gas bubbles concerning for infectious process Diagnosis Sepsis Group B strep bacteremia ?infection at R supraclavicular area Acute metabolic encephalopathy Severe hypokalemia Hypomagnesemia Hyperthyroidism Moderate malnutrition Anemia Type 2 diabetes with persistent hyperglycemia, hyperosmolar, nonketotic hyperglycemic state Hypertension Morbid obesity -Acute kidney injury, likely component of ATN and vasomotor nephropathy Plan There was a concern of an infection in the right supraclavicular area, awaiting tagged white blood cell scan -Continue empiric antibiotics per ID, status post PICC line, will likely need prolonged IV antibiotics Electrolytes have been repleted Continue to optimize insulins -Acute kidney injury has now resolved, nephrology signed off on 12/19/18 -Mentation is improving -Case discussed with infectious disease -Case discussed with family, would like rehabilitation placement when she's improved History Interval history: The patient continues to moan and groan, she continues to be lethargic and confused -Per she still complaining of pain and swelling in the right supraclavicular area Review of systems Constitutional: No fevers, no malaise, no joint pains CVS: No chest pain, no orthopnea, no dyspnea on exertion, no pedal edema GI: No abdominal pain, no diarrhea, no vomiting, no constipation Respiratory: no wheezing, no coughing Hospitalist Physical - Physical exam Narrative exam: General.: Appears chronically ill, obese HEENT: Moist mucous membranes, extraocular muscles intact, no lymphadenopathy Neck: supple Cardiac: S1-S2 heard There is tenderness to right supraclavicular area Lungs: clear to auscultation bilaterally Abdomen: soft , nontender, nondistended, bowel sounds positive Extremities: no edema clubbing or cyanosis Skin: no rash or lesions Neurologic: Patient is altered, she is lethargic Psych: calm, and cooperative - Constitutional Vitals: Temp Pulse Resp BP Pulse Ox 97.8 F 59 L 20 140/60 98 12/19/18 13:39 12/19/18 13:39 12/19/18 13:39 12/19/18 13:39 12/19/18 13:39 General appearance: Present: no acute distress, well-nourished, obese Results - Labs CBC & Chem 7: 12/21/18 05:10 12/22/18 07:00 Labs: Laboratory Last Values WBC 8.5 K/mm3 (4.5-11.0) 12/19/18 04:47 RBC 2.46 M/mm3 (3.65-5.03) L 12/19/18 04:47 Hgb 7.5 gm/dl (10.1-14.3) L 12/19/18 04:47 Hct 22.9 % (30.3-42.9) L 12/19/18 04:47 MCV 93 fl (79-97) 12/19/18 04:47 MCH 30 pg (28-32) 12/19/18 04:47 MCHC 33 % (30-34) 12/19/18 04:47 RDW 17.6 % (13.2-15.2) H 12/19/18 04:47 Plt Count 246 K/mm3 (140-440) 12/19/18 04:47 Lymph % (Auto) 7.8 % (13.4-35.0) L 12/19/18 04:47 [place] % (Auto) 4.8 % (0.0-7.3) 12/19/18 04:47 Eos % (Auto) 1.4 % (0.0-4.3) 12/19/18 04:47 Baso % (Auto) 0.3 % (0.0-1.8) 12/19/18 04:47 Lymph # 0.7 K/mm3 (1.2-5.4) L 12/19/18 04:47 [place] # 0.4 K/mm3 (0.0-0.8) 12/19/18 04:47 Eos # 0.1 K/mm3 (0.0-0.4) 12/19/18 04:47 Baso # 0.0 K/mm3 (0.0-0.1) 12/19/18 04:47 Add Manual Diff Complete 12/11/18 22:47 Total Counted 100 12/11/18 22:47 Seg Neutrophils % 85.7 % (40.0-70.0) H 12/19/18 04:47 Seg Neuts % (Manual) 92.0 % (40.0-70.0) H 12/11/18 22:47 Band Neutrophils % 0 % 12/11/18 22:47 Lymphocytes % (Manual) 4.0 % (13.4-35.0) L 12/11/18 22:47 Reactive Lymphs % (Man) 0 % 12/11/18 22:47 Monocytes % (Manual) 3.0 % (0.0-7.3) 12/11/18 22:47 Eosinophils % (Manual) 0 % (0.0-4.3) 12/11/18 22:47 Basophils % (Manual) 0 % (0.0-1.8) 12/11/18 22:47 Metamyelocytes % 1.0 % 12/11/18 22:47 Myelocytes % 0 % 12/11/18 22:47 Promyelocytes % 0 % 12/11/18 22:47 Blast Cells % 0 % 12/11/18 22:47 Nucleated RBC % 2.0 % (0.0-0.9) H 12/11/18 22:47 Seg Neutrophils # 7.3 K/mm3 (1.8-7.7) 12/19/18 04:47 Seg Neutrophils # Man 17.0 K/mm3 (1.8-7.7) H 12/11/18 22:47 Band Neutrophils # 0.0 K/mm3 12/11/18 22:47 Lymphocytes # (Manual) 0.7 K/mm3 (1.2-5.4) L 12/11/18 22:47 Abs React Lymphs (Man) 0.0 K/mm3 12/11/18 22:47 Monocytes # (Manual) 0.6 K/mm3 (0.0-0.8) 12/11/18 22:47 Eosinophils # (Manual) 0.0 K/mm3 (0.0-0.4) 12/11/18 22:47 Basophils # (Manual) 0.0 K/mm3 (0.0-0.1) 12/11/18:47 Metamyelocytes # 0.2 K/mm3 12/11/18 22:47 Myelocytes # 0.0 K/mm3 12/11/18 22:47 Promyelocytes # 0.0 K/mm3 12/11/18 22:47 Blast Cells # 0.0 K/mm3 12/11/18 22:47 WBC Morphology Not Reportable 12/11/18 22:47 Hypersegmented Neuts Not Reportable 12/11/18 22:47 Hyposegmented Neuts Not Reportable 12/11/18 22:47 Hypogranular Neuts Not Reportable 12/11/18 22:47 Smudge Cells Not Reportable 12/11/18 22:47 Toxic Granulation Not Reportable 12/11/18 22:47 Toxic Vacuolation Not Reportable 12/11/18 22:47 Dohle Bodies Not Reportable 12/11/18 22:47 Pelger-Huet Anomaly Not Reportable 12/11/18 22:47 Starla Rods Not Reportable 12/11/18 22:47 Platelet Estimate Consistent w auto 12/11/18 22:47 Clumped Platelets Few 12/11/18 22:47 Plt Clumps, EDTA Not Reportable 12/11/18 22:47 Large Platelets 1+ 12/11/18 22:47 Giant Platelets Not Reportable 12/11/18 22:47 Platelet Satelliting Not Reportable 12/11/18 22:47 Plt Morphology Comment Not Reportable 12/11/18 22:47 RBC Morphology Normal 12/11/18 22:47 Dimorphic RBCs Not Reportable 12/11/18 22:47 Polychromasia Not Reportable 12/11/18 22:47 Hypochromasia Not Reportable 12/11/18 22:47 Poikilocytosis Not Reportable 12/11/18 22:47 Anisocytosis Not Reportable 12/11/18 22:47 Microcytosis Not Reportable 12/11/18 22:47 Macrocytosis Not Reportable 12/11/18 22:47 Spherocytes Not Reportable 12/11/18 22:47 Pappenheimer Bodies Not Reportable 12/11/18 22:47 Sickle Cells Not Reportable 12/11/18 22:47 Target Cells Not Reportable 12/11/18 22:47 Tear Drop Cells Not Reportable 12/11/18 22:47 Ovalocytes Not Reportable 12/11/18 22:47 Helmet Cells Not Reportable 12/11/18 22:47 [place] Bodies Not Reportable 12/11/18 22:47 [place] Rings Not Reportable 12/11/18 22:47 [place] Cells Not Reportable 12/11/18 22:47 Bite Cells Not Reportable 12/11/18 22:47 Crenated Cell Not Reportable 12/11/18 22:47 Elliptocytes Not Reportable 12/11/18 22:47 Acanthocytes (Spur) Not Reportable 12/11/18 22:47 Rouleaux Not Reportable 12/11/18 22:47 Hemoglobin C Crystals Not Reportable 12/11/18 22:47 Schistocytes Not Reportable 12/11/18 22:47 Malaria parasites Not Reportable 12/11/18 22:47 [place] Bodies Not Reportable 12/11/18 22:47 Hem Pathologist Commnt No 12/11/18 22:47 PT 16.8 Sec. (12.2-14.9) H 12/12/18 11:45 INR 1.28 (0.87-1.13) H 12/12/18 11:45 APTT 40.8 Sec. (24.2-36.6) H 12/12/18 11:45 POC ABG pH 7.420 (7.35-7.45) 12/11/18 23:14 POC ABG pCO2 39.6 (35-45) 12/11/18 23:14 POC ABG pO2 84 (80-105) 12/11/18 23:14 POC ABG HCO3 25.7 (22-26 mml/L) 12/11/18 23:14 POC ABG Total CO2 27 (23-27mmol/L) 12/11/18 23:14 POC ABG O2 Sat 97 12/11/18 23:14 POC ABG Base Excess 1 ((-2) - (+3)mmol/L) 12/11/18 23:14 FiO2 32 % 12/11/18 23:14 Sodium 145 mmol/L (137-145) 12/19/18 04:47 Potassium 4.4 mmol/L (3.6-5.0) 12/19/18 04:47 Chloride 113.2 mmol/L (98-107) H 12/19/18 04:47 Carbon Dioxide 25 mmol/L (22-30) 12/19/18 04:47 Anion Gap 11 mmol/L 12/19/18 04:47 BUN 40 mg/dL (7-17) H 12/19/18 04:47 Creatinine 1.0 mg/dL (0.7-1.2) 12/19/18 04:47 Estimated GFR > 60 ml/min 12/19/18 04:47 BUN/Creatinine Ratio 40 % 12/19/18 04:47 Glucose 325 mg/dL (65-100) H 12/19/18 04:47 POC Glucose 324 (70-105) H 12/19/18 11:43 Osmolality 336 Mosm/kg 12/18/18 09:56 Uric Acid 7.0 mg/dL (3.5-7.6) 12/18/18 09:56 Calcium 9.2 mg/dL (8.4-10.2) 12/19/18 04:47 Phosphorus 2.50 mg/dL (2.5-4.5) 12/13/18 07:39 Magnesium 1.70 mg/dL (1.7-2.3) 12/17/18 05:28 Total Bilirubin 2.10 mg/dL (0.1-1.2) H 12/11/18 20:34 AST 25 units/L (5-40) 12/11/18 20:34 ALT 27 units/L (7-56) 12/11/18 20:34 Alkaline Phosphatase 215 units/L (35-129) H 12/11/18 20:34 Ammonia 35.0 umol/L (25-60) 12/18/18 22:00 Total Creatine Kinase 44 units/L (30-135) 12/12/18 07:33 CK-MB (CK-2) 1.1 ng/mL (0.0-4.0) 12/12/18 07:33 CK-MB (CK-2) Rel Index 2.5 (0-4) 12/12/18 07:33 Troponin T 0.036 ng/mL (0.00-0.029) H 12/12/18 07:33 C-Reactive Protein 32.70 mg/dL (0.00-1.30) H 12/13/18 16:23 Total Protein 6.2 g/dL (6.3-8.2) L 12/11/18 20:34 Albumin 2.9 g/dL (3.9-5) L 12/11/18 20:34 Albumin/Globulin Ratio 0.9 % 12/11/18 20:34 Triglycerides 173 mg/dL (2-149) H 12/11/18 20:34 Cholesterol 95 mg/dL (50-199) 12/11/18 20:34 LDL Cholesterol Direct 16 mg/dL (50-130) L 12/11/18 20:34 HDL Cholesterol 19 mg/dL (40-59) L 12/11/18 20:34 Cholesterol/HDL Ratio 5.00 % 12/11/18 20:34 Vitamin B12 > 2000 pg/mL (211-911) H 12/18/18 22:00 TSH 0.447 mlU/mL (0.270-4.200) 12/11/18 21:04 Thyroxine (T4) 5.3 ug/dL (4.0-12.0) 12/11/18 21:04 Urine Color Dark yellow (Yellow) 12/11/18 23:06 Urine Turbidity Clear (Clear) 12/11/18 23:06 Urine pH 5.0 (5.0-7.0) 12/11/18 23:06 Ur Specific [place] 1.021 (1.003-1.030) 12/11/18 23:06 Urine Protein 100 mg/dl mg/dL (Negative) 12/11/18 23:06 Urine Glucose (UA) >=500 mg/dL (Negative) 12/11/18 23:06 Urine Ketones Tr mg/dL (Negative) 12/11/18 23:06 Urine Blood Neg (Negative) 12/11/18 23:06 Urine Nitrite Neg (Negative) 12/11/18 23:06 Urine Bilirubin Neg (Negative) 12/11/18 23:06 Urine Urobilinogen 4.0 mg/dL (<2.0) 12/11/18 23:06 Ur Leukocyte Esterase Neg (Negative) 12/11/18 23:06 Urine WBC (Auto) 1.0 /HPF (0.0-6.0) 12/11/18 23:06 Urine RBC (Auto) 2.0 /HPF (0.0-6.0) 12/11/18 23:06 U Epithel Cells (Auto) 1.0 /HPF (0-13.0) 12/11/18 23:06 Amorphous Crystals Few 12/11/18 23:06 Random Vancomycin 7.9 ug/mL (0-40.0) 12/14/18 09:33 Urine Opiates Screen Presumptive negative 12/12/18 09:40 Urine Methadone Screen Presumptive negative 12/12/18 09:40 Ur Barbiturates Screen Presumptive negative 12/12/18 09:40 Ur Phencyclidine Scrn Presumptive negative 12/12/18 09:40 Ur Amphetamines Screen Presumptive negative 12/12/18 09:40 U Benzodiazepines Scrn Presumptive negative 12/12/18 09:40 Urine Cocaine Screen Presumptive negative 12/12/18 09:40 U Marijuana (THC) Screen Presumptive negative 12/12/18 09:40 Drugs of Abuse Note Disclamer 12/12/18 09:40 Plasma/Serum Alcohol < 0.01 % (0-0.07) 12/12/18 09:27 Blood Type O POSITIVE 12/18/18 14:06 Antibody Screen Negative 12/18/18 14:06 SHARLA Antibody Screen Negative 12/18/18 14:06 Crossmatch See Detail 12/18/18 14:06 Active Medications - Current Medications Current Medications: Generic Name Dose Route Start Last Admin Trade Name Freq PRN Reason Stop Dose Admin Acetaminophen 650 mg 12/12/18 09:53 12/18/18 13:28 Tylenol PO 650 mg Q4H PRN Administration Fever >101 Lipase/Protease/Amylase 1 each 12/19/18 10:01 Pancreaze 10,500 Unit FEEDTUBE PRN PRN For Clogged Feeding Tube Carvedilol 25 mg 12/12/18 10:00 12/19/18 09:30 Coreg PO Not Given BID AMANDEEP Dextrose 50 ml 12/12/18 08:11 D50w (25gm) Syringe IV PRN PRN Hypoglycemia Haloperidol Lactate 5 mg 12/12/18 18:00 12/17/18 22:22 Haldol IV 5 mg Q6H PRN Administration Agitation Heparin Sodium (Porcine) 5,000 unit 12/12/18 10:00 12/19/18 09:26 Heparin SUB-Q 5,000 unit Q12HR AMANDEEP Administration Hydralazine HCl 50 mg 12/12/18 09:00 12/19/18 13:48 Apresoline PO 50 mg TID AMANDEEP Administration Ceftriaxone Sodium 2 gm in 100 mls @ 200 mls/hr 12/18/18 15:00 12/19/18 09:21 Rocephin/Ns 2 Gm/100 Ml IV 01/24/19 10:29 200 mls/hr Q24HR AMANDEEP Administration Protocol Sodium Chloride 1,000 mls @ 100 mls/hr 12/18/18 22:00 12/19/18 11:55 Nacl 0.45% 1000 Ml IV 100 mls/hr DIRECT AMANDEEP Administration Insulin Glargine 40 units 12/18/18 22:00 12/18/18 22:52 Lantus SUB-Q 40 units QHS AMANDEEP Administration Insulin Human Lispro 0 unit 12/14/18 12:00 12/19/18 11:57 Humalog SUB-Q 8 unit Q6HR AMANDEEP Administration Protocol Loratadine 10 mg 12/12/18 10:00 12/19/18 09:26 Claritin PO 10 mg DAILY AMANDEEP Administration Lorazepam 1 mg 12/13/18 14:05 12/18/18 09:11 Ativan IV 1 mg Q4H PRN Administration Agitation Methimazole 5 mg 12/16/18 16:00 12/19/18 09:26 Tapazole PO 5 mg QDAY AMANDEEP Administration Morphine Sulfate 2 mg 12/12/18 02:48 12/18/18 22:03 Morphine IV 2 mg Q4H PRN Administration Pain, Moderate (4-6) Ondansetron HCl 4 mg 12/12/18 02:48 Zofran IV Q8H PRN Nausea And Vomiting Simple Syrup 15 ml 12/19/18 10:01 Simple Syrup FEEDTUBE PRN PRN Hypoglycemia Simple Syrup 30 ml 12/19/18 10:01 Simple Syrup FEEDTUBE PRN PRN Hypoglycemia Sodium Bicarbonate 325 mg 12/19/18 10:01 Sodium Bicarbonate FEEDTUBE PRN PRN For Clogged Feeding Tube Nutrition/Malnutrition Assess - Dietary Evaluation Nutrition/Malnutrition Findings: Nutrition Notes Start: 12/12/18 12:14 Freq: Status: Active Protocol: Document 12/19/18 09:41 EB (Rec: 12/19/18 10:01 EB [id number]) Co-Sign 12/19/18 09:41 NHALL Nutrition Notes Initial or Follow up Reassessment Current Diagnosis Diabetes,Hypertension Other Pertinent Diagnosis arthritis, asthma Current Diet Promote at 65 mL/hr Labs/Tests Na 145 BG 325 Pertinent Medications Reviewed Height 5 ft 7 in Weight 156.444 kg [place] Body Weight (kg) 61.36 BMI 54.0 Subjective/Other Information Observed Promote running at 35 mL/hr at time of visit. RN states TF will advance to 45 mL/hr this morning with plans to reach goal rate by tomorrow . Pt reports slightly less watery stool today. Watery stool may be related to antibiotic use. TF change to correct high BG. Percent of energy/protein needs met: 44%/82% Burn Absent Trauma Absent #1 Nutrition Diagnosis Inadequate energy intake, Predicted suboptimal energy intake Diagnosis Progress(for reassessment Continues documentation) Is patient on ventilator? No Is Patient Ambulatory and/or Out of Bed No REE-([facility]-confined to bed) 2533.512 Kcal/Kg value to use for calculation 14 Approximate Energy Requirements Using 2190 kcal/Kg Calculation Used for Recommendations Kcal/kg Additional Notes Protein: 64-80g (0.8-1g/kg using adj wt 80kg) Fluid: 1 ml/kcal Nutrition Intervention Change Diet Order: TF Nutrition Support: Glucerna 1.2 at 65ml/hr Flush with 150ml q4h Kcal 1,872 Protein (gm) 94 Fluid (mL) 1,260 Goal #1 TF tolerance Goal #2 Meet at least 75% of kcal and protein needs via TF Anticipated Discharge Needs: unable to determine at this time Follow-Up By: 12/21/18 Additional Comments Follow for TF change and tolerance.
--- NOTE | 2018-12-19 21:15 | Ultrasound Report ---
PROCEDURE: Limited chest ultrasound. TECHNIQUE: Imaging was done in the right supraclavicular area. HISTORY: Right supraclavicular pain and swelling. COMPARISONS: None. FINDINGS: There is a small ovoid solid mass in the right supraclavicular area. This measures 2.2 cm x 0.9 cm x 1.8 cm. It probably represents a lymph node. The exact etiology is uncertain. IMPRESSION: Probable supraclavicular lymph node. This document is electronically signed by Alan Wayne MD., Dec 19 2018 09:13:37 PM ET
[2018-12-19] MEDS: LANTUS SUB-Q SCH (22:14)
[2018-12-20] MEDS: HumaLOG SUB-Q SCH ×4 (00:12→18:30)
[2018-12-20] MEDS: NACL 0.45% 1000 ML 1,000 ML IV SCH ×2 (01:13→17:14)
[2018-12-20] MEDS: HALDOL IV PRN (01:14)
[2018-12-20] MEDS: FREE WATER PO SCH ×4 (05:30→22:52)
[2018-12-20 06:56] LABS: BUN/Creatinine Ratio 48; Blood Urea Nitrogen 43 mg/dL (7-17); Calcium 9.5 mg/dL (8.4-10.2); Hemolysis Index 12
--- NOTE | 2018-12-20 09:04 | Progress Note ---
Assessment and Plan Cultures: Blood culture 12/12/2018 beta hem Strep group B 4 of 4 bottles Blood culture 12/14/2018: no growth Assessment: 73 y/o female with history of DM2, OA, ARF, CKD stage 3, depression, hypertension, hyperthyroidism and GERD; admitted on 12/11/2018 due to AMS and recent fall injuring her right shoulder: 1) Sepsis: Resolved. No fevers. Etiology most likely Strep bacteremia. CXR neg. UA neg. Repeat CXR no consolidation. 2) Strep group B bacteremia: 4 of 4 bottles positive, unclear source ? skin (leg wounds do not look infected) ? neck soft tissue infection ? joint infection. CRP=32. TTE no vegetation. repeat cultures show no growth. Chest CT : Inflammatory tissue in right supraclavicular region may emanate from abnormal appearing right sternoclavicular joint which appears widened and enlarged. There are gas bubbles in the area which could relate to infectious process. Evaluation of abscess is limited due to lack of IV contrast Duplex Scan upper extremity artery: Exam limited, no definite evidence of DVT . Severe diffuse bilateral soft tissue edema in the right side of the neck clavicle, 3cm structure with echogenic center most likely representing a lymph node with fatty hilum. ?Early abscess vs Inflammatory mass. If WBC tagged scan inconclusive will repeat CT neck in 3 weeks. 3) ALVARO on CKD 4) DM2 with HONK 5) Acute encephalopathy: Improved. CT head neg. Recommendations: - f/u WBC tagged scan to search for infectious nidus - report pending -- f/u BUFFY, anti-CCP -Anticipate discharge on Ceftriaxone 2 gms IV once a day for 6 weeks ending 01-24-19 -Case management consult placed -continue Ceftriaxone 2gm IV q day, D3 Nichelle Gusman NP [facility] M: [phone] O:[phone] Subjective Date of service: 12/20/18 Principal diagnosis: sepsis Interval history: Patient seen and examined. Alert and communicative today. No acute distress observed. No family at bedside. Objective - Exam Narrative Exam: General appearance: Awake. Alert. no acute distress Eyes: anicteric sclerae, moist conjunctivae; no lid-lag; PERRLA HENT: Atraumatic; oropharynx edentulous limited Neck: Trachea midline; supple, no thyromegaly or lymphadenopathy Lungs: CTA CV: RRR Abdomen: Soft,obese mild tenderness Extremities: No peripheral edema or extremity lymphadenopathy + left leg wound 1.0x1.0x0.1. Scant serous sanguineous drainage noticed to the wound. No odor noticed to the wound. + right leg wound 5.0x3.0. Scant serous sanguineous drainage noticed to the wound. No odor noticed to the wound. Skin: stage 2 left buttocks wound. The wound measurement is as follows; 1.0x1.0x0.1. Scant serous sanguineous drainage noticed to the wound. No odor noticed to the wound. Psych: calm . Neuro: Alert. talkative - Constitutional Vitals: Vital Signs Temp Pulse Resp BP Pulse Ox 98.0 F 59 L 20 136/55 99 12/20/18 07:33 12/20/18 07:33 12/20/18 07:33 12/20/18 07:33 12/20/18 07:33 Temperature -Last 24 Hours Temperature 98.0 F Temperature 97.6 F Temperature 97.3 F Temperature 97.8 F - Labs CBC & Chem 7: 12/19/18 04:47 12/20/18 05:58 Labs: Abnormal lab results 12/19/18 12/19/18 12/20/18 Range/Units 11:43 17:54 00:37 BUN (7-17) mg/dL Glucose (65-100) mg/dL POC Glucose 324 H 349 H 362 H (70-105) 12/20/18 12/20/18 Range/Units 05:58 06:25 BUN 43 H (7-17) mg/dL Glucose 394 H (65-100) mg/dL POC Glucose 357 H (70-105)
[2018-12-20] MEDS: ROCEPHIN/NS 2 GM/100 ML 2 GM/100 ML BAG IV SCH (10:06)
[2018-12-20] MEDS: COREG PO SCH ×2 (10:07→22:54)
[2018-12-20] MEDS: TAPAZOLE PO SCH (10:07)
[2018-12-20] MEDS: CLARITIN PO SCH (10:07)
[2018-12-20] MEDS: HEPARIN SUB-Q SCH ×2 (10:07→22:51)
[2018-12-20] MEDS: APRESOLINE PO SCH ×3 (10:08→22:53)
--- NOTE | 2018-12-20 10:37 | Progress Note ---
Assessment and Plan Assessment and plan: SIRS with organ dysfunction, poa, suspected sepsis but no source. Still evaluating though 73-year-old woman with history of type 2 diabetes, osteoarthritis, chronic kidney disease with creatinine baseline around 1.2, hypertension, depression, hypothyroidism, GERD who was brought to the hospital with altered mental status. CT chest, report is limited due to lack of IV contrast, but there is abnormality in the right supraclavicular region and gas bubbles concerning for infectious process 12/19: MRI brain shows global cortical atrophy with greater involvement of the frontal and temporal lobes. No acute change. Diagnosis Sepsis Group B strep bacteremia ?infection at R supraclavicular area Acute metabolic encephalopathy Severe hypokalemia Hypomagnesemia Hyperthyroidism Moderate malnutrition Anemia Type 2 diabetes with persistent hyperglycemia, hyperosmolar, nonketotic hyperglycemic state Hypertension Morbid obesity -Acute kidney injury, likely component of ATN and vasomotor nephropathy Plan There is a concern of an infection in the right supraclavicular area, awaiting tagged white blood cell scan -Continue empiric antibiotics per ID, status post PICC line, will likely need prolonged IV antibiotics Electrolytes have been repleted Continue to optimize insulins -Acute kidney injury has now resolved, nephrology signed off on 12/19/18 -Mentation is improving -Case discussed with infectious disease -Case discussed with family, would like rehabilitation placement when she's improved History Interval history: she is less uncomfortable -no fever, less confused -Per she still complaining of pain and swelling in the right supraclavicular area Review of systems Constitutional: No fevers, c/o gen weakness CVS: No chest pain, no orthopnea, no dyspnea on exertion, no pedal edema GI: No abdominal pain, no diarrhea, no vomiting, no constipation Respiratory: no wheezing, no coughing Hospitalist Physical - Physical exam Narrative exam: General.: Appears chronically ill, obese HEENT: Moist mucous membranes, extraocular muscles intact, no lymphadenopathy Neck: supple Cardiac: S1-S2 heard There is tenderness to right supraclavicular area Lungs: clear to auscultation bilaterally Abdomen: soft , nontender, nondistended, bowel sounds positive Extremities: no edema clubbing or cyanosis Skin: no rash or lesions Neurologic: Patient is altered, she is lethargic Psych: calm, and cooperative - Constitutional Vitals: Temp Pulse Resp BP Pulse Ox 98.0 F 59 L 20 136/55 99 12/20/18 07:33 12/20/18 07:33 12/20/18 07:33 12/20/18 10:07 12/20/18 07:33 General appearance: Present: no acute distress, well-nourished, obese Results - Labs CBC & Chem 7: 12/21/18 05:10 12/22/18 07:00 Labs: Laboratory Last Values WBC 8.5 K/mm3 (4.5-11.0) 12/19/18 04:47 RBC 2.46 M/mm3 (3.65-5.03) L 12/19/18 04:47 Hgb 7.5 gm/dl (10.1-14.3) L 12/19/18 04:47 Hct 22.9 % (30.3-42.9) L 12/19/18 04:47 MCV 93 fl (79-97) 12/19/18 04:47 MCH 30 pg (28-32) 12/19/18 04:47 MCHC 33 % (30-34) 12/19/18 04:47 RDW 17.6 % (13.2-15.2) H 12/19/18 04:47 Plt Count 246 K/mm3 (140-440) 12/19/18 04:47 Lymph % (Auto) 7.8 % (13.4-35.0) L 12/19/18 04:47 [place] % (Auto) 4.8 % (0.0-7.3) 12/19/18 04:47 Eos % (Auto) 1.4 % (0.0-4.3) 12/19/18 04:47 Baso % (Auto) 0.3 % (0.0-1.8) 12/19/18 04:47 Lymph # 0.7 K/mm3 (1.2-5.4) L 12/19/18 04:47 [place] # 0.4 K/mm3 (0.0-0.8) 12/19/18 04:47 Eos # 0.1 K/mm3 (0.0-0.4) 12/19/18 04:47 Baso # 0.0 K/mm3 (0.0-0.1) 12/19/18 04:47 Add Manual Diff Complete 12/11/18 22:47 Total Counted 100 12/11/18 22:47 Seg Neutrophils % 85.7 % (40.0-70.0) H 12/19/18 04:47 Seg Neuts % (Manual) 92.0 % (40.0-70.0) H 12/11/18 22:47 Band Neutrophils % 0 % 12/11/18 22:47 Lymphocytes % (Manual) 4.0 % (13.4-35.0) L 12/11/18 22:47 Reactive Lymphs % (Man) 0 % 12/11/18 22:47 Monocytes % (Manual) 3.0 % (0.0-7.3) 12/11/18 22:47 Eosinophils % (Manual) 0 % (0.0-4.3) 12/11/18 22:47 Basophils % (Manual) 0 % (0.0-1.8) 12/11/18 22:47 Metamyelocytes % 1.0 % 12/11/18 22:47 Myelocytes % 0 % 12/11/18 22:47 Promyelocytes % 0 % 12/11/18 22:47 Blast Cells % 0 % 12/11/18 22:47 Nucleated RBC % 2.0 % (0.0-0.9) H 12/11/18 22:47 Seg Neutrophils # 7.3 K/mm3 (1.8-7.7) 12/19/18 04:47 Seg Neutrophils # Man 17.0 K/mm3 (1.8-7.7) H 12/11/18 22:47 Band Neutrophils # 0.0 K/mm3 12/11/18 22:47 Lymphocytes # (Manual) 0.7 K/mm3 (1.2-5.4) L 12/11/18 22:47 Abs React Lymphs (Man) 0.0 K/mm3 12/11/18 22:47 Monocytes # (Manual) 0.6 K/mm3 (0.0-0.8) 12/11/18 22:47 Eosinophils # (Manual) 0.0 K/mm3 (0.0-0.4) 12/11/18 22:47 Basophils # (Manual) 0.0 K/mm3 (0.0-0.1) 12/11/18 22:47 Metamyelocytes # 0.2 K/mm3 12/11/18 22:47 Myelocytes # 0.0 K/mm3 12/11/18 22:47 Promyelocytes # 0.0 K/mm3 12/11/18 22:47 Blast Cells # 0.0 K/mm3 12/11/18 22:47 WBC Morphology Not Reportable 12/11/18 22:47 Hypersegmented Neuts Not Reportable 12/11/18 22:47 Hyposegmented Neuts Not Reportable 12/11/18 22:47 Hypogranular Neuts Not Reportable 12/11/18 22:47 Smudge Cells Not Reportable 12/11/18 22:47 Toxic Granulation Not Reportable 12/11/18 22:47 Toxic Vacuolation Not Reportable 12/11/18 22:47 Dohle Bodies Not Reportable 12/11/18 22:47 Pelger-Huet Anomaly Not Reportable 12/11/18 22:47 Starla Rods Not Reportable 12/11/18 22:47 Platelet Estimate Consistent w auto 12/11/18 22:47 Clumped Platelets Few 12/11/18 22:47 Plt Clumps, EDTA Not Reportable 12/11/18 22:47 Large Platelets 1+ 12/11/18 22:47 Giant Platelets Not Reportable 12/11/18 22:47 Platelet Satelliting Not Reportable 12/11/18 22:47 Plt Morphology Comment Not Reportable 12/11/18 22:47 RBC Morphology Normal 12/11/18 22:47 Dimorphic RBCs Not Reportable 12/11/18 22:47 Polychromasia Not Reportable 12/11/18 22:47 Hypochromasia Not Reportable 12/11/18 22:47 Poikilocytosis Not Reportable 12/11/18 22:47 Anisocytosis Not Reportable 12/11/18 22:47 Microcytosis Not Reportable 12/11/18 22:47 Macrocytosis Not Reportable 12/11/18 22:47 Spherocytes Not Reportable 12/11/18 22:47 Pappenheimer Bodies Not Reportable 12/11/18 22:47 Sickle Cells Not Reportable 12/11/18 22:47 Target Cells Not Reportable 12/11/18 22:47 Tear Drop Cells Not Reportable 12/11/18 22:47 Ovalocytes Not Reportable 12/11/18 22:47 Helmet Cells Not Reportable 12/11/18 22:47 [place] Bodies Not Reportable 12/11/18 22:47 [place] Rings Not Reportable 12/11/18 22:47 Hilton Cells Not Reportable 12/11/18 22:47 Bite Cells Not Reportable 12/11/18 22:47 Crenated Cell Not Reportable 12/11/18 22:47 Elliptocytes Not Reportable 12/11/18 22:47 Acanthocytes (Spur) Not Reportable 12/11/18 22:47 Rouleaux Not Reportable 12/11/18 22:47 Hemoglobin C Crystals Not Reportable 12/11/18 22:47 Schistocytes Not Reportable 12/11/18 22:47 Malaria parasites Not Reportable 12/11/18 22:47 Dawson Bodies Not Reportable 12/11/18 22:47 Hem Pathologist Commnt No 12/11/18 22:47 PT 16.8 Sec. (12.2-14.9) H 12/12/18 11:45 INR 1.28 (0.87-1.13) H 12/12/18 11:45 APTT 40.8 Sec. (24.2-36.6) H 12/12/18 11:45 POC ABG pH 7.420 (7.35-7.45) 12/11/18 23:14 POC ABG pCO2 39.6 (35-45) 12/11/18 23:14 POC ABG pO2 84 (80-105) 12/11/18 23:14 POC ABG HCO3 25.7 (22-26 mml/L) 12/11/18 23:14 POC ABG Total CO2 27 (23-27mmol/L) 12/11/18 23:14 POC ABG O2 Sat 97 12/11/18 23:14 POC ABG Base Excess 1 ((-2) - (+3)mmol/L) 12/11/18 23:14 FiO2 32 % 12/11/18 23:14 Sodium 140 mmol/L (137-145) 12/20/18 05:58 Potassium 4.3 mmol/L (3.6-5.0) 12/20/18 05:58 Chloride 106.2 mmol/L (98-107) 12/20/18 05:58 Carbon Dioxide 23 mmol/L (22-30) 12/20/18 05:58 Anion Gap 15 mmol/L 12/20/18 05:58 BUN 43 mg/dL (7-17) H 12/20/18 05:58 Creatinine 0.9 mg/dL (0.7-1.2) 12/20/18 05:58 Estimated GFR > 60 ml/min 12/20/18 05:58 BUN/Creatinine Ratio 48 % 12/20/18 05:58 Glucose 394 mg/dL (65-100) H 12/20/18 05:58 POC Glucose 357 (70-105) H 12/20/18 06:25 Osmolality 336 Mosm/kg 12/18/18 09:56 Uric Acid 7.0 mg/dL (3.5-7.6) 12/18/18 09:56 Calcium 9.5 mg/dL (8.4-10.2) 12/20/18 05:58 Phosphorus 2.50 mg/dL (2.5-4.5) 12/13/18 07:39 Magnesium 1.70 mg/dL (1.7-2.3) 12/17/18 05:28 Total Bilirubin 2.10 mg/dL (0.1-1.2) H 12/11/18 20:34 AST 25 units/L (5-40) 12/11/18 20:34 ALT 27 units/L (7-56) 12/11/18 20:34 Alkaline Phosphatase 215 units/L (35-129) H 12/11/18 20:34 Ammonia 35.0 umol/L (25-60) 12/18/18 22:00 Total Creatine Kinase 44 units/L (30-135) 12/12/18 07:33 CK-MB (CK-2) 1.1 ng/mL (0.0-4.0) 12/12/18 07:33 CK-MB (CK-2) Rel Index 2.5 (0-4) 12/12/18 07:33 Troponin T 0.036 ng/mL (0.00-0.029) H 12/12/18 07:33 C-Reactive Protein 32.70 mg/dL (0.00-1.30) H 12/13/18 16:23 Total Protein 6.2 g/dL (6.3-8.2) L 12/11/18 20:34 Albumin 2.9 g/dL (3.9-5) L 12/11/18 20:34 Albumin/Globulin Ratio 0.9 % 12/11/18 20:34 Triglycerides 173 mg/dL (2-149) H 12/11/18 20:34 Cholesterol 95 mg/dL (50-199) 12/11/18 20:34 LDL Cholesterol Direct 16 mg/dL (50-130) L 12/11/18 20:34 HDL Cholesterol 19 mg/dL (40-59) L 12/11/18 20:34 Cholesterol/HDL Ratio 5.00 % 12/11/18 20:34 Vitamin B12 > 2000 pg/mL (211-911) H 12/18/18 22:00 TSH 0.447 mlU/mL (0.270-4.200) 12/11/18 21:04 Thyroxine (T4) 5.3 ug/dL (4.0-12.0) 12/11/18 21:04 Urine Color Dark yellow (Yellow) 12/11/18 23:06 Urine Turbidity Clear (Clear) 12/11/18 23:06 Urine pH 5.0 (5.0-7.0) 12/11/18 23:06 Ur Specific [place] 1.021 (1.003-1.030) 12/11/18 23:06 Urine Protein 100 mg/dl mg/dL (Negative) 12/11/18 23:06 Urine Glucose (UA) >=500 mg/dL (Negative) 12/11/18 23:06 Urine Ketones Tr mg/dL (Negative) 12/11/18 23:06 Urine Blood Neg (Negative) 12/11/18 23:06 Urine Nitrite Neg (Negative) 12/11/18 23:06 Urine Bilirubin Neg (Negative) 12/11/18 23:06 Urine Urobilinogen 4.0 mg/dL (<2.0) 12/11/18 23:06 Ur Leukocyte Esterase Neg (Negative) 12/11/18 23:06 Urine WBC (Auto) 1.0 /HPF (0.0-6.0) 12/11/18 23:06 Urine RBC (Auto) 2.0 /HPF (0.0-6.0) 12/11/18 23:06 U Epithel Cells (Auto) 1.0 /HPF (0-13.0) 12/11/18 23:06 Amorphous Crystals Few 12/11/18 23:06 Random Vancomycin 7.9 ug/mL (0-40.0) 12/14/18 09:33 Urine Opiates Screen Presumptive negative 12/12/18 09:40 Urine Methadone Screen Presumptive negative 12/12/18 09:40 Ur Barbiturates Screen Presumptive negative 12/12/18 09:40 Ur Phencyclidine Scrn Presumptive negative 12/12/18 09:40 Ur Amphetamines Screen Presumptive negative 12/12/18 09:40 U Benzodiazepines Scrn Presumptive negative 12/12/18 09:40 Urine Cocaine Screen Presumptive negative 12/12/18 09:40 U Marijuana (THC) Screen Presumptive negative 12/12/18 09:40 Drugs of Abuse Note Disclamer 12/12/18 09:40 Plasma/Serum Alcohol < 0.01 % (0-0.07) 12/12/18 09:27 Blood Type O POSITIVE 12/18/18 14:06 Antibody Screen Negative 12/18/18 14:06 SHARLA Antibody Screen Negative 12/18/18 14:06 Crossmatch See Detail 12/18/18 14:06 Active Medications - Current Medications Current Medications: Generic Name Dose Route Start Last Admin Trade Name Freq PRN Reason Stop Dose Admin Acetaminophen 650 mg 12/12/18 09:53 12/18/18 13:28 Tylenol PO 650 mg Q4H PRN Administration Fever >101 Lipase/Protease/Amylase 1 each 12/19/18 10:[address] 10,500 Unit FEEDTUBE PRN PRN For Clogged Feeding Tube Carvedilol 25 mg 12/12/18 10:00 12/20/18 10:07 Coreg PO 25 mg BID AMANDEEP Administration Dextrose 50 ml 12/12/18 08:11 D50w (25gm) Syringe IV PRN PRN Hypoglycemia Haloperidol Lactate 5 mg 12/12/18 18:00 12/20/18 01:14 Haldol IV 5 mg Q6H PRN Administration Agitation Heparin Sodium (Porcine) 5,000 unit 12/12/18 10:00 12/20/18 10:07 Heparin SUB-Q 5,000 unit Q12HR AMANDEEP Administration Hydralazine HCl 50 mg 12/12/18 09:00 12/20/18 10:08 Apresoline PO 50 mg TID AMANDEEP Administration Ceftriaxone Sodium 2 gm in 100 mls @ 200 mls/hr 12/18/18 15:00 12/20/18 10:06 Rocephin/Ns 2 Gm/100 Ml IV 01/24/19 10:29 200 mls/hr Q24HR AMANDEEP Administration Protocol Sodium Chloride 1,000 mls @ 100 mls/hr 12/18/18 22:00 12/20/18 01:13 Nacl 0.45% 1000 Ml IV 100 mls/hr DIRECT AMANDEEP Administration Insulin Glargine 40 units 12/18/18 22:00 12/19/18 22:14 Lantus SUB-Q 40 units QHS AMANDEEP Administration Insulin Human Lispro 0 unit 12/14/18 12:00 12/20/18 06:46 Humalog SUB-Q 10 unit Q6HR AMANDEEP Administration Protocol Loratadine 10 mg 12/12/18 10:00 12/20/18 10:07 Claritin PO 10 mg DAILY AMANDEEP Administration Lorazepam 1 mg 12/13/18 14:05 12/18/18 09:11 Ativan IV 1 mg Q4H PRN Administration Agitation Methimazole 5 mg 12/16/18 16:00 12/20/18 10:07 Tapazole PO 5 mg QDAY AMANDEEP Administration Morphine Sulfate 2 mg 12/12/18 02:48 12/18/18 22:03 Morphine IV 2 mg Q4H PRN Administration Pain, Moderate (4-6) Ondansetron HCl 4 mg 12/12/18 02:48 Zofran IV Q8H PRN Nausea And Vomiting Simple Syrup 15 ml 12/19/18 10:01 Simple Syrup FEEDTUBE PRN PRN Hypoglycemia Simple Syrup 30 ml 12/19/18 10:01 Simple Syrup FEEDTUBE PRN PRN Hypoglycemia Sodium Bicarbonate 325 mg 12/19/18 10:01 Sodium Bicarbonate FEEDTUBE PRN PRN For Clogged Feeding Tube Nutrition/Malnutrition Assess - Dietary Evaluation Nutrition/Malnutrition Findings: Nutrition Notes Start: 12/12/18 12:14 Freq: Status: Active Protocol: Document 12/19/18 09:41 EB (Rec: 12/19/18 10:01 EB [id number]) Co-Sign 12/19/18 09:41 NHALL Nutrition Notes Initial or Follow up Reassessment Current Diagnosis Diabetes,Hypertension Other Pertinent Diagnosis arthritis, asthma Current Diet Promote at 65 mL/hr Labs/Tests Na 145 BG 325 Pertinent Medications Reviewed Height 5 ft 7 in Weight 156.444 kg [place] Body Weight (kg) 61.36 BMI 54.0 Subjective/Other Information Observed Promote running at 35 mL/hr at time of visit. RN states TF will advance to 45 mL/hr this morning with plans to reach goal rate by tomorrow . Pt reports slightly less watery stool today. Watery stool may be related to antibiotic use. TF change to correct high BG. Percent of energy/protein needs met: 44%/82% Burn Absent Trauma Absent #1 Nutrition Diagnosis Inadequate energy intake, Predicted suboptimal energy intake Diagnosis Progress(for reassessment Continues documentation) Is patient on ventilator? No Is Patient Ambulatory and/or Out of Bed No REE-([place]-confined to bed) 2533.512 Kcal/Kg value to use for calculation 14 Approximate Energy Requirements Using 2190 kcal/Kg Calculation Used for Recommendations Kcal/kg Additional Notes Protein: 64-80g (0.8-1g/kg using adj wt 80kg) Fluid: 1 ml/kcal Nutrition Intervention Change Diet Order: TF Nutrition Support: Glucerna 1.2 at 65ml/hr Flush with 150ml q4h Kcal 1,872 Protein (gm) 94 Fluid (mL) 1,260 Goal #1 TF tolerance Goal #2 Meet at least 75% of kcal and protein needs via TF Anticipated Discharge Needs: unable to determine at this time Follow-Up By: 12/21/18 Additional Comments Follow for TF change and tolerance.
[2018-12-20] MEDS ORDERED: LANTUS SUB-Q SCH (11:32)
[2018-12-20] MEDS: MORPHINE IV PRN (22:57)
[2018-12-21] MEDS: NACL 0.45% 1000 ML 1,000 ML IV SCH (03:03)
[2018-12-21] MEDS: HumaLOG SUB-Q SCH ×4 (03:06→18:41)
[2018-12-21 05:38] LABS: BUN/Creatinine Ratio 48; Blood Urea Nitrogen 38 mg/dL (7-17); Calcium 8.9 mg/dL (8.4-10.2); Hemolysis Index 0
[2018-12-21] MEDS: FREE WATER PO SCH ×3 (05:42→17:47)
[2018-12-21] MEDS: MORPHINE IV PRN (05:42)
[2018-12-21 06:19] LABS: Basophils # (Auto) 0.1 K/mm3 (0.0-0.1); Basophils % (Auto) 0.7 % (0.0-1.8); Eosinophils # (Auto) 0.1 K/mm3 (0.0-0.4); Eosinophils % (Auto) 0.8 % (0.0-4.3); Hematocrit 22.9 % (30.3-42.9); Hemoglobin 7.5 gm/dl (10.1-14.3); Lymphocytes # (Auto) 0.5 K/mm3 (1.2-5.4); Lymphocytes % (Auto) 5.1 % (13.4-35.0); Mean Corpuscular HGB Conc 33 % (30-34); Mean Corpuscular Volume 93 fl (79-97); Monocytes # (Auto) 0.5 K/mm3 (0.0-0.8); Monocytes % (Auto) 4.5 % (0.0-7.3); Platelet Count 255 K/mm3 (140-440); Red Blood Count 2.47 M/mm3 (3.65-5.03)
--- NOTE | 2018-12-21 08:09 | Nuclear Medicine Report ---
NUCLEAR MEDICINE LEUKOCYTE SCAN: 12/19/18 CLINICAL: Sepsis. Search for infectious nidus. TECHNIQUE: 362 mCi of Indium- 111 labeled white blood cells were injected intravenously. Whole body images were obtained at 4 hours and 24 hours. FINDINGS: Abnormal uptake in the right upper parasternal and right clavicular on both scan phases. This activity correlates with inflammatory changes of the soft tissues adjacent to the right sternoclavicular joint on the 12/14/18 CT Chest. No other suspicious activity. Normal hepatic and splenic uptake mild diffuse skeletal uptake. IMPRESSION: Positive scan for infection in the right sternoclavicular area. No other suspicious uptake.
--- NOTE | 2018-12-21 09:01 | Progress Note ---
Assessment and Plan Cultures: Blood culture 12/12/2018 beta hem Strep group B 4 of 4 bottles Blood culture 12/14/2018: no growth Assessment: 73 y/o female with history of DM2, OA, ARF, CKD stage 3, depression, hypertension, hyperthyroidism and GERD; admitted on 12/11/2018 due to AMS and recent fall injuring her right shoulder: 1) Sepsis: Resolved. No fevers. Etiology most likely Strep bacteremia and infection in the right sternoclavicular joint. CXR neg. UA neg. Repeat CXR no consolidation. 2) Strep group B bacteremia: 4 of 4 bottles positive, unclear source ? skin (leg wounds do not look infected) ? neck soft tissue infection ? joint infection. CRP=32. TTE no vegetation. repeat cultures show no growth. Chest CT : Inflammatory tissue in right supraclavicular region may emanate from abnormal appearing right sternoclavicular joint which appears widened and enlarged. There are gas bubbles in the area which could relate to infectious process. Evaluation of abscess is limited due to lack of IV contrast Duplex Scan upper extremity artery: Exam limited, no definite evidence of DVT . Severe diffuse bilateral soft tissue edema in the right side of the neck clavicle, 3cm structure with echogenic center most likely representing a lymph node with fatty hilum. ?Early abscess vs Inflammatory mass. WBC scan results show positive scan for infection in the right sternoclavicular area. No other suspicious uptake. Recommend Ortho consult, symptomatic SCJ infections require surgical intervention. 3) ALVARO on CKD 4) DM2 with HONK 5) Acute encephalopathy: Improved. CT head neg. Recommendations: -- f/u BUFFY, anti-CCP -Anticipate discharge on Ceftriaxone 2 gms IV once a day for 6 weeks ending 01-24-19 -continue Ceftriaxone 2gm IV q day, D5 -Dr. Centeno discussion with Ortho regarding surgical evaluation -f/u Ortho consult to evaluate need for surgical intervention Dr. Centeno will be review consultant this weekend. Please call [phone] for questions. -Will follow on Monday [facility] M: [phone] O:[phone] Subjective Date of service: 12/21/18 Principal diagnosis: sepsis Interval history: Patient seen and examined. Alert and communicative today. No acute distress observed. No family at bedside. Objective - Exam Narrative Exam: General appearance: Awake. Alert. no acute distress Eyes: anicteric sclerae, moist conjunctivae; no lid-lag; PERRLA HENT: Atraumatic; oropharynx edentulous limited Neck: Trachea midline; supple, no thyromegaly or lymphadenopathy Lungs: CTA CV: RRR Abdomen: Soft,obese mild tenderness Extremities: No peripheral edema or extremity lymphadenopathy + left leg wound 1.0x1.0x0.1. Scant serous sanguineous drainage noticed to the wound. No odor noticed to the wound. + right leg wound 5.0x3.0. Scant serous sanguineous drainage noticed to the wound. No odor noticed to the wound. Skin: stage 2 left buttocks wound. The wound measurement is as follows; 1.0x1.0x0.1. Scant serous sanguineous drainage noticed to the wound. No odor noticed to the wound. Psych: calm . Neuro: Alert. talkative - Constitutional Vitals: Vital Signs Temp Pulse Resp BP Pulse Ox 99.0 F 67 20 166/71 98 12/21/18 07:13 12/21/18 07:13 12/21/18 07:13 12/21/18 07:13 12/21/18 07:13 Temperature -Last 24 Hours Temperature 99.0 F Temperature 98.5 F Temperature 99.2 F Temperature 98.5 F - Labs CBC & Chem 7: 12/21/18 05:10 12/21/18 05:10 Labs: Abnormal lab results 12/20/18 12/20/18 12/20/18 Range/Units 11:34 17:44 22:31 RBC (3.65-5.03) M/mm3 Hgb (10.1-14.3) gm/dl Hct (30.3-42.9) % RDW (13.2-15.2) % Lymph % (Auto) (13.4-35.0) % Lymph # (1.2-5.4) K/mm3 Seg Neutrophils % (40.0-70.0) % Seg Neutrophils # (1.8-7.7) K/mm3 Sodium (137-145) mmol/L BUN (7-17) mg/dL Glucose (65-100) mg/dL POC Glucose 360 H 347 H 433 H (70-105) 12/20/18 12/21/1819 Range/Units 23:56 05:10 05:10 RBC 2.47 L (3.65-5.03) M/mm3 Hgb 7.5 L (10.1-14.3) gm/dl Hct 22.9 L (30.3-42.9) % RDW 17.0 H (13.2-15.2) % Lymph % (Auto) 5.1 L (13.4-35.0) % Lymph # 0.5 L (1.2-5.4) K/mm3 Seg Neutrophils % 88.9 H (40.0-70.0) % Seg Neutrophils # 8.9 H (1.8-7.7) K/mm3 Sodium 136 L (137-145) mmol/L BUN 38 H (7-17) mg/dL Glucose 388 H (65-100) mg/dL POC Glucose 397 H (70-105) 12/21/18 Range/Units 05:50 RBC (3.65-5.03) M/mm3 Hgb (10.1-14.3) gm/dl Hct (30.3-42.9) % RDW (13.2-15.2) % Lymph % (Auto) (13.4-35.0) % Lymph # (1.2-5.4) K/mm3 Seg Neutrophils % (40.0-70.0) % Seg Neutrophils # (1.8-7.7) K/mm3 Sodium (137-145) mmol/L BUN (7-17) mg/dL Glucose (65-100) mg/dL POC Glucose 324 H (70-105)
--- NOTE | 2018-12-21 09:49 | Progress Note ---
Assessment and Plan Assessment and plan: SIRS with organ dysfunction, poa, suspected sepsis but no source. Still evaluating though 73-year-old woman with history of type 2 diabetes, osteoarthritis, chronic kidney disease with creatinine baseline around 1.2, hypertension, depression, hypothyroidism, GERD who was brought to the hospital with altered mental status. CT chest, report is limited due to lack of IV contrast, but there is abnormality in the right supraclavicular region and gas bubbles concerning for infectious process 12/19: MRI brain shows global cortical atrophy with greater involvement of the frontal and temporal lobes. No acute change. Diagnosis Sepsis Group B strep bacteremia infection at R sternoclavicular joint- osteomylitis Acute metabolic encephalopathy Severe hypokalemia Hypomagnesemia Hyperthyroidism Moderate malnutrition Anemia Type 2 diabetes with persistent hyperglycemia, hyperosmolar, nonketotic hyperglycemic state Hypertension Morbid obesity -Acute kidney injury, likely component of ATN and vasomotor nephropathy Plan WBC tagged scan confirm SCJ infection, ortho consult -Continue empiric antibiotics per ID, status post PICC line, will likely need prolonged IV antibiotics per ID Electrolytes have been repleted Continue to optimize insulins -Acute kidney injury has now resolved, nephrology signed off on 12/19/18 -Mentation is improving -Case discussed with infectious disease -Case discussed with family, would like rehabilitation placement when she's improved History Interval history: she is less uncomfortable -no fever, less confused -Per she still complaining of pain and swelling in the right supraclavicular area, but it is improved Review of systems Constitutional: No fevers, c/o gen weakness CVS: No chest pain, no orthopnea, no dyspnea on exertion, no pedal edema GI: No abdominal pain, no diarrhea, no vomiting, no constipation Respiratory: no wheezing, no coughing Hospitalist Physical - Physical exam Narrative exam: General.: Appears chronically ill, obese HEENT: Moist mucous membranes, extraocular muscles intact, no lymphadenopathy Neck: supple Cardiac: S1-S2 heard There is tenderness to right supraclavicular area Lungs: clear to auscultation bilaterally Abdomen: soft , nontender, nondistended, bowel sounds positive Extremities: no edema clubbing or cyanosis Skin: no rash or lesions Neurologic: Patient is altered, she is lethargic Psych: calm, and cooperative - Constitutional Vitals: Temp Pulse Resp BP Pulse Ox 99.0 F 67 20 166/71 98 12/21/18 07:13 12/21/18 07:13 12/21/18 07:13 12/21/18 07:13 12/21/18 07:13 General appearance: Present: no acute distress, well-nourished, obese Results - Labs CBC & Chem 7: 12/23/18 Unknown 12/23/18 Unknown Labs: Laboratory Last Values WBC 10.0 K/mm3 (4.5-11.0) 12/21/18 05:10 RBC 2.47 M/mm3 (3.65-5.03) L 12/21/18 05:10 Hgb 7.5 gm/dl (10.1-14.3) L 12/21/18 05:10 Hct 22.9 % (30.3-42.9) L 12/21/18 05:10 MCV 93 fl (79-97) 12/21/18 05:10 MCH 30 pg (28-32) 12/21/18 05:10 MCHC 33 % (30-34) 12/21/18 05:10 RDW 17.0 % (13.2-15.2) H 12/21/18 05:10 Plt Count 255 K/mm3 (140-440) 12/21/18 05:10 Lymph % (Auto) 5.1 % (13.4-35.0) L 12/21/18 05:10 Crane % (Auto) 4.5 % (0.0-7.3) 12/21/18 05:10 Eos % (Auto) 0.8 % (0.0-4.3) 12/21/18 05:10 Baso % (Auto) 0.7 % (0.0-1.8) 12/21/18 05:10 Lymph # 0.5 K/mm3 (1.2-5.4) L 12/21/18 05:10 Crane # 0.5 K/mm3 (0.0-0.8) 12/21/18 05:10 Eos # 0.1 K/mm3 (0.0-0.4) 12/21/18 05:10 Baso # 0.1 K/mm3 (0.0-0.1) 12/21/18 05:10 Add Manual Diff Complete 12/11/18 22:47 Total Counted 100 12/11/18 22:47 Seg Neutrophils % 88.9 % (40.0-70.0) H 12/21/18 05:10 Seg Neuts % (Manual) 92.0 % (40.0-70.0) H 12/11/18 22:47 Band Neutrophils % 0 % 12/11/18 22:47 Lymphocytes % (Manual) 4.0 % (13.4-35.0) L 12/11/18 22:47 Reactive Lymphs % (Man) 0 % 12/11/18 22:47 Monocytes % (Manual) 3.0 % (0.0-7.3) 12/11/18 22:47 Eosinophils % (Manual) 0 % (0.0-4.3) 12/11/18 22:47 Basophils % (Manual) 0 % (0.0-1.8) 12/11/18 22:47 Metamyelocytes % 1.0 % 12/11/18 22:47 Myelocytes % 0 % 12/11/18 22:47 Promyelocytes % 0 % 12/11/18 22:47 Blast Cells % 0 % 12/11/18 22:47 Nucleated RBC % 2.0 % (0.0-0.9) H 12/11/18 22:47 Seg Neutrophils # 8.9 K/mm3 (1.8-7.7) H 12/21/18 05:10 Seg Neutrophils # Man 17.0 K/mm3 (1.8-7.7) H 12/11/18 22:47 Band Neutrophils # 0.0 K/mm3 12/11/18 22:47 Lymphocytes # (Manual) 0.7 K/mm3 (1.2-5.4) L 12/11/18 22:47 Abs React Lymphs (Man) 0.0 K/mm3 12/11/18 22:47 Monocytes # (Manual) 0.6 K/mm3 (0.0-0.8) 12/11/18 22:47 Eosinophils # (Manual) 0.0 K/mm3 (0.0-0.4) 12/11/18 22:47 Basophils # (Manual) 0.0 K/mm3 (0.0-0.1) 12/11/18 22:47 Metamyelocytes # 0.2 K/mm3 12/11/18 22:47 Myelocytes # 0.0 K/mm3 12/11/18 22:47 Promyelocytes # 0.0 K/mm3 12/11/18 22:47 Blast Cells # 0.0 K/mm3 12/11/18 22:47 WBC Morphology Not Reportable 12/11/18 22:47 Hypersegmented Neuts Not Reportable 12/11/18 22:47 Hyposegmented Neuts Not Reportable 12/11/18 22:47 Hypogranular Neuts Not Reportable 12/11/18 22:47 Smudge Cells Not Reportable 12/11/18 22:47 Toxic Granulation Not Reportable 12/11/18 22:47 Toxic Vacuolation Not Reportable 12/11/18 22:47 Dohle Bodies Not Reportable 12/11/18 22:47 Pelger-Huet Anomaly Not Reportable 12/11/18 22:47 Starla Rods Not Reportable 12/11/18 22:47 Platelet Estimate Consistent w auto 12/11/18 22:47 Clumped Platelets Few 12/11/18 22:47 Plt Clumps, EDTA Not Reportable 12/11/18 22:47 Large Platelets 1+ 12/11/18 22:47 Giant Platelets Not Reportable 12/11/18 22:47 Platelet Satelliting Not Reportable 12/11/18 22:47 Plt Morphology Comment Not Reportable 12/11/18 22:47 RBC Morphology Normal 12/11/18 22:47 Dimorphic RBCs Not Reportable 12/11/18 22:47 Polychromasia Not Reportable 12/11/18 22:47 Hypochromasia Not Reportable 12/11/18 22:47 Poikilocytosis Not Reportable 12/11/18 22:47 Anisocytosis Not Reportable 12/11/18 22:47 Microcytosis Not Reportable 12/11/18 22:47 Macrocytosis Not Reportable 12/11/18 22:47 Spherocytes Not Reportable 12/11/18 22:47 Pappenheimer Bodies Not Reportable 12/11/18 22:47 Sickle Cells Not Reportable 12/11/18 22:47 Target Cells Not Reportable 12/11/18 22:47 Tear Drop Cells Not Reportable 12/11/18 22:47 Ovalocytes Not Reportable 12/11/18 22:47 Helmet Cells Not Reportable 12/11/18 22:47 Sanchez-Pray Bodies Not Reportable 12/11/18 22:47 [place] Rings Not Reportable 12/11/18 22:47 Jolley Cells Not Reportable 12/11/18 22:47 Bite Cells Not Reportable 12/11/18 22:47 Crenated Cell Not Reportable 12/11/18 22:47 Elliptocytes Not Reportable 12/11/18 22:47 Acanthocytes (Spur) Not Reportable 12/11/18 22:47 Rouleaux Not Reportable 12/11/18 22:47 Hemoglobin C Crystals Not Reportable 12/11/18 22:47 Schistocytes Not Reportable 12/11/18 22:47 Malaria parasites Not Reportable 12/11/18 22:47 Dawson Bodies Not Reportable 12/11/18 22:47 Hem Pathologist Commnt No 12/11/18 22:47 PT 16.8 Sec. (12.2-14.9) H 12/12/18 11:45 INR 1.28 (0.87-1.13) H 12/12/18 11:45 APTT 40.8 Sec. (24.2-36.6) H 12/12/18 11:45 POC ABG pH 7.420 (7.35-7.45) 12/11/18 23:14 POC ABG pCO2 39.6 (35-45) 12/11/18 23:14 POC ABG pO2 84 (80-105) 12/11/18 23:14 POC ABG HCO3 25.7 (22-26 mml/L) 12/11/18 23:14 POC ABG Total CO2 27 (23-27mmol/L) 12/11/18 23:14 POC ABG O2 Sat 97 12/11/18 23:14 POC ABG Base Excess 1 ((-2) - (+3)mmol/L) 12/11/18 23:14 FiO2 32 % 12/11/18 23:14 Sodium 136 mmol/L (137-145) L 12/21/18 05:10 Potassium 4.1 mmol/L (3.6-5.0) 12/21/18 05:10 Chloride 103.2 mmol/L (98-107) 12/21/18 05:10 Carbon Dioxide 24 mmol/L (22-30) 12/21/18 05:10 Anion Gap 13 mmol/L 12/21/18 05:10 BUN 38 mg/dL (7-17) H 12/21/18 05:10 Creatinine 0.8 mg/dL (0.7-1.2) 12/21/18 05:10 Estimated GFR > 60 ml/min 12/21/18 05:10 BUN/Creatinine Ratio 48 % 12/21/18 05:10 Glucose 388 mg/dL (65-100) H 12/21/18 05:10 POC Glucose 324 (70-105) H 12/21/18 05:50 Osmolality 336 Mosm/kg 12/18/18 09:56 Uric Acid 7.0 mg/dL (3.5-7.6) 12/18/18 09:56 Calcium 8.9 mg/dL (8.4-10.2) 12/21/18 05:10 Phosphorus 2.50 mg/dL (2.5-4.5) 12/13/18 07:39 Magnesium 1.70 mg/dL (1.7-2.3) 12/17/18 05:28 Total Bilirubin 2.10 mg/dL (0.1-1.2) H 12/11/18 20:34 AST 25 units/L (5-40) 12/11/18 20:34 ALT 27 units/L (7-56) 12/11/18 20:34 Alkaline Phosphatase 215 units/L (35-129) H 12/11/18 20:34 Ammonia 35.0 umol/L (25-60) 12/18/18 22:00 Total Creatine Kinase 44 units/L (30-135) 12/12/18 07:33 CK-MB (CK-2) 1.1 ng/mL (0.0-4.0) 12/12/18 07:33 CK-MB (CK-2) Rel Index 2.5 (0-4) 12/12/18 07:33 Troponin T 0.036 ng/mL (0.00-0.029) H 12/12/18 07:33 C-Reactive Protein 32.70 mg/dL (0.00-1.30) H 12/13/18 16:23 Total Protein 6.2 g/dL (6.3-8.2) L 12/11/18 20:34 Albumin 2.9 g/dL (3.9-5) L 12/11/18 20:34 Albumin/Globulin Ratio 0.9 % 12/11/18 20:34 Triglycerides 173 mg/dL (2-149) H 12/11/18 20:34 Cholesterol 95 mg/dL (50-199) 12/11/18 20:34 LDL Cholesterol Direct 16 mg/dL (50-130) L 12/11/18 20:34 HDL Cholesterol 19 mg/dL (40-59) L 12/11/18 20:34 Cholesterol/HDL Ratio 5.00 % 12/11/18 20:34 Vitamin B12 > 2000 pg/mL (211-911) H 12/18/18 22:00 TSH 0.447 mlU/mL (0.270-4.200) 12/11/18 21:04 Thyroxine (T4) 5.3 ug/dL (4.0-12.0) 12/11/18 21:04 Urine Color Dark yellow (Yellow) 12/11/18 23:06 Urine Turbidity Clear (Clear) 12/11/18 23:06 Urine pH 5.0 (5.0-7.0) 12/11/18 23:06 Ur Specific Oden 1.021 (1.003-1.030) 12/11/18 23:06 Urine Protein 100 mg/dl mg/dL (Negative) 12/11/18 23:06 Urine Glucose (UA) >=500 mg/dL (Negative) 12/11/18 23:06 Urine Ketones Tr mg/dL (Negative) 12/11/18 23:06 Urine Blood Neg (Negative) 12/11/18 23:06 Urine Nitrite Neg (Negative) 12/11/18 23:06 Urine Bilirubin Neg (Negative) 12/11/18 23:06 Urine Urobilinogen 4.0 mg/dL (<2.0) 12/11/18 23:06 Ur Leukocyte Esterase Neg (Negative) 12/11/18 23:06 Urine WBC (Auto) 1.0 /HPF (0.0-6.0) 12/11/18 23:06 Urine RBC (Auto) 2.0 /HPF (0.0-6.0) 12/11/18 23:06 U Epithel Cells (Auto) 1.0 /HPF (0-13.0) 12/11/18 23:06 Amorphous Crystals Few 12/11/18 23:06 Random Vancomycin 7.9 ug/mL (0-40.0) 12/14/18 09:33 Urine Opiates Screen Presumptive negative 12/12/18 09:40 Urine Methadone Screen Presumptive negative 12/12/18 09:40 Ur Barbiturates Screen Presumptive negative 12/12/18 09:40 Ur Phencyclidine Scrn Presumptive negative 12/12/18 09:40 Ur Amphetamines Screen Presumptive negative 12/12/18 09:40 U Benzodiazepines Scrn Presumptive negative 12/12/18 09:40 Urine Cocaine Screen Presumptive negative 12/12/18 09:40 U Marijuana (THC) Screen Presumptive negative 12/12/18 09:40 Drugs of Abuse Note Disclamer 12/12/18 09:40 Plasma/Serum Alcohol < 0.01 % (0-0.07) 12/12/18 09:27 Blood Type O POSITIVE 12/18/18 14:06 Antibody Screen Negative 12/18/18 14:06 SHARLA Antibody Screen Negative 12/18/18 14:06 Crossmatch See Detail 12/18/18 14:06 Active Medications - Current Medications Current Medications: Generic Name Dose Route Start Last Admin Trade Name Freq PRN Reason Stop Dose Admin Acetaminophen 650 mg 12/12/18 09:53 12/18/18 13:28 Tylenol PO 650 mg Q4H PRN Administration Fever >101 Lipase/Protease/Amylase 1 each 12/19/18 10:01 Pancreaze 10,500 Unit FEEDTUBE PRN PRN For Clogged Feeding Tube Carvedilol 25 mg 12/12/18 10:00 12/20/18 22:54 Coreg PO 25 mg BID AMANDEEP Administration Dextrose 50 ml 12/12/18 08:11 D50w (25gm) Syringe IV PRN PRN Hypoglycemia Haloperidol Lactate 5 mg 12/12/18 18:00 12/20/18 01:14 Haldol IV 5 mg Q6H PRN Administration Agitation Heparin Sodium (Porcine) 5,000 unit 12/12/18 10:00 12/20/18 22:51 Heparin SUB-Q 5,000 unit Q12HR AMANDEEP Administration Hydralazine HCl 50 mg 12/12/18 09:00 12/20/18 22:53 Apresoline PO Not Given TID AMANDEEP Ceftriaxone Sodium 2 gm in 100 mls @ 200 mls/hr 12/18/18 15:00 12/20/18 10:06 Rocephin/Ns 2 Gm/100 Ml IV 01/24/19 10:29 200 mls/hr Q24HR AMANDEEP Administration Protocol Sodium Chloride 1,000 mls @ 100 mls/hr 12/18/18 22:00 12/21/18 03:03 Nacl 0.45% 1000 Ml IV 100 mls/hr DIRECT AMANDEEP Administration Insulin Glargine 60 units 12/20/18 11:32 12/20/18 22:49 Lantus SUB-Q 60 units QHS AMANDEEP Administration Insulin Human Lispro 0 unit 12/14/18 12:00 12/21/18 06:22 Humalog SUB-Q 8 unit Q6HR AMANDEEP Administration Protocol Loratadine 10 mg 12/12/18 10:00 12/20/18 10:07 Claritin PO 10 mg DAILY AMANDEEP Administration Lorazepam 1 mg 12/13/18 14:05 12/18/18 09:11 Ativan IV 1 mg Q4H PRN Administration Agitation Methimazole 5 mg 12/16/18 16:00 12/20/18 10:07 Tapazole PO 5 mg QDAY AMANDEEP Administration Morphine Sulfate 2 mg 12/12/18 02:48 12/21/18 05:42 Morphine IV 2 mg Q4H PRN Administration Pain, Moderate (4-6) Ondansetron HCl 4 mg 12/12/18 02:48 Zofran IV Q8H PRN Nausea And Vomiting Simple Syrup 15 ml 12/19/18 10:01 Simple Syrup FEEDTUBE PRN PRN Hypoglycemia Simple Syrup 30 ml 12/19/18 10:01 Simple Syrup FEEDTUBE PRN PRN Hypoglycemia Sodium Bicarbonate 325 mg 12/19/18 10:01 Sodium Bicarbonate FEEDTUBE PRN PRN For Clogged Feeding Tube Nutrition/Malnutrition Assess - Dietary Evaluation Nutrition/Malnutrition Findings: Nutrition Notes Start: 12/12/18 12:14 Freq: Status: Active Protocol: Document 12/19/18 09:41 EB (Rec: 12/19/18 10:01 EB [id number]) Co-Sign 12/19/18 09:41 NHALL Nutrition Notes Initial or Follow up Reassessment Current Diagnosis Diabetes,Hypertension Other Pertinent Diagnosis arthritis, asthma Current Diet Promote at 65 mL/hr Labs/Tests Na 145 BG 325 Pertinent Medications Reviewed Height 5 ft 7 in Weight 156.444 kg [place] Body Weight (kg) 61.36 BMI 54.0 Subjective/Other Information Observed Promote running at 35 mL/hr at time of visit. RN states TF will advance to 45 mL/hr this morning with plans to reach goal rate by tomorrow . Pt reports slightly less watery stool today. Watery stool may be related to antibiotic use. TF change to correct high BG. Percent of energy/protein needs met: 44%/82% Burn Absent Trauma Absent #1 Nutrition Diagnosis Inadequate energy intake, Predicted suboptimal energy intake Diagnosis Progress(for reassessment Continues documentation) Is patient on ventilator? No Is Patient Ambulatory and/or Out of Bed No REE-([facility]-confined to bed) 2533.512 Kcal/Kg value to use for calculation 14 Approximate Energy Requirements Using 2190 kcal/Kg Calculation Used for Recommendations Kcal/kg Additional Notes Protein: 64-80g (0.8-1g/kg using adj wt 80kg) Fluid: 1 ml/kcal Nutrition Intervention Change Diet Order: TF Nutrition Support: Glucerna 1.2 at 65ml/hr Flush with 150ml q4h Kcal 1,872 Protein (gm) 94 Fluid (mL) 1,260 Goal #1 TF tolerance Goal #2 Meet at least 75% of kcal and protein needs via TF Anticipated Discharge Needs: unable to determine at this time Follow-Up By: 12/21/18 Additional Comments Follow for TF change and tolerance.
[2018-12-21] MEDS: ROCEPHIN/NS 2 GM/100 ML 2 GM/100 ML BAG IV SCH (10:47)
[2018-12-21] MEDS: CLARITIN PO SCH (10:49)
[2018-12-21] MEDS: APRESOLINE PO SCH ×2 (10:49→17:47)
[2018-12-21] MEDS: COREG PO SCH (10:50)
[2018-12-21] MEDS: TAPAZOLE PO SCH (10:51)
[2018-12-21] MEDS: HEPARIN SUB-Q SCH ×2 (10:51→23:03)
[2018-12-21] MEDS: LANTUS SUB-Q SCH ×2 (17:46→23:00)
--- NOTE | 2018-12-21 22:08 | Consultation ---
History of Present Illness - HPI Consult date: 12/21/18 Consult reason: joint pain History of present illness: 73 y.o. female with history of Atrial fibrillation, hypertension, and now and diabetes presents after having fallen complaining of shoulder pain. Patient has had altered mental status per family for the past week prior to admission. Following admission to the hospital for workup for altered mental status revealed a fluid collection noted in the right sternoclavicular region on both CT scan Past History Past Medical History: arthritis, diabetes, hypertension, other (asthma) Past Surgical History: Other (unable to obtain) Social history: , other (unable to obtain) Family history: other (unable to obtain) Medications and Allergies Allergies Allergy/AdvReac Type Severity Reaction Status Date / Time No Known Allergies Allergy Verified 04/02/16 12:35 Home Medications Medication Instructions Recorded Confirmed Last Taken Type Carvedilol [Coreg] 25 mg PO BID 04/03/16 12/11/18 12/11/18 History Cetirizine HCl 10 mg PO QDAY 04/03/16 12/11/18 12/11/18 History Omeprazole 20 mg PO TID 04/03/16 12/11/18 12/11/18 History Pentoxifylline 400 mg PO BID 04/03/16 12/11/18 12/11/18 History hydrALAZINE [Apresoline TAB] 50 mg PO TID 04/03/16 12/11/18 12/11/18 History metFORMIN 1,000 mg PO BIDAC 04/03/16 12/11/18 12/11/18 History methIMAzole [Tapazole] 5 mg PO QDAY #30 tablet 04/05/16 12/11/18 12/11/18 Rx Active Meds: Active Medications Acetaminophen (Tylenol) 650 mg PO Q4H PRN PRN Reason: Fever >101 Last Admin: 12/18/18 13:28 Dose: 650 mg Documented by: Lipase/Protease/Amylase ([place] 10,500 Unit) 1 each FEEDTUBE PRN PRN PRN Reason: For Clogged Feeding Tube Carvedilol (Coreg) 25 mg PO BID AMANDEEP Last Admin: 12/21/18 10:50 Dose: 25 mg Documented by: Dextrose (D50w (25gm) Syringe) 50 ml IV PRN PRN PRN Reason: Hypoglycemia Haloperidol Lactate (Haldol) 5 mg IV Q6H PRN PRN Reason: Agitation Last Admin: 12/20/18 01:14 Dose: 5 mg Documented by: Heparin Sodium (Porcine) (Heparin) 5,000 unit SUB-Q Q12HR [facility] Last Admin: 12/21/18 10:51 Dose: 5,000 unit Documented by: Hydralazine HCl (Apresoline) 50 mg PO TID [facility] Last Admin: 12/21/18 17:47 Dose: 50 mg Documented by: Ceftriaxone Sodium (Rocephin/Ns 2 Gm/100 Ml) 2 gm in 100 mls @ 200 mls/hr IV Q24HR [facility]; Protocol Stop: 01/24/19 10:29 Last Admin: 12/21/18 10:47 Dose: 200 mls/hr Documented by: Sodium Chloride (Nacl 0.45% 1000 Ml) 1,000 mls @ 100 mls/hr IV DIRECT [facility] Last Admin: 12/21/18 03:03 Dose: 100 mls/hr Documented by: Insulin Glargine (Lantus) 35 units SUB-Q BID [facility] Last Admin: 12/21/18 17:46 Dose: 35 units Documented by: Insulin Human Lispro (Humalog) 0 unit SUB-Q Q6HR [facility]; Protocol Last Admin: 12/21/18 18:41 Dose: 10 unit Documented by: Loratadine (Claritin) 10 mg PO DAILY [facility] Last Admin: 12/21/18 10:49 Dose: 10 mg Documented by: Lorazepam (Ativan) 1 mg IV Q4H PRN PRN Reason: Agitation Last Admin: 12/18/18 09:11 Dose: 1 mg Documented by: Methimazole (Tapazole) 5 mg PO QDAY [facility] Last Admin: 12/21/18 10:51 Dose: 5 mg Documented by: Morphine Sulfate (Morphine) 2 mg IV Q4H PRN PRN Reason: Pain, Moderate (4-6) Last Admin: 12/21/18 05:42 Dose: 2 mg Documented by: Ondansetron HCl (Zofran) 4 mg IV Q8H PRN PRN Reason: Nausea And Vomiting Simple Syrup (Simple Syrup) 15 ml FEEDTUBE PRN PRN PRN Reason: Hypoglycemia Simple Syrup (Simple Syrup) 30 ml FEEDTUBE PRN PRN PRN Reason: Hypoglycemia Sodium Bicarbonate (Sodium Bicarbonate) 325 mg FEEDTUBE PRN PRN PRN Reason: For Clogged Feeding Tube Physical Examination - Physical exam Narrative exam: Morbidly obese female in no apparent distress family at the bedside significant muscular skeletal findings related to the right sternoclavicular area. Patient is noted to have some swelling there is no redness or erythema there is slight tenderness on palpation Eyes: PERRL ENT: Positive: clear oral mucosa Respiratory effort: normal Respiratory: bilateral: CTA Rhythm: regular Heart Sounds: Positive: S1 & S2 General gastrointestinal: Positive: soft, non-tender, non-distended, normal bowel sounds Integumentary: clear, warm, dry Neurologic: Positive: CNII-XII intact, moves all extremities, gait normal. Negative: focal deficits Assessment and Plan Right shoulder pain with swelling at the sternoclavicular joint We will aspirate and send for culture and sensitivity
[2018-12-22] MEDS: APRESOLINE PO SCH ×4 (00:35→22:44)
[2018-12-22] MEDS: COREG PO SCH ×3 (00:35→22:43)
[2018-12-22] MEDS: HumaLOG SUB-Q SCH ×4 (02:05→18:50)
[2018-12-22] MEDS: FREE WATER PO SCH ×5 (02:13→23:08)
[2018-12-22] MEDS: NACL 0.45% 1000 ML 1,000 ML IV SCH ×2 (04:29→13:35)
[2018-12-22 08:05] LABS: BUN/Creatinine Ratio 49; Blood Urea Nitrogen 39 mg/dL (7-17); Calcium 8.7 mg/dL (8.4-10.2); Hemolysis Index 1
[2018-12-22] MEDS: LANTUS SUB-Q SCH ×2 (10:10→23:06)
[2018-12-22] MEDS: CLARITIN PO SCH (10:11)
[2018-12-22] MEDS: TAPAZOLE PO SCH (10:11)
[2018-12-22] MEDS: HEPARIN SUB-Q SCH ×2 (10:11→22:43)
[2018-12-22] MEDS: ROCEPHIN/NS 2 GM/100 ML 2 GM/100 ML BAG IV SCH (10:12)
--- NOTE | 2018-12-22 10:22 | Progress Note ---
Assessment and Plan Assessment and plan: SIRS with organ dysfunction, poa, suspected sepsis but no source. Still evaluating though 73-year-old woman with history of type 2 diabetes, osteoarthritis, chronic kidney disease with creatinine baseline around 1.2, hypertension, depression, hypothyroidism, GERD who was brought to the hospital with altered mental status. CT chest, report is limited due to lack of IV contrast, but there is abnormality in the right supraclavicular region and gas bubbles concerning for infectious process 12/19: MRI brain shows global cortical atrophy with greater involvement of the frontal and temporal lobes. No acute change. Diagnosis Sepsis Group B strep bacteremia infection at R sternoclavicular joint- osteomylitis Acute metabolic encephalopathy Severe hypokalemia Hypomagnesemia Hyperthyroidism Moderate malnutrition Anemia Type 2 diabetes with persistent hyperglycemia, hyperosmolar, nonketotic hyperglycemic state Hypertension Morbid obesity -Acute kidney injury, likely component of ATN and vasomotor nephropathy -anemia due to sepsis Plan WBC tagged scan confirm SCJ infection, ortho consult appreciated, was drained on 12/21 fup cxs, NGTD -Continue empiric antibiotics per ID, status post PICC line, will likely need prolonged IV antibiotics per ID Electrolytes have been repleted Continue to optimize insulins -Acute kidney injury has now resolved, nephrology signed off on 12/19/18 -Mentation is improving -sp 2 units of blood for anemia of Chronic disease -Case discussed with infectious disease -Case discussed with family, would like rehabilitation placement, awaiting [facility] bed History Interval history: she is less uncomfortable -no fever, less confused -Per she still complaining of pain and swelling in the right supraclavicular area, but it is improved Review of systems Constitutional: No fevers, c/o gen weakness CVS: No chest pain, no orthopnea, no dyspnea on exertion, no pedal edema GI: No abdominal pain, no diarrhea, no vomiting, no constipation Respiratory: no wheezing, no coughing Hospitalist Physical - Physical exam Narrative exam: General.: Appears chronically ill, obese HEENT: Moist mucous membranes, extraocular muscles intact, no lymphadenopathy Neck: supple Cardiac: S1-S2 heard There is tenderness to right supraclavicular area Lungs: clear to auscultation bilaterally Abdomen: soft , nontender, nondistended, bowel sounds positive Extremities: no edema clubbing or cyanosis Skin: no rash or lesions Neurologic: Patient is altered, she is lethargic Psych: calm, and cooperative - Constitutional Vitals: Temp Pulse Resp BP Pulse Ox 99.2 F 84 20 145/55 96 12/22/18 07:18 12/22/18 07:18 12/22/18 07:18 12/22/18 07:18 12/22/18 09:18 General appearance: Present: no acute distress, well-nourished, obese Results - Labs CBC & Chem 7: 12/23/18 Unknown 12/25/18 04:00 Labs: Laboratory Last Values WBC 10.0 K/mm3 (4.5-11.0) 12/21/18 05:10 RBC 2.47 M/mm3 (3.65-5.03) L 12/21/18 05:10 Hgb 7.5 gm/dl (10.1-14.3) L 12/21/18 05:10 Hct 22.9 % (30.3-42.9) L 12/21/18 05:10 MCV 93 fl (79-97) 12/21/18 05:10 MCH 30 pg (28-32) 12/21/18 05:10 MCHC 33 % (30-34) 12/21/18 05:10 RDW 17.0 % (13.2-15.2) H 12/21/18 05:10 Plt Count 255 K/mm3 (140-440) 12/21/18 05:10 Lymph % (Auto) 5.1 % (13.4-35.0) L 12/21/18 05:10 [place] % (Auto) 4.5 % (0.0-7.3) 12/21/18 05:10 Eos % (Auto) 0.8 % (0.0-4.3) 12/21/18 05:10 Baso % (Auto) 0.7 % (0.0-1.8) 12/21/18 05:10 Lymph # 0.5 K/mm3 (1.2-5.4) L 12/21/18 05:10 [place] # 0.5 K/mm3 (0.0-0.8) 12/21/18 05:10 Eos # 0.1 K/mm3 (0.0-0.4) 12/21/18 05:10 Baso # 0.1 K/mm3 (0.0-0.1) 12/21/18 05:10 Add Manual Diff Complete 12/11/18 22:47 Total Counted 100 12/11/18 22:47 Seg Neutrophils % 88.9 % (40.0-70.0) H 12/21/18 05:10 Seg Neuts % (Manual) 92.0 % (40.0-70.0) H 12/11/18 22:47 Band Neutrophils % 0 % 12/11/18 22:47 Lymphocytes % (Manual) 4.0 % (13.4-35.0) L 12/11/18 22:47 Reactive Lymphs % (Man) 0 % 12/11/18 22:47 Monocytes % (Manual) 3.0 % (0.0-7.3) 12/11/18 22:47 Eosinophils % (Manual) 0 % (0.0-4.3) 12/11/18 22:47 Basophils % (Manual) 0 % (0.0-1.8) 12/11/18 22:47 Metamyelocytes % 1.0 % 12/11/18 22:47 Myelocytes % 0 % 12/11/18 22:47 Promyelocytes % 0 % 12/11/18 22:47 Blast Cells % 0 % 12/11/18 22:47 Nucleated RBC % 2.0 % (0.0-0.9) H 12/11/18 22:47 Seg Neutrophils # 8.9 K/mm3 (1.8-7.7) H 12/21/18 05:10 Seg Neutrophils # Man 17.0 K/mm3 (1.8-7.7) H 12/11/18 22:47 Band Neutrophils # 0.0 K/mm3 12/11/18 22:47 Lymphocytes # (Manual) 0.7 K/mm3 (1.2-5.4) L 12/11/18 22:47 Abs React Lymphs (Man) 0.0 K/mm3 12/11/18 22:47 Monocytes # (Manual) 0.6 K/mm3 (0.0-0.8) 12/11/18 22:47 Eosinophils # (Manual) 0.0 K/mm3 (0.0-0.4) 12/11/18 22:47 Basophils # (Manual) 0.0 K/mm3 (0.0-0.1) 12/11/18 22:47 Metamyelocytes # 0.2 K/mm3 12/11/18 22:47 Myelocytes # 0.0 K/mm3 12/11/18 22:47 Promyelocytes # 0.0 K/mm3 12/11/18 22:47 Blast Cells # 0.0 K/mm3 12/11/18 22:47 WBC Morphology Not Reportable 12/11/18 22:47 Hypersegmented Neuts Not Reportable 12/11/18 22:47 Hyposegmented Neuts Not Reportable 12/11/18 22:47 Hypogranular Neuts Not Reportable 12/11/18 22:47 Smudge Cells Not Reportable 12/11/18 22:47 Toxic Granulation Not Reportable 12/11/18 22:47 Toxic Vacuolation Not Reportable 12/11/18 22:47 Dohle Bodies Not Reportable 12/11/18 22:47 Pelger-Huet Anomaly Not Reportable 12/11/18 22:47 Starla Rods Not Reportable 12/11/18 22:47 Platelet Estimate Consistent w auto 12/11/18 22:47 Clumped Platelets Few 12/11/18 22:47 Plt Clumps, EDTA Not Reportable 12/11/18 22:47 Large Platelets 1+ 12/11/18 22:47 Giant Platelets Not Reportable 12/11/18 22:47 Platelet Satelliting Not Reportable 12/11/18 22:47 Plt Morphology Comment Not Reportable 12/11/18 22:47 RBC Morphology Normal 12/11/18 22:47 Dimorphic RBCs Not Reportable 12/11/18 22:47 Polychromasia Not Reportable 12/11/18 22:47 Hypochromasia Not Reportable 12/11/18 22:47 Poikilocytosis Not Reportable 12/11/18 22:47 Anisocytosis Not Reportable 12/11/18 22:47 Microcytosis Not Reportable 12/11/18 22:47 Macrocytosis Not Reportable 12/11/18 22:47 Spherocytes Not Reportable 12/11/18 22:47 Pappenheimer Bodies Not Reportable 12/11/18 22:47 Sickle Cells Not Reportable 12/11/18 22:47 Target Cells Not Reportable 12/11/18 22:47 Tear Drop Cells Not Reportable 12/11/18 22:47 Ovalocytes Not Reportable 12/11/18 22:47 Helmet Cells Not Reportable 12/11/18 22:47 [place] Bodies Not Reportable 12/11/18 22:47 [place] Rings Not Reportable 12/11/18 22:47 [place] Cells Not Reportable 12/11/18 22:47 Bite Cells Not Reportable 12/11/18 22:47 Crenated Cell Not Reportable 12/11/18 22:47 Elliptocytes Not Reportable 12/11/18 22:47 Acanthocytes (Spur) Not Reportable 12/11/18 22:47 Rouleaux Not Reportable 12/11/18 22:47 Hemoglobin C Crystals Not Reportable 12/11/18 22:47 Schistocytes Not Reportable 12/11/18 22:47 Malaria parasites Not Reportable 12/11/18 22:47 [place] Bodies Not Reportable 12/11/18 22:47 Hem Pathologist Commnt No 12/11/18 22:47 PT 16.8 Sec. (12.2-14.9) H 12/12/18 11:45 INR 1.28 (0.87-1.13) H 12/12/18 11:45 APTT 40.8 Sec. (24.2-36.6) H 12/12/18 11:45 POC ABG pH 7.420 (7.35-7.45) 12/11/18 23:14 POC ABG pCO2 39.6 (35-45) 12/11/18 23:14 POC ABG pO2 84 (80-105) 12/11/18 23:14 POC ABG HCO3 25.7 (22-26 mml/L) 12/11/18 23:14 POC ABG Total CO2 27 (23-27mmol/L) 12/11/18 23:14 POC ABG O2 Sat 97 12/11/18 23:14 POC ABG Base Excess 1 ((-2) - (+3)mmol/L) 12/11/18 23:14 FiO2 32 % 12/11/18 23:14 Sodium 136 mmol/L (137-145) L 12/22/18 07:00 Potassium 4.9 mmol/L (3.6-5.0) 12/22/18 07:00 Chloride 102.0 mmol/L (98-107) 12/22/18 07:00 Carbon Dioxide 26 mmol/L (22-30) 12/22/18 07:00 Anion Gap 13 mmol/L 12/22/18 07:00 BUN 39 mg/dL (7-17) H 12/22/18 07:00 Creatinine 0.8 mg/dL (0.7-1.2) 12/22/18 07:00 Estimated GFR > 60 ml/min 12/22/18 07:00 BUN/Creatinine Ratio 49 % 12/22/18 07:00 Glucose 275 mg/dL (65-100) H 12/22/18 07:00 POC Glucose 275 (70-105) H 12/22/18 06:57 Osmolality 336 Mosm/kg 12/18/18 09:56 Uric Acid 7.0 mg/dL (3.5-7.6) 12/18/18 09:56 Calcium 8.7 mg/dL (8.4-10.2) 12/22/18 07:00 Phosphorus 2.50 mg/dL (2.5-4.5) 12/13/18 07:39 Magnesium 1.70 mg/dL (1.7-2.3) 12/17/18 05:28 Total Bilirubin 2.10 mg/dL (0.1-1.2) H 12/11/18 20:34 AST 25 units/L (5-40) 12/11/18 20:34 ALT 27 units/L (7-56) 12/11/18 20:34 Alkaline Phosphatase 215 units/L (35-129) H 12/11/18 20:34 Ammonia 35.0 umol/L (25-60) 12/18/18 22:00 Total Creatine Kinase 44 units/L (30-135) 12/12/18 07:33 CK-MB (CK-2) 1.1 ng/mL (0.0-4.0) 12/12/18 07:33 CK-MB (CK-2) Rel Index 2.5 (0-4) 12/12/18 07:33 Troponin T 0.036 ng/mL (0.00-0.029) H 12/12/18 07:33 C-Reactive Protein 32.70 mg/dL (0.00-1.30) H 12/13/18 16:23 Total Protein 6.2 g/dL (6.3-8.2) L 12/11/18 20:34 Albumin 2.9 g/dL (3.9-5) L 12/11/18 20:34 Albumin/Globulin Ratio 0.9 % 12/11/18 20:34 Triglycerides 173 mg/dL (2-149) H 12/11/18 20:34 Cholesterol 95 mg/dL (50-199) 12/11/18 20:34 LDL Cholesterol Direct 16 mg/dL (50-130) L 12/11/18 20:34 HDL Cholesterol 19 mg/dL (40-59) L 12/11/18 20:34 Cholesterol/HDL Ratio 5.00 % 12/11/18 20:34 Vitamin B12 > 2000 pg/mL (211-911) H 12/18/18 22:00 TSH 0.447 mlU/mL (0.270-4.200) 12/11/18 21:04 Thyroxine (T4) 5.3 ug/dL (4.0-12.0) 12/11/18 21:04 Urine Color Dark yellow (Yellow) 12/11/18 23:06 Urine Turbidity Clear (Clear) 12/11/18 23:06 Urine pH 5.0 (5.0-7.0) 12/11/18 23:06 Ur Specific Thermal 1.021 (1.003-1.030) 12/11/18 23:06 Urine Protein 100 mg/dl mg/dL (Negative) 12/11/18 23:06 Urine Glucose (UA) >=500 mg/dL (Negative) 12/11/18 23:06 Urine Ketones Tr mg/dL (Negative) 12/11/18 23:06 Urine Blood Neg (Negative) 12/11/18 23:06 Urine Nitrite Neg (Negative) 12/11/18 23:06 Urine Bilirubin Neg (Negative) 12/11/18 23:06 Urine Urobilinogen 4.0 mg/dL (<2.0) 12/11/18 23:06 Ur Leukocyte Esterase Neg (Negative) 12/11/18 23:06 Urine WBC (Auto) 1.0 /HPF (0.0-6.0) 12/11/18 23:06 Urine RBC (Auto) 2.0 /HPF (0.0-6.0) 12/11/18 23:06 U Epithel Cells (Auto) 1.0 /HPF (0-13.0) 12/11/18 23:06 Amorphous Crystals Few 12/11/18 23:06 Random Vancomycin 7.9 ug/mL (0-40.0) 12/14/18 09:33 Urine Opiates Screen Presumptive negative 12/12/18 09:40 Urine Methadone Screen Presumptive negative 12/12/18 09:40 Ur Barbiturates Screen Presumptive negative 12/12/18 09:40 Ur Phencyclidine Scrn Presumptive negative 12/12/18 09:40 Ur Amphetamines Screen Presumptive negative 12/12/18 09:40 U Benzodiazepines Scrn Presumptive negative 12/12/18 09:40 Urine Cocaine Screen Presumptive negative 12/12/18 09:40 U Marijuana (THC) Screen Presumptive negative 12/12/18 09:40 Drugs of Abuse Note Disclamer 12/12/18 09:40 Plasma/Serum Alcohol < 0.01 % (0-0.07) 12/12/18 09:27 Blood Type O POSITIVE 12/18/18 14:06 Antibody Screen Negative 12/18/18 14:06 SHARLA Antibody Screen Negative 12/18/18 14:06 Crossmatch See Detail 12/18/18 14:06 Active Medications - Current Medications Current Medications: Generic Name Dose Route Start Last Admin Trade Name Freq PRN Reason Stop Dose Admin Acetaminophen 650 mg 12/12/18 09:53 12/18/18 13:28 Tylenol PO 650 mg Q4H PRN Administration Fever >101 Lipase/Protease/Amylase 1 each 12/19/18 10:01 Pancreorse Smith 10,500 Unit FEEDTUBE PRN PRN For Clogged Feeding Tube Carvedilol 25 mg 12/12/18 10:00 12/22/18 00:35 Coreg PO Not Given BID AMANDEEP Dextrose 50 ml 12/12/18 08:11 D50w (25gm) Syringe IV PRN PRN Hypoglycemia Haloperidol Lactate 5 mg 12/12/18 18:00 12/20/18 01:14 Haldol IV 5 mg Q6H PRN Administration Agitation Heparin Sodium (Porcine) 5,000 unit 12/12/18 10:00 12/21/18 23:03 Heparin SUB-Q 5,000 unit Q12HR AMANDEEP Administration Hydralazine HCl 50 mg 12/12/18 09:00 12/22/18 00:35 Apresoline PO Not Given TID AMANDEEP Ceftriaxone Sodium 2 gm in 100 mls @ 200 mls/hr 12/18/18 15:00 12/21/18 10:47 Rocephin/Ns 2 Gm/100 Ml IV 01/24/19 10:29 200 mls/hr Q24HR AMANDEEP Administration Protocol Sodium Chloride 1,000 mls @ 100 mls/hr 12/18/18 22:00 12/22/18 04:29 Nacl 0.45% 1000 Ml IV 100 mls/hr DIRECT AMANDEEP Administration Insulin Glargine 35 units 12/21/18 14:00 12/21/18 23:00 Lantus SUB-Q 35 units BID AMANDEEP Administration Insulin Human Lispro 0 unit 12/14/18 12:00 12/22/18 05:40 Humalog SUB-Q 6 unit Q6HR AMANDEEP Administration Protocol Loratadine 10 mg 12/12/18 10:00 12/21/18 10:49 Claritin PO 10 mg DAILY AMANDEEP Administration Lorazepam 1 mg 12/13/18 14:05 12/18/18 09:11 Ativan IV 1 mg Q4H PRN Administration Agitation Methimazole 5 mg 12/16/18 16:00 12/21/18 10:51 Tapazole PO 5 mg QDAY AMANDEEP Administration Morphine Sulfate 2 mg 12/12/18 02:48 12/21/18 05:42 Morphine IV 2 mg Q4H PRN Administration Pain, Moderate (4-6) Ondansetron HCl 4 mg 12/12/18 02:48 Zofran IV Q8H PRN Nausea And Vomiting Simple Syrup 15 ml 12/19/18 10:01 Simple Syrup FEEDTUBE PRN PRN Hypoglycemia Simple Syrup 30 ml 12/19/18 10:01 Simple Syrup FEEDTUBE PRN PRN Hypoglycemia Sodium Bicarbonate 325 mg 12/19/18 10:01 Sodium Bicarbonate FEEDTUBE PRN PRN For Clogged Feeding Tube Nutrition/Malnutrition Assess - Dietary Evaluation Nutrition/Malnutrition Findings: Nutrition Notes Start: 12/12/18 12:14 Freq: Status: Active Protocol: Document 12/21/18 13:14 RM (Rec: 12/21/18 13:30 RM [id number]) Nutrition Notes Initial or Follow up Reassessment Current Diagnosis Diabetes,Hypertension Other Pertinent Diagnosis arthritis, asthma Current Diet Glucerna 1.2 at 65 ml/hr + Mec soft diet Labs/Tests BG 388 Pertinent Medications Reviewed Height 5 ft 7 in Weight 156.5 kg [place] Body Weight (kg) 61.36 BMI 54.0 Subjective/Other Information Pt evaluated by ST yesterday and cleared for [facility] soft diet w/ground meat and regular liquids per ST note 12/20/18. [facility] soft diet w/ground meat ordered earlier today. Per nurse pt has been receiving meals and TF today. Noted Promote hanging and infusing. Nurse and tech stated that pt has only eaten bites of meals. Electrical And Instrument Engineer advised nurse to replace Promote with Glucerna 1.2 and maintain at 20 ml/hr to encourage patient to try eating more orally. Burn Absent Trauma Absent #1 Nutrition Diagnosis Inadequate energy intake, Predicted suboptimal energy intake Diagnosis Progress(for reassessment Continues documentation) Is patient on ventilator? No Is Patient Ambulatory and/or Out of Bed No REE-([place]-confined to bed) 2534.184 Kcal/Kg value to use for calculation 14 Approximate Energy Requirements Using 2191 kcal/Kg Calculation Used for Recommendations Kcal/kg Additional Notes Protein: 64-80g (0.8-1g/kg using adj wt 80kg) Fluid: 1 ml/kcal Nutrition Intervention Change Diet Order: TF Nutrition Support: Glucerna 1.2 at 20ml/hr. Flush with 50ml q4h Kcal 576 Protein (gm) 29 Fluid (mL) 1,260 Goal #1 Diet tolerance Goal #2 Meet at least 75% of kcal and protein needs via PO intake Anticipated Discharge Needs: unable to determine at this time Follow-Up By: 12/24/18 Additional Comments Follow for PO intake
[2018-12-22] MEDS ORDERED: LANTUS SUB-Q ONE (11:11)
--- NOTE | 2018-12-22 14:26 | Progress Note ---
Subjective Date of service: 12/22/18 Principal diagnosis: sepsis Interval history: EEG is unchanged still very slow no seizures suspect encephalopathy plan to monitor review all labs and notes for further rec's Objective - Vital Sign Vital Signs - 12hr 12/22/18 12/22/18 12/22/18 02:44 07:18 09:18 Temperature 99.5 F 99.2 F Pulse Rate 83 84 Respiratory 22 20 Rate Blood Pressure 120/48 145/55 O2 Sat by Pulse 99 98 96 Oximetry - Laboratory Findings CBC and BMP: 12/21/18 05:10 12/22/18 07:00 Abnormal Lab Findings: Abnormal Labs 12/11/18 12/11/18 12/11/18 20:09 20:34 20:34 WBC RBC Hgb Hct RDW Lymph % (Auto) Lymph # Seg Neutrophils % Seg Neuts % (Manual) Lymphocytes % (Manual) Nucleated RBC % Seg Neutrophils # Seg Neutrophils # Man Lymphocytes # (Manual) PT INR APTT Sodium 134 L Potassium 2.9 L* Chloride 88.1 L Carbon Dioxide BUN 50 H Creatinine 1.4 H Glucose 529 H* POC Glucose 445 H Phosphorus Magnesium Total Bilirubin 2.10 H Alkaline Phosphatase 215 H Ammonia Troponin T 0.038 H C-Reactive Protein Total Protein 6.2 L Albumin 2.9 L Triglycerides 173 H LDL Cholesterol Direct 16 L HDL Cholesterol 19 L Vitamin B12 Crossmatch 12/11/18 12/11/18 12/11/18 21:04 22:47 22:47 WBC 18.5 H RBC 3.10 L Hgb 9.3 L Hct 28.8 L RDW 17.2 H Lymph % (Auto) Lymph # Seg Neutrophils % Seg Neuts % (Manual) 92.0 H Lymphocytes % (Manual) 4.0 L Nucleated RBC % 2.0 H Seg Neutrophils # Seg Neutrophils # Man 17.0 H Lymphocytes # (Manual) 0.7 L PT INR APTT Sodium Potassium Chloride Carbon Dioxide BUN Creatinine Glucose POC Glucose Phosphorus 1.50 L Magnesium 1.30 L Total Bilirubin Alkaline Phosphatase Ammonia 19.0 L Troponin T C-Reactive Protein Total Protein Albumin Triglycerides LDL Cholesterol Direct HDL Cholesterol Vitamin B12 Crossmatch 12/11/18 12/12/18 12/12/18 22:47 00:47 01:57 WBC RBC Hgb Hct RDW Lymph % (Auto) Lymph # Seg Neutrophils % Seg Neuts % (Manual) Lymphocytes % (Manual) Nucleated RBC % Seg Neutrophils # Seg Neutrophils # Man Lymphocytes # (Manual) PT INR APTT Sodium 133 L 134 L Potassium 2.4 L* 2.8 L* Chloride 91.7 L 93.8 L Carbon Dioxide BUN 51 H 50 H Creatinine 1.6 H 1.5 H Glucose 436 H 429 H POC Glucose 442 H Phosphorus Magnesium Total Bilirubin Alkaline Phosphatase Ammonia Troponin T C-Reactive Protein Total Protein Albumin Triglycerides LDL Cholesterol Direct HDL Cholesterol Vitamin B12 Crossmatch 12/12/18 12/12/18 12/12/18 04:10 05:20 05:24 WBC RBC Hgb Hct RDW Lymph % (Auto) Lymph # Seg Neutrophils % Seg Neuts % (Manual) Lymphocytes % (Manual) Nucleated RBC % Seg Neutrophils # Seg Neutrophils # Man Lymphocytes # (Manual) PT INR APTT Sodium 136 L Potassium 2.8 L* Chloride 96.5 L Carbon Dioxide BUN 48 H Creatinine 1.4 H Glucose 417 H POC Glucose 406 H 405 H Phosphorus Magnesium Total Bilirubin Alkaline Phosphatase Ammonia Troponin T C-Reactive Protein Total Protein Albumin Triglycerides LDL Cholesterol Direct HDL Cholesterol Vitamin B12 Crossmatch 12/12/18 12/12/18 12/12/18 07:33 07:33 08:02 WBC RBC Hgb Hct RDW Lymph % (Auto) Lymph # Seg Neutrophils % Seg Neuts % (Manual) Lymphocytes % (Manual) Nucleated RBC % Seg Neutrophils # Seg Neutrophils # Man Lymphocytes # (Manual) PT INR APTT Sodium 135 L Potassium 2.5 L* Chloride Carbon Dioxide BUN 45 H Creatinine Glucose 358 H POC Glucose 286 H Phosphorus Magnesium Total Bilirubin Alkaline Phosphatase Ammonia Troponin T 0.036 H C-Reactive Protein Total Protein Albumin Triglycerides LDL Cholesterol Direct HDL Cholesterol Vitamin B12 Crossmatch 12/12/18 12/12/18 12/12/18 11:45 11:48 14:58 WBC RBC Hgb Hct RDW Lymph % (Auto) Lymph # Seg Neutrophils % Seg Neuts % (Manual) Lymphocytes % (Manual) Nucleated RBC % Seg Neutrophils # Seg Neutrophils # Man Lymphocytes # (Manual) PT 16.8 H INR 1.28 H APTT 40.8 H Sodium Potassium Chloride Carbon Dioxide BUN 45 H Creatinine 1.3 H Glucose 265 H POC Glucose 296 H Phosphorus Magnesium 2.50 H Total Bilirubin Alkaline Phosphatase Ammonia Troponin T C-Reactive Protein Total Protein Albumin Triglycerides LDL Cholesterol Direct HDL Cholesterol Vitamin B12 Crossmatch 12/12/18 12/12/1819 15:49 21:11 23:40 WBC RBC Hgb Hct RDW Lymph % (Auto) Lymph # Seg Neutrophils % Seg Neuts % (Manual) Lymphocytes % (Manual) Nucleated RBC % Seg Neutrophils # Seg Neutrophils # Man Lymphocytes # (Manual) PT INR APTT Sodium Potassium Chloride Carbon Dioxide BUN Creatinine Glucose POC Glucose 253 H 236 H 297 H Phosphorus Magnesium Total Bilirubin Alkaline Phosphatase Ammonia Troponin T C-Reactive Protein Total Protein Albumin Triglycerides LDL Cholesterol Direct HDL Cholesterol Vitamin B12 Crossmatch 12/13/18 12/13/18 12/13/18 04:51 07:39 07:39 WBC 17.5 H RBC 3.31 L Hgb 9.8 L Hct RDW 16.8 H Lymph % (Auto) Lymph # Seg Neutrophils % Seg Neuts % (Manual) Lymphocytes % (Manual) Nucleated RBC % Seg Neutrophils # Seg Neutrophils # Man Lymphocytes # (Manual) PT INR APTT Sodium Potassium Chloride Carbon Dioxide 21 L BUN 42 H Creatinine Glucose 229 H POC Glucose 208 H Phosphorus Magnesium Total Bilirubin Alkaline Phosphatase Ammonia Troponin T C-Reactive Protein Total Protein Albumin Triglycerides LDL Cholesterol Direct HDL Cholesterol Vitamin B12 Crossmatch 12/13/18 12/13/18 12/13/18 09:17 13:10 16:23 WBC RBC Hgb Hct RDW Lymph % (Auto) Lymph # Seg Neutrophils % Seg Neuts % (Manual) Lymphocytes % (Manual) Nucleated RBC % Seg Neutrophils # Seg Neutrophils # Man Lymphocytes # (Manual) PT INR APTT Sodium Potassium Chloride Carbon Dioxide BUN Creatinine Glucose POC Glucose 229 H 230 H Phosphorus Magnesium Total Bilirubin Alkaline Phosphatase Ammonia Troponin T C-Reactive Protein 32.70 H Total Protein Albumin Triglycerides LDL Cholesterol Direct HDL Cholesterol Vitamin B12 Crossmatch 12/13/18 12/13/18 12/14/18 17:12 20:43 00:53 WBC RBC Hgb Hct RDW Lymph % (Auto) Lymph # Seg Neutrophils % Seg Neuts % (Manual) Lymphocytes % (Manual) Nucleated RBC % Seg Neutrophils # Seg Neutrophils # Man Lymphocytes # (Manual) PT INR APTT Sodium Potassium Chloride Carbon Dioxide BUN Creatinine Glucose POC Glucose 199 H 225 H 221 H Phosphorus Magnesium Total Bilirubin Alkaline Phosphatase Ammonia Troponin T C-Reactive Protein Total Protein Albumin Triglycerides LDL Cholesterol Direct HDL Cholesterol Vitamin B12 Crossmatch 12/14/18 12/14/18 12/14/18 04:42 04:42 05:32 WBC 14.7 H RBC 2.69 L Hgb 8.1 L Hct 25.0 L RDW 17.1 H Lymph % (Auto) Lymph # Seg Neutrophils % Seg Neuts % (Manual) Lymphocytes % (Manual) Nucleated RBC % Seg Neutrophils # Seg Neutrophils # Man Lymphocytes # (Manual) PT INR APTT Sodium 146 H D Potassium Chloride 111.3 H Carbon Dioxide BUN 47 H Creatinine 1.5 H Glucose 187 H POC Glucose 198 H Phosphorus Magnesium Total Bilirubin Alkaline Phosphatase Ammonia Troponin T C-Reactive Protein Total Protein Albumin Triglycerides LDL Cholesterol Direct HDL Cholesterol Vitamin B12 Crossmatch 12/14/18 12/14/18 12/14/18 08:41 12:04 12:55 WBC RBC Hgb Hct RDW Lymph % (Auto) Lymph # Seg Neutrophils % Seg Neuts % (Manual) Lymphocytes % (Manual) Nucleated RBC % Seg Neutrophils # Seg Neutrophils # Man Lymphocytes # (Manual) PT INR APTT Sodium 149 H Potassium 3.5 L Chloride Carbon Dioxide 20 L BUN 46 H Creatinine 1.3 H Glucose 238 H POC Glucose 225 H 226 H Phosphorus Magnesium Total Bilirubin Alkaline Phosphatase Ammonia Troponin T C-Reactive Protein Total Protein Albumin Triglycerides LDL Cholesterol Direct HDL Cholesterol Vitamin B12 Crossmatch 12/14/18 12/15/18 12/15/18 18:03 01:00 05:19 WBC 12.8 H RBC 2.66 L Hgb 8.0 L Hct 24.8 L RDW 17.3 H Lymph % (Auto) Lymph # Seg Neutrophils % Seg Neuts % (Manual) Lymphocytes % (Manual) Nucleated RBC % Seg Neutrophils # Seg Neutrophils # Man Lymphocytes # (Manual) PT INR APTT Sodium Potassium Chloride Carbon Dioxide BUN Creatinine Glucose POC Glucose 257 H 277 H Phosphorus Magnesium Total Bilirubin Alkaline Phosphatase Ammonia Troponin T C-Reactive Protein Total Protein Albumin Triglycerides LDL Cholesterol Direct HDL Cholesterol Vitamin B12 Crossmatch 12/15/18 12/15/18 12/15/18 05:19 06:04 11:36 WBC RBC Hgb Hct RDW Lymph % (Auto) Lymph # Seg Neutrophils % Seg Neuts % (Manual) Lymphocytes % (Manual) Nucleated RBC % Seg Neutrophils # Seg Neutrophils # Man Lymphocytes # (Manual) PT INR APTT Sodium 146 H Potassium Chloride 113.5 H Carbon Dioxide 21 L BUN 49 H Creatinine 1.3 H Glucose 286 H POC Glucose 315 H 317 H Phosphorus Magnesium Total Bilirubin Alkaline Phosphatase Ammonia Troponin T C-Reactive Protein Total Protein Albumin Triglycerides LDL Cholesterol Direct HDL Cholesterol Vitamin B12 Crossmatch 12/15/18 12/15/18 12/16/18 18:11 21:40 05:11 WBC RBC 2.61 L Hgb 7.9 L Hct 23.7 L RDW 17.3 H Lymph % (Auto) Lymph # Seg Neutrophils % Seg Neuts % (Manual) Lymphocytes % (Manual) Nucleated RBC % Seg Neutrophils # Seg Neutrophils # Man Lymphocytes # (Manual) PT INR APTT Sodium Potassium Chloride Carbon Dioxide BUN Creatinine Glucose POC Glucose 273 H 318 H Phosphorus Magnesium Total Bilirubin Alkaline Phosphatase Ammonia Troponin T C-Reactive Protein Total Protein Albumin Triglycerides LDL Cholesterol Direct HDL Cholesterol Vitamin B12 Crossmatch 12/16/18 12/16/18 12/16/18 05:11 06:21 12:19 WBC RBC Hgb Hct RDW Lymph % (Auto) Lymph # Seg Neutrophils % Seg Neuts % (Manual) Lymphocytes % (Manual) Nucleated RBC % Seg Neutrophils # Seg Neutrophils # Man Lymphocytes # (Manual) PT INR APTT Sodium 150 H Potassium Chloride 117.3 H Carbon Dioxide BUN 52 H Creatinine 1.4 H Glucose 352 H POC Glucose 322 H 371 H Phosphorus Magnesium Total Bilirubin Alkaline Phosphatase Ammonia Troponin T C-Reactive Protein Total Protein Albumin Triglycerides LDL Cholesterol Direct HDL Cholesterol Vitamin B12 Crossmatch 12/16/18 12/16/18 12/17/18 16:58 23:51 05:28 WBC RBC 2.38 L Hgb 7.2 L Hct 21.9 L RDW 17.4 H Lymph % (Auto) Lymph # Seg Neutrophils % Seg Neuts % (Manual) Lymphocytes % (Manual) Nucleated RBC % Seg Neutrophils # Seg Neutrophils # Man Lymphocytes # (Manual) PT INR APTT Sodium Potassium Chloride Carbon Dioxide BUN Creatinine Glucose POC Glucose 323 H 302 H Phosphorus Magnesium Total Bilirubin Alkaline Phosphatase Ammonia Troponin T C-Reactive Protein Total Protein Albumin Triglycerides LDL Cholesterol Direct HDL Cholesterol Vitamin B12 Crossmatch 12/17/18 12/17/18 12/17/18 05:28 06:09 11:47 WBC RBC Hgb Hct RDW Lymph % (Auto) Lymph # Seg Neutrophils % Seg Neuts % (Manual) Lymphocytes % (Manual) Nucleated RBC % Seg Neutrophils # Seg Neutrophils # Man Lymphocytes # (Manual) PT INR APTT Sodium 152 H Potassium Chloride 118.6 H Carbon Dioxide BUN 44 H Creatinine Glucose 291 H POC Glucose 297 H 340 H Phosphorus Magnesium Total Bilirubin Alkaline Phosphatase Ammonia Troponin T C-Reactive Protein Total Protein Albumin Triglycerides LDL Cholesterol Direct HDL Cholesterol Vitamin B12 Crossmatch 12/17/18 12/18/18 12/18/18 18:15 00:14 06:39 WBC RBC Hgb Hct RDW Lymph % (Auto) Lymph # Seg Neutrophils % Seg Neuts % (Manual) Lymphocytes % (Manual) Nucleated RBC % Seg Neutrophils # Seg Neutrophils # Man Lymphocytes # (Manual) PT INR APTT Sodium Potassium Chloride Carbon Dioxide BUN Creatinine Glucose POC Glucose 312 H 355 H 351 H Phosphorus Magnesium Total Bilirubin Alkaline Phosphatase Ammonia Troponin T C-Reactive Protein Total Protein Albumin Triglycerides LDL Cholesterol Direct HDL Cholesterol Vitamin B12 Crossmatch 12/18/18 12/18/18 12/18/18 06:58 06:58 11:28 WBC RBC 2.24 L Hgb 6.9 L Hct 21.2 L RDW 17.9 H Lymph % (Auto) Lymph # Seg Neutrophils % Seg Neuts % (Manual) Lymphocytes % (Manual) Nucleated RBC % Seg Neutrophils # Seg Neutrophils # Man Lymphocytes # (Manual) PT INR APTT Sodium 150 H Potassium Chloride 117.0 H Carbon Dioxide BUN 48 H Creatinine 1.4 H Glucose 362 H POC Glucose 342 H Phosphorus Magnesium Total Bilirubin Alkaline Phosphatase Ammonia Troponin T C-Reactive Protein Total Protein Albumin Triglycerides LDL Cholesterol Direct HDL Cholesterol Vitamin B12 Crossmatch 12/18/18 12/18/18 12/18/18 14:06 17:36 22:00 WBC RBC Hgb Hct RDW Lymph % (Auto) Lymph # Seg Neutrophils % Seg Neuts % (Manual) Lymphocytes % (Manual) Nucleated RBC % Seg Neutrophils # Seg Neutrophils # Man Lymphocytes # (Manual) PT INR APTT Sodium Potassium Chloride Carbon Dioxide BUN Creatinine Glucose POC Glucose 330 H Phosphorus Magnesium Total Bilirubin Alkaline Phosphatase Ammonia Troponin T C-Reactive Protein Total Protein Albumin Triglycerides LDL Cholesterol Direct HDL Cholesterol Vitamin B12 > 2000 H Crossmatch See Detail 12/19/18 12/19/18 12/19/18 00:23 04:47 04:47 WBC RBC 2.46 L Hgb 7.5 L Hct 22.9 L RDW 17.6 H Lymph % (Auto) 7.8 L Lymph # 0.7 L Seg Neutrophils % 85.7 H Seg Neuts % (Manual) Lymphocytes % (Manual) Nucleated RBC % Seg Neutrophils # Seg Neutrophils # Man Lymphocytes # (Manual) PT INR APTT Sodium Potassium Chloride 113.2 H Carbon Dioxide BUN 40 H Creatinine Glucose 325 H POC Glucose 291 H Phosphorus Magnesium Total Bilirubin Alkaline Phosphatase Ammonia Troponin T C-Reactive Protein Total Protein Albumin Triglycerides LDL Cholesterol Direct HDL Cholesterol Vitamin B12 Crossmatch 12/19/18 12/19/18 12/19/18 06:34 11:43 17:54 WBC RBC Hgb Hct RDW Lymph % (Auto) Lymph # Seg Neutrophils % Seg Neuts % (Manual) Lymphocytes % (Manual) Nucleated RBC % Seg Neutrophils # Seg Neutrophils # Man Lymphocytes # (Manual) PT INR APTT Sodium Potassium Chloride Carbon Dioxide BUN Creatinine Glucose POC Glucose 308 H 324 H 349 H Phosphorus Magnesium Total Bilirubin Alkaline Phosphatase Ammonia Troponin T C-Reactive Protein Total Protein Albumin Triglycerides LDL Cholesterol Direct HDL Cholesterol Vitamin B12 Crossmatch 12/20/18 12/20/18 12/20/18 00:37 05:58 06:25 WBC RBC Hgb Hct RDW Lymph % (Auto) Lymph # Seg Neutrophils % Seg Neuts % (Manual) Lymphocytes % (Manual) Nucleated RBC % Seg Neutrophils # Seg Neutrophils # Man Lymphocytes # (Manual) PT INR APTT Sodium Potassium Chloride Carbon Dioxide BUN 43 H Creatinine Glucose 394 H POC Glucose 362 H 357 H Phosphorus Magnesium Total Bilirubin Alkaline Phosphatase Ammonia Troponin T C-Reactive Protein Total Protein Albumin Triglycerides LDL Cholesterol Direct HDL Cholesterol Vitamin B12 Crossmatch 12/20/18 12/20/18 12/20/18 11:34 17:44 22:31 WBC RBC Hgb Hct RDW Lymph % (Auto) Lymph # Seg Neutrophils % Seg Neuts % (Manual) Lymphocytes % (Manual) Nucleated RBC % Seg Neutrophils # Seg Neutrophils # Man Lymphocytes # (Manual) PT INR APTT Sodium Potassium Chloride Carbon Dioxide BUN Creatinine Glucose POC Glucose 360 H 347 H 433 H Phosphorus Magnesium Total Bilirubin Alkaline Phosphatase Ammonia Troponin T C-Reactive Protein Total Protein Albumin Triglycerides LDL Cholesterol Direct HDL Cholesterol Vitamin B12 Crossmatch 12/20/18 12/21/18 12/21/18 23:56 05:10 05:10 WBC RBC 2.47 L Hgb 7.5 L Hct 22.9 L RDW 17.0 H Lymph % (Auto) 5.1 L Lymph # 0.5 L Seg Neutrophils % 88.9 H Seg Neuts % (Manual) Lymphocytes % (Manual) Nucleated RBC % Seg Neutrophils # 8.9 H Seg Neutrophils # Man Lymphocytes # (Manual) PT INR APTT Sodium 136 L Potassium Chloride Carbon Dioxide BUN 38 H Creatinine Glucose 388 H POC Glucose 397 H Phosphorus Magnesium Total Bilirubin Alkaline Phosphatase Ammonia Troponin T C-Reactive Protein Total Protein Albumin Triglycerides LDL Cholesterol Direct HDL Cholesterol Vitamin B12 Crossmatch 12/21/18 12/21/18 12/21/18 05:50 11:46 18:12 WBC RBC Hgb Hct RDW Lymph % (Auto) Lymph # Seg Neutrophils % Seg Neuts % (Manual) Lymphocytes % (Manual) Nucleated RBC % Seg Neutrophils # Seg Neutrophils # Man Lymphocytes # (Manual) PT INR APTT Sodium Potassium Chloride Carbon Dioxide BUN Creatinine Glucose POC Glucose 324 H 359 H 351 H Phosphorus Magnesium Total Bilirubin Alkaline Phosphatase Ammonia Troponin T C-Reactive Protein Total Protein Albumin Triglycerides LDL Cholesterol Direct HDL Cholesterol Vitamin B12 Crossmatch 12/21/18 12/22/18 12/22/18 22:37 06:57 07:00 WBC RBC Hgb Hct RDW Lymph % (Auto) Lymph # Seg Neutrophils % Seg Neuts % (Manual) Lymphocytes % (Manual) Nucleated RBC % Seg Neutrophils # Seg Neutrophils # Man Lymphocytes # (Manual) PT INR APTT Sodium 136 L Potassium Chloride Carbon Dioxide BUN 39 H Creatinine Glucose 275 H POC Glucose 287 H 275 H Phosphorus Magnesium Total Bilirubin Alkaline Phosphatase Ammonia Troponin T C-Reactive Protein Total Protein Albumin Triglycerides LDL Cholesterol Direct HDL Cholesterol Vitamin B12 Crossmatch 12/22/18 11:27 WBC RBC Hgb Hct RDW Lymph % (Auto) Lymph # Seg Neutrophils % Seg Neuts % (Manual) Lymphocytes % (Manual) Nucleated RBC % Seg Neutrophils # Seg Neutrophils # Man Lymphocytes # (Manual) PT INR APTT Sodium Potassium Chloride Carbon Dioxide BUN Creatinine Glucose POC Glucose 221 H Phosphorus Magnesium Total Bilirubin Alkaline Phosphatase Ammonia Troponin T C-Reactive Protein Total Protein Albumin Triglycerides LDL Cholesterol Direct HDL Cholesterol Vitamin B12 Crossmatch
[2018-12-22] MEDS: TYLENOL PO PRN (23:02)
[2018-12-23] MEDS: HumaLOG SUB-Q SCH ×4 (00:08→19:03)
[2018-12-23] MEDS: NACL 0.45% 1000 ML 1,000 ML IV SCH (04:12)
[2018-12-23] MEDS: FREE WATER PO SCH ×4 (04:19→22:38)
[2018-12-23 04:41] LABS: Basophils # (Auto) 0.1 K/mm3 (0.0-0.1); Basophils % (Auto) 0.9 % (0.0-1.8); Eosinophils # (Auto) 0.1 K/mm3 (0.0-0.4); Eosinophils % (Auto) 0.9 % (0.0-4.3); Hematocrit 21.2 % (30.3-42.9); Lymphocytes # (Auto) 0.6 K/mm3 (1.2-5.4); Lymphocytes % (Auto) 7.9 % (13.4-35.0); Mean Corpuscular HGB Conc 33 % (30-34); Mean Corpuscular Volume 93 fl (79-97); Monocytes # (Auto) 0.5 K/mm3 (0.0-0.8); Monocytes % (Auto) 6.4 % (0.0-7.3); Platelet Count 204 K/mm3 (140-440); Red Blood Count 2.29 M/mm3 (3.65-5.03); Red Cell Distribution Width 17.6 % (13.2-15.2)
[2018-12-23 04:59] LABS: BUN/Creatinine Ratio 46; Blood Urea Nitrogen 37 mg/dL (7-17); Calcium 9.4 mg/dL (8.4-10.2); Hemolysis Index 0
[2018-12-23] MEDS: ATIVAN IV PRN ×2 (06:16→22:32)
[2018-12-23] MEDS: APRESOLINE PO SCH ×3 (08:43→21:20)
[2018-12-23] MEDS ORDERED: NACL 0.9% 500 ML 500 ML IV ONE (09:48)
--- NOTE | 2018-12-23 09:48 | Progress Note ---
Subjective Date of service: 12/23/18 Principal diagnosis: sepsis Interval history: went over labs and notes continue to monitor closely see my note about the EEG no clear trend towards encephalopathy improvement Objective - Vital Sign Vital Signs - 12hr 12/22/18 12/22/18 12/23/18 22:00 22:43 07:38 Temperature 97.5 F L Pulse Rate 70 65 Pulse Rate [ 70 Left Radial] Respiratory 20 20 Rate Blood Pressure 135/53 109/50 O2 Sat by Pulse 98 98 Oximetry 12/23/18 09:10 Temperature Pulse Rate Pulse Rate [ Left Radial] Respiratory Rate Blood Pressure O2 Sat by Pulse 97 Oximetry - Laboratory Findings CBC and BMP: 12/23/18 Unknown 12/23/18 Unknown Abnormal Lab Findings: Abnormal Labs 12/11/18 12/11/18 12/11/18 20:09 20:34 20:34 WBC RBC Hgb Hct RDW Lymph % (Auto) Lymph # Seg Neutrophils % Seg Neuts % (Manual) Lymphocytes % (Manual) Nucleated RBC % Seg Neutrophils # Seg Neutrophils # Man Lymphocytes # (Manual) PT INR APTT Sodium 134 L Potassium 2.9 L* Chloride 88.1 L Carbon Dioxide BUN 50 H Creatinine 1.4 H Glucose 529 H* POC Glucose 445 H Phosphorus Magnesium Total Bilirubin 2.10 H Alkaline Phosphatase 215 H Ammonia Troponin T 0.038 H C-Reactive Protein Total Protein 6.2 L Albumin 2.9 L Triglycerides 173 H LDL Cholesterol Direct 16 L HDL Cholesterol 19 L Vitamin B12 Crossmatch 12/11/18 12/11/18 12/11/18 21:04 22:47 22:47 WBC 18.5 H RBC 3.10 L Hgb 9.3 L Hct 28.8 L RDW 17.2 H Lymph % (Auto) Lymph # Seg Neutrophils % Seg Neuts % (Manual) 92.0 H Lymphocytes % (Manual) 4.0 L Nucleated RBC % 2.0 H Seg Neutrophils # Seg Neutrophils # Man 17.0 H Lymphocytes # (Manual) 0.7 L PT INR APTT Sodium Potassium Chloride Carbon Dioxide BUN Creatinine Glucose POC Glucose Phosphorus 1.50 L Magnesium 1.30 L Total Bilirubin Alkaline Phosphatase Ammonia 19.0 L Troponin T C-Reactive Protein Total Protein Albumin Triglycerides LDL Cholesterol Direct HDL Cholesterol Vitamin B12 Crossmatch 12/11/18 12/12/18 12/12/18 22:47 00:47 01:57 WBC RBC Hgb Hct RDW Lymph % (Auto) Lymph # Seg Neutrophils % Seg Neuts % (Manual) Lymphocytes % (Manual) Nucleated RBC % Seg Neutrophils # Seg Neutrophils # Man Lymphocytes # (Manual) PT INR APTT Sodium 133 L 134 L Potassium 2.4 L* 2.8 L* Chloride 91.7 L 93.8 L Carbon Dioxide BUN 51 H 50 H Creatinine 1.6 H 1.5 H Glucose 436 H 429 H POC Glucose 442 H Phosphorus Magnesium Total Bilirubin Alkaline Phosphatase Ammonia Troponin T C-Reactive Protein Total Protein Albumin Triglycerides LDL Cholesterol Direct HDL Cholesterol Vitamin B12 Crossmatch 12/12/18 12/12/18 12/12/18 04:10 05:20 05:24 WBC RBC Hgb Hct RDW Lymph % (Auto) Lymph # Seg Neutrophils % Seg Neuts % (Manual) Lymphocytes % (Manual) Nucleated RBC % Seg Neutrophils # Seg Neutrophils # Man Lymphocytes # (Manual) PT INR APTT Sodium 136 L Potassium 2.8 L* Chloride 96.5 L Carbon Dioxide BUN 48 H Creatinine 1.4 H Glucose 417 H POC Glucose 406 H 405 H Phosphorus Magnesium Total Bilirubin Alkaline Phosphatase Ammonia Troponin T C-Reactive Protein Total Protein Albumin Triglycerides LDL Cholesterol Direct HDL Cholesterol Vitamin B12 Crossmatch 12/12/18 12/12/18 12/12/18 07:33 07:33 08:02 WBC RBC Hgb Hct RDW Lymph % (Auto) Lymph # Seg Neutrophils % Seg Neuts % (Manual) Lymphocytes % (Manual) Nucleated RBC % Seg Neutrophils # Seg Neutrophils # Man Lymphocytes # (Manual) PT INR APTT Sodium 135 L Potassium 2.5 L* Chloride Carbon Dioxide BUN 45 H Creatinine Glucose 358 H POC Glucose 286 H Phosphorus Magnesium Total Bilirubin Alkaline Phosphatase Ammonia Troponin T 0.036 H C-Reactive Protein Total Protein Albumin Triglycerides LDL Cholesterol Direct HDL Cholesterol Vitamin B12 Crossmatch 12/12/18 12/12/18 12/12/18 11:45 11:48 14:58 WBC RBC Hgb Hct RDW Lymph % (Auto) Lymph # Seg Neutrophils % Seg Neuts % (Manual) Lymphocytes % (Manual) Nucleated RBC % Seg Neutrophils # Seg Neutrophils # Man Lymphocytes # (Manual) PT 16.8 H INR 1.28 H APTT 40.8 H Sodium Potassium Chloride Carbon Dioxide BUN 45 H Creatinine 1.3 H Glucose 265 H POC Glucose 296 H Phosphorus Magnesium 2.50 H Total Bilirubin Alkaline Phosphatase Ammonia Troponin T C-Reactive Protein Total Protein Albumin Triglycerides LDL Cholesterol Direct HDL Cholesterol Vitamin B12 Crossmatch 12/12/18 12/12/18 12/12/18 15:49 21:11 23:40 WBC RBC Hgb Hct RDW Lymph % (Auto) Lymph # Seg Neutrophils % Seg Neuts % (Manual) Lymphocytes % (Manual) Nucleated RBC % Seg Neutrophils # Seg Neutrophils # Man Lymphocytes # (Manual) PT INR APTT Sodium Potassium Chloride Carbon Dioxide BUN Creatinine Glucose POC Glucose 253 H 236 H 297 H Phosphorus Magnesium Total Bilirubin Alkaline Phosphatase Ammonia Troponin T C-Reactive Protein Total Protein Albumin Triglycerides LDL Cholesterol Direct HDL Cholesterol Vitamin B12 Crossmatch 12/13/18 12/13/18 12/13/18 04:51 07:39 07:39 WBC 17.5 H RBC 3.31 L Hgb 9.8 L Hct RDW 16.8 H Lymph % (Auto) Lymph # Seg Neutrophils % Seg Neuts % (Manual) Lymphocytes % (Manual) Nucleated RBC % Seg Neutrophils # Seg Neutrophils # Man Lymphocytes # (Manual) PT INR APTT Sodium Potassium Chloride Carbon Dioxide 21 L BUN 42 H Creatinine Glucose 229 H POC Glucose 208 H Phosphorus Magnesium Total Bilirubin Alkaline Phosphatase Ammonia Troponin T C-Reactive Protein Total Protein Albumin Triglycerides LDL Cholesterol Direct HDL Cholesterol Vitamin B12 Crossmatch 12/13/18 12/13/18 12/13/18 09:17 13:10 16:23 WBC RBC Hgb Hct RDW Lymph % (Auto) Lymph # Seg Neutrophils % Seg Neuts % (Manual) Lymphocytes % (Manual) Nucleated RBC % Seg Neutrophils # Seg Neutrophils # Man Lymphocytes # (Manual) PT INR APTT Sodium Potassium Chloride Carbon Dioxide BUN Creatinine Glucose POC Glucose 229 H 230 H Phosphorus Magnesium Total Bilirubin Alkaline Phosphatase Ammonia Troponin T C-Reactive Protein 32.70 H Total Protein Albumin Triglycerides LDL Cholesterol Direct HDL Cholesterol Vitamin B12 Crossmatch 12/13/18 12/13/18 12/14/18 17:12 20:43 00:53 WBC RBC Hgb Hct RDW Lymph % (Auto) Lymph # Seg Neutrophils % Seg Neuts % (Manual) Lymphocytes % (Manual) Nucleated RBC % Seg Neutrophils # Seg Neutrophils # Man Lymphocytes # (Manual) PT INR APTT Sodium Potassium Chloride Carbon Dioxide BUN Creatinine Glucose POC Glucose 199 H 225 H 221 H Phosphorus Magnesium Total Bilirubin Alkaline Phosphatase Ammonia Troponin T C-Reactive Protein Total Protein Albumin Triglycerides LDL Cholesterol Direct HDL Cholesterol Vitamin B12 Crossmatch 12/14/18 12/14/18 12/14/18 04:42 04:42 05:32 WBC 14.7 H RBC 2.69 L Hgb 8.1 L Hct 25.0 L RDW 17.1 H Lymph % (Auto) Lymph # Seg Neutrophils % Seg Neuts % (Manual) Lymphocytes % (Manual) Nucleated RBC % Seg Neutrophils # Seg Neutrophils # Man Lymphocytes # (Manual) PT INR APTT Sodium 146 H D Potassium Chloride 111.3 H Carbon Dioxide BUN 47 H Creatinine 1.5 H Glucose 187 H POC Glucose 198 H Phosphorus Magnesium Total Bilirubin Alkaline Phosphatase Ammonia Troponin T C-Reactive Protein Total Protein Albumin Triglycerides LDL Cholesterol Direct HDL Cholesterol Vitamin B12 Crossmatch 12/14/18 12/14/18 12/14/18 08:41 12:04 12:55 WBC RBC Hgb Hct RDW Lymph % (Auto) Lymph # Seg Neutrophils % Seg Neuts % (Manual) Lymphocytes % (Manual) Nucleated RBC % Seg Neutrophils # Seg Neutrophils # Man Lymphocytes # (Manual) PT INR APTT Sodium 149 H Potassium 3.5 L Chloride Carbon Dioxide 20 L BUN 46 H Creatinine 1.3 H Glucose 238 H POC Glucose 225 H 226 H Phosphorus Magnesium Total Bilirubin Alkaline Phosphatase Ammonia Troponin T C-Reactive Protein Total Protein Albumin Triglycerides LDL Cholesterol Direct HDL Cholesterol Vitamin B12 Crossmatch 12/14/18 12/15/18 12/15/18 18:03 01:00 05:19 WBC 12.8 H RBC 2.66 L Hgb 8.0 L Hct 24.8 L RDW 17.3 H Lymph % (Auto) Lymph # Seg Neutrophils % Seg Neuts % (Manual) Lymphocytes % (Manual) Nucleated RBC % Seg Neutrophils # Seg Neutrophils # Man Lymphocytes # (Manual) PT INR APTT Sodium Potassium Chloride Carbon Dioxide BUN Creatinine Glucose POC Glucose 257 H 277 H Phosphorus Magnesium Total Bilirubin Alkaline Phosphatase Ammonia Troponin T C-Reactive Protein Total Protein Albumin Triglycerides LDL Cholesterol Direct HDL Cholesterol Vitamin B12 Crossmatch 12/15/18 12/15/18 12/15/18 05:19 06:04 11:36 WBC RBC Hgb Hct RDW Lymph % (Auto) Lymph # Seg Neutrophils % Seg Neuts % (Manual) Lymphocytes % (Manual) Nucleated RBC % Seg Neutrophils # Seg Neutrophils # Man Lymphocytes # (Manual) PT INR APTT Sodium 146 H Potassium Chloride 113.5 H Carbon Dioxide 21 L BUN 49 H Creatinine 1.3 H Glucose 286 H POC Glucose 315 H 317 H Phosphorus Magnesium Total Bilirubin Alkaline Phosphatase Ammonia Troponin T C-Reactive Protein Total Protein Albumin Triglycerides LDL Cholesterol Direct HDL Cholesterol Vitamin B12 Crossmatch 12/15/18 12/15/18 12/16/18 18:11 21:40 05:11 WBC RBC 2.61 L Hgb 7.9 L Hct 23.7 L RDW 17.3 H Lymph % (Auto) Lymph # Seg Neutrophils % Seg Neuts % (Manual) Lymphocytes % (Manual) Nucleated RBC % Seg Neutrophils # Seg Neutrophils # Man Lymphocytes # (Manual) PT INR APTT Sodium Potassium Chloride Carbon Dioxide BUN Creatinine Glucose POC Glucose 273 H 318 H Phosphorus Magnesium Total Bilirubin Alkaline Phosphatase Ammonia Troponin T C-Reactive Protein Total Protein Albumin Triglycerides LDL Cholesterol Direct HDL Cholesterol Vitamin B12 Crossmatch 12/16/18 12/16/18 12/16/18 05:11 06:21 12:19 WBC RBC Hgb Hct RDW Lymph % (Auto) Lymph # Seg Neutrophils % Seg Neuts % (Manual) Lymphocytes % (Manual) Nucleated RBC % Seg Neutrophils # Seg Neutrophils # Man Lymphocytes # (Manual) PT INR APTT Sodium 150 H Potassium Chloride 117.3 H Carbon Dioxide BUN 52 H Creatinine 1.4 H Glucose 352 H POC Glucose 322 H 371 H Phosphorus Magnesium Total Bilirubin Alkaline Phosphatase Ammonia Troponin T C-Reactive Protein Total Protein Albumin Triglycerides LDL Cholesterol Direct HDL Cholesterol Vitamin B12 Crossmatch 12/16/18 12/16/18 12/17/18 16:58 23:51 05:28 WBC RBC 2.38 L Hgb 7.2 L Hct 21.9 L RDW 17.4 H Lymph % (Auto) Lymph # Seg Neutrophils % Seg Neuts % (Manual) Lymphocytes % (Manual) Nucleated RBC % Seg Neutrophils # Seg Neutrophils # Man Lymphocytes # (Manual) PT INR APTT Sodium Potassium Chloride Carbon Dioxide BUN Creatinine Glucose POC Glucose 323 H 302 H Phosphorus Magnesium Total Bilirubin Alkaline Phosphatase Ammonia Troponin T C-Reactive Protein Total Protein Albumin Triglycerides LDL Cholesterol Direct HDL Cholesterol Vitamin B12 Crossmatch 12/17/18 12/17/18 12/17/18 05:28 06:09 11:47 WBC RBC Hgb Hct RDW Lymph % (Auto) Lymph # Seg Neutrophils % Seg Neuts % (Manual) Lymphocytes % (Manual) Nucleated RBC % Seg Neutrophils # Seg Neutrophils # Man Lymphocytes # (Manual) PT INR APTT Sodium 152 H Potassium Chloride 118.6 H Carbon Dioxide BUN 44 H Creatinine Glucose 291 H POC Glucose 297 H 340 H Phosphorus Magnesium Total Bilirubin Alkaline Phosphatase Ammonia Troponin T C-Reactive Protein Total Protein Albumin Triglycerides LDL Cholesterol Direct HDL Cholesterol Vitamin B12 Crossmatch 12/17/18 12/18/18 12/18/18 18:15 00:14 06:39 WBC RBC Hgb Hct RDW Lymph % (Auto) Lymph # Seg Neutrophils % Seg Neuts % (Manual) Lymphocytes % (Manual) Nucleated RBC % Seg Neutrophils # Seg Neutrophils # Man Lymphocytes # (Manual) PT INR APTT Sodium Potassium Chloride Carbon Dioxide BUN Creatinine Glucose POC Glucose 312 H 355 H 351 H Phosphorus Magnesium Total Bilirubin Alkaline Phosphatase Ammonia Troponin T C-Reactive Protein Total Protein Albumin Triglycerides LDL Cholesterol Direct HDL Cholesterol Vitamin B12 Crossmatch 12/18/18 12/18/18 12/18/18 06:58 06:58 11:28 WBC RBC 2.24 L Hgb 6.9 L Hct 21.2 L RDW 17.9 H Lymph % (Auto) Lymph # Seg Neutrophils % Seg Neuts % (Manual) Lymphocytes % (Manual) Nucleated RBC % Seg Neutrophils # Seg Neutrophils # Man Lymphocytes # (Manual) PT INR APTT Sodium 150 H Potassium Chloride 117.0 H Carbon Dioxide BUN 48 H Creatinine 1.4 H Glucose 362 H POC Glucose 342 H Phosphorus Magnesium Total Bilirubin Alkaline Phosphatase Ammonia Troponin T C-Reactive Protein Total Protein Albumin Triglycerides LDL Cholesterol Direct HDL Cholesterol Vitamin B12 Crossmatch 12/18/18 12/18/18 12/18/18 14:06 17:36 22:00 WBC RBC Hgb Hct RDW Lymph % (Auto) Lymph # Seg Neutrophils % Seg Neuts % (Manual) Lymphocytes % (Manual) Nucleated RBC % Seg Neutrophils # Seg Neutrophils # Man Lymphocytes # (Manual) PT INR APTT Sodium Potassium Chloride Carbon Dioxide BUN Creatinine Glucose POC Glucose 330 H Phosphorus Magnesium Total Bilirubin Alkaline Phosphatase Ammonia Troponin T C-Reactive Protein Total Protein Albumin Triglycerides LDL Cholesterol Direct HDL Cholesterol Vitamin B12 > 2000 H Crossmatch See Detail 12/19/18 12/19/18 12/19/18 00:23 04:47 04:47 WBC RBC 2.46 L Hgb 7.5 L Hct 22.9 L RDW 17.6 H Lymph % (Auto) 7.8 L Lymph # 0.7 L Seg Neutrophils % 85.7 H Seg Neuts % (Manual) Lymphocytes % (Manual) Nucleated RBC % Seg Neutrophils # Seg Neutrophils # Man Lymphocytes # (Manual) PT INR APTT Sodium Potassium Chloride 113.2 H Carbon Dioxide BUN 40 H Creatinine Glucose 325 H POC Glucose 291 H Phosphorus Magnesium Total Bilirubin Alkaline Phosphatase Ammonia Troponin T C-Reactive Protein Total Protein Albumin Triglycerides LDL Cholesterol Direct HDL Cholesterol Vitamin B12 Crossmatch 12/19/18 12/19/18 12/19/18 06:34 11:43 17:54 WBC RBC Hgb Hct RDW Lymph % (Auto) Lymph # Seg Neutrophils % Seg Neuts % (Manual) Lymphocytes % (Manual) Nucleated RBC % Seg Neutrophils # Seg Neutrophils # Man Lymphocytes # (Manual) PT INR APTT Sodium Potassium Chloride Carbon Dioxide BUN Creatinine Glucose POC Glucose 308 H 324 H 349 H Phosphorus Magnesium Total Bilirubin Alkaline Phosphatase Ammonia Troponin T C-Reactive Protein Total Protein Albumin Triglycerides LDL Cholesterol Direct HDL Cholesterol Vitamin B12 Crossmatch 12/20/18 12/20/18 12/20/18 00:37 05:58 06:25 WBC RBC Hgb Hct RDW Lymph % (Auto) Lymph # Seg Neutrophils % Seg Neuts % (Manual) Lymphocytes % (Manual) Nucleated RBC % Seg Neutrophils # Seg Neutrophils # Man Lymphocytes # (Manual) PT INR APTT Sodium Potassium Chloride Carbon Dioxide BUN 43 H Creatinine Glucose 394 H POC Glucose 362 H 357 H Phosphorus Magnesium Total Bilirubin Alkaline Phosphatase Ammonia Troponin T C-Reactive Protein Total Protein Albumin Triglycerides LDL Cholesterol Direct HDL Cholesterol Vitamin B12 Crossmatch 12/20/18 12/20/18 12/20/18 11:34 17:44 22:31 WBC RBC Hgb Hct RDW Lymph % (Auto) Lymph # Seg Neutrophils % Seg Neuts % (Manual) Lymphocytes % (Manual) Nucleated RBC % Seg Neutrophils # Seg Neutrophils # Man Lymphocytes # (Manual) PT INR APTT Sodium Potassium Chloride Carbon Dioxide BUN Creatinine Glucose POC Glucose 360 H 347 H 433 H Phosphorus Magnesium Total Bilirubin Alkaline Phosphatase Ammonia Troponin T C-Reactive Protein Total Protein Albumin Triglycerides LDL Cholesterol Direct HDL Cholesterol Vitamin B12 Crossmatch 12/20/18 12/21/18 12/21/18 23:56 05:10 05:10 WBC RBC 2.47 L Hgb 7.5 L Hct 22.9 L RDW 17.0 H Lymph % (Auto) 5.1 L Lymph # 0.5 L Seg Neutrophils % 88.9 H Seg Neuts % (Manual) Lymphocytes % (Manual) Nucleated RBC % Seg Neutrophils # 8.9 H Seg Neutrophils # Man Lymphocytes # (Manual) PT INR APTT Sodium 136 L Potassium Chloride Carbon Dioxide BUN 38 H Creatinine Glucose 388 H POC Glucose 397 H Phosphorus Magnesium Total Bilirubin Alkaline Phosphatase Ammonia Troponin T C-Reactive Protein Total Protein Albumin Triglycerides LDL Cholesterol Direct HDL Cholesterol Vitamin B12 Crossmatch 12/21/18 12/21/18 12/21/18 05:50 11:46 18:12 WBC RBC Hgb Hct RDW Lymph % (Auto) Lymph # Seg Neutrophils % Seg Neuts % (Manual) Lymphocytes % (Manual) Nucleated RBC % Seg Neutrophils # Seg Neutrophils # Man Lymphocytes # (Manual) PT INR APTT Sodium Potassium Chloride Carbon Dioxide BUN Creatinine Glucose POC Glucose 324 H 359 H 351 H Phosphorus Magnesium Total Bilirubin Alkaline Phosphatase Ammonia Troponin T C-Reactive Protein Total Protein Albumin Triglycerides LDL Cholesterol Direct HDL Cholesterol Vitamin B12 Crossmatch 12/21/18 12/22/18 12/22/18 22:37 06:57 07:00 WBC RBC Hgb Hct RDW Lymph % (Auto) Lymph # Seg Neutrophils % Seg Neuts % (Manual) Lymphocytes % (Manual) Nucleated RBC % Seg Neutrophils # Seg Neutrophils # Man Lymphocytes # (Manual) PT INR APTT Sodium 136 L Potassium Chloride Carbon Dioxide BUN 39 H Creatinine Glucose 275 H POC Glucose 287 H 275 H Phosphorus Magnesium Total Bilirubin Alkaline Phosphatase Ammonia Troponin T C-Reactive Protein Total Protein Albumin Triglycerides LDL Cholesterol Direct HDL Cholesterol Vitamin B12 Crossmatch 12/22/18 12/22/18 12/22/18 11:27 16:43 23:11 WBC RBC Hgb Hct RDW Lymph % (Auto) Lymph # Seg Neutrophils % Seg Neuts % (Manual) Lymphocytes % (Manual) Nucleated RBC % Seg Neutrophils # Seg Neutrophils # Man Lymphocytes # (Manual) PT INR APTT Sodium Potassium Chloride Carbon Dioxide BUN Creatinine Glucose POC Glucose 221 H 169 H 115 H Phosphorus Magnesium Total Bilirubin Alkaline Phosphatase Ammonia Troponin T C-Reactive Protein Total Protein Albumin Triglycerides LDL Cholesterol Direct HDL Cholesterol Vitamin B12 Crossmatch 12/23/18 12/23/18 12/23/18 06:19 Unknown Unknown WBC RBC 2.29 L Hgb 7.0 L Hct 21.2 L RDW 17.6 H Lymph % (Auto) 7.9 L Lymph # 0.6 L Seg Neutrophils % 83.9 H Seg Neuts % (Manual) Lymphocytes % (Manual) Nucleated RBC % Seg Neutrophils # Seg Neutrophils # Man Lymphocytes # (Manual) PT INR APTT Sodium 134 L Potassium Chloride Carbon Dioxide BUN 37 H Creatinine Glucose 161 H POC Glucose 169 H Phosphorus Magnesium Total Bilirubin Alkaline Phosphatase Ammonia Troponin T C-Reactive Protein Total Protein Albumin Triglycerides LDL Cholesterol Direct HDL Cholesterol Vitamin B12 Crossmatch
[2018-12-23] MEDS: COREG PO SCH ×2 (10:50→21:21)
[2018-12-23] MEDS: TAPAZOLE PO SCH (10:52)
[2018-12-23] MEDS: HEPARIN SUB-Q SCH ×2 (10:52→21:20)
[2018-12-23] MEDS: CLARITIN PO SCH (10:52)
[2018-12-23] MEDS: LANTUS SUB-Q SCH ×2 (10:53→21:22)
[2018-12-23] MEDS: ROCEPHIN/NS 2 GM/100 ML 2 GM/100 ML BAG IV SCH (10:55)
[2018-12-23] MEDS ORDERED: NACL 0.9% 500 ML 500 ML IV NR (14:07)
--- NOTE | 2018-12-23 14:54 | Progress Note ---
Assessment and Plan Assessment and plan: SIRS with organ dysfunction, poa, suspected sepsis but no source. Still evaluating though 73-year-old woman with history of type 2 diabetes, osteoarthritis, chronic kidney disease with creatinine baseline around 1.2, hypertension, depression, hypothyroidism, GERD who was brought to the hospital with altered mental status. CT chest, report is limited due to lack of IV contrast, but there is abnormality in the right supraclavicular region and gas bubbles concerning for infectious process 12/19: MRI brain shows global cortical atrophy with greater involvement of the frontal and temporal lobes. No acute change. Diagnosis Sepsis Group B strep bacteremia infection at R sternoclavicular joint- osteomylitis Acute metabolic encephalopathy Severe hypokalemia Hypomagnesemia Hyperthyroidism Moderate malnutrition Anemia Type 2 diabetes with persistent hyperglycemia, hyperosmolar, nonketotic hyperglycemic state Hypertension Morbid obesity -Acute kidney injury, likely component of ATN and vasomotor nephropathy -anemia due to sepsis Plan WBC tagged scan confirm SCJ infection, ortho consult appreciated, was drained on 12/21 fup cxs, NGTD -Continue empiric antibiotics per ID, status post PICC line, will likely need prolonged IV antibiotics per ID Electrolytes have been repleted Continue to optimize insulins -Acute kidney injury has now resolved, nephrology signed off on 12/19/18 -Mentation is improving -sp 2 units of blood for anemia of Chronic disease -Case discussed with infectious disease -Case discussed with family, would like rehabilitation placement, awaiting [facility] bed History Interval history: she is less uncomfortable -no fever, less confused -Per she still complaining of pain and swelling in the right supraclavicular area, but it is improved Review of systems Constitutional: No fevers, c/o gen weakness CVS: No chest pain, no orthopnea, no dyspnea on exertion, no pedal edema GI: No abdominal pain, no diarrhea, no vomiting, no constipation Respiratory: no wheezing, no coughing Hospitalist Physical - Physical exam Narrative exam: General.: Appears chronically ill, obese HEENT: Moist mucous membranes, extraocular muscles intact, no lymphadenopathy Neck: supple Cardiac: S1-S2 heard There is tenderness to right supraclavicular area Lungs: clear to auscultation bilaterally Abdomen: soft , nontender, nondistended, bowel sounds positive Extremities: no edema clubbing or cyanosis Skin: no rash or lesions Neurologic: Patient is altered, she is lethargic Psych: calm, and cooperative - Constitutional Vitals: Temp Pulse Resp BP Pulse Ox 97.4 F L 65 20 112/47 96 12/23/18 13:34 12/23/18 13:34 12/23/18 13:34 12/23/18 13:34 12/23/18 13:34 General appearance: Present: no acute distress, well-nourished, obese Results - Labs CBC & Chem 7: 12/23/18 Unknown 12/25/18 04:00 Labs: Laboratory Last Values WBC 8.2 K/mm3 (4.5-11.0) 12/23/18 Unknown RBC 2.29 M/mm3 (3.65-5.03) L 12/23/18 Unknown Hgb 7.0 gm/dl (10.1-14.3) L 12/23/18 Unknown Hct 21.2 % (30.3-42.9) L 12/23/18 Unknown MCV 93 fl (79-97) 12/23/18 Unknown MCH 31 pg (28-32) 12/23/18 Unknown MCHC 33 % (30-34) 12/23/18 Unknown RDW 17.6 % (13.2-15.2) H 12/23/18 Unknown Plt Count 204 K/mm3 (140-440) 12/23/18 Unknown Lymph % (Auto) 7.9 % (13.4-35.0) L 12/23/18 Unknown [place] % (Auto) 6.4 % (0.0-7.3) 12/23/18 Unknown Eos % (Auto) 0.9 % (0.0-4.3) 12/23/18 Unknown Baso % (Auto) 0.9 % (0.0-1.8) 12/23/18 Unknown Lymph # 0.6 K/mm3 (1.2-5.4) L 12/23/18 Unknown [place] # 0.5 K/mm3 (0.0-0.8) 12/23/18 Unknown Eos # 0.1 K/mm3 (0.0-0.4) 12/23/18 Unknown Baso # 0.1 K/mm3 (0.0-0.1) 12/23/18 Unknown Add Manual Diff Complete 12/11/18 22:47 Total Counted 100 12/11/18 22:47 Seg Neutrophils % 83.9 % (40.0-70.0) H 12/23/18 Unknown Seg Neuts % (Manual) 92.0 % (40.0-70.0) H 12/11/18 22:47 Band Neutrophils % 0 % 12/11/18 22:47 Lymphocytes % (Manual) 4.0 % (13.4-35.0) L 12/11/18 22:47 Reactive Lymphs % (Man) 0 % 12/11/18 22:47 Monocytes % (Manual) 3.0 % (0.0-7.3) 12/11/18 22:47 Eosinophils % (Manual) 0 % (0.0-4.3) 12/11/18 22:47 Basophils % (Manual) 0 % (0.0-1.8) 12/11/18 22:47 Metamyelocytes % 1.0 % 12/11/18 22:47 Myelocytes % 0 % 12/11/18 22:47 Promyelocytes % 0 % 12/11/18 22:47 Blast Cells % 0 % 12/11/18 22:47 Nucleated RBC % 2.0 % (0.0-0.9) H 12/11/18 22:47 Seg Neutrophils # 6.9 K/mm3 (1.8-7.7) 12/23/18 Unknown Seg Neutrophils # Man 17.0 K/mm3 (1.8-7.7) H 12/11/18 22:47 Band Neutrophils # 0.0 K/mm3 12/11/18 22:47 Lymphocytes # (Manual) 0.7 K/mm3 (1.2-5.4) L 12/11/18 22:47 Abs React Lymphs (Man) 0.0 K/mm3 12/11/18 22:47 Monocytes # (Manual) 0.6 K/mm3 (0.0-0.8) 12/11/18 22:47 Eosinophils # (Manual) 0.0 K/mm3 (0.0-0.4) 12/11/18 22:47 Basophils # (Manual) 0.0 K/mm3 (0.0-0.1) 12/11/18 22:47 Metamyelocytes # 0.2 K/mm3 12/11/18 22:47 Myelocytes # 0.0 K/mm3 12/11/18 22:47 Promyelocytes # 0.0 K/mm3 12/11/18 22:47 Blast Cells # 0.0 K/mm3 12/11/18 22:47 WBC Morphology Not Reportable 12/11/18 22:47 Hypersegmented Neuts Not Reportable 12/11/18 22:47 Hyposegmented Neuts Not Reportable 12/11/18 22:47 Hypogranular Neuts Not Reportable 12/11/18 22:47 Smudge Cells Not Reportable 12/11/18 22:47 Toxic Granulation Not Reportable 12/11/18 22:47 Toxic Vacuolation Not Reportable 12/11/18 22:47 Dohle Bodies Not Reportable 12/11/18 22:47 Pelger-Huet Anomaly Not Reportable 12/11/18 22:47 Starla Rods Not Reportable 12/11/18 22:47 Platelet Estimate Consistent w auto 12/11/18 22:47 Clumped Platelets Few 12/11/18 22:47 Plt Clumps, EDTA Not Reportable 12/11/18 22:47 Large Platelets 1+ 12/11/18 22:47 Giant Platelets Not Reportable 12/11/18 22:47 Platelet Satelliting Not Reportable 12/11/18 22:47 Plt Morphology Comment Not Reportable 12/11/18 22:47 RBC Morphology Normal 12/11/18 22:47 Dimorphic RBCs Not Reportable 12/11/18 22:47 Polychromasia Not Reportable 12/11/18 22:47 Hypochromasia Not Reportable 12/11/18 22:47 Poikilocytosis Not Reportable 12/11/18 22:47 Anisocytosis Not Reportable 12/11/18 22:47 Microcytosis Not Reportable 12/11/18 22:47 Macrocytosis Not Reportable 12/11/18 22:47 Spherocytes Not Reportable 12/11/18 22:47 Pappenheimer Bodies Not Reportable 12/11/18 22:47 Sickle Cells Not Reportable 12/11/18 22:47 Target Cells Not Reportable 12/11/18 22:47 Tear Drop Cells Not Reportable 12/11/18 22:47 Ovalocytes Not Reportable 12/11/18 22:47 Helmet Cells Not Reportable 12/11/18 22:47 [place] Bodies Not Reportable 12/11/18 22:47 [place] Rings Not Reportable 12/11/18 22:47 [place] Cells Not Reportable 12/11/18 22:47 Bite Cells Not Reportable 12/11/18 22:47 Crenated Cell Not Reportable 12/11/18 22:47 Elliptocytes Not Reportable 12/11/18 22:47 Acanthocytes (Spur) Not Reportable 12/11/18 22:47 Rouleaux Not Reportable 12/11/18 22:47 Hemoglobin C Crystals Not Reportable 12/11/18 22:47 Schistocytes Not Reportable 12/11/18 22:47 Malaria parasites Not Reportable 12/11/18 22:47 [place] Bodies Not Reportable 12/11/18 22:47 Hem Pathologist Commnt No 12/11/18 22:47 PT 16.8 Sec. (12.2-14.9) H 12/12/18 11:45 INR 1.28 (0.87-1.13) H 12/12/18 11:45 APTT 40.8 Sec. (24.2-36.6) H 12/12/18 11:45 POC ABG pH 7.420 (7.35-7.45) 12/11/18 23:14 POC ABG pCO2 39.6 (35-45) 12/11/18 23:14 POC ABG pO2 84 (80-105) 12/11/18 23:14 POC ABG HCO3 25.7 (22-26 mml/L) 12/11/18 23:14 POC ABG Total CO2 27 (23-27mmol/L) 12/11/18 23:14 POC ABG O2 Sat 97 12/11/18 23:14 POC ABG Base Excess 1 ((-2) - (+3)mmol/L) 12/11/18 23:14 FiO2 32 % 12/11/18 23:14 Sodium 134 mmol/L (137-145) L 12/23/18 Unknown Potassium 4.6 mmol/L (3.6-5.0) 12/23/18 Unknown Chloride 100.3 mmol/L (98-107) 12/23/18 Unknown Carbon Dioxide 23 mmol/L (22-30) 12/23/18 Unknown Anion Gap 15 mmol/L 12/23/18 Unknown BUN 37 mg/dL (7-17) H 12/23/18 Unknown Creatinine 0.8 mg/dL (0.7-1.2) 12/23/18 Unknown Estimated GFR > 60 ml/min 12/23/18 Unknown BUN/Creatinine Ratio 46 % 12/23/18 Unknown Glucose 161 mg/dL (65-100) H 12/23/18 Unknown POC Glucose 187 (70-105) H 12/23/18 11:50 Osmolality 336 Mosm/kg 12/18/18 09:56 Uric Acid 7.0 mg/dL (3.5-7.6) 12/18/18 09:56 Calcium 9.4 mg/dL (8.4-10.2) 12/23/18 Unknown Phosphorus 2.50 mg/dL (2.5-4.5) 12/13/18 07:39 Magnesium 1.70 mg/dL (1.7-2.3) 12/17/18 05:28 Total Bilirubin 2.10 mg/dL (0.1-1.2) H 12/11/18 20:34 AST 25 units/L (5-40) 12/11/18 20:34 ALT 27 units/L (7-56) 12/11/18 20:34 Alkaline Phosphatase 215 units/L (35-129) H 12/11/18 20:34 Ammonia 35.0 umol/L (25-60) 12/18/18 22:00 Total Creatine Kinase 44 units/L (30-135) 12/12/18 07:33 CK-MB (CK-2) 1.1 ng/mL (0.0-4.0) 12/12/18 07:33 CK-MB (CK-2) Rel Index 2.5 (0-4) 12/12/18 07:33 Troponin T 0.036 ng/mL (0.00-0.029) H 12/12/18 07:33 C-Reactive Protein 32.70 mg/dL (0.00-1.30) H 12/13/18 16:23 Total Protein 6.2 g/dL (6.3-8.2) L 12/11/18 20:34 Albumin 2.9 g/dL (3.9-5) L 12/11/18 20:34 Albumin/Globulin Ratio 0.9 % 12/11/18 20:34 Triglycerides 173 mg/dL (2-149) H 12/11/18 20:34 Cholesterol 95 mg/dL (50-199) 12/11/18 20:34 LDL Cholesterol Direct 16 mg/dL (50-130) L 12/11/18 20:34 HDL Cholesterol 19 mg/dL (40-59) L 12/11/18 20:34 Cholesterol/HDL Ratio 5.00 % 12/11/18 20:34 Vitamin B12 > 2000 pg/mL (211-911) H 12/18/18 22:00 TSH 0.447 mlU/mL (0.270-4.200) 12/11/18 21:04 Thyroxine (T4) 5.3 ug/dL (4.0-12.0) 12/11/18 21:04 Urine Color Dark yellow (Yellow) 12/11/18 23:06 Urine Turbidity Clear (Clear) 12/11/18 23:06 Urine pH 5.0 (5.0-7.0) 12/11/18 23:06 Ur Specific [place] 1.021 (1.003-1.030) 12/11/18 23:06 Urine Protein 100 mg/dl mg/dL (Negative) 12/11/18 23:06 Urine Glucose (UA) >=500 mg/dL (Negative) 12/11/18 23:06 Urine Ketones Tr mg/dL (Negative) 12/11/18 23:06 Urine Blood Neg (Negative) 12/11/18 23:06 Urine Nitrite Neg (Negative) 12/11/18 23:06 Urine Bilirubin Neg (Negative) 12/11/18 23:06 Urine Urobilinogen 4.0 mg/dL (<2.0) 12/11/18 23:06 Ur Leukocyte Esterase Neg (Negative) 12/11/18 23:06 Urine WBC (Auto) 1.0 /HPF (0.0-6.0) 12/11/18 23:06 Urine RBC (Auto) 2.0 /HPF (0.0-6.0) 12/11/18 23:06 U Epithel Cells (Auto) 1.0 /HPF (0-13.0) 12/11/18 23:06 Amorphous Crystals Few 12/11/18 23:06 Random Vancomycin 7.9 ug/mL (0-40.0) 12/14/18 09:33 Urine Opiates Screen Presumptive negative 12/12/18 09:40 Urine Methadone Screen Presumptive negative 12/12/18 09:40 Ur Barbiturates Screen Presumptive negative 12/12/18 09:40 Ur Phencyclidine Scrn Presumptive negative 12/12/18 09:40 Ur Amphetamines Screen Presumptive negative 12/12/18 09:40 U Benzodiazepines Scrn Presumptive negative 12/12/18 09:40 Urine Cocaine Screen Presumptive negative 12/12/18 09:40 U Marijuana (THC) Screen Presumptive negative 12/12/18 09:40 Drugs of Abuse Note Disclamer 12/12/18 09:40 Plasma/Serum Alcohol < 0.01 % (0-0.07) 12/12/18 09:27 Blood Type O POSITIVE 12/18/18 14:06 Antibody Screen Negative 12/18/18 14:06 SHARLA Antibody Screen Negative 12/18/18 14:06 Crossmatch See Detail 12/18/18 14:06 Active Medications - Current Medications Current Medications: Generic Name Dose Route Start Last Admin Trade Name Freq PRN Reason Stop Dose Admin Acetaminophen 650 mg 12/12/18 09:53 12/22/18 23:02 Tylenol PO 650 mg Q4H PRN Administration Fever >101 Lipase/Protease/Amylase 1 each 12/19/18 10:01 Pancreaze 10,500 Unit FEEDTUBE PRN PRN For Clogged Feeding Tube Carvedilol 25 mg 12/12/18 10:00 12/23/18 10:50 Coreg PO Not Given BID AMANDEEP Dextrose 50 ml 12/12/18 08:11 D50w (25gm) Syringe IV PRN PRN Hypoglycemia Haloperidol Lactate 5 mg 12/12/18 18:00 12/20/18 01:14 Haldol IV 5 mg Q6H PRN Administration Agitation Heparin Sodium (Porcine) 5,000 unit 12/12/18 10:00 12/23/18 10:52 Heparin SUB-Q 5,000 unit Q12HR AMANDEEP Administration Hydralazine HCl 50 mg 12/12/18 09:00 12/23/18 08:43 Apresoline PO 50 mg TID AMANDEEP Administration Ceftriaxone Sodium 2 gm in 100 mls @ 200 mls/hr 12/18/18 15:00 12/23/18 10:55 Rocephin/Ns 2 Gm/100 Ml IV 01/24/19 10:29 200 mls/hr Q24HR AMANDEEP Administration Protocol Sodium Chloride 1,000 mls @ 100 mls/hr 12/18/18 22:00 12/23/18 04:12 Nacl 0.45% 1000 Ml IV 100 mls/hr DIRECT AMANDEEP Administration Sodium Chloride 500 mls @ 50 mls/hr 12/23/18 14:07 Nacl 0.9% 500 Ml IV 12/23/18 23:59 ONCE NR Insulin Glargine 45 units 12/22/18 22:00 12/23/18 10:53 Lantus SUB-Q 45 units BID AMANDEEP Administration Insulin Human Lispro 0 unit 12/14/18 12:00 12/23/18 06:26 Humalog SUB-Q 3 unit Q6HR AMANDEEP Administration Protocol Loratadine 10 mg 12/12/18 10:00 12/23/18 10:52 Claritin PO 10 mg DAILY AMANDEEP Administration Lorazepam 1 mg 12/13/18 14:05 12/23/18 06:16 Ativan IV 1 mg Q4H PRN Administration Agitation Methimazole 5 mg 12/16/18 16:00 12/23/18 10:52 Tapazole PO 5 mg QDAY AMANDEEP Administration Morphine Sulfate 2 mg 12/12/18 02:48 12/21/18 05:42 Morphine IV 2 mg Q4H PRN Administration Pain, Moderate (4-6) Ondansetron HCl 4 mg 12/12/18 02:48 Zofran IV Q8H PRN Nausea And Vomiting Simple Syrup 15 ml 12/19/18 10:01 Simple Syrup FEEDTUBE PRN PRN Hypoglycemia Simple Syrup 30 ml 12/19/18 10:01 Simple Syrup FEEDTUBE PRN PRN Hypoglycemia Sodium Bicarbonate 325 mg 12/19/18 10:01 Sodium Bicarbonate FEEDTUBE PRN PRN For Clogged Feeding Tube Nutrition/Malnutrition Assess - Dietary Evaluation Nutrition/Malnutrition Findings: Nutrition Notes Start: 12/12/18 12:14 Freq: Status: Active Protocol: Document 12/21/18 13:14 RM (Rec: 12/21/18 13:30 RM [id number]) Nutrition Notes Initial or Follow up Reassessment Current Diagnosis Diabetes,Hypertension Other Pertinent Diagnosis arthritis, asthma Current Diet Glucerna 1.2 at 65 ml/hr + Mech soft diet Labs/Tests BG 388 Pertinent Medications Reviewed Height 5 ft 7 in Weight 156.5 kg [place] Body Weight (kg) 61.36 BMI 54.0 Subjective/Other Information Pt evaluated by ST yesterday and cleared for [facility] soft diet w/ground meat and regular liquids per ST note 12/20/18. [facility] soft diet w/ground meat ordered earlier today. Per nurse pt has been receiving meals and TF today. Noted Promote hanging and infusing. Nurse and tech stated that pt has only eaten bites of meals. Tile Presser advised nurse to replace Promote with Glucerna 1.2 and maintain at 20 ml/hr to encourage patient to try eating more orally. Burn Absent Trauma Absent #1 Nutrition Diagnosis Inadequate energy intake, Predicted suboptimal energy intake Diagnosis Progress(for reassessment Continues documentation) Is patient on ventilator? No Is Patient Ambulatory and/or Out of Bed No REE-([place]-confined to bed) 2534.184 Kcal/Kg value to use for calculation 14 Approximate Energy Requirements Using 2191 kcal/Kg Calculation Used for Recommendations Kcal/kg Additional Notes Protein: 64-80g (0.8-1g/kg using adj wt 80kg) Fluid: 1 ml/kcal Nutrition Intervention Change Diet Order: TF Nutrition Support: Glucerna 1.2 at 20ml/hr. Flush with 50ml q4h Kcal 576 Protein (gm) 29 Fluid (mL) 1,260 Goal #1 Diet tolerance Goal #2 Meet at least 75% of kcal and protein needs via PO intake Anticipated Discharge Needs: unable to determine at this time Follow-Up By: 12/24/18 Additional Comments Follow for PO intake
[2018-12-23 23:49] LABS: Hematocrit 23.6 % (30.3-42.9); Hemoglobin 7.9 gm/dl (10.1-14.3)
[2018-12-24] MEDS: HumaLOG SUB-Q SCH ×4 (00:32→18:00)
[2018-12-24 03:33] LABS: % Iron Saturation 20.35 %; BUN/Creatinine Ratio 53; Blood Urea Nitrogen 32 mg/dL (7-17); Calcium 9.2 mg/dL (8.4-10.2); Hemolysis Index 0; Iron 23 ug/dL (37-170); Total Iron Binding Capacity 113 mcg/dL (250-450)
[2018-12-24] MEDS: NACL 0.45% 1000 ML 1,000 ML IV SCH ×3 (04:32→23:19)
[2018-12-24] MEDS: FREE WATER PO SCH ×4 (04:41→23:15)
[2018-12-24] MEDS: APRESOLINE PO SCH ×3 (08:22→21:20)
--- NOTE | 2018-12-24 08:44 | Progress Note ---
Assessment and Plan Cultures: Blood culture 12/12/2018 beta hem Strep group B 4 of 4 bottles Blood culture 12/14/2018: no growth Chest culture 12/21/2018: no growth in 48 hours Assessment: 73 y/o female with history of DM2, OA, ARF, CKD stage 3, depression, hypertension, hyperthyroidism and GERD; admitted on 12/11/2018 due to AMS and recent fall injuring her right shoulder: 1) Sepsis: Resolved. No fevers. Etiology most likely Strep bacteremia and infection in the right sternoclavicular joint. CXR neg. UA neg. Repeat CXR no consolidation. 2) Strep group B bacteremia: 4 of 4 bottles positive, unclear source ? skin (leg wounds do not look infected) ? neck soft tissue infection ? joint infection. CRP=32. TTE no vegetation. repeat cultures show no growth. 3) Supraclavicular Mass: chest ultrasound shows small oviod solid mass in the r ight supraclavicular area. This measures 2.2 cm x 0.9 cm x 1.8 cm. It probably represents a lymph node. s/p SC joint aspiration with negative Gram stain for organisms and negative cultures on 12/21/2018 Duplex Scan upper extremity artery: Exam limited, no definite evidence of DVT . Severe diffuse bilateral soft tissue edema in the right side of the neck clavicle, 3cm structure with echogenic center most likely representing a lymph node with fatty hilum. ?Early abscess vs Inflammatory mass. WBC scan results show positive scan for infection in the right sternoclavicular area. No other suspicious uptake. 3) ALVARO on CKD 4) DM2 with HONK 5) Acute encephalopathy: Improved. CT head neg. Recommendations: -f/u BUFFY, anti-CCP -Anticipate discharge on Ceftriaxone 2 gms IV once a day for 4 weeks ending 01-10-19. SC joint aspiration with negative Gram stain for organisms and negative cultures on 12/21/2018 -continue Ceftriaxone 2gm IV q day, D7 -follow-up [facility] 3 weeks [facility] M: [phone] O:[phone] Subjective Date of service: 12/24/18 Principal diagnosis: sepsis Interval history: Patient seen and examined. at bedside. Asleep, easily aroused. Follow simple commands. Objective - Exam Narrative Exam: General appearance: Asleep. easy to arouse. no acute distress. Eyes: anicteric sclerae, moist conjunctivae; no lid-lag; PERRLA HENT: Atraumatic; oropharynx edentulous limited Neck: Trachea midline; supple, no thyromegaly or lymphadenopathy Lungs: CTA CV: RRR Abdomen: Soft,obese mild tenderness Extremities: No peripheral edema or extremity lymphadenopathy + left leg wound 1.0x1.0x0.1. Scant serous sanguineous drainage noticed to the wound. No odor noticed to the wound. + right leg wound 5.0x3.0. Scant serous sanguineous drainage noticed to the wound. No odor noticed to the wound. Skin: stage 2 left buttocks wound. The wound measurement is as follows; 1.0x1.0x0.1. Scant serous sanguineous drainage noticed to the wound. No odor noticed to the wound. Psych: calm . Neuro: Asleep. easy to arouse. calm. - Constitutional Vitals: Vital Signs Temp Pulse Resp BP Pulse Ox 98.0 F 66 20 117/52 98 12/24/18 08:10 12/24/18 08:10 12/24/18 08:10 12/24/18 08:10 12/24/18 08:10 Temperature -Last 24 Hours Temperature 98.0 F Temperature 98.3 F Temperature 98.3 F Temperature 97.7 F Temperature 98.2 F Temperature 97.3 F Temperature 97.2 F Temperature 97.4 F - Labs CBC & Chem 7: 12/23/18 Unknown 12/24/18 02:48 Labs: Abnormal lab results 12/18/18 12/23/18 12/23/18 Range/Units 14:06 11:50 14:22 Hgb (10.1-14.3) gm/dl Hct (30.3-42.9) % Sodium (137-145) mmol/L BUN (7-17) mg/dL Creatinine (0.7-1.2) mg/dL Glucose (65-100) mg/dL POC Glucose 187 H (70-105) Iron (37-170) ug/dL TIBC (250-450) mcg/dL Transferrin (192-382) mg/dl Vitamin B12 (211-911) pg/mL Crossmatch See Detail See Detail 12/23/18 12/23/18 12/23/18 Range/Units 18:30 21:26 23:17 Hgb 7.9 L (10.1-14.3) gm/dl Hct 23.6 L (30.3-42.9) % Sodium (137-145) mmol/L BUN (7-17) mg/dL Creatinine (0.7-1.2) mg/dL Glucose (65-100) mg/dL POC Glucose 124 H 156 H (70-105) Iron (37-170) ug/dL TIBC (250-450) mcg/dL Transferrin (192-382) mg/dl Vitamin B12 (211-911) pg/mL Crossmatch 12/24/18 12/24/18 12/24/18 Range/Units 00:20 02:48 02:48 Hgb (10.1-14.3) gm/dl Hct (30.3-42.9) % Sodium 134 L (137-145) mmol/L BUN 32 H (7-17) mg/dL Creatinine 0.6 L (0.7-1.2) mg/dL Glucose 150 H (65-100) mg/dL POC Glucose 168 H (70-105) Iron 23 L (37-170) ug/dL TIBC 113 L (250-450) mcg/dL Transferrin 108 L (192-382) mg/dl Vitamin B12 > 2000 H (211-911) pg/mL Crossmatch 12/24/18 Range/Units 05:35 Hgb (10.1-14.3) gm/dl Hct (30.3-42.9) % Sodium (137-145) mmol/L BUN (7-17) mg/dL Creatinine (0.7-1.2) mg/dL Glucose (65-100) mg/dL POC Glucose 136 H (70-105) Iron (37-170) ug/dL TIBC (250-450) mcg/dL Transferrin (192-382) mg/dl Vitamin B12 (211-911) pg/mL Crossmatch
[2018-12-24] MEDS: HEPARIN SUB-Q SCH ×2 (09:48→21:22)
[2018-12-24] MEDS: ROCEPHIN/NS 2 GM/100 ML 2 GM/100 ML BAG IV SCH (09:48)
[2018-12-24] MEDS: CLARITIN PO SCH (09:49)
[2018-12-24] MEDS: TAPAZOLE PO SCH (09:49)
[2018-12-24] MEDS: COREG PO SCH ×2 (10:04→21:21)
[2018-12-24] MEDS: LANTUS SUB-Q SCH ×2 (10:15→23:15)
[2018-12-24] MEDS ORDERED: LASIX IV STA (14:08)
[2018-12-24] MEDS: TYLENOL PO PRN ×2 (14:43→21:22)
[2018-12-24] MEDS: MORPHINE IV PRN (21:38)
--- NOTE | 2018-12-24 21:52 | Progress Note ---
Assessment and Plan Assessment and plan: SIRS with organ dysfunction, poa, suspected sepsis but no source. Still evaluating though 73-year-old woman with history of type 2 diabetes, osteoarthritis, chronic kidney disease with creatinine baseline around 1.2, hypertension, depression, hypothyroidism, GERD who was brought to the hospital with altered mental status. CT chest, report is limited due to lack of IV contrast, but there is abnormality in the right supraclavicular region and gas bubbles concerning for infectious process 12/19: MRI brain shows global cortical atrophy with greater involvement of the frontal and temporal lobes. No acute change. Diagnosis Sepsis Group B strep bacteremia infection at R sternoclavicular joint- osteomylitis Acute metabolic encephalopathy Severe hypokalemia Hypomagnesemia Hyperthyroidism Moderate malnutrition Anemia Type 2 diabetes with persistent hyperglycemia, hyperosmolar, nonketotic hyperglycemic state Hypertension Morbid obesity -Acute kidney injury, likely component of ATN and vasomotor nephropathy -anemia due to sepsis Plan WBC tagged scan confirm SCJ infection, ortho consult appreciated, was drained on 12/21 fup cxs, NGTD -Continue empiric antibiotics per ID, status post PICC line, will likely need prolonged IV antibiotics per ID Electrolytes have been repleted Continue to optimize insulins -Acute kidney injury has now resolved, nephrology signed off on 12/19/18 -Mentation is improving -sp 2 units of blood for anemia of Chronic disease -Case discussed with infectious disease -Case discussed with family, would like rehabilitation placement, awaiting [facility] bed History Interval history: she is less uncomfortable -no fever, less confused -Per she still complaining of pain and swelling in the right supraclavicular area, but it is improved Review of systems Constitutional: No fevers, c/o gen weakness CVS: No chest pain, no orthopnea, no dyspnea on exertion, no pedal edema GI: No abdominal pain, no diarrhea, no vomiting, no constipation Respiratory: no wheezing, no coughing Hospitalist Physical - Physical exam Narrative exam: General.: Appears chronically ill, obese HEENT: Moist mucous membranes, extraocular muscles intact, no lymphadenopathy Neck: supple Cardiac: S1-S2 heard There is tenderness to right supraclavicular area Lungs: clear to auscultation bilaterally Abdomen: soft , nontender, nondistended, bowel sounds positive Extremities: no edema clubbing or cyanosis Skin: no rash or lesions Neurologic: Patient is altered, she is lethargic Psych: calm, and cooperative - Constitutional Vitals: Temp Pulse Resp BP Pulse Ox 97.8 F 61 20 121/51 100 12/24/18 20:41 12/24/18 21:21 12/24/18 21:38 12/24/18 21:21 12/24/18 20:41 General appearance: Present: no acute distress, well-nourished, obese Results - Labs CBC & Chem 7: 12/23/18 Unknown 12/25/18 04:00 Labs: Laboratory Last Values WBC 8.2 K/mm3 (4.5-11.0) 12/23/18 Unknown RBC 2.29 M/mm3 (3.65-5.03) L 12/23/18 Unknown Hgb 7.0 gm/dl (10.1-14.3) L 12/23/18 Unknown Hct 21.2 % (30.3-42.9) L 12/23/18 Unknown MCV 93 fl (79-97) 12/23/18 Unknown MCH 31 pg (28-32) 12/23/18 Unknown MCHC 33 % (30-34) 12/23/18 Unknown RDW 17.6 % (13.2-15.2) H 12/23/18 Unknown Plt Count 204 K/mm3 (140-440) 12/23/18 Unknown Lymph % (Auto) 7.9 % (13.4-35.0) L 12/23/18 Unknown Pratt % (Auto) 6.4 % (0.0-7.3) 12/23/18 Unknown Eos % (Auto) 0.9 % (0.0-4.3) 12/23/18 Unknown Baso % (Auto) 0.9 % (0.0-1.8) 12/23/18 Unknown Lymph # 0.6 K/mm3 (1.2-5.4) L 12/23/18 Unknown Pratt # 0.5 K/mm3 (0.0-0.8) 12/23/18 Unknown Eos # 0.1 K/mm3 (0.0-0.4) 12/23/18 Unknown Baso # 0.1 K/mm3 (0.0-0.1) 12/23/18 Unknown Add Manual Diff Complete 12/11/18 22:47 Total Counted 100 04/23/19 22:47 Seg Neutrophils % 83.9 % (40.0-70.0) H 12/23/18 Unknown Seg Neuts % (Manual) 92.0 % (40.0-70.0) H 12/11/18 22:47 Band Neutrophils % 0 % 12/11/18 22:47 Lymphocytes % (Manual) 4.0 % (13.4-35.0) L 12/11/18 22:47 Reactive Lymphs % (Man) 0 % 12/11/18 22:47 Monocytes % (Manual) 3.0 % (0.0-7.3) 12/11/18 22:47 Eosinophils % (Manual) 0 % (0.0-4.3) 12/11/18 22:47 Basophils % (Manual) 0 % (0.0-1.8) 12/11/18 22:47 Metamyelocytes % 1.0 % 12/11/18 22:47 Myelocytes % 0 % 12/11/18 22:47 Promyelocytes % 0 % 12/11/18 22:47 Blast Cells % 0 % 12/11/18 22:47 Nucleated RBC % 2.0 % (0.0-0.9) H 12/11/18 22:47 Seg Neutrophils # 6.9 K/mm3 (1.8-7.7) 12/23/18 Unknown Seg Neutrophils # Man 17.0 K/mm3 (1.8-7.7) H 12/11/18 22:47 Band Neutrophils # 0.0 K/mm3 12/11/18 22:47 Lymphocytes # (Manual) 0.7 K/mm3 (1.2-5.4) L 12/11/18 22:47 Abs React Lymphs (Man) 0.0 K/mm3 12/11/18 22:47 Monocytes # (Manual) 0.6 K/mm3 (0.0-0.8) 12/11/18 22:47 Eosinophils # (Manual) 0.0 K/mm3 (0.0-0.4) 12/11/18 22:47 Basophils # (Manual) 0.0 K/mm3 (0.0-0.1) 12/11/18 22:47 Metamyelocytes # 0.2 K/mm3 12/11/18 22:47 Myelocytes # 0.0 K/mm3 12/11/18 22:47 Promyelocytes # 0.0 K/mm3 12/11/18 22:47 Blast Cells # 0.0 K/mm3 12/11/18 22:47 WBC Morphology Not Reportable 12/11/18 22:47 Hypersegmented Neuts Not Reportable 12/11/18 22:47 Hyposegmented Neuts Not Reportable 12/11/18 22:47 Hypogranular Neuts Not Reportable 12/11/18 22:47 Smudge Cells Not Reportable 12/11/18 22:47 Toxic Granulation Not Reportable 12/11/18 22:47 Toxic Vacuolation Not Reportable 12/11/18 22:47 Dohle Bodies Not Reportable 12/11/18 22:47 Pelger-Huet Anomaly Not Reportable 12/11/18 22:47 Starla Rods Not Reportable 12/11/18 22:47 Platelet Estimate Consistent w auto 12/11/18 22:47 Clumped Platelets Few 12/11/18 22:47 Plt Clumps, EDTA Not Reportable 12/11/18 22:47 Large Platelets 1+ 12/11/18 22:47 Giant Platelets Not Reportable 12/11/18 22:47 Platelet Satelliting Not Reportable 12/11/18 22:47 Plt Morphology Comment Not Reportable 12/11/18 22:47 RBC Morphology Normal 12/11/18 22:47 Dimorphic RBCs Not Reportable 12/11/18 22:47 Polychromasia Not Reportable 12/11/18 22:47 Hypochromasia Not Reportable 12/11/18 22:47 Poikilocytosis Not Reportable 12/11/18 22:47 Anisocytosis Not Reportable 12/11/18 22:47 Microcytosis Not Reportable 12/11/18 22:47 Macrocytosis Not Reportable 12/11/18 22:47 Spherocytes Not Reportable 12/11/18 22:47 Pappenheimer Bodies Not Reportable 12/11/18 22:47 Sickle Cells Not Reportable 12/11/18 22:47 Target Cells Not Reportable 12/11/18 22:47 Tear Drop Cells Not Reportable 12/11/18 22:47 Ovalocytes Not Reportable 12/11/18 22:47 Helmet Cells Not Reportable 12/11/18 22:47 [place] Bodies Not Reportable 12/11/18 22:47 [place] Rings Not Reportable 12/11/18 22:47 Hilton Cells Not Reportable 12/11/18 22:47 Bite Cells Not Reportable 12/11/18 22:47 Crenated Cell Not Reportable 12/11/18 22:47 Elliptocytes Not Reportable 12/11/18 22:47 Acanthocytes (Spur) Not Reportable 12/11/18 22:47 Rouleaux Not Reportable 12/11/18 22:47 Hemoglobin C Crystals Not Reportable 12/11/18 22:47 Schistocytes Not Reportable 12/11/18 22:47 Malaria parasites Not Reportable 12/11/18 22:47 Dawson Bodies Not Reportable 12/11/18 22:47 Hem Pathologist Commnt No 12/11/18 22:47 PT 16.8 Sec. (12.2-14.9) H 12/12/18 11:45 INR 1.28 (0.87-1.13) H 12/12/18 11:45 APTT 40.8 Sec. (24.2-36.6) H 12/12/18 11:45 POC ABG pH 7.420 (7.35-7.45) 12/11/18 23:14 POC ABG pCO2 39.6 (35-45) 12/11/18 23:14 POC ABG pO2 84 (80-105) 12/11/18 23:14 POC ABG HCO3 25.7 (22-26 mml/L) 12/11/18 23:14 POC ABG Total CO2 27 (23-27mmol/L) 12/11/18 23:14 POC ABG O2 Sat 97 12/11/18 23:14 POC ABG Base Excess 1 ((-2) - (+3)mmol/L) 12/11/18 23:14 FiO2 32 % 12/11/18 23:14 Sodium 134 mmol/L (137-145) L 12/24/18 02:48 Potassium 4.5 mmol/L (3.6-5.0) 12/24/18 02:48 Chloride 102.9 mmol/L (98-107) 12/24/18 02:48 Carbon Dioxide 25 mmol/L (22-30) 12/24/18 02:48 Anion Gap 11 mmol/L 12/24/18 02:48 BUN 32 mg/dL (7-17) H 12/24/18 02:48 Creatinine 0.6 mg/dL (0.7-1.2) L 12/24/18 02:48 Estimated GFR > 60 ml/min 12/24/18 02:48 BUN/Creatinine Ratio 53 % 12/24/18 02:48 Glucose 150 mg/dL (65-100) H 12/24/18 02:48 POC Glucose 145 (70-105) H 12/24/18 16:48 Osmolality 336 Mosm/kg 12/18/18 09:56 Uric Acid 7.0 mg/dL (3.5-7.6) 12/18/18 09:56 Calcium 9.2 mg/dL (8.4-10.2) 12/24/18 02:48 Phosphorus 2.50 mg/dL (2.5-4.5) 12/13/18 07:39 Magnesium 1.70 mg/dL (1.7-2.3) 12/17/18 05:28 Iron 23 ug/dL (37-170) L 12/24/18 02:48 TIBC 113 mcg/dL (250-450) L 12/24/18 02:48 % Saturation 20.35 % 12/24/18 02:48 Transferrin 108 mg/dl (192-382) L 12/24/18 02:48 Total Bilirubin 2.10 mg/dL (0.1-1.2) H 12/11/18 20:34 AST 25 units/L (5-40) 12/11/18 20:34 ALT 27 units/L (7-56) 12/11/18 20:34 Alkaline Phosphatase 215 units/L (35-129) H 12/11/18 20:34 Ammonia 35.0 umol/L (25-60) 12/18/18 22:00 Total Creatine Kinase 44 units/L (30-135) 12/12/18 07:33 CK-MB (CK-2) 1.1 ng/mL (0.0-4.0) 12/12/18 07:33 CK-MB (CK-2) Rel Index 2.5 (0-4) 12/12/18 07:33 Troponin T 0.036 ng/mL (0.00-0.029) H 12/12/18 07:33 C-Reactive Protein 32.70 mg/dL (0.00-1.30) H 12/13/18 16:23 Total Protein 6.2 g/dL (6.3-8.2) L 12/11/18 20:34 Albumin 2.9 g/dL (3.9-5) L 12/11/18 20:34 Albumin/Globulin Ratio 0.9 % 12/11/18 20:34 Triglycerides 173 mg/dL (2-149) H 12/11/18 20:34 Cholesterol 95 mg/dL (50-199) 12/11/18 20:34 LDL Cholesterol Direct 16 mg/dL (50-130) L 12/11/18 20:34 HDL Cholesterol 19 mg/dL (40-59) L 12/11/18 20:34 Cholesterol/HDL Ratio 5.00 % 12/11/18 20:34 Vitamin B12 > 2000 pg/mL (211-911) H 12/24/18 02:48 Folate 11.72 ng/mL (7.3-26.0) 12/24/18 02:48 TSH 0.447 mlU/mL (0.270-4.200) 12/11/18 21:04 Thyroxine (T4) 5.3 ug/dL (4.0-12.0) 12/11/18 21:04 Urine Color Dark yellow (Yellow) 12/11/18 23:06 Urine Turbidity Clear (Clear) 12/11/18 23:06 Urine pH 5.0 (5.0-7.0) 12/11/18 23:06 Ur Specific [place] 1.021 (1.003-1.030) 12/11/18 23:06 Urine Protein 100 mg/dl mg/dL (Negative) 12/11/18 23:06 Urine Glucose (UA) >=500 mg/dL (Negative) 12/11/18 23:06 Urine Ketones Tr mg/dL (Negative) 12/11/18 23:06 Urine Blood Neg (Negative) 12/11/18 23:06 Urine Nitrite Neg (Negative) 12/11/18 23:06 Urine Bilirubin Neg (Negative) 12/11/18 23:06 Urine Urobilinogen 4.0 mg/dL (<2.0) 12/11/18 23:06 Ur Leukocyte Esterase Neg (Negative) 12/11/18 23:06 Urine WBC (Auto) 1.0 /HPF (0.0-6.0) 12/11/18 23:06 Urine RBC (Auto) 2.0 /HPF (0.0-6.0) 12/11/18 23:06 U Epithel Cells (Auto) 1.0 /HPF (0-13.0) 12/11/18 23:06 Amorphous Crystals Few 12/11/18 23:06 Random Vancomycin 7.9 ug/mL (0-40.0) 12/14/18 09:33 Urine Opiates Screen Presumptive negative 12/12/18 09:40 Urine Methadone Screen Presumptive negative 12/12/18 09:40 Ur Barbiturates Screen Presumptive negative 12/12/18 09:40 Ur Phencyclidine Scrn Presumptive negative 12/12/18 09:40 Ur Amphetamines Screen Presumptive negative 12/12/18 09:40 U Benzodiazepines Scrn Presumptive negative 12/12/18 09:40 Urine Cocaine Screen Presumptive negative 12/12/18 09:40 U Marijuana (THC) Screen Presumptive negative 12/12/18 09:40 Drugs of Abuse Note Disclamer 12/12/18 09:40 Plasma/Serum Alcohol < 0.01 % (0-0.07) 12/12/18 09:27 Blood Type O POSITIVE 12/23/18 14:22 Antibody Screen Negative 12/23/18 14:22 SHARLA Antibody Screen Negative 12/18/18 14:06 Crossmatch See Detail 12/23/18 14:22 Active Medications - Current Medications Current Medications: Generic Name Dose Route Start Last Admin Trade Name Eduq PRN Reason Stop Dose Admin Acetaminophen 650 mg 12/12/18 09:53 12/24/18 21:22 Tylenol PO 650 mg Q4H PRN Administration Fever >101 Lipase/Protease/Amylase 1 each 12/19/18 10:01 Pancreaze 10,500 Unit FEEDTUBE PRN PRN For Clogged Feeding Tube Carvedilol 25 mg 12/12/18 10:00 12/24/18 21:21 Coreg PO 25 mg BID AMANDEEP Administration Dextrose 50 ml 12/12/18 08:11 D50w (25gm) Syringe IV PRN PRN Hypoglycemia Haloperidol Lactate 5 mg 12/12/18 18:00 12/20/18 01:14 Haldol IV 5 mg Q6H PRN Administration Agitation Heparin Sodium (Porcine) 5,000 unit 12/12/18 10:00 12/24/18 21:22 Heparin SUB-Q 5,000 unit Q12HR AMANDEEP Administration Hydralazine HCl 50 mg 12/12/18 09:00 12/24/18 21:20 Apresoline PO 50 mg TID AMANDEEP Administration Ceftriaxone Sodium 2 gm in 100 mls @ 200 mls/hr 12/18/18 15:00 12/24/18 09:48 Rocephin/Ns 2 Gm/100 Ml IV 01/24/19 10:29 200 mls/hr Q24HR AMANDEEP Administration Protocol Sodium Chloride 1,000 mls @ 100 mls/hr 12/18/18 22:00 12/24/18 14:57 Nacl 0.45% 1000 Ml IV 100 mls/hr DIRECT AMANDEEP Administration Insulin Glargine 45 units 12/22/18 22:00 12/24/18 10:15 Lantus SUB-Q 45 units BID AMANDEEP Administration Insulin Human Lispro 0 unit 12/14/18 12:00 12/24/18 18:00 Humalog SUB-Q Not Given Q6HR [facility] Protocol Loratadine 10 mg 12/12/18 10:00 12/24/18 09:49 Claritin PO 10 mg DAILY AMANDEEP Administration Lorazepam 1 mg 12/13/18 14:05 12/23/18 22:32 Ativan IV 1 mg Q4H PRN Administration Agitation Methimazole 5 mg 12/16/18 16:00 12/24/18 09:49 Tapazole PO 5 mg QDAY AMANDEEP Administration Morphine Sulfate 2 mg 12/12/18 02:48 12/24/18 21:38 Morphine IV 2 mg Q4H PRN Administration Pain, Moderate (4-6) Ondansetron HCl 4 mg 12/12/18 02:48 Zofran IV Q8H PRN Nausea And Vomiting Simple Syrup 15 ml 12/19/18 10:01 Simple Syrup FEEDTUBE PRN PRN Hypoglycemia Simple Syrup 30 ml 12/19/18 10:01 Simple Syrup FEEDTUBE PRN PRN Hypoglycemia Sodium Bicarbonate 325 mg 12/19/18 10:01 Sodium Bicarbonate FEEDTUBE PRN PRN For Clogged Feeding Tube Nutrition/Malnutrition Assess - Dietary Evaluation Nutrition/Malnutrition Findings: Nutrition Notes Start: 12/12/18 12:14 Freq: Status: Active Protocol: Document 12/24/18 16:34 RM (Rec: 12/24/18 16:38 RM [id number]) Nutrition Notes Initial or Follow up Reassessment Current Diagnosis Acute Kidney Injury,CKD(stage I-IV),Diabetes,Hypertension Other Pertinent Diagnosis arthritis, asthma, L buttocks skin tear Current Diet Glucerna 1.2 at 65 ml/hr + Mech soft diet Labs/Tests Reviewed Pertinent Medications Lasix Height 5 ft 7 in Weight 156.3 kg [place] Body Weight (kg) 61.36 BMI 53.9 Subjective/Other Information Observed Glucerna 1.2 infusing at 65 ml/hr. Tech stated that pt is eating only bites of meals. Dramatic Agent informed nurse that TF should be infusing at 20 ml/hr . Percent of energy/protein needs met: 86%/100% Burn Absent Trauma Absent #1 Nutrition Diagnosis Inadequate energy intake, Predicted suboptimal energy intake Diagnosis Progress(for reassessment Continues documentation) Is patient on ventilator? No Is Patient Ambulatory and/or Out of Bed No REE-([place]-confined to bed) 2531.784 Kcal/Kg value to use for calculation 14 Approximate Energy Requirements Using 2188 kcal/Kg Calculation Used for Recommendations Kcal/kg Additional Notes Protein: 64-80g (0.8-1g/kg using adj wt 80kg) Fluid: 1 ml/kcal Nutrition Intervention Change Diet Order: TF Nutrition Support: Glucerna 1.2 at 20ml/hr. Flush with 50ml q4h Kcal 576 Protein (gm) 29 Fluid (mL) 1,260 Goal #1 Diet tolerance Goal #2 Meet at least 75% of kcal and protein needs via PO intake Anticipated Discharge Needs: unable to determine at this time Follow-Up By: 12/26/18 Additional Comments Follow for PO intake
[2018-12-25] MEDS: HumaLOG SUB-Q SCH ×4 (00:48→22:04)
[2018-12-25] MEDS: ATIVAN IV PRN ×2 (01:10→08:42)
[2018-12-25] MEDS: FREE WATER PO SCH ×2 (05:00→11:56)
[2018-12-25] MEDS: APRESOLINE PO SCH ×3 (07:15→20:13)
[2018-12-25 07:25] LABS: BUN/Creatinine Ratio 43; Blood Urea Nitrogen 26 mg/dL (7-17); Hemolysis Index 0
--- NOTE | 2018-12-25 08:44 | Progress Note ---
Assessment and Plan Cultures: Blood culture 12/12/2018 beta hem Strep group B 4 of 4 bottles Blood culture 12/14/2018: no growth Chest culture 12/21/2018: no growth in 48 hours Assessment: 73 y/o female with history of DM2, OA, ARF, CKD stage 3, depression, hypertension, hyperthyroidism and GERD; admitted on 12/11/2018 due to AMS and recent fall injuring her right shoulder: 1) Sepsis: Resolved. No fevers. Etiology most likely Strep bacteremia and infection in the right sternoclavicular joint. CXR neg. UA neg. Repeat CXR no consolidation. 2) Strep group B bacteremia: 4 of 4 bottles positive, unclear source ? skin (leg wounds do not look infected) ? neck soft tissue infection ? joint infection. CRP=32. TTE no vegetation. repeat cultures show no growth. 3) Supraclavicular Mass: chest ultrasound shows small oviod solid mass in the r ight supraclavicular area. This measures 2.2 cm x 0.9 cm x 1.8 cm. It probably represents a lymph node. s/p SC joint aspiration with negative Gram stain for organisms and negative cultures on 12/21/2018 Duplex Scan upper extremity artery: Exam limited, no definite evidence of DVT . Severe diffuse bilateral soft tissue edema in the right side of the neck clavicle, 3cm structure with echogenic center most likely representing a lymph node with fatty hilum. ?Early abscess vs Inflammatory mass. WBC scan results show positive scan for infection in the right sternoclavicular area. No other suspicious uptake. 3) ALVARO on CKD 4) DM2 with HONK 5) Acute encephalopathy: Improved. CT head neg. Recommendations: -f/u [facility], anti-CCP -Anticipate discharge on Ceftriaxone 2 gms IV once a day for 4 weeks ending 01-10-19. -continue Ceftriaxone 2gm IV q day, D7 -follow-up [facility] in 3 weeks [facility] M: [phone] O:[phone] Subjective Date of service: 12/25/18 Principal diagnosis: sepsis Interval history: Patient seen and examined. at bedside. Asleep, easily aroused. Follow simple commands. Objective - Exam Narrative Exam: General appearance: Asleep. easy to arouse. no acute distress. Eyes: anicteric sclerae, moist conjunctivae; no lid-lag; PERRLA HENT: Atraumatic; oropharynx edentulous limited Neck: Trachea midline; supple, no thyromegaly or lymphadenopathy Lungs: CTA CV: RRR Abdomen: Soft,obese mild tenderness Extremities: No peripheral edema or extremity lymphadenopathy + left leg wound wrapped, no drainage + right leg wound wrapped, no drainage. Skin: stage 2 left buttocks wound. The wound measurement is as follows; 1. 0x1.0x0.1. Scant serous sanguineous drainage noticed to the wound. No odor noticed to the wound. Psych: calm . Neuro: Asleep. easy to arouse. calm. - Constitutional Vitals: Vital Signs Temp Pulse Resp BP Pulse Ox 98.0 F 61 20 130/49 97 12/25/18 07:55 12/25/18 07:55 12/25/18 07:55 12/25/18 07:55 12/25/18 07:55 Temperature -Last 24 Hours Temperature 98.0 F Temperature 98.6 F Temperature 97.8 F Temperature 98.2 F - Labs CBC & Chem 7: 12/25/18 09:54 12/25/18 04:00 Labs: Abnormal lab results 12/24/18 12/24/18 12/25/18 Range/Units 11:25 16:48 00:50 Sodium (137-145) mmol/L BUN (7-17) mg/dL Creatinine (0.7-1.2) mg/dL POC Glucose 126 H 145 H 121 H (70-105) 12/25/18 12/25/18 12/25/18 Range/Units 04:00 06:20 07:01 Sodium 134 L (137-145) mmol/L BUN 26 H (7-17) mg/dL Creatinine 0.6 L (0.7-1.2) mg/dL POC Glucose 57 L 52 L (70-105) 12/25/18 Range/Units 07:59 Sodium (137-145) mmol/L BUN (7-17) mg/dL Creatinine (0.7-1.2) mg/dL POC Glucose 136 H (70-105)
[2018-12-25] MEDS: LANTUS SUB-Q SCH ×2 (10:00→22:03)
[2018-12-25 10:25] LABS: Hematocrit 23.8 % (30.3-42.9); Hemoglobin 7.8 gm/dl (10.1-14.3); Mean Corpuscular HGB Conc 33 % (30-34); Mean Corpuscular Volume 93 fl (79-97); Platelet Count 217 K/mm3 (140-440); Red Blood Count 2.57 M/mm3 (3.65-5.03); Red Cell Distribution Width 17.3 % (13.2-15.2)
--- NOTE | 2018-12-25 11:37 | Progress Note ---
Assessment and Plan Assessment and plan: 73-year-old woman with history of type 2 diabetes, osteoarthritis, chronic kidney disease with creatinine baseline around 1.2, hypertension, depression, hypothyroidism, GERD who was brought to the hospital with altered mental status. CT chest, report is limited due to lack of IV contrast, but there is abnormality in the right supraclavicular region and gas bubbles concerning for infectious process 12/19: MRI brain shows global cortical atrophy with greater involvement of the frontal and temporal lobes. No acute change. Diagnosis Sepsis likely from shoulder joint and patient is on IV antibiotics. Group B strep bacteremia infection at R sternoclavicular joint- osteomylitis Acute metabolic encephalopathy Severe hypokalemia Hypomagnesemia Hyperthyroidism Moderate malnutrition Anemia Type 2 diabetes with persistent hyperglycemia, hyperosmolar, nonketotic hyperglycemic state Hypertension Morbid obesity -Acute kidney injury, likely component of ATN and vasomotor nephropathy -anemia due to sepsis Plan WBC tagged scan confirm SCJ infection, ortho consult appreciated, was drained on 12/21 fup cxs, NGTD -Continue empiric antibiotics per ID, status post PICC line, will likely need prolonged IV antibiotics per ID Electrolytes have been repleted Continue to optimize insulins -Acute kidney injury has now resolved, nephrology signed off on 12/19/18 -Mentation is improving -sp 2 units of blood for anemia of Chronic disease -Case discussed with infectious disease -Case discussed with family, would like rehabilitation placement, awaiting [facility] bed Diet; D/C the NG tube patient is eating well. History Interval history: Patient was seen and evaluated this morning, patient didn't have any complaints. She was eating her breakfast. Patient still has NG tube and asked the nurse to take it out. Hospitalist Physical - Physical exam Narrative exam: Not in cardiopulmonary distress. The patient is morbidly obese. Vital signs as documented. Head exam is unremarkable. No scleral icterus . Neck is without jugular venous distension, thyromegaly, or carotid bruits. Lungs are clear to auscultation. Cardiac exam reveals regular rate and Rhythm. Abdominal exam reveals normal bowel sounds. Extremities are nonedematous and both femoral and pedal pulses are normal. BUSINESS INFO CONSULTANT: Alert and oriented 3. No focal weakness. - Constitutional Vitals: Temp Pulse Resp BP Pulse Ox 98.0 F 61 20 130/49 96 12/25/18 07:55 12/25/18 07:55 12/25/18 07:55 12/25/18 07:55 12/25/18 09:52 General appearance: Present: no acute distress, well-nourished, obese Results - Labs CBC & Chem 7: 12/25/18 09:54 12/25/18 04:00 Labs: Laboratory Last Values WBC 8.2 K/mm3 (4.5-11.0) 12/25/18 09:54 RBC 2.57 M/mm3 (3.65-5.03) L 12/25/18 09:54 Hgb 7.8 gm/dl (10.1-14.3) L 12/25/18 09:54 Hct 23.8 % (30.3-42.9) L 12/25/18 09:54 MCV 93 fl (79-97) 12/25/18 09:54 MCH 31 pg (28-32) 12/25/18 09:54 MCHC 33 % (30-34) 12/25/18 09:54 RDW 17.3 % (13.2-15.2) H 12/25/18 09:54 Plt Count 217 K/mm3 (140-440) 12/25/18 09:54 Lymph % (Auto) 7.9 % (13.4-35.0) L 12/23/18 Unknown [place] % (Auto) 6.4 % (0.0-7.3) 12/23/18 Unknown Eos % (Auto) 0.9 % (0.0-4.3) 12/23/18 Unknown Baso % (Auto) 0.9 % (0.0-1.8) 12/23/18 Unknown Lymph # 0.6 K/mm3 (1.2-5.4) L 12/23/18 Unknown [place] # 0.5 K/mm3 (0.0-0.8) 12/23/18 Unknown Eos # 0.1 K/mm3 (0.0-0.4) 12/23/18 Unknown Baso # 0.1 K/mm3 (0.0-0.1) 12/23/18 Unknown Add Manual Diff Complete 12/11/18 22:47 Total Counted 100 12/11/18 22:47 Seg Neutrophils % 83.9 % (40.0-70.0) H 12/23/18 Unknown Seg Neuts % (Manual) 92.0 % (40.0-70.0) H 12/11/18 22:47 0 % 12/11/18 22:47 4.0 % (13.4-35.0) L 12/11/18 22:47 Reactive Lymphs % (Man) 0 % 12/11/18 22:47 3.0 % (0.0-7.3) 12/11/18 22:47 0 % (0.0-4.3) 12/11/18 22:47 0 % (0.0-1.8) 12/11/18 22:47 1.0 % 12/11/18 22:47 0 % 12/11/18 22:47 0 % 12/11/18 22:47 0 % 12/11/18 22:47 Nucleated RBC % 2.0 % (0.0-0.9) H 12/11/18 22:47 Seg Neutrophils # 6.9 K/mm3 (1.8-7.7) 12/23/18 Unknown Seg Neutrophils # Man 17.0 K/mm3 (1.8-7.7) H 12/11/18 22:47 Band Neutrophils # 0.0 K/mm3 12/11/18 22:47 0.7 K/mm3 (1.2-5.4) L 12/11/18 22:47 Abs React Lymphs (Man) 0.0 K/mm3 12/11/18 22:47 0.6 K/mm3 (0.0-0.8) 12/11/18 22:47 0.0 K/mm3 (0.0-0.4) 12/11/18 22:47 0.0 K/mm3 (0.0-0.1) 12/11/18 22:47 0.2 K/mm3 12/11/18 22:47 0.0 K/mm3 12/11/18 22:47 0.0 K/mm3 12/11/18 22:47 Blast Cells # 0.0 K/mm3 12/11/18 22:47 WBC Morphology Not Reportable 12/11/18 22:47 Hypersegmented Neuts Not Reportable 12/11/18 22:47 Hyposegmented Neuts Not Reportable 12/11/18 22:47 Hypogranular Neuts Not Reportable 12/11/18 22:47 Not Reportable 12/11/18 22:47 Not Reportable 12/11/18 22:47 Not Reportable 12/11/18 22:47 Not Reportable 12/11/18 22:47 Not Reportable 12/11/18 22:47 Not Reportable 12/11/18 22:47 Consistent w auto 12/11/18 22:47 Few 12/11/18 22:47 Plt Clumps, EDTA Not Reportable 12/11/18 22:47 1+ 12/11/18 22:47 Not Reportable 12/11/18 22:47 Not Reportable 12/11/18 22:47 Plt Morphology Comment Not Reportable 12/11/18 22:47 RBC Morphology Normal 12/11/18 22:47 Dimorphic RBCs Not Reportable 12/11/18 22:47 Not Reportable 12/11/18 22:47 Not Reportable 12/11/18 22:47 Not Reportable 12/11/18 22:47 Not Reportable 12/11/18 22:47 Not Reportable 12/11/18 22:47 Not Reportable 12/11/18 22:47 Not Reportable 12/11/18 22:47 Not Reportable 12/11/18 22:47 Not Reportable 12/11/18 22:47 Not Reportable 12/11/18 22:47 Not Reportable 12/11/18 22:47 Not Reportable 12/11/18 22:47 Not Reportable 12/11/18 22:47 Not Reportable 12/11/18 22:47 Not Reportable 12/11/18 22:47 Not Reportable 12/11/18 22:47 Not Reportable 12/11/18 22:47 Not Reportable 12/11/18 22:47 Not Reportable 12/11/18 22:47 Acanthocytes (Spur) Not Reportable 12/11/18 22:47 Rouleaux Not Reportable 12/11/18 22:47 Not Reportable 12/11/18 22:47 Not Reportable 12/11/18 22:47 Not Reportable 12/11/18 22:47 Not Reportable 12/11/18 22:47 Hem Pathologist Commnt No 12/11/18 22:47 PT 16.8 Sec. (12.2-14.9) H 12/12/18 11:45 INR 1.28 (0.87-1.13) H 12/12/18 11:45 APTT 40.8 Sec. (24.2-36.6) H 12/12/18 11:45 POC ABG pH 7.420 (7.35-7.45) 12/11/18 23:14 POC ABG pCO2 39.6 (35-45) 12/11/18 23:14 POC ABG pO2 84 (80-105) 12/11/18 23:14 POC ABG HCO3 25.7 (22-26 mml/L) 12/11/18 23:14 POC ABG Total CO2 27 (23-27mmol/L) 12/11/18 23:14 POC ABG O2 Sat 97 12/11/18 23:14 POC ABG Base Excess 1 ((-2) - (+3)mmol/L) 12/11/18 23:14 32 % 12/11/18 23:14 Sodium 134 mmol/L (137-145) L 12/25/18 04:00 Potassium 4.3 mmol/L (3.6-5.0) 12/25/18 04:00 Chloride 99.9 mmol/L (98-107) 12/25/18 04:00 Carbon Dioxide 26 mmol/L (22-30) 12/25/18 04:00 12 mmol/L 12/25/18 04:00 BUN 26 mg/dL (7-17) H 12/25/18 04:00 0.6 mg/dL (0.7-1.2) L 12/25/18 04:00 Estimated GFR > 60 ml/min 12/25/18 04:00 43 % 12/25/18 04:00 Glucose 72 mg/dL (65-100) 12/25/18 04:00 POC Glucose 136 (70-105) H 12/25/18 07:59 336 Mosm/kg 12/18/18 09:56 7.0 mg/dL (3.5-7.6) 12/18/18 09:56 Calcium 9.0 mg/dL (8.4-10.2) 12/25/18 04:00 Phosphorus 2.50 mg/dL (2.5-4.5) 12/13/18 07:39 Magnesium 1.70 mg/dL (1.7-2.3) 12/17/18 05:28 Iron 23 ug/dL (37-170) L 12/24/18 02:48 TIBC 113 mcg/dL (250-450) L 12/24/18 02:48 % Saturation 20.35 % 12/24/18 02:48 108 mg/dl (192-382) L 12/24/18 02:48 2.10 mg/dL (0.1-1.2) H 12/11/18 20:34 AST 25 units/L (5-40) 12/11/18 20:34 ALT 27 units/L (7-56) 12/11/18 20:34 215 units/L (35-129) H 12/11/18 20:34 35.0 umol/L (25-60) 12/18/18 22:00 44 units/L (30-135) 12/12/18 07:33 CK-MB (CK-2) 1.1 ng/mL (0.0-4.0) 12/12/18 07:33 CK-MB (CK-2) Rel Index 2.5 (0-4) 12/12/18 07:33 0.036 ng/mL (0.00-0.029) H 12/12/18 07:33 32.70 mg/dL (0.00-1.30) H 12/13/18 16:23 6.2 g/dL (6.3-8.2) L 12/11/18 20:34 2.9 g/dL (3.9-5) L 12/11/18 20:34 0.9 % 12/11/18 20:34 Triglycerides 173 mg/dL (2-149) H 12/11/18 20:34 Cholesterol 95 mg/dL (50-199) 12/11/18 20:34 16 mg/dL (50-130) L 12/11/18 20:34 19 mg/dL (40-59) L 12/11/18 20:34 5.00 % 12/11/18 20:34 Vitamin B12 > 2000 pg/mL (211-911) H 12/24/18 02:48 11.72 ng/mL (7.3-26.0) 12/24/18 02:48 TSH 0.447 mlU/mL (0.270-4.200) 12/11/18 21:04 5.3 ug/dL (4.0-12.0) 12/11/18 21:04 Dark yellow (Yellow) 12/11/18 23:06 Clear (Clear) 12/11/18 23:06 5.0 (5.0-7.0) 12/11/18 23:06 Ur Specific [place] 1.021 (1.003-1.030) 12/11/18 23:06 100 mg/dl mg/dL (Negative) 12/11/18 23:06 >=500 mg/dL (Negative) 12/11/18 23:06 Tr mg/dL (Negative) 12/11/18 23:06 Neg (Negative) 12/11/18 23:06 Neg (Negative) 12/11/18 23:06 Neg (Negative) 12/11/18 23:06 4.0 mg/dL (<2.0) 12/11/18 23:06 Ur Leukocyte Esterase Neg (Negative) 12/11/18 23:06 1.0 /HPF (0.0-6.0) 12/11/18 23:06 2.0 /HPF (0.0-6.0) 12/11/18 23:06 U Epithel Cells (Auto) 1.0 /HPF (0-13.0) 12/11/18 23:06 Amorphous Crystals Few 12/11/18 23:06 Random Vancomycin 7.9 ug/mL (0-40.0) 12/14/18 09:33 Presumptive negative 12/12/18 09:40 Presumptive negative 12/12/18 09:40 Ur Barbiturates Screen Presumptive negative 12/12/18 09:40 Ur Phencyclidine Scrn Presumptive negative 12/12/18 09:40 Ur Amphetamines Screen Presumptive negative 12/12/18 09:40 U Benzodiazepines Scrn Presumptive negative 12/12/18 09:40 Presumptive negative 12/12/18 09:40 U Marijuana (THC) Screen Presumptive negative 12/12/18 09:40 Disclamer 12/12/18 09:40 Plasma/Serum Alcohol < 0.01 % (0-0.07) 12/12/18 09:27 Blood Type O POSITIVE 12/23/18 14:22 Antibody Screen Negative 05/05/19 14:22 SHARLA Antibody Screen Negative 12/18/18 14:06 Crossmatch See Detail 12/23/18 14:22 Active Medications - Current Medications Current Medications: Generic Name Dose Route Start Last Admin Trade Name Roscoe PRN Reason Stop Dose Admin Acetaminophen 650 mg 12/12/18 09:53 12/24/18 21:22 Tylenol PO 650 mg Q4H PRN Administration Fever >101 Lipase/Protease/Amylase 1 each 12/19/18 10:01 Pancrerose Smith 10,500 Unit FEEDTUBE PRN PRN For Clogged Feeding Tube Carvedilol 25 mg 12/12/18 10:00 12/24/18 21:21 Coreg PO 25 mg BID AMANDEEP Administration Dextrose 50 ml 12/12/18 08:11 12/25/18 07:15 D50w (25gm) Syringe IV 50 ml PRN PRN Administration Hypoglycemia Haloperidol Lactate 5 mg 12/12/18 18:00 12/20/18 01:14 Haldol IV 5 mg Q6H PRN Administration Agitation Heparin Sodium (Porcine) 5,000 unit 12/12/18 10:00 12/24/18 21:22 Heparin SUB-Q 5,000 unit Q12HR AMANDEEP Administration Hydralazine HCl 50 mg 12/12/18 09:00 12/24/18 21:20 Apresoline PO 50 mg TID AMANDEEP Administration Ceftriaxone Sodium 2 gm in 100 mls @ 200 mls/hr 12/18/18 15:00 12/24/18 09:48 Rocephin/Ns 2 Gm/100 Ml IV 01/10/19 10:29 200 mls/hr Q24HR AMANDEEP Administration Protocol Sodium Chloride 1,000 mls @ 100 mls/hr 12/18/18 22:00 12/24/18 23:19 Nacl 0.45% 1000 Ml IV 100 mls/hr DIRECT AMANDEEP Administration Insulin Glargine 45 units 12/22/18 22:00 12/24/18 23:15 Lantus SUB-Q 45 units BID AMANDEEP Administration Insulin Human Lispro 0 unit 12/14/18 12:00 12/25/18 06:20 Humalog SUB-Q Not Given Q6HR AMANDEEP Protocol Loratadine 10 mg 12/12/18 10:00 12/24/18 09:49 Claritin PO 10 mg DAILY AMANDEEP Administration Lorazepam 1 mg 12/13/18 14:05 12/25/18 08:42 Ativan IV 1 mg Q4H PRN Administration Agitation Methimazole 5 mg 12/16/18 16:00 12/24/18 09:49 Tapazole PO 5 mg QDAY AMANDEEP Administration Morphine Sulfate 2 mg 12/12/18 02:48 12/24/18 21:38 Morphine IV 2 mg Q4H PRN Administration Pain, Moderate (4-6) Ondansetron HCl 4 mg 12/12/18 02:48 Zofran IV Q8H PRN Nausea And Vomiting Simple Syrup 15 ml 12/19/18 10:01 Simple Syrup FEEDTUBE PRN PRN Hypoglycemia Simple Syrup 30 ml 12/19/18 10:01 12/25/18 06:20 Simple Syrup FEEDTUBE 30 ml PRN PRN Administration Hypoglycemia Sodium Bicarbonate 325 mg 12/19/18 10:01 Sodium Bicarbonate FEEDTUBE PRN PRN For Clogged Feeding Tube Nutrition/Malnutrition Assess - Dietary Evaluation Nutrition/Malnutrition Findings: Nutrition Notes Start: 12/12/18 12:14 Freq: Status: Active Protocol: Document 12/24/18 16:34 RM (Rec: 12/24/18 16:38 RM [id number]) Nutrition Notes Initial or Follow up Reassessment Current Diagnosis Acute Kidney Injury,CKD(stage I-IV),Diabetes,Hypertension Other Pertinent Diagnosis arthritis, asthma, L buttocks skin tear Current Diet Glucerna 1.2 at 65 ml/hr + Mech soft diet Labs/Tests Reviewed Pertinent Medications Lasix Height 5 ft 7 in Weight 156.3 kg Girard Body Weight (kg) 61.36 BMI 53.9 Subjective/Other Information Observed Glucerna 1.2 infusing at 65 ml/hr. Tech stated that pt is eating only bites of meals. Trains Service Conductor informed nurse that TF should be infusing at 20 ml/hr . Percent of energy/protein needs met: 86%/100% Burn Absent Trauma Absent #1 Nutrition Diagnosis Inadequate energy intake, Predicted suboptimal energy intake Diagnosis Progress(for reassessment Continues documentation) Is patient on ventilator? No Is Patient Ambulatory and/or Out of Bed No REE-([place]-confined to bed) 2531.784 Kcal/Kg value to use for calculation 14 Approximate Energy Requirements Using 2188 kcal/Kg Calculation Used for Recommendations Kcal/kg Additional Notes Protein: 64-80g (0.8-1g/kg using adj wt 80kg) Fluid: 1 ml/kcal Nutrition Intervention Change Diet Order: TF Nutrition Support: Glucerna 1.2 at 20ml/hr. Flush with 50ml q4h Kcal 576 Protein (gm) 29 Fluid (mL) 1,260 Goal #1 Diet tolerance Goal #2 Meet at least 75% of kcal and protein needs via PO intake Anticipated Discharge Needs: unable to determine at this time Follow-Up By: 12/26/18 Additional Comments Follow for PO intake
[2018-12-25] MEDS: ROCEPHIN/NS 2 GM/100 ML 2 GM/100 ML BAG IV SCH (11:55)
[2018-12-25] MEDS: TAPAZOLE PO SCH (11:55)
[2018-12-25] MEDS: COREG PO SCH ×2 (11:55→22:04)
[2018-12-25] MEDS: HEPARIN SUB-Q SCH ×2 (11:56→22:05)
[2018-12-25] MEDS: CLARITIN PO SCH (11:56)
[2018-12-25 15:07] LABS: Band Neutrophils # (Manual) 0.1 K/mm3; Basophils % (Manual) 0 % (0.0-1.8); Eosinophils % (Manual) 0 % (0.0-4.3); Total Cells Counted 100
[2018-12-25 15:08] LABS: Hypochromasia 1+; Platelet Estimate Consistent w Auto
[2018-12-25] MEDS: TYLENOL PO PRN (22:05)
[2018-12-26] MEDS: NACL 0.45% 1000 ML 1,000 ML IV SCH (05:51)
[2018-12-26 06:22] LABS: Hemoglobin 7.6 gm/dl (10.1-14.3); Mean Corpuscular HGB Conc 33 % (30-34); Mean Corpuscular Volume 93 fl (79-97); Platelet Count 229 K/mm3 (140-440); Red Blood Count 2.47 M/mm3 (3.65-5.03); Red Cell Distribution Width 17.1 % (13.2-15.2)
[2018-12-26 06:48] LABS: BUN/Creatinine Ratio 44; Blood Urea Nitrogen 22 mg/dL (7-17); Hemolysis Index 26
[2018-12-26] MEDS: HumaLOG SUB-Q SCH ×3 (07:39→11:44)
[2018-12-26] MEDS: APRESOLINE PO SCH (07:40)
[2018-12-26] MEDS: TYLENOL PO PRN ×2 (07:40→13:39)
[2018-12-26] MEDS: HEPARIN SUB-Q SCH (09:29)
[2018-12-26] MEDS: TAPAZOLE PO SCH (09:31)
[2018-12-26] MEDS: CLARITIN PO SCH (09:31)
[2018-12-26] MEDS: COREG PO SCH (09:31)
[2018-12-26] MEDS: ROCEPHIN/NS 2 GM/100 ML 2 GM/100 ML BAG IV SCH (09:32)
--- NOTE | 2018-12-26 09:34 | Discharge Summary ---
Providers - Providers Date of Admission: 12/12/18 00:03 Attending physician: NELSON BARRERA MD 12/12/18 06:00 Consult to Physician [CONS] Routine Comment: Consulting Provider: RONAN SCHULTE Physician Instructions: Reason For Exam: ALVARO 12/12/18 08:14 Consult to PICC Line RN [CONS] Urgent Reason For Exam: need KCL via central line Type Line:: Midline 12/12/18 11:30 Consult to Wound/ET Nurse [CONS] Urgent Reason For Exam: wound eval 12/13/18 06:08 Consult to Physician [CONS] Routine Comment: Consulting Provider: MARLENY CLEMONS Physician Instructions: Reason For Exam: Febrile illness, AMS in icu 12/14/18 12:42 Physical Therapy Evaluation and Treat [CONS] Routine Comment: Reason For Exam: Debility 12/14/18 12:43 Occupational Therapy Evaluate and Treat [CONS] Routine Comment: Reason For Exam: Debility 12/15/18 15:09 Consult to Physician [CONS] Routine Comment: called answ. serv./ elle Consulting Provider: PARDEEP LOPEZ Physician Instructions: Reason For Exam: AMS 12/17/18 16:49 PICC Line Insertion [Consult to PICC Line RN] [CONS] Routine Reason For Exam: OPAT Type Line:: PICC 12/18/18 13:46 Consult to Physician [CONS] Routine Comment: Consulting Provider: RACHNA OLSON Physician Instructions: Reason For Exam: ams 12/18/18 14:49 Consult to Case Management [CONS] Urgent Services Needed at Discharge: Home Health Services Notified:: no Additional Physician Instructions: [facility] ([facility] M [phone] O [phone] F [phone] OUTPATIENT PARENTERAL ANTIBIOTIC THERAPY ORDERS Diagnoses: Strep group B bacteremia. Right Supraclavicular Mass Antimicrobial administration: Anticipate discharge on Ceftriaxone 2 gms IV once a day for 4 weeks ending 01-10-19. Remove PICC line after last dose unless otherwise instructed. Lines: PICC Lab monitoring: CBC, BUN, Creatinine, ALT, AST, once a week preferly on Monday morning. Please fax results to [phone] and call [phone] for critical lab results. Nichelle Gusman NP/Marleny Centeno MD Date: 12/18/18 12/19/18 08:10 Speech Therapy Evaluation and Treat [CONS] Stat Reason For Exam: Re-evaluation of swallow. Patient is more alert. 12/21/18 09:24 Consult to Physician [CONS] Routine Comment: Consulting Provider: GRANT CONRAD Physician Instructions: Reason For Exam: R SCJ infection, osteomylitis 12/26/18 06:46 Consult to Wound/ET Nurse [CONS] Routine Reason For Exam: wound eval - beneath breasts Primary care physician: ARCHANA RUSH Hospitalization Reason for admission: Altered mental status, sepsis, right SC joint infection, immobility Condition: Stable Pertinent studies: Neck CT IMPRESSION: Ill-defined areas of soft tissue density in right supraclavicular region with gas bubbles. This is concerning for inflammatory change/phlegmon. Gas bubbles raise concern for gas forming infectious abnormality. I cannot con firm a fluid collection/abscess although exam limited for this purpose due to lack of IV contrast administration. CT head IMPRESSION: * No acute intracranial findings. * Chronic ischemic disease MRI head IMPRESSION: Global cortical atrophy with greater involvement of the frontal and temporal lobes. No acute change NM leukocyte scan IMPRESSION: Positive scan for infection in the right sternoclavicular area. No other suspicious uptake. Hospital course: 73-year-old woman with history of type 2 diabetes, osteoarthritis, chronic kidney disease with creatinine baseline around 1.2, hypertension, depression, hypothyroidism, GERD who was brought to the hospital with altered mental status. Patient was immobile and not able to move both upper and lower extremities. CT head was normal, CT neck showed Ill-defined areas of soft tissue density in right supraclavicular region with gas bubbles. MRI head showed global atrophy pronounced on the temporofrontal area. Neurology consult appreciated. PT/OT evaluated and recommend rehab. CT chest, report is limited due to lack of IV contrast, but there is abnormality in the right supraclavicular region and gas bubbles concerning for infectious process. Patient was treated for Sepsis likely from infection at R sternoclavicular joint- osteomylitis and patient was treated with IV antibiotics and discharged to continue in the retirement. ID arrange the antibiotics, PICC line was placed. Group B strep bacteremia. Acute metabolic encephalopathy resolved. Severe hypokalemia; repleted Hypomagnesemia; repleted Hyperthyroidism; continue methimazole. Moderate malnutrition; evaluated by residential team leader. Anemia; transfused 2 units of blood and stable Type 2 diabetes with persistent hyperglycemia, hyperosmolar, nonketotic hyperglycemic state; treated and controlled Hypertension; controlled Morbid obesity; counselled Acute kidney injury, likely component of ATN and vasomotor nephropathy; resolved Patient's overall condition is poor. Disposition: [id number]/[place]-[id number] SNF [facility] C[facility] Time spent for discharge: 32 minutes - Discharge Diagnoses (1) Acidosis Status: Acute (2) Acute renal failure Status: Acute (3) Altered mental status Status: Acute (4) Dehydration Status: Acute (5) Rotator cuff (capsule) sprain Status: Acute (6) Hypertension Status: Chronic (7) Type 2 diabetes mellitus Status: Chronic Core Measure Documentation - Palliative Care Palliative Care/ Comfort Measures: Not Applicable - Core Measures Any of the following diagnoses?: none Exam - Physical Exam Narrative exam: Not in cardiopulmonary distress. The patient is morbidly obese. Vital signs as documented. Head exam is unremarkable. No scleral icterus . Neck is without jugular venous distension, thyromegaly, or carotid bruits. Lungs are clear to auscultation. Cardiac exam reveals regular rate and Rhythm. Abdominal exam reveals normal bowel sounds. Extremities are nonedematous and both femoral and pedal pulses are normal. SOURCE INSPECTOR: Alert and oriented 3. Immobile. - Constitutional Vitals: Temp Pulse Resp BP Pulse Ox 98.9 F 64 22 159/56 99 12/26/18 07:37 12/26/18 07:37 12/26/18 07:37 12/26/18 07:37 12/26/18 08:51 Plan Activity: advance as tolerated Weight Bearing Status: Weight Bear as Tolerated Diet: low salt, diabetic Follow up with: ARCHANA RUSH MD [Primary Care Provider] - 3-5 Days
[2018-12-26] MEDS: LANTUS SUB-Q SCH (09:35)
[2018-12-26 09:48] VITALS: BP 114/50
--- NOTE | 2018-12-26 12:36 | Progress Note ---
Subjective Date of service: 12/26/18 Principal diagnosis: sepsis Interval history: did another comprehensive neuro exam and spoke to Dr. Aviles feel sure that all the systemic weakness was present on admission since the state she was wheelchair bound and unable to wal detailed exam really impossible as she had inconsistent exam what is clear is she has no leg movement this has not urbina ged since admission and therefore was POA the arm movements are still reeduced and CT of spine does not suggest structural lesinn [id number] we are dealing see diabetic myelopathy [facility] is no mass lesion can be discharged for rehab at [facility] Objective - Vital Sign Vital Signs - 12hr 12/26/18 12/26/18 12/26/18 01:47 07:37 08:51 Temperature 97.8 F 98.9 F Pulse Rate 57 L 64 Pulse Rate [ Left Radial] Respiratory 18 22 Rate Blood Pressure 120/51 159/56 O2 Sat by Pulse 98 99 99 Oximetry 12/26/18 12/26/18 09:31 10:00 Temperature Pulse Rate 66 Pulse Rate [ 64 Left Radial] Respiratory 20 Rate Blood Pressure 114/50 O2 Sat by Pulse 99 Oximetry - Laboratory Findings CBC and BMP: 12/26/18 05:28 12/26/18 05:28 Abnormal Lab Findings: Abnormal Labs 12/11/18 12/11/18 12/11/18 20:09 20:34 20:34 WBC RBC Hgb Hct RDW Lymph % (Auto) Lymph # Seg Neutrophils % Seg Neuts % (Manual) Lymphocytes % (Manual) Nucleated RBC % Seg Neutrophils # Seg Neutrophils # Man Lymphocytes # (Manual) PT INR APTT Sodium 134 L Potassium 2.9 L* Chloride 88.1 L Carbon Dioxide BUN 50 H Creatinine 1.4 H Glucose 529 H* POC Glucose 445 H Phosphorus Magnesium Iron TIBC Transferrin Total Bilirubin 2.10 H Alkaline Phosphatase 215 H Ammonia Troponin T 0.038 H C-Reactive Protein Total Protein 6.2 L Albumin 2.9 L Triglycerides 173 H LDL Cholesterol Direct 16 L HDL Cholesterol 19 L Vitamin B12 Crossmatch 12/11/18 12/11/18 12/11/18 21:04 22:47 22:47 WBC 18.5 H RBC 3.10 L Hgb 9.3 L Hct 28.8 L RDW 17.2 H Lymph % (Auto) Lymph # Seg Neutrophils % Seg Neuts % (Manual) 92.0 H Lymphocytes % (Manual) 4.0 L Nucleated RBC % 2.0 H Seg Neutrophils # Seg Neutrophils # Man 17.0 H Lymphocytes # (Manual) 0.7 L PT INR APTT Sodium Potassium Chloride Carbon Dioxide BUN Creatinine Glucose POC Glucose Phosphorus 1.50 L Magnesium 1.30 L Iron TIBC Transferrin Total Bilirubin Alkaline Phosphatase Ammonia 19.0 L Troponin T C-Reactive Protein Total Protein Albumin Triglycerides LDL Cholesterol Direct HDL Cholesterol Vitamin B12 Crossmatch 12/11/18 12/12/18 12/12/18 22:47 00:47 01:57 WBC RBC Hgb Hct RDW Lymph % (Auto) Lymph # Seg Neutrophils % Seg Neuts % (Manual) Lymphocytes % (Manual) Nucleated RBC % Seg Neutrophils # Seg Neutrophils # Man Lymphocytes # (Manual) PT INR APTT Sodium 133 L 134 L Potassium 2.4 L* 2.8 L* Chloride 91.7 L 93.8 L Carbon Dioxide BUN 51 H 50 H Creatinine 1.6 H 1.5 H Glucose 436 H 429 H POC Glucose 442 H Phosphorus Magnesium Iron TIBC Transferrin Total Bilirubin Alkaline Phosphatase Ammonia Troponin T C-Reactive Protein Total Protein Albumin Triglycerides LDL Cholesterol Direct HDL Cholesterol Vitamin B12 Crossmatch 12/12/18 12/12/18 12/12/18 04:10 05:20 05:24 WBC RBC Hgb Hct RDW Lymph % (Auto) Lymph # Seg Neutrophils % Seg Neuts % (Manual) Lymphocytes % (Manual) Nucleated RBC % Seg Neutrophils # Seg Neutrophils # Man Lymphocytes # (Manual) PT INR APTT Sodium 136 L Potassium 2.8 L* Chloride 96.5 L Carbon Dioxide BUN 48 H Creatinine 1.4 H Glucose 417 H POC Glucose 406 H 405 H Phosphorus Magnesium Iron TIBC Transferrin Total Bilirubin Alkaline Phosphatase Ammonia Troponin T C-Reactive Protein Total Protein Albumin Triglycerides LDL Cholesterol Direct HDL Cholesterol Vitamin B12 Crossmatch 12/12/18 12/12/18 12/12/18 07:33 07:33 08:02 WBC RBC Hgb Hct RDW Lymph % (Auto) Lymph # Seg Neutrophils % Seg Neuts % (Manual) Lymphocytes % (Manual) Nucleated RBC % Seg Neutrophils # Seg Neutrophils # Man Lymphocytes # (Manual) PT INR APTT Sodium 135 L Potassium 2.5 L* Chloride Carbon Dioxide BUN 45 H Creatinine Glucose 358 H POC Glucose 286 H Phosphorus Magnesium Iron TIBC Transferrin Total Bilirubin Alkaline Phosphatase Ammonia Troponin T 0.036 H C-Reactive Protein Total Protein Albumin Triglycerides LDL Cholesterol Direct HDL Cholesterol Vitamin B12 Crossmatch 12/12/18 12/12/18 12/12/18 11:45 11:48 14:58 WBC RBC Hgb Hct RDW Lymph % (Auto) Lymph # Seg Neutrophils % Seg Neuts % (Manual) Lymphocytes % (Manual) Nucleated RBC % Seg Neutrophils # Seg Neutrophils # Man Lymphocytes # (Manual) PT 16.8 H INR 1.28 H APTT 40.8 H Sodium Potassium Chloride Carbon Dioxide BUN 45 H Creatinine 1.3 H Glucose 265 H POC Glucose 296 H Phosphorus Magnesium 2.50 H Iron TIBC Transferrin Total Bilirubin Alkaline Phosphatase Ammonia Troponin T C-Reactive Protein Total Protein Albumin Triglycerides LDL Cholesterol Direct HDL Cholesterol Vitamin B12 Crossmatch 12/12/18 12/12/18 12/12/18 15:49 21:11 23:40 WBC RBC Hgb Hct RDW Lymph % (Auto) Lymph # Seg Neutrophils % Seg Neuts % (Manual) Lymphocytes % (Manual) Nucleated RBC % Seg Neutrophils # Seg Neutrophils # Man Lymphocytes # (Manual) PT INR APTT Sodium Potassium Chloride Carbon Dioxide BUN Creatinine Glucose POC Glucose 253 H 236 H 297 H Phosphorus Magnesium Iron TIBC Transferrin Total Bilirubin Alkaline Phosphatase Ammonia Troponin T C-Reactive Protein Total Protein Albumin Triglycerides LDL Cholesterol Direct HDL Cholesterol Vitamin B12 Crossmatch 12/13/18 12/13/18 12/13/18 04:51 07:39 07:39 WBC 17.5 H RBC 3.31 L Hgb 9.8 L Hct RDW 16.8 H Lymph % (Auto) Lymph # Seg Neutrophils % Seg Neuts % (Manual) Lymphocytes % (Manual) Nucleated RBC % Seg Neutrophils # Seg Neutrophils # Man Lymphocytes # (Manual) PT INR APTT Sodium Potassium Chloride Carbon Dioxide 21 L BUN 42 H Creatinine Glucose 229 H POC Glucose 208 H Phosphorus Magnesium Iron TIBC Transferrin Total Bilirubin Alkaline Phosphatase Ammonia Troponin T C-Reactive Protein Total Protein Albumin Triglycerides LDL Cholesterol Direct HDL Cholesterol Vitamin B12 Crossmatch 12/13/18 12/13/18 12/13/18 09:17 13:10 16:23 WBC RBC Hgb Hct RDW Lymph % (Auto) Lymph # Seg Neutrophils % Seg Neuts % (Manual) Lymphocytes % (Manual) Nucleated RBC % Seg Neutrophils # Seg Neutrophils # Man Lymphocytes # (Manual) PT INR APTT Sodium Potassium Chloride Carbon Dioxide BUN Creatinine Glucose POC Glucose 229 H 230 H Phosphorus Magnesium Iron TIBC Transferrin Total Bilirubin Alkaline Phosphatase Ammonia Troponin T C-Reactive Protein 32.70 H Total Protein Albumin Triglycerides LDL Cholesterol Direct HDL Cholesterol Vitamin B12 Crossmatch 12/13/18 12/13/18 12/14/18 17:12 20:43 00:53 WBC RBC Hgb Hct RDW Lymph % (Auto) Lymph # Seg Neutrophils % Seg Neuts % (Manual) Lymphocytes % (Manual) Nucleated RBC % Seg Neutrophils # Seg Neutrophils # Man Lymphocytes # (Manual) PT INR APTT Sodium Potassium Chloride Carbon Dioxide BUN Creatinine Glucose POC Glucose 199 H 225 H 221 H Phosphorus Magnesium Iron TIBC Transferrin Total Bilirubin Alkaline Phosphatase Ammonia Troponin T C-Reactive Protein Total Protein Albumin Triglycerides LDL Cholesterol Direct HDL Cholesterol Vitamin B12 Crossmatch 12/14/18 12/14/18 12/14/18 04:42 04:42 05:32 WBC 14.7 H RBC 2.69 L Hgb 8.1 L Hct 25.0 L RDW 17.1 H Lymph % (Auto) Lymph # Seg Neutrophils % Seg Neuts % (Manual) Lymphocytes % (Manual) Nucleated RBC % Seg Neutrophils # Seg Neutrophils # Man Lymphocytes # (Manual) PT INR APTT Sodium 146 H D Potassium Chloride 111.3 H Carbon Dioxide BUN 47 H Creatinine 1.5 H Glucose 187 H POC Glucose 198 H Phosphorus Magnesium Iron TIBC Transferrin Total Bilirubin Alkaline Phosphatase Ammonia Troponin T C-Reactive Protein Total Protein Albumin Triglycerides LDL Cholesterol Direct HDL Cholesterol Vitamin B12 Crossmatch 12/14/18 12/14/18 12/14/18 08:41 12:04 12:55 WBC RBC Hgb Hct RDW Lymph % (Auto) Lymph # Seg Neutrophils % Seg Neuts % (Manual) Lymphocytes % (Manual) Nucleated RBC % Seg Neutrophils # Seg Neutrophils # Man Lymphocytes # (Manual) PT INR APTT Sodium 149 H Potassium 3.5 L Chloride Carbon Dioxide 20 L BUN 46 H Creatinine 1.3 H Glucose 238 H POC Glucose 225 H 226 H Phosphorus Magnesium Iron TIBC Transferrin Total Bilirubin Alkaline Phosphatase Ammonia Troponin T C-Reactive Protein Total Protein Albumin Triglycerides LDL Cholesterol Direct HDL Cholesterol Vitamin B12 Crossmatch 12/14/18 12/15/18 12/15/18 18:03 01:00 05:19 WBC 12.8 H RBC 2.66 L Hgb 8.0 L Hct 24.8 L RDW 17.3 H Lymph % (Auto) Lymph # Seg Neutrophils % Seg Neuts % (Manual) Lymphocytes % (Manual) Nucleated RBC % Seg Neutrophils # Seg Neutrophils # Man Lymphocytes # (Manual) PT INR APTT Sodium Potassium Chloride Carbon Dioxide BUN Creatinine Glucose POC Glucose 257 H 277 H Phosphorus Magnesium Iron TIBC Transferrin Total Bilirubin Alkaline Phosphatase Ammonia Troponin T C-Reactive Protein Total Protein Albumin Triglycerides LDL Cholesterol Direct HDL Cholesterol Vitamin B12 Crossmatch 12/15/18 12/15/18 12/15/18 05:19 06:04 11:36 WBC RBC Hgb Hct RDW Lymph % (Auto) Lymph # Seg Neutrophils % Seg Neuts % (Manual) Lymphocytes % (Manual) Nucleated RBC % Seg Neutrophils # Seg Neutrophils # Man Lymphocytes # (Manual) PT INR APTT Sodium 146 H Potassium Chloride 113.5 H Carbon Dioxide 21 L BUN 49 H Creatinine 1.3 H Glucose 286 H POC Glucose 315 H 317 H Phosphorus Magnesium Iron TIBC Transferrin Total Bilirubin Alkaline Phosphatase Ammonia Troponin T C-Reactive Protein Total Protein Albumin Triglycerides LDL Cholesterol Direct HDL Cholesterol Vitamin B12 Crossmatch 12/15/18 12/15/18 12/16/18 18:11 21:40 05:11 WBC RBC 2.61 L Hgb 7.9 L Hct 23.7 L RDW 17.3 H Lymph % (Auto) Lymph # Seg Neutrophils % Seg Neuts % (Manual) Lymphocytes % (Manual) Nucleated RBC % Seg Neutrophils # Seg Neutrophils # Man Lymphocytes # (Manual) PT INR APTT Sodium Potassium Chloride Carbon Dioxide BUN Creatinine Glucose POC Glucose 273 H 318 H Phosphorus Magnesium Iron TIBC Transferrin Total Bilirubin Alkaline Phosphatase Ammonia Troponin T C-Reactive Protein Total Protein Albumin Triglycerides LDL Cholesterol Direct HDL Cholesterol Vitamin B12 Crossmatch 12/16/18 12/16/18 12/16/18 05:11 06:21 12:19 WBC RBC Hgb Hct RDW Lymph % (Auto) Lymph # Seg Neutrophils % Seg Neuts % (Manual) Lymphocytes % (Manual) Nucleated RBC % Seg Neutrophils # Seg Neutrophils # Man Lymphocytes # (Manual) PT INR APTT Sodium 150 H Potassium Chloride 117.3 H Carbon Dioxide BUN 52 H Creatinine 1.4 H Glucose 352 H POC Glucose 322 H 371 H Phosphorus Magnesium Iron TIBC Transferrin Total Bilirubin Alkaline Phosphatase Ammonia Troponin T C-Reactive Protein Total Protein Albumin Triglycerides LDL Cholesterol Direct HDL Cholesterol Vitamin B12 Crossmatch 12/16/18 12/16/18 12/17/18 16:58 23:51 05:28 WBC RBC 2.38 L Hgb 7.2 L Hct 21.9 L RDW 17.4 H Lymph % (Auto) Lymph # Seg Neutrophils % Seg Neuts % (Manual) Lymphocytes % (Manual) Nucleated RBC % Seg Neutrophils # Seg Neutrophils # Man Lymphocytes # (Manual) PT INR APTT Sodium Potassium Chloride Carbon Dioxide BUN Creatinine Glucose POC Glucose 323 H 302 H Phosphorus Magnesium Iron TIBC Transferrin Total Bilirubin Alkaline Phosphatase Ammonia Troponin T C-Reactive Protein Total Protein Albumin Triglycerides LDL Cholesterol Direct HDL Cholesterol Vitamin B12 Crossmatch 12/17/18 12/17/18 12/17/18 05:28 06:09 11:47 WBC RBC Hgb Hct RDW Lymph % (Auto) Lymph # Seg Neutrophils % Seg Neuts % (Manual) Lymphocytes % (Manual) Nucleated RBC % Seg Neutrophils # Seg Neutrophils # Man Lymphocytes # (Manual) PT INR APTT Sodium 152 H Potassium Chloride 118.6 H Carbon Dioxide BUN 44 H Creatinine Glucose 291 H POC Glucose 297 H 340 H Phosphorus Magnesium Iron TIBC Transferrin Total Bilirubin Alkaline Phosphatase Ammonia Troponin T C-Reactive Protein Total Protein Albumin Triglycerides LDL Cholesterol Direct HDL Cholesterol Vitamin B12 Crossmatch 12/17/18 12/18/18 12/18/18 18:15 00:14 06:39 WBC RBC Hgb Hct RDW Lymph % (Auto) Lymph # Seg Neutrophils % Seg Neuts % (Manual) Lymphocytes % (Manual) Nucleated RBC % Seg Neutrophils # Seg Neutrophils # Man Lymphocytes # (Manual) PT INR APTT Sodium Potassium Chloride Carbon Dioxide BUN Creatinine Glucose POC Glucose 312 H 355 H 351 H Phosphorus Magnesium Iron TIBC Transferrin Total Bilirubin Alkaline Phosphatase Ammonia Troponin T C-Reactive Protein Total Protein Albumin Triglycerides LDL Cholesterol Direct HDL Cholesterol Vitamin B12 Crossmatch 12/18/18 12/18/18 12/18/18 06:58 06:58 11:28 WBC RBC 2.24 L Hgb 6.9 L Hct 21.2 L RDW 17.9 H Lymph % (Auto) Lymph # Seg Neutrophils % Seg Neuts % (Manual) Lymphocytes % (Manual) Nucleated RBC % Seg Neutrophils # Seg Neutrophils # Man Lymphocytes # (Manual) PT INR APTT Sodium 150 H Potassium Chloride 117.0 H Carbon Dioxide BUN 48 H Creatinine 1.4 H Glucose 362 H POC Glucose 342 H Phosphorus Magnesium Iron TIBC Transferrin Total Bilirubin Alkaline Phosphatase Ammonia Troponin T C-Reactive Protein Total Protein Albumin Triglycerides LDL Cholesterol Direct HDL Cholesterol Vitamin B12 Crossmatch 04/12/18/18 12/18/18 14:06 17:36 22:00 WBC RBC Hgb Hct RDW Lymph % (Auto) Lymph # Seg Neutrophils % Seg Neuts % (Manual) Lymphocytes % (Manual) Nucleated RBC % Seg Neutrophils # Seg Neutrophils # Man Lymphocytes # (Manual) PT INR APTT Sodium Potassium Chloride Carbon Dioxide BUN Creatinine Glucose POC Glucose 330 H Phosphorus Magnesium Iron TIBC Transferrin Total Bilirubin Alkaline Phosphatase Ammonia Troponin T C-Reactive Protein Total Protein Albumin Triglycerides LDL Cholesterol Direct HDL Cholesterol Vitamin B12 > 2000 H Crossmatch See Detail 12/19/18 12/19/18 12/19/18 00:23 04:47 04:47 WBC RBC 2.46 L Hgb 7.5 L Hct 22.9 L RDW 17.6 H Lymph % (Auto) 7.8 L Lymph # 0.7 L Seg Neutrophils % 85.7 H Seg Neuts % (Manual) Lymphocytes % (Manual) Nucleated RBC % Seg Neutrophils # Seg Neutrophils # Man Lymphocytes # (Manual) PT INR APTT Sodium Potassium Chloride 113.2 H Carbon Dioxide BUN 40 H Creatinine Glucose 325 H POC Glucose 291 H Phosphorus Magnesium Iron TIBC Transferrin Total Bilirubin Alkaline Phosphatase Ammonia Troponin T C-Reactive Protein Total Protein Albumin Triglycerides LDL Cholesterol Direct HDL Cholesterol Vitamin B12 Crossmatch 12/19/18 12/19/18 12/19/18 06:34 11:43 17:54 WBC RBC Hgb Hct RDW Lymph % (Auto) Lymph # Seg Neutrophils % Seg Neuts % (Manual) Lymphocytes % (Manual) Nucleated RBC % Seg Neutrophils # Seg Neutrophils # Man Lymphocytes # (Manual) PT INR APTT Sodium Potassium Chloride Carbon Dioxide BUN Creatinine Glucose POC Glucose 308 H 324 H 349 H Phosphorus Magnesium Iron TIBC Transferrin Total Bilirubin Alkaline Phosphatase Ammonia Troponin T C-Reactive Protein Total Protein Albumin Triglycerides LDL Cholesterol Direct HDL Cholesterol Vitamin B12 Crossmatch 12/20/18 12/20/18 12/20/18 00:37 05:58 06:25 WBC RBC Hgb Hct RDW Lymph % (Auto) Lymph # Seg Neutrophils % Seg Neuts % (Manual) Lymphocytes % (Manual) Nucleated RBC % Seg Neutrophils # Seg Neutrophils # Man Lymphocytes # (Manual) PT INR APTT Sodium Potassium Chloride Carbon Dioxide BUN 43 H Creatinine Glucose 394 H POC Glucose 362 H 357 H Phosphorus Magnesium Iron TIBC Transferrin Total Bilirubin Alkaline Phosphatase Ammonia Troponin T C-Reactive Protein Total Protein Albumin Triglycerides LDL Cholesterol Direct HDL Cholesterol Vitamin B12 Crossmatch 12/20/18 12/20/18 12/20/18 11:34 17:44 22:31 WBC RBC Hgb Hct RDW Lymph % (Auto) Lymph # Seg Neutrophils % Seg Neuts % (Manual) Lymphocytes % (Manual) Nucleated RBC % Seg Neutrophils # Seg Neutrophils # Man Lymphocytes # (Manual) PT INR APTT Sodium Potassium Chloride Carbon Dioxide BUN Creatinine Glucose POC Glucose 360 H 347 H 433 H Phosphorus Magnesium Iron TIBC Transferrin Total Bilirubin Alkaline Phosphatase Ammonia Troponin T C-Reactive Protein Total Protein Albumin Triglycerides LDL Cholesterol Direct HDL Cholesterol Vitamin B12 Crossmatch 12/20/18 12/21/18 12/21/18 23:56 05:10 05:10 WBC RBC 2.47 L Hgb 7.5 L Hct 22.9 L RDW 17.0 H Lymph % (Auto) 5.1 L Lymph # 0.5 L Seg Neutrophils % 88.9 H Seg Neuts % (Manual) Lymphocytes % (Manual) Nucleated RBC % Seg Neutrophils # 8.9 H Seg Neutrophils # Man Lymphocytes # (Manual) PT INR APTT Sodium 136 L Potassium Chloride Carbon Dioxide BUN 38 H Creatinine Glucose 388 H POC Glucose 397 H Phosphorus Magnesium Iron TIBC Transferrin Total Bilirubin Alkaline Phosphatase Ammonia Troponin T C-Reactive Protein Total Protein Albumin Triglycerides LDL Cholesterol Direct HDL Cholesterol Vitamin B12 Crossmatch 12/21/18 12/21/18 12/21/18 05:50 11:46 18:12 WBC RBC Hgb Hct RDW Lymph % (Auto) Lymph # Seg Neutrophils % Seg Neuts % (Manual) Lymphocytes % (Manual) Nucleated RBC % Seg Neutrophils # Seg Neutrophils # Man Lymphocytes # (Manual) PT INR APTT Sodium Potassium Chloride Carbon Dioxide BUN Creatinine Glucose POC Glucose 324 H 359 H 351 H Phosphorus Magnesium Iron TIBC Transferrin Total Bilirubin Alkaline Phosphatase Ammonia Troponin T C-Reactive Protein Total Protein Albumin Triglycerides LDL Cholesterol Direct HDL Cholesterol Vitamin B12 Crossmatch 12/21/18 12/22/18 12/22/18 22:37 06:57 07:00 WBC RBC Hgb Hct RDW Lymph % (Auto) Lymph # Seg Neutrophils % Seg Neuts % (Manual) Lymphocytes % (Manual) Nucleated RBC % Seg Neutrophils # Seg Neutrophils # Man Lymphocytes # (Manual) PT INR APTT Sodium 136 L Potassium Chloride Carbon Dioxide BUN 39 H Creatinine Glucose 275 H POC Glucose 287 H 275 H Phosphorus Magnesium Iron TIBC Transferrin Total Bilirubin Alkaline Phosphatase Ammonia Troponin T C-Reactive Protein Total Protein Albumin Triglycerides LDL Cholesterol Direct HDL Cholesterol Vitamin B12 Crossmatch 12/22/18 12/22/18 12/22/18 11:27 16:43 23:11 WBC RBC Hgb Hct RDW Lymph % (Auto) Lymph # Seg Neutrophils % Seg Neuts % (Manual) Lymphocytes % (Manual) Nucleated RBC % Seg Neutrophils # Seg Neutrophils # Man Lymphocytes # (Manual) PT INR APTT Sodium Potassium Chloride Carbon Dioxide BUN Creatinine Glucose POC Glucose 221 H 169 H 115 H Phosphorus Magnesium Iron TIBC Transferrin Total Bilirubin Alkaline Phosphatase Ammonia Troponin T C-Reactive Protein Total Protein Albumin Triglycerides LDL Cholesterol Direct HDL Cholesterol Vitamin B12 Crossmatch 12/23/18 12/23/18 12/23/18 06:19 11:50 14:22 WBC RBC Hgb Hct RDW Lymph % (Auto) Lymph # Seg Neutrophils % Seg Neuts % (Manual) Lymphocytes % (Manual) Nucleated RBC % Seg Neutrophils # Seg Neutrophils # Man Lymphocytes # (Manual) PT INR APTT Sodium Potassium Chloride Carbon Dioxide BUN Creatinine Glucose POC Glucose 169 H 187 H Phosphorus Magnesium Iron TIBC Transferrin Total Bilirubin Alkaline Phosphatase Ammonia Troponin T C-Reactive Protein Total Protein Albumin Triglycerides LDL Cholesterol Direct HDL Cholesterol Vitamin B12 Crossmatch See Detail 12/23/18 12/23/18 12/23/18 18:30 21:26 23:17 WBC RBC Hgb 7.9 L Hct 23.6 L RDW Lymph % (Auto) Lymph # Seg Neutrophils % Seg Neuts % (Manual) Lymphocytes % (Manual) Nucleated RBC % Seg Neutrophils # Seg Neutrophils # Man Lymphocytes # (Manual) PT INR APTT Sodium Potassium Chloride Carbon Dioxide BUN Creatinine Glucose POC Glucose 124 H 156 H Phosphorus Magnesium Iron TIBC Transferrin Total Bilirubin Alkaline Phosphatase Ammonia Troponin T C-Reactive Protein Total Protein Albumin Triglycerides LDL Cholesterol Direct HDL Cholesterol Vitamin B12 Crossmatch 12/23/18 12/23/18 12/24/18 Unknown Unknown 00:20 WBC RBC 2.29 L Hgb 7.0 L Hct 21.2 L RDW 17.6 H Lymph % (Auto) 7.9 L Lymph # 0.6 L Seg Neutrophils % 83.9 H Seg Neuts % (Manual) Lymphocytes % (Manual) Nucleated RBC % Seg Neutrophils # Seg Neutrophils # Man Lymphocytes # (Manual) PT INR APTT Sodium 134 L Potassium Chloride Carbon Dioxide BUN 37 H Creatinine Glucose 161 H POC Glucose 168 H Phosphorus Magnesium Iron TIBC Transferrin Total Bilirubin Alkaline Phosphatase Ammonia Troponin T C-Reactive Protein Total Protein Albumin Triglycerides LDL Cholesterol Direct HDL Cholesterol Vitamin B12 Crossmatch 12/24/18 12/24/18 12/24/18 02:48 02:48 05:35 WBC RBC Hgb Hct RDW Lymph % (Auto) Lymph # Seg Neutrophils % Seg Neuts % (Manual) Lymphocytes % (Manual) Nucleated RBC % Seg Neutrophils # Seg Neutrophils # Man Lymphocytes # (Manual) PT INR APTT Sodium 134 L Potassium Chloride Carbon Dioxide BUN 32 H Creatinine 0.6 L Glucose 150 H POC Glucose 136 H Phosphorus Magnesium Iron 23 L TIBC 113 L Transferrin 108 L Total Bilirubin Alkaline Phosphatase Ammonia Troponin T C-Reactive Protein Total Protein Albumin Triglycerides LDL Cholesterol Direct HDL Cholesterol Vitamin B12 > 2000 H Crossmatch 12/24/18 12/24/18 12/25/18 11:25 16:48 00:50 WBC RBC Hgb Hct RDW Lymph % (Auto) Lymph # Seg Neutrophils % Seg Neuts % (Manual) Lymphocytes % (Manual) Nucleated RBC % Seg Neutrophils # Seg Neutrophils # Man Lymphocytes # (Manual) PT INR APTT Sodium Potassium Chloride Carbon Dioxide BUN Creatinine Glucose POC Glucose 126 H 145 H 121 H Phosphorus Magnesium Iron TIBC Transferrin Total Bilirubin Alkaline Phosphatase Ammonia Troponin T C-Reactive Protein Total Protein Albumin Triglycerides LDL Cholesterol Direct HDL Cholesterol Vitamin B12 Crossmatch 12/25/18 12/25/18 12/25/18 04:00 06:20 07:01 WBC RBC Hgb Hct RDW Lymph % (Auto) Lymph # Seg Neutrophils % Seg Neuts % (Manual) Lymphocytes % (Manual) Nucleated RBC % Seg Neutrophils # Seg Neutrophils # Man Lymphocytes # (Manual) PT INR APTT Sodium 134 L Potassium Chloride Carbon Dioxide BUN 26 H Creatinine 0.6 L Glucose POC Glucose 57 L 52 L Phosphorus Magnesium Iron TIBC Transferrin Total Bilirubin Alkaline Phosphatase Ammonia Troponin T C-Reactive Protein Total Protein Albumin Triglycerides LDL Cholesterol Direct HDL Cholesterol Vitamin B12 Crossmatch 12/25/18 12/25/18 12/25/18 07:59 09:54 11:29 WBC RBC 2.57 L Hgb 7.8 L Hct 23.8 L RDW 17.3 H Lymph % (Auto) Lymph # Seg Neutrophils % Seg Neuts % (Manual) 84.0 H Lymphocytes % (Manual) 7.0 L Nucleated RBC % Seg Neutrophils # Seg Neutrophils # Man Lymphocytes # (Manual) 0.6 L PT INR APTT Sodium Potassium Chloride Carbon Dioxide BUN Creatinine Glucose POC Glucose 136 H 120 H Phosphorus Magnesium Iron TIBC Transferrin Total Bilirubin Alkaline Phosphatase Ammonia Troponin T C-Reactive Protein Total Protein Albumin Triglycerides LDL Cholesterol Direct HDL Cholesterol Vitamin B12 Crossmatch 12/25/18 12/26/18 12/26/18 21:36 05:28 05:28 WBC RBC 2.47 L Hgb 7.6 L Hct 23.0 L RDW 17.1 H Lymph % (Auto) Lymph # Seg Neutrophils % Seg Neuts % (Manual) Lymphocytes % (Manual) Nucleated RBC % Seg Neutrophils # Seg Neutrophils # Man Lymphocytes # (Manual) PT INR APTT Sodium Potassium Chloride Carbon Dioxide BUN 22 H Creatinine 0.5 L Glucose POC Glucose 121 H Phosphorus Magnesium Iron TIBC Transferrin Total Bilirubin Alkaline Phosphatase Ammonia Troponin T C-Reactive Protein Total Protein Albumin Triglycerides LDL Cholesterol Direct HDL Cholesterol Vitamin B12 Crossmatch
[2018-12-26 13:47] LABS: Band Neutrophils # (Manual) 0.2 K/mm3; Eosinophils % (Manual) 0 % (0.0-4.3); Hypochromasia 1+; Large Platelets Few; Platelet Estimate Consistent w Auto; Total Cells Counted 100
--- NOTE | 2018-12-27 05:55 | Consultation ---
ROOM NUMBER: [id number]. HISTORY OF PRESENT ILLNESS: This 73-year-old black female who is seen for discharge planning documentation. This patient was initially admitted on the and has been hospitalized here for approximately 16 days. She presented with a history of multiple falls, being unable to ambulate when she presented to the Emergency Room. Initial presentation was that of severe metabolic encephalopathy, renal failure, sepsis, pneumonia, and diabetic ketoacidosis. In the interval, the patient was seen by me initially for encephalopathy, comatose state, and had CT scan of the brain and MRI, which showed scattered white matter changes indicative of small lacunar infarcts, bilateral hemispheres. Subsequently, the patient's infection problem came under control. She regained consciousness after her metabolic encephalopathy cleared and she became responsive and able to speak and talk. At the point of which she regained consciousness, she began to speak and described loss of sensation in her hands and legs. I had a conference with her , it seemed that the patient has been wheelchair bound for several weeks to months. She has not seen a doctor for this. She was not prescribed a wheelchair. This was the wheelchair that was left over from use of another family member. She had been unable to walk, had frequent falls and loss of coordination in use of her legs and arms. From time of admission in speaking with the nurses, there has been no appreciable change in the patient's movement. The Emergency Room note, which was gone over extensively by me, did not document well her ambulatory status because of course she had fallen and basically very poorly responsive, unable to provide much of a history and not ambulatory at the time of admission. Since admission, she was critically ill as a result of infection, sepsis, and renal failure as well as other metabolic factors. Seeing her now, her chief complaint at the present time of discharge is she has continued reduction in use of her legs and arms. I found it very difficult to evaluate. On examination, she does have intact movement of her left arm and left hand, but is very weak. I do not detect any movement of her legs. I do not remember on any of my evaluations that she had leg movement either. We cannot check for sensory examination. She is very inconsistent on this evaluation. At times, she complains of sensation loss in her lower abdomen, but at times also states she cannot feel her face well. I would not place much evaluation objectivity on sensory examination looking for a level. What is clear is that she has minimal if any use of her right arm, but she has had infection in the right shoulder ongoing over her CT scan of the right AC joint and there was obviously a soft tissue inflammation and infection in the right shoulder, which was treated with antibiotic therapy. Overall, I might state that I do not find she has intact reflexes, but given her age and her diabetic status, that is not indicative of any segmental level. I did go over her CT scan of the neck with Dr. Cline. I wanted to review over the bone changes in the neck, the C1-C2 junction and as far down on the CT of the spine as the CT allow, which is at approximately the level of T5. Chest x-ray was negative for showing any skeletal lesions and the CTA of the neck shows only scattered degenerative changes at each level, which none of these are anatomically pathological. There is no intraspinal abnormality. The patient did have some movement artifact present on her prior MRI scan, but I do not see any MRI lesions in the upper cervical cord at the level of C2 and cephalad and I do not see any lesions in the brainstem, which will account for her mixed pattern of weakness. Overall my concept is that this patient is very complicated. The right arm features alone could be related to the infection of the shoulder, infection of soft tissue and thoracic outlet area and I do not think that is a central cord problem. The weakness in the left arm could be accounted for by general medical illness, diabetes, infection, renal failure. I do not have a good explanation for her leg weakness, but this was present on admission. I do not see that given her overall condition, age, and other factors, she is not a candidate for any surgery that was present on admission. I do not see the necessity to workup at the present time. She can be discharged to a rehab center if she persisted having loss of leg strength. I would think that she could have an MRI scan of the lumbar spine that might be a reasonable option. At this point pending discharge, I do not want to hold up her discharge for that test. Assuming that she was not walking before admission and given her age and other metabolic factors, she is not a surgical candidate. She is neurologically stable for discharge in my opinion. At this point on reevaluation and very complete and thorough evaluation of all neuroimaging studies, I do not think we are dealing with any surgical issue and that is not the clinical correlation that I would make at this point. JOB# [id number] ERICK/MAURY
== END 2018-12-26 13:50 | DRG 871 ==
LOC: ED 19:36 → CC1 12-12 00:03 → 2B-ACE 12-14 15:59
PROVIDERS: ADMIT Internal Medicine; ATTEND Internal Medicine
PROC: 4A033R1 Measurement of Arterial Saturation, Peripheral, Percutaneous Approach (ICD-10-PCS; 2018-12-11)
PROC: 009U3ZX Drainage of Spinal Canal, Percutaneous Approach, Diagnostic (ICD-10-PCS; 2018-12-13)
PROC: 30233N1 Transfusion of Nonautologous Red Blood Cells into Peripheral Vein, Percutaneous Approach (ICD-10-PCS; principal; 2018-12-18)
PROC: 02HV33Z Insertion of Infusion Device into Superior Vena Cava, Percutaneous Approach (ICD-10-PCS; 2018-12-18)
DX: A40.1 Sepsis due to streptococcus, group B (principal); G93.41 Metabolic encephalopathy; E11.00 Type 2 diabetes mellitus with hyperosmolarity without nonketotic hyperglycemic-hyperosmolar coma (NKHHC); N17.0 Acute kidney failure with tubular necrosis; E44.0 Moderate protein-calorie malnutrition; E87.0 Hyperosmolality and hypernatremia; Z68.43 Body mass index [BMI] 50.0-59.9, adult; M86.111 Other acute osteomyelitis, right shoulder; G95.89 Other specified diseases of spinal cord; E87.6 Hypokalemia; E11.22 Type 2 diabetes mellitus with diabetic chronic kidney disease; E11.69 Type 2 diabetes mellitus with other specified complication; N18.3 Chronic kidney disease, stage 3 (moderate); I48.91 Unspecified atrial fibrillation; M19.90 Unspecified osteoarthritis, unspecified site; J45.909 Unspecified asthma, uncomplicated; E86.0 Dehydration; S43.429A Sprain of unspecified rotator cuff capsule, initial encounter; I12.9 Hypertensive chronic kidney disease with stage 1 through stage 4 chronic kidney disease, or unspecified chronic kidney disease; F32.9 Major depressive disorder, single episode, unspecified; K21.9 Gastro-esophageal reflux disease without esophagitis; E83.42 Hypomagnesemia; D64.9 Anemia, unspecified; E66.01 Morbid (severe) obesity due to excess calories; G31.9 Degenerative disease of nervous system, unspecified; F39 Unspecified mood [affective] disorder; W18.30XA Fall on same level, unspecified, initial encounter; Y93.89 Activity, other specified; Y92.89 Other specified places as the place of occurrence of the external cause; Y99.8 Other external cause status; Z99.3 Dependence on wheelchair; Z79.84 Long term (current) use of oral hypoglycemic drugs
CPT/HCPCS: 36415; 70450; 70490; 70551; 71045; 71250; 74018; 76604; 78806; 80048; 80053; 80061; 80202; 80307; 80320; 81001; 82140; 82550; 82553; 82607; 82747; 82803; 82962; 83550; 83735; 83930; 84100; 84436; 84443; 84484; 84550; 85007; 85014; 85018; 85025; 85027; 85610; 85730; 86140; 86850; 86900; 86901; 86920; 87040; 87116; 93005; 93010; 93306; 93970; 94760; 95819; 96361; 96374; 96375; G0378; A9547; G0480; J0690; J0696; J1630; J1644; J1815; J1940; J1956; J2060; J2250; J2270; J2405; J3370; J3475; J3480; J7030; J7040; J7050; P9016